=== PATIENT | male | born 1940 | race Caucasian/White ===

== ENCOUNTER → 2017-07-08 10:29 | Outpatient (CLI) | payer OTHER, SELFPAY ==
--- NOTE | 2017-07-08 10:34 | HPBD_ITS ---
STUDY: DUAL ENERGY X-RAY ABSORPTIOMETRY / DXA REASON FOR EXAM: Male, 77 years old. History of prednisone use. Loss of height. TECHNIQUE: Bone Mineral Density (BMD) measurements of lumbar spine and bilateral hips were obtained. COMPARISON: None. FINDINGS: Lumbar Spine (L1-L4): g/cm2 (1.460) / T-score (1.8) / Z-score (2.4) Findings are suggestive of normal bone density with a low fracture risk. Left Femur Total: g/cm2 (0.799) / T-score (-2.1) / Z-score (-1.2) Left Femoral Neck: g/cm2 (0.731) / T-score (-2.6) / Z-score (-1.2) Right Femur Total: g/cm2 (0.892) / T-score (-1.5) / Z-score (-0.6) Right Femoral Neck: g/cm2 (0.744) / T-score (-2.5) / Z-score (-1.1) HPBD/Dexa Bone Density Study (HP) IMPRESSION: The patient is considered osteoporotic as outlined below according to World [place] Organization (WHO) criteria with a high fracture risk. Reference Information: The T-score is the number of standard deviations above or below the standard which is normal for young adults at their peak bone mineral density. The World Health Organization (WHO) interprets the T-scores as follows: Above -1 Normal bone density Between -1 and -2.5 Osteopenia Equal to / or below -2.5 Osteoporosis As a practical clinical guideline, osteopenia may be graded as follows: Mild -1 through -1.5 Moderate -1.6 through -2.0 Severe -2.1 through -2.4 The Z-score is the number of standard deviations above or below age-matched controls. A Z-score of less than -1.5 would be considered abnormal. References: 1. NIH Osteoporosis and Related Bone Diseases http://www.osteo.org 2. International Society for Clinical Densitometry http://www.iscd.org 3. National Osteoporosis Foundation http://www.nof.org Electronically Signed: Demetri Green MD at 11:20 EDT Tel [phone], Service support ,
== END ==
PROVIDERS: Family Provider Internal Medicine; PCP Internal Medicine; Visit Provider Internal Medicine
DX: M81.0 Age-related osteoporosis without current pathological fracture (principal)
CPT/HCPCS: 77080

== ENCOUNTER → 2017-08-05 15:58 | Outpatient (CLI) | payer OTHER, SELFPAY | PROVIDERS: Family Provider Internal Medicine; PCP Internal Medicine; Visit Provider Dermatology | DX: N48.1 Balanitis (principal) | CPT/HCPCS: 87070; 87077; 87186; 87205 ==

== ENCOUNTER → 2018-05-12 12:50 | Outpatient (CLI) | payer OTHER, SELFPAY ==
--- NOTE | 2018-05-12 13:01 | CDU_ITS ---
Reason For Study: carotid stenosis Rt. Velocities/BP Lt. Velocities/BP Prox CCA 82.1/15.8 cm/sec. Prox CCA 95.0/15.8 cm/sec. Mid CCA 85.6/22.3 cm/sec. Mid CCA 81.5/15.8 cm/sec. Dist CCA 87.9/21.1 cm/sec. Dist CCA 62.1/16.4 cm/sec. Prox ICA 52.2/17.0 cm/sec. Prox ICA 56.9/16.4 cm/sec. Mid ICA 85.0/25.8 cm/sec. Mid ICA 55.7/21.7 cm/sec. Dist ICA 84.6/28.5 cm/sec. Dist ICA 81.6/28.7 cm/sec. Rt. ICA/CCA = 1.0. Lt. ICA/CCA = 1.0. Prox ECA 82.7/16.4 cm/sec. Prox ECA 56.9/9.38 cm/sec. Rt. Vert. 38.9/12.2 cm/sec. Lt. Vert. 44.6/14.7 cm/sec. Right Extracranial There is heterogeneous, irregular atherosclerotic plaque noted in the right common carotid artery. There is heterogeneous, irregular atherosclerotic plaque noted in the right internal carotid artery. There is intimal thickening but no significant atherosclerotic plaque noted in the right external carotid artery. Antegrade flow is noted in the right vertebral artery. Left Extracranial There is intimal thickening but no significant atherosclerotic plaque noted in the left common carotid artery. There is intimal thickening but no significant atherosclerotic plaque noted in the left internal carotid artery. There is intimal thickening but no significant atherosclerotic plaque noted in the left external carotid artery. Antegrade flow is noted in the left vertebral artery. Procedure Carotid Duplex [id number]. The exam was diagnostic. Exam performed in department. Interpretation Summary Mild (<50%) stenosis right extracranial internal carotid. No significant atherosclerotic plaque or stenosis noted in the left internal carotid artery. Flow within the vertebral arteries is antegrade bilaterally. Ordering Physician: Daphney Dunn Performed By: Seth Freeman RVT
== END ==
PROVIDERS: Family Provider Internal Medicine; PCP Internal Medicine; Referring Provider Internal Medicine; Visit Provider Internal Medicine
DX: I65.29 Occlusion and stenosis of unspecified carotid artery (principal)
CPT/HCPCS: 93880

== ENCOUNTER → 2018-08-26 | Outpatient (CLI) | payer OTHER, SELFPAY ==
--- NOTE | 2018-08-26 10:28 | STRESSREP_ITS ---
Stress Test Report Date: August 26, 2018 Procedure: Exercise tolerance test/imaging study Indications: Chest pain Consent: Per the patient Procedure: The patient exercised on a Micheal protocol for 4 minutes and 15 seconds achieving a peak heart rate of 144 bpm (100 % predicted maximal heart rate) with a peak blood pressure 200/80 mmHg and a peak MET capacity of 6.1 METs. The baseline ECG demonstrated normal sinus rhythm, frequent PVCs. The peak exercise ECG demonstrated sinus tachycardia, multifocal PACs. EKG during recovery revealed sinus tachycardia, multifocal PACs with return of EKG changes to baseline The functional capacity was considered average for age. There was [no complaint of chest discomfort during exercise or recovery]. The examination was discontinued secondary to dyspnea, leg discomfort. Impression: 1. Technically adequate (percent predicted maximal heart rate greater than 85%) exercise tolerance test 2. Stress test is negative for exercise-induced EKG changes of ischemia 3. The test test negative for exercise-induced chest pain 4. Functional capacity is average for age 5. Nuclear images pending Myocardial perfusion imaging study: Technique: The patient was injected with 14.3 mCi of technetium 99m Cardiolite and subsequently rest SPECT Cardiolite nuclear imaging was obtained in the horizon florencio long, vertical long, and short axis views. The patient exercised on a Micheal protocol for 4 minutes and 15 seconds achieving a peak heart rate of 144 bpm (100 % predicted maximal heart rate) with a peak blood pressure 200/80 mmHg and a peak MET capacity of 6.1 METs. The patient was injected with 43.8 mCi of technetium 99m Cardiolite and subsequently stress SPECT Cardiolite nuclear imaging was obtained in the horizontal long, vertical long, and short axis views. A gated Cardiolite study at peak stress was obtained. Interpretation: Rest and stress SPECT Cardiolite nuclear imaging status post realignment, normalization, and attenuation correction, demonstrates mild decrease in the radioisotope uptake in the apex on both the rest and stress images that persists after attenuation correction. The gated Cardiolite study demonstrates mild apical hypokinesis. These findings could represent prior apical infarction or apical thinning, a normal variant. The reported LVEF is 57 %. Impression: 1. There is no evidence of significant ischemia. 2. The gated Cardiolite study reports an LVEF of 57 %. 3. Mild apical hypokinesis. 4. Possible old apical myocardial infarction. This note was generated with Dragon dictation software. It may contain incorrect words, spelling, and punctuation that were not noted in checking the note before signing.
== END | disposition home or self-care (01) ==
PROVIDERS: Family Provider Internal Medicine; PCP Internal Medicine; Referring Provider Internal Medicine; Visit Provider Internal Medicine
DX: R07.9 Chest pain, unspecified (principal)
CPT/HCPCS: 78452; 93017; A9500; A4216

== ENCOUNTER → 2018-09-07 | Outpatient (CLI) | payer SELFPAY ==
--- NOTE | 2018-09-07 14:31 | CT_ITS ---
STUDY: CARDIAC CALCIUM SCORING - CT CHEST REASON FOR EXAM: Male, 78 years old. Hyperlipidemia RADIATION DOSAGE (If Supplied By Facility): CTDIvol = ( 12.19 ) mGy, DLP = ( 243.79 ) mGycm TECHNIQUE: Axial non-enhanced images were acquired through the heart for the sole purpose of measuring coronary artery calcium. Individualized dose optimization techniques were used for this CT. COMPARISON: None. FINDINGS: Visualized surrounding anatomy: Normal. Left Main Coronary Artery: 0 Left Anterior Descending Artery: 0 Left Circumflex Artery: 104 Right Coronary Artery: 41.3 Incidental findings include small spiculated nodular opacity in left lower lobe measuring approximately 1 cm in size. This may represent scarring although neoplasm is not entirely excluded.. 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 Total Calcium Score: 145 CT/CCTA Calcium Scoring IMPRESSION: A Calcium Score of 145 places the patient in the approximate ,<25 percentile, based on the [place] data calculator. Cannot exclude spiculated nodule versus parenchymal scarring in left lower lobe. Recommend clinical correlation and follow-up study Please go to: [email or web address] , for a description of the calculator. Electronically Signed: Bernabe Guadarrama MD at 16:20 EDT , Service support ,
--- NOTE | 2018-09-07 14:31 | CT_ITS ---
STUDY: CARDIAC CALCIUM SCORING - CT CHEST REASON FOR EXAM: Male, 78 years old. Hyperlipidemia RADIATION DOSAGE (If Supplied By Facility): CTDIvol = ( 12.19 ) mGy, DLP = ( 243.79 ) mGycm TECHNIQUE: Axial non-enhanced images were acquired through the heart for the sole purpose of measuring coronary artery calcium. Individualized dose optimization techniques were used for this CT. COMPARISON: None. FINDINGS: Visualized surrounding anatomy: Normal. Left Main Coronary Artery: 0 Left Anterior Descending Artery: 0 Left Circumflex Artery: 104 Right Coronary Artery: 41.3 Incidental findings include small spiculated nodular opacity in left lower lobe measuring approximately 1 cm in size. This may represent scarring although neoplasm is not entirely excluded.. 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 Total Calcium Score: 145 CT/Limited Chest CT w/CCTA IMPRESSION: A Calcium Score of 145 places the patient in the approximate ,<25 percentile, based on the [place] data calculator. Cannot exclude spiculated nodule versus parenchymal scarring in left lower lobe. Recommend clinical correlation and follow-up study Please go to: [email or web address] , for a description of the calculator. Electronically Signed: Bernabe Guadarrama MD at 16:20 EDT , Service support ,
[2018-09-07 14:46] VITALS: BP 177/75; PULSE 66; RESP 16; O2SAT 95
--- NOTE | 2018-09-07 19:13 | CA.SCORE ---
Calcium Scoring Date of Study:: 09/07/18 Coronary Calcium Scoring: High-resolution Computed Tomographic imaging of the chest was performed on 09-07-18, with particular attention paid to the coronary arteries. Images from the examination were analyzed for the presence and extent of coronary artery calcification , using coronary calcium quantification software. The patient tolerated the procedure well and there were no complications. The results of the coronary calcification analysis are provided below. - Findings Left Main (LM): 0 Left Anterior Descending (LAD): 0 Left Circumflex (LCX): 104 Right Coronary Artery (RCA): 41.3 Total Agatston Score: 145.3 - Conclusion Calcium Scoring Interpretation: Calcium Score Interpretation 0 No identifiable atherosclerotic plaque. Very low cardiovascular disease risk. <5% chance of presence coronary artery disease A Negative Examination 1-10 Minimal Plaque burden. Significant coronary artery disease very unlikely. 11-100 Mild plaque burden. Likely mild or minimal coronary atherosclerosis. 101-400 Moderate plaque burden Moderate non-obstructive coronary artery disease highly likely. Over 400 Extensive plaque burden. High likelihood of at least one significant coronary stenosis (>50% diameter) Calcium Score: 101 - 400 Moderate non-obstructive coronary artery disease highly like - 1. Percentile ranking: Less than 25%: Indicative of less than 25% of the same gender/similar age had the same or lower scores.2. Continue cardiovascular risk factor evaluation and care as deemed appropriate.
== END | disposition home or self-care (01) ==
LOC: CT 14:28
PROVIDERS: Family Provider Internal Medicine; PCP Internal Medicine; Referring Provider Internal Medicine; Visit Provider Internal Medicine
DX: E78.5 Hyperlipidemia, unspecified (principal)
CPT/HCPCS: 75571; 76380

== ENCOUNTER → 2018-12-08 | Outpatient (CLI) | payer OTHER, SELFPAY ==
--- NOTE | 2018-12-08 12:38 | CT_ITS ---
STUDY: CT CHEST WITHOUT CONTRAST REASON FOR EXAM: Male, 78 years old. Lung nodule RADIATION DOSAGE (If Supplied By Facility): DLP = ( 578.18 ) mGycm TECHNIQUE: Transaxial imaging was performed without the administration of intravenous contrast material. Coronal and sagittal reformatted images were created. Individualized dose optimization techniques were used for this CT. COMPARISON: Calcium scoring CT September 07, 2018 FINDINGS: There are no pulmonary infiltrates or pleural effusions. Previously described left lung base nodule measuring 9 mm is unchanged and likely represents scarring. There is a cluster of nodules spanning 2.1 cm in the left lower lobe, new from prior. Mild emphysema is present. There is no pneumothorax. The heart and pericardium are within normal limits. There is no thoracic lymphadenopathy. There is no evidence of thoracic aortic aneurysm. Images through the upper abdomen demonstrate no significant abnormality. There are no destructive osseous lesions. CT/Chest without Contrast IMPRESSION: Stable appearance of previously described left lung base nodule measuring 9 mm, likely representing scarring. 1 year follow-up is suggested. Cluster of nodules spanning 2.1 cm in the left lower lobe, new from prior, likely representing infectious or inflammatory process. Correlate clinically. Mild emphysema. Electronically Signed: Bernabe Fall, at 20:26 EDT Tel , Service support ,
== END | disposition home or self-care (01) ==
LOC: CT 12:37
PROVIDERS: Family Provider Internal Medicine; PCP Internal Medicine; Referring Provider Internal Medicine; Visit Provider Internal Medicine
DX: R91.1 Solitary pulmonary nodule (principal)
CPT/HCPCS: 71250

== ENCOUNTER → 2018-12-22 09:10 | Outpatient (CLI) | payer OTHER, SELFPAY ==
[2018-12-22 10:30] LABS: Protein, Urine (Random) 129.5 mg/dL (<11.9); Protein:Creat Ratio 981 mg/g CRE (0-200)
[2018-12-24 14:16] LABS: Anti-dsDNA Ab 1 IU/mL (0-9)
[2018-12-26 12:08] LABS: Cytoplasmic Ab (C-ANCA) <1:20 titer (Neg:<1:20)
[2019-01-03 11:11] LABS: Complement C3 118 mg/dL (82-167); Perinuclear Ab (P-ANCA) <1:20 titer (Neg:<1:20)
== END ==
PROVIDERS: Family Provider Internal Medicine; PCP Internal Medicine; Referring Provider Internal Medicine Nephrology; Visit Provider Internal Medicine Nephrology
DX: R80.9 Proteinuria, unspecified (principal)
CPT/HCPCS: 36415; 82570; 84156; 86160; 86225; 86256

== ENCOUNTER → 2019-02-09 13:22 | Outpatient (CLI) | payer OTHER, SELFPAY ==
[2019-02-09 14:36] LABS: Erythrocyte Sedimentation Rate 12 mm/hr (0-20)
[2019-02-09 14:55] LABS: CRP 5.28 mg/L (0.0-3.0)
[2019-02-12 03:08] LABS: QNTFERON TB Mitogen Value > 10.00 IU/mL (.); QNTFERON TB Nil Value 0.45 IU/mL (.); QNTFERON TB1+ Ag Value 0.31 IU/mL (.); QNTFERON TB2+ Ag Value 0.35 IU/mL (.)
[2019-02-13 10:37] LABS: QNTIFERON TB Positive Criteria Negative (Negative)
== END ==
PROVIDERS: Family Provider Internal Medicine; PCP Internal Medicine; Referring Provider Internal Medicine Pulmonary Disease; Visit Provider Internal Medicine Pulmonary Disease
DX: R91.8 Other nonspecific abnormal finding of lung field (principal); M25.50 Pain in unspecified joint
CPT/HCPCS: 36415; 85652; 86140; 86480

== ENCOUNTER → 2019-04-20 10:46 | Outpatient (CLI) | payer OTHER, SELFPAY ==
--- NOTE | 2019-04-20 10:49 | RAD_ITS ---
STUDY: X-RAY - UNILATERAL RIBS ( RIGHT ) WITH CHEST REASON FOR EXAM: Male, 78 years old. RIGHT LOWER RIB PAIN AFTER FALL TECHNIQUE - RIBS: 4 view(s) of the ribs. TECHNIQUE - CHEST: Single PA view of the chest. COMPARISON: 06/04/2013. FINDINGS: Mild cardiomegaly. Pulmonary vascularity unremarkable. Aorta slightly ectatic. No focal patchy airspace opacities. Small right pleural effusion. Bibasilar atelectasis/scarring. Upper abdomen unremarkable. Acute mildly displaced right rib fractures involving the eighth and ninth ribs. No pneumothorax. RAD/Ribs Uni Min 3V w/PA Chest IMPRESSION: Acute mildly displaced right rib fractures without pneumothorax Small right pleural effusion No focal patchy airspace opacities Bibasilar atelectasis/scarring Cardiomegaly Electronically Signed: Krish Bryant DO at 11:51 EST Tel , Service support ,
== END ==
PROVIDERS: Family Provider Internal Medicine; PCP Internal Medicine; Referring Provider Internal Medicine; Visit Provider Internal Medicine
DX: R10.9 Unspecified abdominal pain (principal)
CPT/HCPCS: 71101

== ENCOUNTER → 2019-06-15 08:22 | Outpatient (CLI) | payer OTHER, SELFPAY ==
--- NOTE | 2019-06-15 08:29 | CT_ITS ---
STUDY: CT CHEST WITHOUT CONTRAST REASON FOR EXAM: Male, 78 years old. LUNG NODULE, RT RIB FX RADIATION DOSAGE (If Supplied By Facility): CTDIvol = ( 15.70 ) mGy, DLP = ( 616.11 ) mGycm TECHNIQUE: Transaxial imaging was performed without the administration of intravenous contrast material. Individualized dose optimization techniques were used for this CT. COMPARISON: 12/08/2018 FINDINGS: There is no change in a 9 mm noncalcified subpleural nodule in the left lower lobe the lungs on image 99 likely consistent with a scar. Follow-up CT the chest is recommended in 6 months document stability. Other previously described nodules in the subpleural left lower lobe have resolved consistent with resolved subsegmental atelectasis or pneumonitis. No new noncalcified nodule or mass. No change in focal pleural fat surrounding the left lower lobe which may also be related to prior trauma. Normal heart and pericardium. Normal mediastinum. Normal hilar regions. Normal unenhanced pulmonary arteries. Normal aorta arch and descending thoracic aorta. Multiple healed bilateral rib fractures. There is no demonstrated abnormality of the visualized upper abdomen. CT/Chest without Contrast IMPRESSION: 1. No change in 9 mm left lower lobe lung nodule likely consistent with a scar and follow-up CT the chest is recommended in 6 months document stability. 2. Interval resolution of nodules in the medial left lower lobe consistent with resolved subsegmental atelectasis or pneumonitis. Electronically Signed: Bennie Shanks MD at 13:23 EST Tel , Service support ,
== END ==
PROVIDERS: Family Provider Internal Medicine; PCP Internal Medicine; Referring Provider Internal Medicine Pulmonary Disease; Visit Provider Internal Medicine Pulmonary Disease
DX: R91.1 Solitary pulmonary nodule (principal)
CPT/HCPCS: 71250

== ENCOUNTER → 2019-06-30 13:03 | Outpatient (CLI) | payer OTHER, SELFPAY ==
[2019-06-30 14:16] LABS: Anion Gap 7 (5-15); BUN 21 mg/dL (7-18); BUN/Creat Ratio 20.8 RATIO (10-20); Chloride 104 mmol/L (98-107); Creatinine, Serum 1.01 mg/dL (0.70-1.30); EST Glomerular Filtration Rate 76 mL/min (>60); Est Glom Filt Rate - Afr Amer 92 mL/min (>60); Glucose 127 mg/dL (74-106); Magnesium 1.8 mg/dL (1.6-2.6); Potassium 3.6 mmol/L (3.5-5.1); Sodium Level 141 mmol/L (136-145)
[2019-06-30 15:46] LABS: Protein, Urine (Random) 108.9 mg/dL (<11.9); Protein:Creat Ratio 990 mg/g CRE (0-200)
== END ==
PROVIDERS: PCP Internal Medicine; Referring Provider Internal Medicine Nephrology; Visit Provider Internal Medicine Nephrology
DX: E83.42 Hypomagnesemia (principal); R80.9 Proteinuria, unspecified
CPT/HCPCS: 36415; 80048; 82570; 83735; 84156

== ENCOUNTER → 2019-09-25 | Outpatient (CLI) | payer OTHER, SELFPAY ==
[2019-09-25 15:15] LABS: Anion Gap 8 (5-15); BUN 29 mg/dL (7-18); Calcium,Total 9.2 mg/dL (8.5-10.1); Chloride 103 mmol/L (98-107); Creatinine, Serum 1.21 mg/dL (0.70-1.30); EST Glomerular Filtration Rate 62 mL/min (>60); Est Glom Filt Rate - Afr Amer 75 mL/min (>60); Glucose 132 mg/dL (74-106); Magnesium 1.8 mg/dL (1.6-2.6); Protein, Urine (Random) 106.4 mg/dL (<11.9); Protein:Creat Ratio 1440 mg/g CRE (0-200); Sodium Level 140 mmol/L (136-145)
== END | disposition home or self-care (01) ==
LOC: MTLAB 13:04
PROVIDERS: PCP Internal Medicine; Referring Provider Internal Medicine Nephrology; Visit Provider Internal Medicine Nephrology
DX: E83.42 Hypomagnesemia (principal); R80.9 Proteinuria, unspecified
CPT/HCPCS: 36415; 80048; 82570; 83735; 84156

== ENCOUNTER 2019-11-14 08:30 | Outpatient (RCR) | payer OTHER, SELFPAY ==
[2019-11-10 10:46] VITALS: BP 173/75; PULSE 70; RESP 18; TEMP 36.5
--- NOTE | 2019-11-10 14:40 | PCM.WC.HP ---
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 Current Visit: Yes Code(s): L97.812 - Non-pressure chronic ulcer of other part of right lower leg with fat layer exposed (3) Hyperlipidemia Status: Chronic Current Visit: Yes Qualifiers: Hyperlipidemia type: unspecified Qualified Code(s): E78.5 - Hyperlipidemia, unspecified Code(s): E78.5 - Hyperlipidemia, unspecified (4) Hypertension Status: Chronic Current Visit: No Qualifiers: Hypertension type: unspecified Qualified Code(s): I10 - Essential (primary) hypertension Code(s): I10 - Essential (primary) hypertension History of Present Illness Date of Service: 11/10/19 Chief Complaint: nonhealing wound right choudhary s/p traumatic injury History of Wound: Rodo is a 79 yo gentleman who presents to the wound healing center for evaluation and treatment of a nonhealing wound of his right choudhary which occurred approx. 2 months ago when he struck his choudhary against a metal post. The wound was small initially but has gotten larger. He initally was not using any dressings to the wound and was keeping it open to air. He did see his PCP approx. 1 month ago and she debrided the wound and started him on cefdinir for 10 days. He noted minimal improvement. He has been applying antibiotic ointment to the wound and covering it with a band aid. He has not undergone a wound culture that he is aware of at this ppoint. He denies any history of difficult to heal wounds. He denies any problems with edema or circulation. He denies any fever, chills, erythema, nausea, vomiting or other systemic signs of infection. 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) Chronic alcoholism (Chronic) Gastroesophageal reflux disease (Chronic) Hyperlipidemia (Chronic) Hypertension (Chronic) Surgical History: noncontributory Allergies/Adverse Reactions: Allergies azithromycin Allergy (Verified 05/12/13 22:44) Other RINGING EARS shellfish derived Adverse Reaction (Verified 05/12/13 22:44) Unknown CAN'T TOLERATE Home Medications: Ambulatory Orders Medication Instructions Recorded Ibuprofen [Motrin] 200 mg PO Q6 PRN 05/12/13 Omeprazole [Prilosec] 20 mg PO BID 05/13/13 Losartan Potassium [Cozaar] 100 mg PO DAILY #30 tablet 05/30/13 predniSONE tablet 1 mg PO DAILY 06/02/13 Amlodipine [Norvasc] 10 mg PO DAILY 11/10/19 Atorvastatin Calcium [Lipitor] 5 mg PO QHS 11/10/19 Lives: Spouse/ Significant Other Smoking Status: Never smoker Tobacco Use: Non-smoker Alcohol: Occasional Drugs: None Review of Systems Constitutional: Denies: Chills, Fever, Weight Change Eyes: Denies: Pain, Vision Change HEENT: Denies: Difficulty Hearing, Difficulty Swallowing, Sinus Congestion Cardiovascular: Denies: Chest Pain, Palpitations Respiratory: Denies: Cough, Shortness of Breath Gastrointestinal: Denies: Diarrhea, Nausea, Vomiting Genitourinary: Denies: Dysuria, Hematuria Skin: Reports: Wounds Endocrine: Denies: Heat/ Cold Intolerance, Polydipsia, Polyuria Hematologic/ Lymphatic: Denies: Easy Bruising, Easy Bleeding - Physical Exam Vital Signs Temp Pulse Resp BP 97.7 F L 70 18 173/75 H 11/10/19 10:46 11/10/19 10:46 11/10/19 10:46 11/10/19 10:46 General: Alert, Oriented x3, Cooperative, No apparent distress HEENT: Atraumatic, Normocephalic Oral: Moist Mucosa Lungs: Clear to auscultation Cardiovascular: Regular rate, Regular Rhythm Abdomen: Soft, Non Tender, Obese Extremities: No cyanosis, Capillary Refill Less than 3 Seconds, Edema Skin: Ulcer/ Wound Wound Measurements and Assessment WC - Nurse 1 - General Ulcer Measurement Start: 11/10/19 08:45 Freq: Status: Active Protocol: Activity Type Activity Date Activity User E-Sign Co-Sign Detail Recorded Client Recorded Date Recorded By Document 11/10/19 10:46 RB [id number] 11/10/19 10:58 RB 11/10/19 10:46 Wound Center Nurse 1 [Ulcer Assessment] 1. RLE lateral -Combined with other wound No -Current Size (cm) - Length 2.8 -Current Size (cm) - Width 2.8 -Current Size (cm) - Depth 0.2 -Total Square Cm 7.84 -Photo Taken Yes -Tunneling No -Undermining/Tunneling No -Circular Undermining No -Exudate Amt Small -Exudate Type Serosanguineous -Wound Margin Flat & Intact -Granulation Amt Small (1-33%) -Granulation Quality [place] -Slough/Fibrin Yes -Necrosis Amt Large (67-100%) -Necrotic Tissue Type Adherent Slough -Structure Exposed N/A -Texture (Funmi-wound Skin Appearance) Assessed -Moisture (Funmi-wound Skin Appearance Assessed ) -Color (Funmi-wound Skin Appearance) Assessed, Hemosiderin Staining -Temperature (Funmi-wound Skin No Abnormality Appearance) (Pt Warm) -Tenderness on Palpation (Funmi-wound No Skin Appearance) -Ulcer Cleansing Wound Cleanser -Foul Odor after Cleansing No -Anesthetic Used 4% Lidocaine Solution [Edema Assessment] -Lower Limb Edema Present Yes -Right Calf (cm) 35 -Right Ankle (cm) 22.2 -Left Calf (cm) 35 -Left Ankle (cm) 22.5 WC - Nurse 2 - General Ulcer CM Notes Start: 11/10/19 08:45 Freq: Status: Active Protocol: Activity Type Activity Date Activity User E-Sign Co-Sign Detail Recorded Client Recorded Date Recorded By Document 11/10/19 11:38 DV [id number] 11/10/19 11:48 DV 11/10/19 11:38 Wound Center Nurse 2 [Procedure/Treatment] 1. RLE lateral -Time 11:39 -Correct Patient Yes -Correct Side, Site, Position Yes -Correct Procedure Yes -Procedure Performed Yes -Type of Procedure Debridement -Clinical Debridement Subcutaneous -Post Debridement Size (cm) - Length 2.9 -Post Debridement Size (cm) - Width 2.9 -Post Debridement Size (cm) - Depth 0.2 -Total Square (cm) 8.41 -Wound/Ulcer Outcome Not Healed -Ulcer Cleansing Rinsed/ Irrigated with Saline -Foul Odor after Cleansing No -Bioengineered Tissue No -Bleeding Controlled with Pressure -Offloading No -Treatment Response Procedure Tolerated Well [See Physician Procedure note for Specifics] Pain Scale: 0-10 Numeric [Pain] -Is Patient Pain Free? Yes Psych/Mental Status: Normal Affect, Appropriate Debridement Note Post-Debridement Measurements/Treatment WC - Nurse 2 - General Ulcer CM Notes Start: 11/10/19 08:45 Freq: Status: Active Protocol: Activity Type Activity Date Activity User E-Sign Co-Sign Detail Recorded Client Recorded Date Recorded By Document 11/10/19 11:38 DV [id number] 11/10/19 11:48 DV 11/10/19 11:38 Wound Center Nurse 2 1. RLE lateral -Time 11:39 -Correct Patient Yes -Correct Side, Site, Position Yes -Correct Procedure Yes -Procedure Performed Yes -Type of Procedure Debridement -Clinical Debridement Subcutaneous -Post Debridement Size (cm) - Length 2.9 -Post Debridement Size (cm) - Width 2.9 -Post Debridement Size (cm) - Depth 0.2 -Total Square (cm) 8.41 -Wound/Ulcer Outcome Not Healed -Ulcer Cleansing Rinsed/ Irrigated with Saline -Foul Odor after Cleansing No -Bioengineered Tissue No -Bleeding Controlled with Pressure -Offloading No -Treatment Response Procedure Tolerated Well Pain Scale: 0-10 Numeric Is Patient Pain Free? 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 A wound culture was taken to evaluate for infection and he will be treated with antibiotic based on results. He will wash with soap and water and apply job to his wound. He will use hibiclens every other day. He will use compression with tubigrips and elevate his legs when he is seated. He was encouraged to increase his protein intake and take vitamin C supplement to improve wound healing potential. He will call with any increased pain, drainage, erythema or swelling or odor. He will follow up in 1 week.
[2019-11-10 17:48] LABS: M R Staph aureus DNA By PCR Negative (Negative); Probe Check PASS; Specimen Processing Control PASS; Staph aureus DNA By PCR NEGATIVE (Negative)
[2019-11-14 08:24] VITALS: BP 191/99; PULSE 72; RESP 16; TEMP 36.2
--- NOTE | 2019-11-14 09:12 | PCM.WC.HP ---
(1) Wound of lower extremity Status: Chronic Current Visit: Yes Qualifiers: Encounter type: initial encounter Code(s): S81.809A - Unspecified open wound, unspecified lower leg, initial encounter (2) Hyperlipidemia Status: Chronic Current Visit: No Qualifiers: Hyperlipidemia type: unspecified Qualified Code(s): E78.5 - Hyperlipidemia, unspecified Code(s): E78.5 - Hyperlipidemia, unspecified (3) Chronic alcoholism Status: Chronic Current Visit: No Code(s): F10.20 - Alcohol dependence, uncomplicated (4) Gastroesophageal reflux disease Status: Chronic Current Visit: No Code(s): K21.9 - Gastro-esophageal reflux disease without esophagitis (5) Hypertension Status: Chronic Current Visit: No Qualifiers: Hypertension type: unspecified Qualified Code(s): I10 - Essential (primary) hypertension Code(s): I10 - Essential (primary) hypertension History of Present Illness Date of Service: 11/14/19 Chief Complaint: nonhealing wound right choudhary s/p traumatic injury History of Wound: Rodo is a 79 yo gentleman who presents to the wound healing center for evaluation and treatment of a nonhealing wound of his right choudhary which occurred approx. 2 months ago when he struck his choudhary against a metal post. The wound was small initially but has gotten larger. He initally was not using any dressings to the wound and was keeping it open to air. He did see his PCP approx. 1 month ago and she debrided the wound and started him on cefdinir for 10 days. He noted minimal improvement. He has been applying antibiotic ointment to the wound and covering it with a band aid. He has not undergone a wound culture that he is aware of at this ppoint. He denies any history of difficult to heal wounds. He denies any problems with edema or circulation. He denies any fever, chills, erythema, nausea, vomiting or other systemic signs of infection. 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) Wound of lower extremity (Chronic) Chronic alcoholism (Chronic) Gastroesophageal reflux disease (Chronic) Hyperlipidemia (Chronic) Hypertension (Chronic) Surgical History: noncontributory Allergies/Adverse Reactions: Allergies azithromycin Allergy (Verified 05/12/13 22:44) Other RINGING EARS shellfish derived Adverse Reaction (Verified 05/12/13 22:44) Unknown CAN'T TOLERATE Home Medications: Ambulatory Orders Medication Instructions Recorded Ibuprofen [Motrin] 200 mg PO Q6 PRN 05/12/13 Omeprazole [Prilosec] 20 mg PO BID 05/13/13 Losartan Potassium [Cozaar] 100 mg PO DAILY #30 tablet 05/30/13 predniSONE tablet 1 mg PO DAILY 06/02/13 Amlodipine [Norvasc] 10 mg PO DAILY 11/10/19 Atorvastatin Calcium [Lipitor] 5 mg PO QHS 11/10/19 Lives: Spouse/ Significant Other Smoking Status: Never smoker Tobacco Use: Non-smoker Alcohol: Occasional Drugs: None - Physical Exam Vital Signs Temp Pulse Resp BP 97.1 F L 72 16 191/99 H 11/14/19 08:24 11/14/19 08:24 11/14/19 08:24 11/14/19 08:24 General: Alert, Oriented x3, Cooperative, No apparent distress, Well developed, Well nourished, - - The patient is OF normal body habitus HEENT: Atraumatic, PERRLA, EOMI, Normocephalic Oral: Moist Mucosa Neck: No JVD Lungs: Normal air movement Abdomen: Non-Distended Extremities: No clubbing, No cyanosis, No edema, No Calf Tenderness, - - Patient's wound is noted on the right lateral calf. Dimensions are documented elsewhere. The base of the wound demonstrates a large amount of bioburden and nonviable tissue. There is a thin rim of erythema on the skin about the wound. There are no other significant skin changes noted in the lower extremities. There is no significant swelling or edema in the lower extremities. Skin: No rashes Wound Measurements and Assessment WC - Nurse 1 - General Ulcer Measurement Start: 11/10/19 08:45 Freq: Status: Active Protocol: Activity Type Activity Date Activity User E-Sign Co-Sign Detail Recorded Client Recorded Date Recorded By Document 11/14/19 08:24 [facility] [id number] 11/14/19 08:31 [facility] 11/14/19 08:24 Wound Center Nurse 1 [Ulcer Assessment] 1. RLE lateral -Combined with other wound No -Current Size (cm) - Length 3.5 -Current Size (cm) - Width 2.8 -Current Size (cm) - Depth 0.3 -Total Square Cm 9.80 -Photo Taken No -Epithelialization None Present -Tunneling No -Undermining/Tunneling No -Circular Undermining No -Exudate Amt Small -Exudate Type Serosanguineous -Wound Margin Distinct, Outline Attached -Granulation Amt Small (1-33%) -Granulation Quality Red -Slough/Fibrin Yes -Necrosis Amt Large (67-100%) -Necrotic Tissue Type Adherent Slough -Texture (Funmi-wound Skin Appearance) Assessed, Scarring -Moisture (Funmi-wound Skin Appearance Assessed ) -Color (Funmi-wound Skin Appearance) Assessed, Erythema -Temperature (Funmi-wound Skin No Abnormality Appearance) (Pt Warm) -Tenderness on Palpation (Funmi-wound Yes Skin Appearance) -Ulcer Cleansing Rinsed/ Irrigated with Saline -Foul Odor after Cleansing No -Anesthetic Used 4% Lidocaine Solution [Edema Assessment] -Lower Limb Edema Present Yes -Right Calf (cm) 34.6 -Right Ankle (cm) 23.2 WC - Nurse 2 - General Ulcer CM Notes Start: 11/10/19 08:45 Freq: Status: Active Protocol: Activity Type Activity Date Activity User E-Sign Co-Sign Detail Recorded Client Recorded Date Recorded By Document 11/14/19 09:01 DV [id number] 11/14/19 09:04 DV 11/14/19 09:01 Wound Center Nurse 2 [Procedure/Treatment] 1. RLE lateral -Time 09:01 -Correct Patient Yes -Correct Side, Site, Position Yes -Correct Procedure No -Procedure Performed No -Post Debridement Size (cm) - Length 3.1 -Post Debridement Size (cm) - Width 3.0 -Post Debridement Size (cm) - Depth 0.2 -Total Square (cm) 9.30 -Wound/Ulcer Outcome Not Healed -Ulcer Cleansing Rinsed/ Irrigated with Saline -Foul Odor after Cleansing No -Bioengineered Tissue No -Bleeding Controlled with NA -Offloading No [See Physician Procedure note for Specifics] Pain Scale: 0-10 Numeric [Pain] -Is Patient Pain Free? Yes Musculoskeletal: No Muscle Wasting Neurological: Cranial nerves II-XII grossly intact, Neuro grossly intact Psych/Mental Status: Normal Affect, Appropriate, Alert and oriented to time, place, person, mood and affect Debridement Note Post-Debridement Measurements/Treatment WC - Nurse 2 - General Ulcer CM Notes Start: 11/10/19 08:45 Freq: Status: Active Protocol: Activity Type Activity Date Activity User E-Sign Co-Sign Detail Recorded Client Recorded Date Recorded By Document 11/10/19 11:38 DV [id number] 11/10/19 11:48 DV Document 11/14/19 09:01 DV [id number] 11/14/19 09:04 DV 11/10/19 11/14/19 11:38 09:01 Wound Center Nurse 2 1. RLE lateral -Time 11:39 09:01 -Correct Patient Yes Yes -Correct Side, Site, Position Yes Yes -Correct Procedure Yes No -Procedure Performed Yes No -Type of Procedure Debridement -Clinical Debridement Subcutaneous -Post Debridement Size (cm) - Length 2.9 3.1 -Post Debridement Size (cm) - Width 2.9 3.0 -Post Debridement Size (cm) - Depth 0.2 0.2 -Total Square (cm) 8.41 9.30 -Wound/Ulcer Outcome Not Healed Not Healed -Ulcer Cleansing Rinsed/ Rinsed/ Irrigated with Irrigated with Saline Saline -Foul Odor after Cleansing No No -Bioengineered Tissue No No -Bleeding Controlled with Pressure NA -Offloading No No -Treatment Response Procedure Tolerated Well Pain Scale: 0-10 Numeric Is Patient Pain Free? Yes Yes No debridement was completed today - Debridement was performed only 4-5 days previously, and is anticipated to be performed again later this week. 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 A wound culture was taken to evaluate for infection and he will be treated with antibiotic based on results. He will wash with soap and water and apply amy to his wound. He will use hibiclens every other day. He will use compression with tubigrips and elevate his legs when he is seated. He was encouraged to increase his protein intake and take vitamin C supplement to improve wound healing potential. He will call with any increased pain, drainage, erythema or swelling or odor. He will follow up in 1 week. 11/14/2019 - The above documented assessment and plan is as per Dr. Lopez at her last patient visit, only several days ago. It has been ascertained that the patient's recent wound cultures are negative. In discussing matters thoroughly with the patient and his , they indicate that the wound was traumatic in origin. It did not occur spontaneously. Patient has been using Amy topically, as well as an [id number] product, Salonpas with Lidocaine. It is my intention to discuss the patient's management in detail with Dr. Lopez. However, in the short-term, we are to make some adjustments in the patient's management. He has been discouraged from using the topical analgesic. Instead, he has been encouraged to use an iqnl-ekn-esmotrz product such as acetaminophen or ibuprofen, as needed. Given the large amount of nonviable and necrotic tissue on the wound surface, we are to prescribe collagenase Santyl, which will be applied topically on a daily basis. The patient and his are to be instructed in the appropriate means of application. It is noted that the patient does not have recent diagnostic laboratory studies, nor a noninvasive lower extremity arterial study. We are to arrange for the patient to undergo laboratory assessment, which will include a CBC, comprehensive metabolic profile, and serum prealbumin. A noninvasive lower extremity arterial study will be scheduled for the near future as well. These diagnostic studies will allow for assessment of the patient's nutrition, possible anemia, arterial status, and other factors that may affect wound healing potential. The patient is to remain under the care of Dr. Lopez, with anticipation that he will follow-up with her later this week. Serial mechanical debridements, in conjunction with enzymatic debridements, would be expected to read the wound surface of the nonviable and necrotic tissue which is currently present. This will be monitored serially, and adjustments made in the patient's management based upon the patient's ongoing clinical course. The patient had been referred for consideration of biopsy, but the traumatic nature of the patient's wound suggest that tissue biopsy is not, at present, and urgent matter. It may be worthy of consideration at a date in the near future, if current conservative treatment measures fail to result in clinical improvement. As mentioned, the patient will return later this week for reevaluation by Dr. Lopez, with whom he is already established. The patient and his have been thoroughly informed of the current plan of treatment, and appears satisfied with current recommendations.
[2019-11-14 11:25] LABS: Hematocrit 41.1 % (40-54); Hemoglobin 13.4 g/dL (13.0-16.5); Mean Corp Hgb Conc 32.6 g/dL (32-36); Mean Corpuscular Hgb 31.5 pg (27.0-32.0); Mean Corpuscular Volume 96.7 fL (80-94); Mean Platelet Vol. 11.5 fl (6.2-12.0); Platelet Count 191 K/mm3 (150-450); RBC Distribution Width CV 13.6 % (11.6-14.6); RBC Distribution Width SD 48.1 fl (35.1-43.9); Red Blood Count 4.25 M/mm3 (4.6-6.2); White Blood Count 9.4 K/mm3 (4.4-11.0)
[2019-11-14 11:39] LABS: ALB/GLOB Ratio 0.9 RATIO (0.9-2.4); AST(SGOT) 16 U/L (15-37); Alanine Aminotransfer ALT/SGPT 31 U/L (16-61); Albumin, Serum 3.2 g/dL (3.2-5.0); Alkaline Phosphatase 85 U/L (45-117); Anion Gap 3 (5-15); BUN 44 mg/dL (7-18); BUN/Creat Ratio 35.5 RATIO (10-20); Calcium,Total 9.3 mg/dL (8.5-10.1); Chloride 107 mmol/L (98-107); Creatinine, Serum 1.24 mg/dL (0.70-1.30); EST Glomerular Filtration Rate 60 mL/min (>60); Est Glom Filt Rate - Afr Amer 73 mL/min (>60); Estimated Creatinine Clearance 46.64 ml/min; Globulin 3.4 g/dL (2.2-4.2); Glucose 115 mg/dL (74-106); Potassium 3.9 mmol/L (3.5-5.1); Protein, Total 6.6 g/dL (6.4-8.2); Sodium Level 138 mmol/L (136-145)
[2019-11-17 10:01] VITALS: BP 180/89; PULSE 74; RESP 16; TEMP 35.9
--- NOTE | 2019-11-17 15:11 | PCM.WC.PN ---
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 Code(s): T14.8XXA - Other injury of unspecified body region, initial encounter (2) Ulcer of right choudhary with fat layer exposed Status: Chronic Code(s): L97.812 - Non-pressure chronic ulcer of other part of right lower leg with fat layer exposed (3) Hyperlipidemia Status: Chronic Qualifiers: Hyperlipidemia type: unspecified Qualified Code(s): E78.5 - Hyperlipidemia, unspecified Code(s): E78.5 - Hyperlipidemia, unspecified (4) Hypertension Status: Chronic Qualifiers: Hypertension type: unspecified Qualified Code(s): I10 - Essential (primary) hypertension Code(s): I10 - Essential (primary) hypertension Type of Wound Date of Service: 11/17/19 Chief Complaint: nonhealing wound right choudhary s/p traumatic injury History of Wound: Rodo is a 79 yo gentleman who presents to the wound healing center for evaluation and treatment of a nonhealing wound of his right choudhary which occurred approx. 2 months ago when he struck his choudhary against a metal post. The wound was small initially but has gotten larger. He initally was not using any dressings to the wound and was keeping it open to air. He did see his PCP approx. 1 month ago and she debrided the wound and started him on cefdinir for 10 days. He noted minimal improvement. He has been applying antibiotic ointment to the wound and covering it with a band aid. He has not undergone a wound culture that he is aware of at this ppoint. He denies any history of difficult to heal wounds. He denies any problems with edema or circulation. He denies any fever, chills, erythema, nausea, vomiting or other systemic signs of infection. Progress of Wound: Rodo is here for follow up of nonhealing wound to his right choudhary. He saw Dr. Jain on Wednesday due to concerns for need for biopsy of wound. He was changed to Santyl. He has been tolerating Santyl dressings. There has not been increased erythema or drainage. He still has moderate drainage and pain of his ulcer. His wound culture was negative for infection. - Physical Exam Vital Signs Temp Pulse Resp BP 96.7 F L 74 16 180/89 H 11/17/19 10:11/17/19 10:01 11/17/19 10:01 11/17/19 10:01 General: Alert, Oriented x3, Cooperative, No apparent distress HEENT: Atraumatic, Normocephalic Oral: Moist Mucosa Neck: Supple Abdomen: Obese Extremities: Edema Skin: Ulcer/ Wound Wound Measurements and Assessment WC - Nurse 1 - General Ulcer Measurement Start: 11/10/19 08:45 Freq: Status: Active Protocol: Activity Type Activity Date Activity User E-Sign Co-Sign Detail Recorded Client Recorded Date Recorded By Document 11/17/19 10:01 BM [id number] 11/17/19 10:04 BM 11/17/19 10:01 Wound Center Nurse 1 [Ulcer Assessment] 1. RLE lateral -Combined with other wound No -Current Size (cm) - Length 3.9 -Current Size (cm) - Width 2.7 -Current Size (cm) - Depth 0.2 -Total Square Cm 10.53 -Photo Taken No -Epithelialization None Present -Tunneling No -Undermining/Tunneling No -Circular Undermining No -Exudate Amt Small -Exudate Type Serosanguineous -Wound Margin Distinct, Outline Attached -Granulation Amt Small (1-33%) -Granulation Quality Red -Slough/Fibrin Yes -Necrosis Amt Large (67-100%) -Necrotic Tissue Type Adherent Slough -Texture (Funmi-wound Skin Appearance) Assessed -Moisture (Funmi-wound Skin Appearance Assessed ) -Color (Funmi-wound Skin Appearance) Assessed, Erythema -Temperature (Funmi-wound Skin No Abnormality Appearance) (Pt Warm) -Tenderness on Palpation (Funmi-wound Yes Skin Appearance) -Ulcer Cleansing Rinsed/ Irrigated with Saline -Foul Odor after Cleansing No -Anesthetic Used 4% Lidocaine Solution [Edema Assessment] -Lower Limb Edema Present Yes -Right Calf (cm) 34.3 -Right Ankle (cm) 21.2 WC - Nurse 2 - General Ulcer CM Notes Start: 11/10/19 08:45 Freq: Status: Active Protocol: Activity Type Activity Date Activity User E-Sign Co-Sign Detail Recorded Client Recorded Date Recorded By Document 11/17/19 10:09 MW [id number] 11/17/19 10:22 MW 11/17/19 10:09 Wound Center Nurse 2 [Procedure/Treatment] 1. RLE lateral -Time 10:11 -Correct Patient Yes -Correct Side, Site, Position Yes -Correct Procedure Yes -Procedure Performed Yes -Type of Procedure Debridement -Clinical Debridement Subcutaneous -Post Debridement Size (cm) - Length 4.0 -Post Debridement Size (cm) - Width 3.0 -Post Debridement Size (cm) - Depth 0.2 -Total Square (cm) 12.00 -Wound/Ulcer Outcome Not Healed -Ulcer Cleansing Rinsed/ Irrigated with Saline -Foul Odor after Cleansing No -Bioengineered Tissue No -Bleeding Controlled with Pressure -Offloading No -Treatment Response Procedure Tolerated Well [See Physician Procedure note for Specifics] Pain Scale: 0-10 Numeric [Pain] -Is Patient Pain Free? Yes Psych/Mental Status: Normal Affect, Appropriate Debridement Note Post-Debridement Measurements/Treatment WC - Nurse 2 - General Ulcer CM Notes Start: 11/10/19 08:45 Freq: Status: Active Protocol: Activity Type Activity Date Activity User E-Sign Co-Sign Detail Recorded Client Recorded Date Recorded By Document 11/10/19 11:38 DV [id number] 11/10/19 11:48 DV Document 11/14/19 09:01 DV [id number] 11/14/19 09:04 DV Document 11/17/19 10:09 MW [id number] 11/17/19 10:22 MW 11/10/19 11/14/19 11/17/19 11:38 09:01 10:09 Wound Center Nurse 2 1. RLE lateral -Time 11:39 09:01 10:11 -Correct Patient Yes Yes Yes -Correct Side, Site, Position Yes Yes Yes -Correct Procedure Yes No Yes -Procedure Performed Yes No Yes -Type of Procedure Debridement Debridement -Clinical Debridement Subcutaneous Subcutaneous -Post Debridement Size (cm) - Length 2.9 3.1 4.0 -Post Debridement Size (cm) - Width 2.9 3.0 3.0 -Post Debridement Size (cm) - Depth 0.2 0.2 0.2 -Total Square (cm) 8.41 9.30 12.00 -Wound/Ulcer Outcome Not Healed Not Healed Not Healed -Ulcer Cleansing Rinsed/ Rinsed/ Rinsed/ Irrigated with Irrigated with Irrigated with Saline Saline Saline -Foul Odor after Cleansing No No No -Bioengineered Tissue No No No -Bleeding Controlled with Pressure NA Pressure -Offloading No No No -Treatment Response Procedure Procedure Tolerated Well Tolerated Well Pain Scale: 0-10 Numeric Is Patient Pain Free? Yes Yes Yes Wound debrided: right choudhary Laterality: Right Type of Debridement: Excisional debridement Anesthesia Used: 4% Lidocaine Solution Depth: Down to and including healthy tissue, in the subcutaneous layer Percentage of wound debrided: 100 Instrument Used: 5mm curette Tissue Removed: Yellow slough, devitalized tissue Severity: Fat Layer Exposed Amount of bleeding with debridement: Mild Bleeding Controlled with: Compression and gauze Patient tolerated procedure well Assessment/Plan Assessment: nonhealing wound of right choudhary due to trauma complicated by suspected venous stasis Plan: Rodo's wound was evaluated and debrided today as above. He will wash with soap and water and apply Santyl to his wound daily. He will wash with hibiclens every other day. He will use compression with tubigrips and elevate his legs when he is seated. He was encouraged to increase his protein intake and take vitamin C supplement to improve wound healing potential. Will consider biopsy of his wound if there continues to be lack of improvement in the next several weeks. He will call with any increased pain, drainage, erythema or swelling or odor. He will follow up in 1 week.
== END 2019-11-17 23:59 ==
LOC: WC 08:30
PROVIDERS: PCP Internal Medicine; Referring Provider Family Medicine; Visit Provider Family Medicine
DX: L97.812 Non-pressure chronic ulcer of other part of right lower leg with fat layer exposed (principal); E78.5 Hyperlipidemia, unspecified; I10 Essential (primary) hypertension; K21.9 Gastro-esophageal reflux disease without esophagitis; F10.20 Alcohol dependence, uncomplicated; Z79.899 Other long term (current) drug therapy; Z79.52 Long term (current) use of systemic steroids; S80.811S Abrasion, right lower leg, sequela; W22.09XS Striking against other stationary object, sequela
CPT/HCPCS: 11042; 80053; 84134; 85027; 87070; 87075; 87205; 87640; 99213; G0463

== ENCOUNTER → 2019-11-17 10:48 | Outpatient (CLI) | payer OTHER, SELFPAY ==
--- NOTE | 2019-11-17 10:54 | ART_ITS ---
Reason For Study: WOUND Procedure A bilateral lower extremity continuous wave Doppler with analog waveform analysis,segmental pressures,and ankle brachial indexes without exercise. Left Segmental Pressures Left brachial= 142mmHg. Left posterior tibial artery = 179mmHg. Left dorsalis pedis artery = 154mmHg. Left digit = 131 mmHg. The left posterior tibial artery waveforms are triphasic. The left dorsalis pedis waveforms are biphasic. Right Segmental Pressures Right brachial= 143mmHg. Right posterior tibial artery = 177mmHg. Right dorsalis pedis artery = 106mmHg. Right digit = 129 mmHg. The right posterior tibial artery waveforms are triphasic. The right dorsalis pedis waveforms are biphasic. Indices The right ankle brachial index by the dorsalis pedis is .74. The right ankle brachial index by the posterior tibial artery is 1.24. The right digital-brachial index is .9. The left ankle brachial index by the dorsalis pedis is 1.08. The left ankle brachial index by the posterior tibial artery is 1.25. The left digital-brachial index is .92. Interpretation Summary Triphasic and biphasic Doppler waveforms are noted at ankle level bilaterally. Pulse-volume recordings appear satisfactory at all levels bilaterally, including low-thigh, calf, ankle, and digital levels. Resting ankle-brachial indices are normal bilaterally. Digital-brachial indices are normal bilaterally. There is no evidence of significant arterial occlusive disease in the lower extremities bilaterally. Ordering Physician: Daphney Dunn Referring Physician: Daphney Dunn Performed By: HERIBERTO MELENDEZ RDCS
== END ==
PROVIDERS: PCP Internal Medicine; Referring Provider Internal Medicine; Visit Provider Internal Medicine
DX: S81.801A Unspecified open wound, right lower leg, initial encounter (principal)
CPT/HCPCS: 93923

== ENCOUNTER → 2019-12-14 12:40 | Outpatient (CLI) | payer MEDICARE, SELFPAY ==
--- NOTE | 2019-12-14 12:43 | CT_ITS ---
STUDY: CT CHEST WITHOUT CONTRAST REASON FOR EXAM: Male, 79 years old. 1 YEAR F/U TO LUNG NODULE RADIATION DOSAGE (If Supplied By Facility): CTDIvol = ( 14.53 ) mGy, DLP = ( 551.41 ) mGycm TECHNIQUE: Transaxial imaging was performed without the administration of intravenous contrast material. Multiplanar coronal and sagittal images were reformatted. Individualized dose optimization techniques were used for this CT. COMPARISON: Comparison is made with prior study dated 12/08/2018. 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 Hyperinflation. Stable mild scarring in the posterior medial segment of the left lower lobe. Stable focal scarring in the lateral aspect of the left lower lobe as seen on axial image #164. There is no demonstrated pleural abnormality. There are calcifications of the coronary arteries. There are multiple small lymph nodes within the mediastinum, which are normal in size and morphology most compatible with reactive lymph hyperplasia. Normal hilar regions. Normal unenhanced pulmonary arteries. There is atherosclerotic calcification of the aortic arch with tortuosity and elongation of the aortic arch and descending thoracic aorta. There are degenerative changes of the thoracic spine. There is no demonstrated abnormality of the visualized upper abdomen. CT/Chest without Contrast IMPRESSION: Stable examination suggests of scarring in the lower lobe with a focal infiltration of the left hemidiaphragm. Electronically Signed: Demetri Green, at 13:49 EDT , Service support ,
== END ==
PROVIDERS: PCP Internal Medicine; Referring Provider Internal Medicine Pulmonary Disease; Visit Provider Internal Medicine Pulmonary Disease
DX: R91.1 Solitary pulmonary nodule (principal)
CPT/HCPCS: 71250

== ENCOUNTER 2019-12-15 09:30 | Outpatient (RCR) | payer MEDICARE, SELFPAY ==
[2019-11-18 00:42] VITALS: BP 180/89; PULSE 74; RESP 16; TEMP 35.9
[2019-11-24 09:50] VITALS: BP 170/83; PULSE 69; RESP 16; TEMP 36.2
[2019-12-01 09:34] VITALS: BP 166/80; PULSE 68; RESP 18; TEMP 36.1
--- NOTE | 2019-12-01 19:06 | PCM.WC.PN ---
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 2 months ago when he struck his choudhary against a metal post. The wound was small initially but has gotten larger. He initally was not using any dressings to the wound and was keeping it open to air. He did see his PCP approx. 1 month ago and she debrided the wound and started him on cefdinir for 10 days. He noted minimal improvement. He has been applying antibiotic ointment to the wound and covering it with a band aid. He has not undergone a wound culture that he is aware of at this ppoint. He denies any history of difficult to heal wounds. He denies any problems with edema or circulation. He denies any fever, chills, erythema, nausea, vomiting or other systemic signs of infection. Progress of Wound: Rodo is here for follow up of nonhealing wound to his right choudhary. He has been tolerating Santyl dressings. There has not been increased erythema or drainage. He still has moderate drainage and pain of his ulcer. His wound culture on 11/10/2019 was negative for infection. - Physical Exam Vital Signs Temp Pulse Resp BP 97 F L 68 18 166/80 H 12/01/19 09:34 12/01/19 09:34 12/01/19 09:34 12/01/19 09:34 General: Alert, Oriented x3, Cooperative, No apparent distress HEENT: Atraumatic, Normocephalic Extremities: Edema Skin: Ulcer/ Wound Wound Measurements and Assessment WC - Nurse 1 - General Ulcer Measurement Start: 11/24/19 09:50 Freq: Status: Active Protocol: Activity Type Activity Date Activity User E-Sign Co-Sign Detail Recorded Client Recorded Date Recorded By Document 12/01/19 09:34 RB [id number] 12/01/19 09:44 RB 12/01/19 09:34 Wound Center Nurse 1 [Ulcer Assessment] 1. RLE lateral -Combined with other wound No -Current Size (cm) - Length 4.3 -Current Size (cm) - Width 3.2 -Current Size (cm) - Depth 0.2 -Total Square Cm 13.76 -Tunneling No -Undermining/Tunneling No -Circular Undermining No -Exudate Amt Small -Exudate Type Serosanguineous -Wound Margin Flat & Intact -Granulation Amt Medium (34-66%) -Granulation Quality [place],Red -Slough/Fibrin Yes -Necrosis Amt Small (1-33%) -Necrotic Tissue Type Adherent Slough -Structure Exposed N/A -Texture (Funmi-wound Skin Appearance) Assessed -Moisture (Funmi-wound Skin Appearance Assessed ) -Color (Funmi-wound Skin Appearance) Assessed -Temperature (Funmi-wound Skin No Abnormality Appearance) (Pt Warm) -Tenderness on Palpation (Funmi-wound No Skin Appearance) -Ulcer Cleansing Wound Cleanser -Foul Odor after Cleansing No -Anesthetic Used 4% Lidocaine Solution [Edema Assessment] -Lower Limb Edema Present Yes -Right Calf (cm) 36 -Right Ankle (cm) 22 WC - Nurse 2 - General Ulcer CM Notes Start: 11/24/19 09:50 Freq: Status: Active Protocol: Activity Type Activity Date Activity User E-Sign Co-Sign Detail Recorded Client Recorded Date Recorded By Document 12/01/19 09:55 MW [id number] 12/01/19 10:08 MW 12/01/19 09:55 Wound Center Nurse 2 [Procedure/Treatment] 1. RLE lateral -Time 09:55 -Correct Patient Yes -Correct Side, Site, Position Yes -Correct Procedure Yes -Procedure Performed Yes -Type of Procedure Debridement -Clinical Debridement Subcutaneous -Post Debridement Size (cm) - Length 4.5 -Post Debridement Size (cm) - Width 3.0 -Post Debridement Size (cm) - Depth 0.2 -Total Square (cm) 13.50 -Wound/Ulcer Outcome Not Healed -Ulcer Cleansing Rinsed/ Irrigated with Saline -Foul Odor after Cleansing No -Bioengineered Tissue No -Bleeding Controlled with Pressure -Offloading No -Treatment Response Procedure Tolerated Well [See Physician Procedure note for Specifics] Pain Scale: 0-10 Numeric [Pain] -Is Patient Pain Free? Yes Psych/Mental Status: Normal Affect, Appropriate Debridement Note Post-Debridement Measurements/Treatment WC - Nurse 2 - General Ulcer CM Notes Start: 11/24/19 09:50 Freq: Status: Active Protocol: Activity Type Activity Date Activity User E-Sign Co-Sign Detail Recorded Client Recorded Date Recorded By Document 12/01/19 09:55 MW [id number] 12/01/19 10:08 MW 12/01/19 09:55 Wound Center Nurse 2 1. RLE lateral -Time 09:55 -Correct Patient Yes -Correct Side, Site, Position Yes -Correct Procedure Yes -Procedure Performed Yes -Type of Procedure Debridement -Clinical Debridement Subcutaneous -Post Debridement Size (cm) - Length 4.5 -Post Debridement Size (cm) - Width 3.0 -Post Debridement Size (cm) - Depth 0.2 -Total Square (cm) 13.50 -Wound/Ulcer Outcome Not Healed -Ulcer Cleansing Rinsed/ Irrigated with Saline -Foul Odor after Cleansing No -Bioengineered Tissue No -Bleeding Controlled with Pressure -Offloading No -Treatment Response Procedure Tolerated Well Pain Scale: 0-10 Numeric Is Patient Pain Free? Yes Wound debrided: right choudhary Laterality: Right Type of Debridement: Excisional debridement Anesthesia Used: 4% Lidocaine Solution, 5% Lidocaine Gel Depth: Down to and including healthy tissue, in the subcutaneous layer Percentage of wound debrided: 100 Instrument Used: #15 blade, Forceps Tissue Removed: yellow slough, devitalized tissue Severity: Fat Layer Exposed Amount of bleeding with debridement: Mild Bleeding Controlled with: Compression and gauze Patient tolerated procedure well Assessment/Plan Active Problems 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 He will wash with soap and water and apply Santyl to his wound daily and will then apply Hydrofera Blue to help with heavy drainage from his ulcer/wound. He will use compression with tubigrips and elevate his legs when he is seated. He was encouraged to increase his protein intake and take vitamin C supplement to improve wound healing potential. Will consider biopsy of his wound if there continues to be lack of improvement in the next week. He will call with any increased pain, drainage, erythema or swelling or odor. He will follow up in 1 week.
[2019-12-08 10:07] VITALS: BP 158/85; PULSE 78; RESP 18; TEMP 36.2
--- NOTE | 2019-12-08 14:20 | PN.PCM_ITS ---
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 2 months ago when he struck his choudhary against a metal post. The wound was small initially but has gotten larger. He initally was not using any dressings to the wound and was keeping it open to air. He did see his PCP approx. 1 month ago and she debrided the wound and started him on cefdinir for 10 days. He noted minimal improvement. He has been applying antibiotic ointment to the wound and covering it with a band aid. He has not undergone a wound culture that he is aware of at this ppoint. He denies any history of difficult to heal wounds. He denies any problems with edema or circulation. He denies any fever, chills, erythema, nausea, vomiting or other systemic signs of infection. Progress of Wound: Rodo is here for follow up of nonhealing wound to his right choudhary. He has been tolerating Santyl dressings and Hydrofera Blue. There has not been increased erythema or drainage. He still has moderate to heavy drainage and pain of his ulcer. His wound culture on 11/10/2019 was negative for infection. - Physical Exam Vital Signs Temp Pulse Resp BP 97.2 F L 78 18 158/85 H 12/08/19 10:07 12/08/19 10:07 12/08/19 10:07 12/08/19 10:07 General: Alert, Oriented x3, Cooperative, No apparent distress HEENT: Atraumatic, Normocephalic Oral: Moist Mucosa Abdomen: Obese Extremities: Edema Skin: Ulcer/ Wound Wound Measurements and Assessment WC - Nurse 1 - General Ulcer Measurement Start: 11/24/19 09:50 Freq: Status: Active Protocol: Activity Type Activity Date Activity User E-Sign Co-Sign Detail Recorded Client Recorded Date Recorded By Document 12/08/19 10:07 RB [id number] 12/08/19 10:10 RB 12/08/19 10:07 Wound Center Nurse 1 [Ulcer Assessment] 1. RLE lateral -Combined with other wound No -Current Size (cm) - Length 5 -Current Size (cm) - Width 3 -Current Size (cm) - Depth 0.1 -Total Square Cm 15 -Tunneling No -Undermining/Tunneling No -Circular Undermining No -Exudate Amt Small -Exudate Type Serosanguineous -Wound Margin Flat & Intact -Granulation Amt Medium (34-66%) -Granulation Quality [place] -Slough/Fibrin Yes -Necrosis Amt Small (1-33%) -Necrotic Tissue Type Adherent Slough -Structure Exposed N/A -Texture (Funmi-wound Skin Appearance) Assessed, Scarring -Moisture (Funmi-wound Skin Appearance Assessed ) -Color (Funmi-wound Skin Appearance) Not Assessed -Temperature (Funmi-wound Skin No Abnormality Appearance) (Pt Warm) -Tenderness on Palpation (Funmi-wound No Skin Appearance) -Ulcer Cleansing Wound Cleanser -Foul Odor after Cleansing No -Anesthetic Used 4% Lidocaine Solution [Edema Assessment] -Lower Limb Edema Present Yes -Right Calf (cm) 34.2 -Right Ankle (cm) 22 WC - Nurse 2 - General Ulcer CM Notes Start: 12/05/19 20:18 Freq: Status: Active Protocol: Activity Type Activity Date Activity User E-Sign Co-Sign Detail Recorded Client Recorded Date Recorded By Document 12/08/19 10:23 MW [id number] 12/08/19 10:32 MW 12/08/19 10:23 Wound Center Nurse 2 [Procedure/Treatment] 1. RLE lateral -Time 10:23 -Correct Patient Yes -Correct Side, Site, Position Yes -Correct Procedure Yes -Procedure Performed Yes -Type of Procedure Debridement -Clinical Debridement Subcutaneous -Tissue Removed Subcutaneous -Post Debridement (cm) - Length 4.8 -Post Debridement (cm) - Width 3.1 -Post Debridement (cm) - Depth 0.1 -Total Square (Post) (cm) 14.88 -Area of Debridement (cm) - Length 4.8 -Area of Debridement (cm) - Width 3.1 -Total Square (Area) (cm) 14.88 -Tunneling No -Undermining/Tunneling No -Circular Undermining No -Wound/Ulcer Outcome Not Healed -Ulcer Cleansing Rinsed/ Irrigated with Saline -Foul Odor after Cleansing No -Bioengineered Tissue No -Bleeding Controlled with Pressure -Offloading No -Debridement - Subq, 1st 20sq cm Yes [See Physician Procedure note for Specifics] Pain Scale: 0-10 Numeric [Pain] -Is Patient Pain Free? Yes - Nurse 3 - General Ulcer D/C NN Start: 12/05/19 20:18 Freq: Status: Active Protocol: Activity Type Activity Date Activity User E-Sign Co-Sign Detail Recorded Client Recorded Date Recorded By Document 12/08/19 10:39 RB [id number] 12/08/19 10:42 RB 12/08/19 10:39 Wound Care Nurse 3 [Wound Dressing] 1. RLE lateral -Ulcer Cleansing Wound Cleanser -Primary Dressing Applied Hydrofera Blue Foam -Other Dressing hydrogel then hydrofera blue -Primary Dressing Covered/Secured Dry Gauze & with Roll Gauze, Other -Other Covering hydrogel and hydrofera blue -Hydrofera Blue Foam 3 [Compression Applied] Right -Other single tubigrip [Post Procedure Tolerated] -Treatment Response Procedure Tolerated Well Pain Scale: 0-10 Numeric [Pain] -Is Patient Pain Free? Yes - Visit Discharge [Visit Discharge Information] -Discharge Condition Stable -Ambulatory Status Ambulatory -Transportation Private Auto -Medication Reconcilliation completed No & provided to patient/care provider -Clinical Summary of Care Provided Yes Psych/Mental Status: Normal Affect, Appropriate Debridement Note Post-Debridement Measurements/Treatment - Nurse 2 - General Ulcer CM Notes Start: 12/05/19 20:18 Freq: Status: Active Protocol: Activity Type Activity Date Activity User E-Sign Co-Sign Detail Recorded Client Recorded Date Recorded By Document 12/08/19 10:23 MW [id number] 12/08/19 10:32 MW 12/08/19 10:23 Wound Center Nurse 2 1. RLE lateral -Time 10:23 -Correct Patient Yes -Correct Side, Site, Position Yes -Correct Procedure Yes -Procedure Performed Yes -Type of Procedure Debridement -Clinical Debridement Subcutaneous -Tissue Removed Subcutaneous -Post Debridement (cm) - Length 4.8 -Post Debridement (cm) - Width 3.1 -Post Debridement (cm) - Depth 0.1 -Total Square (Post) (cm) 14.88 -Area of Debridement (cm) - Length 4.8 -Area of Debridement (cm) - Width 3.1 -Total Square (Area) (cm) 14.88 -Tunneling No -Undermining/Tunneling No -Circular Undermining No -Wound/Ulcer Outcome Not Healed -Ulcer Cleansing Rinsed/ Irrigated with Saline -Foul Odor after Cleansing No -Bioengineered Tissue No -Bleeding Controlled with Pressure -Offloading No -Debridement - Subq, 1st 20sq cm Yes Pain Scale: 0-10 Numeric Is Patient Pain Free? Yes - Nurse 3 - General Ulcer D/C NN Start: 12/05/19 20:18 Freq: Status: Active Protocol: Activity Type Activity Date Activity User E-Sign Co-Sign Detail Recorded Client Recorded Date Recorded By Document 12/08/19 10:39 CALIN [id number] 12/08/19 10:42 RB 12/08/19 10:39 Wound Care Nurse 3 1. RLE lateral -Ulcer Cleansing Wound Cleanser -Primary Dressing Applied Hydrofera Blue Foam -Other Dressing hydrogel then hydrofera blue -Primary Dressing Covered/Secured with Dry Gauze & Roll Gauze, Other -Other Covering hydrogel and hydrofera blue -Hydrofera Blue Foam 3 Right -Other single tubigrip Treatment Response Procedure Tolerated Well Pain Scale: 0-10 Numeric Is Patient Pain Free? Yes - Visit Discharge Discharge Condition Stable Ambulatory Status Ambulatory Transportation Private Auto Medication Reconcilliation completed & No provided to patient/care provider Clinical Summary of Care Provided Yes Wound debrided: RLE lateral Laterality: Right Type of Debridement: Excisional debridement Anesthesia Used: 4% Lidocaine Solution, 5% Lidocaine Gel Depth: Down to and including healthy tissue, in the subcutaneous layer Percentage of wound debrided: 100 Instrument Used: 5mm curette Tissue Removed: Yellow slough, devitalized tissue Severity: Fat Layer Exposed Amount of bleeding with debridement: Mild Bleeding Controlled with: Compression and gauze Patient tolerated procedure well Assessment/Plan Active Problems 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 He will wash with soap and water and apply Santyl to his wound daily and will then apply Hydrofera Blue to help with heavy drainage from his ulcer/wound. He will use compression with tubigrips and elevate his legs when he is seated. He was encouraged to increase his protein intake and take vitamin C supplement to improve wound healing potential. Will consider biopsy of his wound if there continues to be lack of improvement in the next week. He will call with any increased pain, drainage, erythema or swelling or odor. He will follow up in 1 week.
--- NOTE | 2019-12-15 | LES_PTH ---
PATIENT: ADALBERTO VALADEZ LOC: U#:[id number] AGE/SX: 79/M ROOM: RE12/15/[address]: Dr. Janee Lopez DO : 1940 BED: DIS: 12/18/2019 SPEC #: [id number] RECD: 12/15/19 10:59 STATUS: JONN RENATE #: [id number] JESUS: 12/15/19 00:[address]: Janee Lopez DEPT: SURGICAL PATHOLOGY RECD BY: Mejia Cueto ENTERED: 12/18/19 08:59 SP TYPE: Lesion OTHR DR: Dr. Daphney Dunn MD Tissues: Skin of leg, NOS Procedures: Special Stain Group I Surgery Specimen Level IV AFB Stain (control) GMS Stain (control) HEADER OPERATION: Right lateral LE 1 o'clock punch biopsy PRE-OP DIAGNOSIS: Nonhealing ulcer right choudhary, ? pyoderma gangrenosum TISSUE SUBMITTED: Right lateral LE MICROSCOPIC DIAGNOSIS Right choudhary ulcer, punch biopsy: Fragments of skin with extensive ulceration, associated acute and chronic inflammation, granulation tissue reaction, fibrinopurulent exudation and reactive changes. Negative for carcinoma. Special stains for acid fast bacilli and fungi are negative for organisms; matched controls are appropriate. See comment. HANSA:victor manuel 12/18/19 COMMENT Underlying tissue also shows cartilaginous tissue with reactive changes. Case has been reviewed in consultation with Dr. Day who concurs with the above diagnosis. IDC:AM MICROSCOPIC DESCRIPTION Slides are reviewed. GROSS DESCRIPTION Received in fixative is one container labeled with the patient's name and designated right lateral lower extremity. The specimen consists of multiple irregular fragments of light boo gritty soft tissue that in aggregate measure 0.5 x 0.2 x 0.2 cm. The specimen is totally submitted in one cassette. / AM:victor manuel 12/15/19 TC:2 CPT: 11659, 38168 x2
[2019-12-15 09:24] VITALS: BP 169/83; PULSE 71; RESP 16; TEMP 36.1
--- NOTE | 2019-12-15 16:55 | PCM.WC.PN ---
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 2 months ago when he struck his choudhary against a metal post. The wound was small initially but has gotten larger. He initally was not using any dressings to the wound and was keeping it open to air. He did see his PCP approx. 1 month ago and she debrided the wound and started him on cefdinir for 10 days. He noted minimal improvement. He has been applying antibiotic ointment to the wound and covering it with a band aid. He has not undergone a wound culture that he is aware of at this ppoint. He denies any history of difficult to heal wounds. He denies any problems with edema or circulation. He denies any fever, chills, erythema, nausea, vomiting or other systemic signs of infection. Progress of Wound: Rodo is here for follow up of nonhealing wound to his right choudhary. He has been tolerating Santyl dressings and Hydrofera Blue. There has not been increased erythema or drainage but there has not been improvement in the size of his wound. He still has moderate to heavy drainage and pain of his ulcer. His wound culture on 11/10/2019 was negative for infection. - Physical Exam Vital Signs Temp Pulse Resp BP 96.9 F L 71 16 169/83 H 12/15/19 09:24 12/15/19 09:24 12/15/19 09:24 12/15/19 09:24 General: Alert, Oriented x3, Cooperative, No apparent distress HEENT: Atraumatic, Normocephalic Oral: Moist Mucosa Abdomen: Obese Extremities: Edema Skin: Ulcer/ Wound Wound Measurements and Assessment WC - Nurse 1 - General Ulcer Measurement Start: 11/24/19 09:50 Freq: Status: Active Protocol: Activity Type Activity Date Activity User E-Sign Co-Sign Detail Recorded Client Recorded Date Recorded By Document 12/15/19 09:24 BMF [id number] 12/15/19 09:32 BMF 12/15/19 09:24 Wound Center Nurse 1 [Ulcer Assessment] 1. RLE lateral -Combined with other wound No -Current Size (cm) - Length 5.7 -Current Size (cm) - Width 3.2 -Current Size (cm) - Depth 0.2 -Total Square Cm 18.24 -Photo Taken No -Epithelialization None Present -Tunneling No -Undermining/Tunneling No -Circular Undermining No -Exudate Amt Small -Exudate Type Serosanguineous -Wound Margin Flat & Intact -Granulation Amt Medium (34-66%) -Granulation Quality Red -Slough/Fibrin Yes -Necrosis Amt Medium (34-66%) -Necrotic Tissue Type Adherent Slough -Texture (Funmi-wound Skin Appearance) Assessed, Scarring -Moisture (Funmi-wound Skin Appearance Assessed,Dry/ ) Scaly -Color (Funmi-wound Skin Appearance) Assessed, Erythema -Temperature (Funmi-wound Skin No Abnormality Appearance) (Pt Warm) -Tenderness on Palpation (Funmi-wound No Skin Appearance) -Ulcer Cleansing Rinsed/ Irrigated with Saline -Foul Odor after Cleansing No -Anesthetic Used 4% Lidocaine Solution [Edema Assessment] -Lower Limb Edema Present Yes -Right Calf (cm) 34.1 -Right Ankle (cm) 21.9 WC - Nurse 2 - General Ulcer CM Notes Start: 12/05/19 20:18 Freq: Status: Active Protocol: Activity Type Activity Date Activity User E-Sign Co-Sign Detail Recorded Client Recorded Date Recorded By Document 12/15/19 09:47 MW [id number] 12/15/19 10:06 MW 12/15/19 09:47 Wound Center Nurse 2 [Procedure/Treatment] 1. RLE lateral -Time 09:50 -Correct Patient Yes -Correct Side, Site, Position Yes -Correct Procedure Yes -Procedure Performed No -Tunneling No -Undermining/Tunneling No -Circular Undermining No -Wound/Ulcer Outcome Not Healed -Ulcer Cleansing Rinsed/ Irrigated with Saline -Foul Odor after Cleansing No -Bioengineered Tissue No -Injectable Lidocaine w/ Epi (%) 1 -Injectable Lidocaine w/ Epi (mls) 3 -Bleeding Controlled with Pressure -Offloading No -I&D / Paring / Biopsy Punch bx skin ( includes simple close, if done ), single lesion [See Physician Procedure note for Specifics] Pain Scale: 0-10 Numeric [Pain] -Is Patient Pain Free? Yes - Nurse 3 - General Ulcer D/C NN Start: 12/05/19 20:18 Freq: Status: Active Protocol: Activity Type Activity Date Activity User E-Sign Co-Sign Detail Recorded Client Recorded Date Recorded By Document 12/15/19 10:23 RB [id number] 12/15/19 10:24 RB 12/15/19 10:23 Wound Care Nurse 3 [Wound Dressing] 1. RLE lateral -Ulcer Cleansing Rinsed/ Irrigated with Saline -Primary Dressing Applied Hydrofera Blue Foam -Other Dressing hydrofera blue and hydrogel -Primary Dressing Covered/Secured Dry Gauze,Dry with Gauze & Roll Gauze,Secured with Tape -Hydrofera Blue Foam 2 [Compression Applied] Right -Other single layer [Post Procedure Tolerated] -Treatment Response Procedure Tolerated Well Pain Scale: 0-10 Numeric [Pain] -Is Patient Pain Free? Yes Teaching: Wound Center [Wound Center Education] (Items with an * have Printed Materials Available- Please identify what is given to patient under the Teaching materials given to patient and caregiver Section. Dressing Your Wound -Person Taught Patient,Family -Teaching Method Discussion, Demonstration -Response to teaching Verbalize understanding WC - Visit Discharge [Visit Discharge Information] -Discharge Condition Stable -Ambulatory Status Ambulatory -Transportation Private Auto -Medication Reconcilliation completed No & provided to patient/care provider -Clinical Summary of Care Provided Yes Psych/Mental Status: Normal Affect, Appropriate Debridement Note Post-Debridement Measurements/Treatment - Nurse 2 - General Ulcer CM Notes Start: 12/05/19 20:18 Freq: Status: Active Protocol: Activity Type Activity Date Activity User E-Sign Co-Sign Detail Recorded Client Recorded Date Recorded By Document 12/08/19 10:23 MW [id number] 12/08/19 10:32 MW Document 12/15/19 09:47 MW [id number] 12/15/19 10:06 MW 12/08/19 12/15/19 10:23 09:47 Wound Center Nurse 2 1. RLE lateral -Time 10:23 09:50 -Correct Patient Yes Yes -Correct Side, Site, Position Yes Yes -Correct Procedure Yes Yes -Procedure Performed Yes No -Type of Procedure Debridement -Clinical Debridement Subcutaneous -Tissue Removed Subcutaneous -Post Debridement (cm) - Length 4.8 -Post Debridement (cm) - Width 3.1 -Post Debridement (cm) - Depth 0.1 -Total Square (Post) (cm) 14.88 -Area of Debridement (cm) - Length 4.8 -Area of Debridement (cm) - Width 3.1 -Total Square (Area) (cm) 14.88 -Tunneling No No -Undermining/Tunneling No No -Circular Undermining No No -Wound/Ulcer Outcome Not Healed Not Healed -Ulcer Cleansing Rinsed/ Rinsed/ Irrigated with Irrigated with Saline Saline -Foul Odor after Cleansing No No -Bioengineered Tissue No No -Injectable Lidocaine w/ Epi (%) 1 -Injectable Lidocaine w/ Epi (mls) 3 -Bleeding Controlled with Pressure Pressure -Offloading No No -Debridement - Subq, 1st 20sq cm Yes -I&D / Paring / Biopsy Punch bx skin ( includes simple close, if done ), single lesion Pain Scale: 0-10 Numeric Is Patient Pain Free? Yes Yes WC - Nurse 3 - General Ulcer D/C NN Start: 12/05/19 20:18 Freq: Status: Active Protocol: Activity Type Activity Date Activity User E-Sign Co-Sign Detail Recorded Client Recorded Date Recorded By Document 12/08/19 10:39 RB [id number] 12/08/19 10:42 RB Document 12/15/19 10:23 RB [id number] 12/15/19 10:24 RB 12/08/19 12/15/19 10:39 10:23 Wound Care Nurse 3 1. RLE lateral -Ulcer Cleansing Wound Cleanser Rinsed/ Irrigated with Saline -Primary Dressing Applied Hydrofera Blue Hydrofera Blue Foam Foam -Other Dressing hydrogel then hydrofera blue hydrofera blue and hydrogel -Primary Dressing Covered/Secured with Dry Gauze & Dry Gauze,Dry Roll Gauze, Gauze & Roll Other Gauze,Secured with Tape -Other Covering hydrogel and hydrofera blue -Hydrofera Blue Foam 3 2 Right -Other single tubigrip single layer Treatment Response Procedure Procedure Tolerated Well Tolerated Well Pain Scale: 0-10 Numeric Is Patient Pain Free? Yes Yes Teaching: Wound Center Dressing Your Wound -Person Taught Patient,Family -Teaching Method Discussion, Demonstration -Response to teaching Verbalize understanding WC - Visit Discharge Discharge Condition Stable Stable Ambulatory Status Ambulatory Ambulatory Transportation Private Auto Private Auto Medication Reconcilliation completed & No No provided to patient/care provider Clinical Summary of Care Provided Yes Yes Wound debrided: RLE lateral Laterality: Right Anesthesia Used: 4% Lidocaine Solution, 5% Lidocaine Gel, - - lidocaine 1% w/ epi 3 ml Tissue Removed: none Severity: Fat Layer Exposed Amount of bleeding with debridement: Mild Bleeding Controlled with: Compression and gauze, Silver Nitrate Patient tolerated procedure well No debridement was completed today - A punch biopsy was performed using a 3mm punch at 1 o clock in the wound bed and elevated with forceps and pulled away easily and placed in formalin specimen container. The defect was cauterized with silver nitrate. He tolerated the procedure well. Assessment/Plan Active Problems Nonhealing nonsurgical wound with fat layer exposed (Chronic) struck against metal post Ulcer of right choudhary with fat layer exposed (Chronic) Assessment: nonhealing wound of right choudhary due to trauma complicated by suspected venous stasis Plan: Rodo's wound was evaluated and 3 mm punch biopsy performed today as above. He will continue to wash with soap and water and apply Santyl to his wound daily and will then apply Hydrofera Blue to help with heavy drainage from his ulcer/wound. He will use compression with tubigrips and elevate his legs when he is seated. He was encouraged to increase his protein intake and take vitamin C supplement to improve wound healing potential. Biopsy taken to evaluate for other potential causes of his wound as it has not been healing as expected. Will treat based on result. Question the possibility of pyoderma gangrenosum. He will call with any increased pain, drainage, erythema or swelling or odor. He will follow up in 1 week.
== END 2019-12-18 23:59 ==
LOC: WC 09:30
PROVIDERS: PCP Internal Medicine; Referring Provider Family Medicine; Visit Provider Family Medicine
DX: L97.812 Non-pressure chronic ulcer of other part of right lower leg with fat layer exposed (principal); S81.801S Unspecified open wound, right lower leg, sequela; W22.8XXS Striking against or struck by other objects, sequela; Z79.52 Long term (current) use of systemic steroids; Z79.899 Other long term (current) drug therapy
CPT/HCPCS: 11042; 11104; 88305; 88312; 99212; 99213; G0463

== ENCOUNTER → 2020-01-03 | Outpatient (CLI) | payer MEDICARE, OTHER, SELFPAY | END | disposition home or self-care (01) | LOC: LABSPEC 10:41 | PROVIDERS: PCP Internal Medicine; Referring Provider Dermatology; Visit Provider Dermatology | DX: L30.9 Dermatitis, unspecified (principal); L72.8 Other follicular cysts of the skin and subcutaneous tissue | CPT/HCPCS: 87070; 87205 ==

== ENCOUNTER 2020-01-12 09:30 | Outpatient (RCR) | payer MEDICARE, OTHER, SELFPAY ==
[2019-12-19 00:43] VITALS: BP 169/83; PULSE 71; RESP 16; TEMP 36.1
[2019-12-22 09:41] VITALS: BP 174/87; PULSE 69; RESP 16; TEMP 36.1
--- NOTE | 2019-12-22 11:05 | PN.PCM_ITS ---
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 Current Visit: Yes Code(s): L97.812 - Non-pressure chronic ulcer of other part of right lower leg with fat layer exposed (2) Hypertension Status: Chronic Current Visit: Yes Qualifiers: Hypertension type: essential hypertension Qualified Code(s): I10 - Essential (primary) hypertension Code(s): I10 - Essential (primary) hypertension (3) Pyoderma gangrenosum Status: Chronic Current Visit: Yes Code(s): L88 - Pyoderma gangrenosum Type of Wound Date of Service: 12/22/19 Chief Complaint: nonhealing ulcer right choudhary s/p traumatic injury History of Wound: Rodo is a 79 yo gentleman who presents to the wound healing center for evaluation and treatment of a nonhealing wound of his right choudhary which occurred approx. 2 months ago when he struck his choudhary against a metal post. The wound was small initially but has gotten larger. He initally was not using any dressings to the wound and was keeping it open to air. He did see his PCP approx. 1 month ago and she debrided the wound and started him on cefdinir for 10 days. He noted minimal improvement. He has been applying antibiotic ointment to the wound and covering it with a band aid. He has not undergone a wound culture that he is aware of at this point. He denies any history of difficult to heal wounds. He denies any problems with edema or circulation. He denies any fever, chills, erythema, nausea, vomiting or other systemic signs of infection. Progress of Wound: Rodo is here for follow up of nonhealing ulcer to his right choudhary. He has been tolerating Santyl dressings and Hydrofera Blue. There has not been increased erythema or drainage and there has been mild improvement in the size of his ulcer. He still has moderate to heavy drainage and pain of his ulcer. His wound culture on 11/10/2019 was negative for infection. - Physical Exam Vital Signs Temp Pulse Resp BP 96.9 F L 69 16 174/87 H 12/22/19 09:41 12/22/19 09:41 12/22/19 09:41 12/22/19 09:41 General: Alert, Oriented x3, Cooperative, No apparent distress HEENT: Atraumatic, Normocephalic Oral: Moist Mucosa Neck: Supple Abdomen: Obese Extremities: Edema Skin: Ulcer/ Wound Wound Measurements and Assessment WC - Nurse 1 - General Ulcer Measurement Start: 12/22/19 09:41 Freq: Status: Active Protocol: Activity Type Activity Date Activity User E-Sign Co-Sign Detail Recorded Client Recorded Date Recorded By Document 12/22/19 09:41 [facility] [id number] 12/22/19 09:45 BM 12/22/19 09:41 Wound Center Nurse 1 [Ulcer Assessment] 1. RLE lateral -Combined with other wound No -Current Size (cm) - Length 5.7 -Current Size (cm) - Width 3 -Current Size (cm) - Depth 0.1 -Total Square Cm 17.1 -Photo Taken No -Epithelialization None Present -Tunneling No -Undermining/Tunneling No -Circular Undermining No -Exudate Amt Small -Exudate Type Serosanguineous -Wound Margin Distinct, Outline Attached -Granulation Amt Small (1-33%) -Granulation Quality Red -Slough/Fibrin Yes -Necrosis Amt Large (67-100%) -Necrotic Tissue Type Adherent Slough -Texture (Funmi-wound Skin Appearance) Assessed, Scarring -Moisture (Funmi-wound Skin Appearance Assessed ) -Color (Funmi-wound Skin Appearance) Assessed, Erythema -Temperature (Funmi-wound Skin No Abnormality Appearance) (Pt Warm) -Tenderness on Palpation (Funmi-wound No Skin Appearance) -Ulcer Cleansing Rinsed/ Irrigated with Saline -Foul Odor after Cleansing No -Anesthetic Used 5% Lidocaine Gel [Edema Assessment] -Lower Limb Edema Present Yes -Right Calf (cm) 33 -Right Ankle (cm) 21 WC - Nurse 2 - General Ulcer CM Notes Start: 12/22/19 09:41 Freq: Status: Active Protocol: Activity Type Activity Date Activity User E-Sign Co-Sign Detail Recorded Client Recorded Date Recorded By Document 12/22/19 09:59 MW [id number] 12/22/19 10:08 MW 12/22/19 09:59 Wound Center Nurse 2 [Procedure/Treatment] 1. RLE lateral -Time 09:59 -Correct Patient Yes -Correct Side, Site, Position Yes -Correct Procedure Yes -Procedure Performed Yes -Type of Procedure Debridement -Clinical Debridement Subcutaneous -Tissue Removed Subcutaneous -Post Debridement (cm) - Length 5.5 -Post Debridement (cm) - Width 3.0 -Post Debridement (cm) - Depth 0.1 -Total Square (Post) (cm) 16.50 -Area of Debridement (cm) - Length 5.5 -Area of Debridement (cm) - Width 3.0 -Total Square (Area) (cm) 16.50 -Tunneling No -Undermining/Tunneling No -Circular Undermining No -Wound/Ulcer Outcome Not Healed -Ulcer Cleansing Rinsed/ Irrigated with Saline -Foul Odor after Cleansing No -Bioengineered Tissue No -Bleeding Controlled with Pressure -Offloading No -Treatment Response Procedure Tolerated Well -Debridement - Subq, 1st 20sq cm Yes [See Physician Procedure note for Specifics] Pain Scale: 0-10 Numeric [Pain] -Is Patient Pain Free? Yes - Nurse 3 - General Ulcer D/C NN Start: 12/22/19 09:41 Freq: Status: Active Protocol: Activity Type Activity Date Activity User E-Sign Co-Sign Detail Recorded Client Recorded Date Recorded By Document 12/22/19 10:12 MW [id number] 12/22/19 10:13 MW 12/22/19 10:12 Wound Care Nurse 3 [Wound Dressing] 1. RLE lateral -Ulcer Cleansing Rinsed/ Irrigated with Saline -Foul Odor after Cleansing No -Negative Pressure Wound Therapy N/A -Primary Dressing Applied Hydrofera Blue Foam -Other Dressing c.hydrogel -Primary Dressing Covered/Secured Dry Gauze & with Roll Gauze -Hydrofera Blue Foam 3 [Post Procedure Tolerated] -Treatment Response Procedure Tolerated Well Pain Scale: 0-10 Numeric [Pain] -Is Patient Pain Free? Yes Teaching: Wound Center [Wound Center Education] (Items with an * have Printed Materials Available- Please identify what is given to patient under the Teaching materials given to patient and caregiver Section. Dressing Your Wound -Person Taught Patient -Teaching Method Discussion -Response to teaching Verbalize understanding WC - Visit Discharge [Visit Discharge Information] -Discharge Condition Stable -Ambulatory Status Ambulatory -Transportation Private Auto -Accompanied by -Medication Reconcilliation completed No & provided to patient/care provider -Clinical Summary of Care Provided Yes Psych/Mental Status: Normal Affect, Appropriate Debridement Note Post-Debridement Measurements/Treatment - Nurse 2 - General Ulcer CM Notes Start: 12/22/19 09:41 Freq: Status: Active Protocol: Activity Type Activity Date Activity User E-Sign Co-Sign Detail Recorded Client Recorded Date Recorded By Document 12/22/19 09:59 MW [id number] 12/22/19 10:08 MW 12/22/19 09:59 Wound Center Nurse 2 1. RLE lateral -Time 09:59 -Correct Patient Yes -Correct Side, Site, Position Yes -Correct Procedure Yes -Procedure Performed Yes -Type of Procedure Debridement -Clinical Debridement Subcutaneous -Tissue Removed Subcutaneous -Post Debridement (cm) - Length 5.5 -Post Debridement (cm) - Width 3.0 -Post Debridement (cm) - Depth 0.1 -Total Square (Post) (cm) 16.50 -Area of Debridement (cm) - Length 5.5 -Area of Debridement (cm) - Width 3.0 -Total Square (Area) (cm) 16.50 -Tunneling No -Undermining/Tunneling No -Circular Undermining No -Wound/Ulcer Outcome Not Healed -Ulcer Cleansing Rinsed/ Irrigated with Saline -Foul Odor after Cleansing No -Bioengineered Tissue No -Bleeding Controlled with Pressure -Offloading No -Treatment Response Procedure Tolerated Well -Debridement - Subq, 1st 20sq cm Yes Pain Scale: 0-10 Numeric Is Patient Pain Free? Yes - Nurse 3 - General Ulcer D/C NN Start: 12/22/19 09:41 Freq: Status: Active Protocol: Activity Type Activity Date Activity User E-Sign Co-Sign Detail Recorded Client Recorded Date Recorded By Document 12/22/19 10:12 MW [id number] 12/22/19 10:13 MW 12/22/19 10:12 Wound Care Nurse 3 1. RLE lateral -Ulcer Cleansing Rinsed/ Irrigated with Saline -Foul Odor after Cleansing No -Negative Pressure Wound Therapy N/A -Primary Dressing Applied Hydrofera Blue Foam -Other Dressing c.hydrogel -Primary Dressing Covered/Secured with Dry Gauze & Roll Gauze -Hydrofera Blue Foam 3 Treatment Response Procedure Tolerated Well Pain Scale: 0-10 Numeric Is Patient Pain Free? Yes Teaching: Wound Center Dressing Your Wound -Person Taught Patient -Teaching Method Discussion -Response to teaching Verbalize understanding WC - Visit Discharge Discharge Condition Stable Ambulatory Status Ambulatory Transportation Private Auto Accompanied by Medication Reconcilliation completed & No provided to patient/care provider Clinical Summary of Care Provided Yes Wound debrided: right lower extremity lateral Laterality: Right Anesthesia Used: 4% Lidocaine Solution Depth: Down to and including healthy tissue, in the subcutaneous layer Severity: Fat Layer Exposed Patient tolerated procedure well No debridement was completed today - due to the nature of the ulcer Assessment/Plan Active Problems Ulcer of right choudhary with fat layer exposed (Chronic) Pyoderma gangrenosum (Chronic) Hypertension (Chronic) Assessment: nonhealing ulcer of right choudhary due to trauma complicated by venous stasis and pyoderma gangrenosum Plan: Rodo's ulcer was evaluated and his biopsy results were reviewed with him and his today. There was no evidence of carcinoma and there was chronic inflammation and granulation which lend to the diagnosis of pyoderma gangrenosum as well as the progress of his ulcer. He will continue to wash with soap and water and apply Santyl to his ulcer daily and will then apply Hydrofera Blue to help with heavy drainage from his ulcer. He will use compression with tubigrips and elevate his legs when he is seated. He was encouraged to increase his protein intake and take vitamin C supplement to improve wound healing potential. He will call with any increased pain, drainage, erythema or swelling or odor. He will follow up in 2 weeks.
[2019-12-29 10:13] VITALS: BP 148/82; PULSE 75; RESP 16; TEMP 36.2
--- NOTE | 2019-12-29 12:22 | PN.PCM_ITS ---
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: Chronic Current Visit: Yes Code(s): I83.019 - Varicose veins of right lower extremity with ulcer of unspecified site; L97.919 - Non-pressure chronic ulcer of unspecified part of right lower leg with unspecified severity (5) Venous ulcer with fat layer exposed Status: Chronic Current Visit: Yes Code(s): I83.009 - Varicose veins of unspecified lower extremity with ulcer of unspecified site; L97.902 - Non- pressure chronic ulcer of unspecified part of unspecified lower leg with fat layer exposed Type of Wound Date of Service: 12/29/19 Chief Complaint: nonhealing ulcer right choudhary s/p traumatic injury History of Wound: Rodo is a 79 yo gentleman who presents to the wound healing center for evaluation and treatment of a nonhealing wound of his right choudhary which occurred approx. 2 months ago when he struck his choudhary against a metal post. The wound was small initially but has gotten larger. He initally was not using any dressings to the wound and was keeping it open to air. He did see his PCP approx. 1 month ago and she debrided the wound and started him on cefdinir for 10 days. He noted minimal improvement. He has been applying antibiotic ointment to the wound and covering it with a band aid. He has not undergone a wound culture that he is aware of at this point. He denies any history of difficult to heal wounds. He denies any problems with edema or circulation. He denies any fever, chills, erythema, nausea, vomiting or other systemic signs of infection. Progress of Wound: Rodo is here for follow up of nonhealing ulcer to his right choudhary. He developed 2 new lesions that started off as blisters and opened - one medial to the ulcer and one on his lateral calf. He has been tolerating Santyl dressings and Hydrofera Blue. There has not been increased erythema or drainage but there has been no improvement in the size of his ulcer. He still has moderate to heavy drainage and pain of his ulcer. His wound culture on 11/10/2019 was negative for infection. - Physical Exam Vital Signs Temp Pulse Resp BP 97.2 F L 75 16 148/82 H 12/29/19 10:13 12/29/19 10:13 12/29/19 10:13 12/29/19 10:13 General: Alert, Oriented x3, Cooperative, No apparent distress HEENT: Atraumatic, Normocephalic Oral: Moist Mucosa Neck: Supple Abdomen: Soft, Non Tender Extremities: Edema Skin: Ulcer/ Wound Wound Measurements and Assessment WC - Nurse 1 - General Ulcer Measurement Start: 12/22/19 09:41 Freq: Status: Active Protocol: Activity Type Activity Date Activity User E-Sign Co-Sign Detail Recorded Client Recorded Date Recorded By Document 12/29/19 10:13 [facility] [id number] 12/29/19 10:26 [facility] 12/29/19 10:13 Wound Center Nurse 1 [Ulcer Assessment] #3- R POST LE -Combined with other wound No -Current Size (cm) - Length 0.2 -Current Size (cm) - Width 0.1 -Current Size (cm) - Depth 0.1 -Total Square Cm 0.02 -Date of Last Picture (Recall this 12/29/19 field) -Photo Taken Yes -Epithelialization None Present -Tunneling No -Undermining/Tunneling No -Circular Undermining No -Exudate Amt None Present -Wound Margin Flat & Intact -Granulation Amt Large (67-100%) -Granulation Quality Red -Slough/Fibrin No -Necrosis Amt None Present (0 %) -Texture (Funmi-wound Skin Appearance) Assessed -Moisture (Funmi-wound Skin Appearance Assessed ) -Color (Funmi-wound Skin Appearance) Assessed, Erythema -Temperature (Funmi-wound Skin No Abnormality Appearance) (Pt Warm) -Tenderness on Palpation (Funmi-wound No Skin Appearance) -Ulcer Cleansing Rinsed/ Irrigated with Saline -Foul Odor after Cleansing No -Anesthetic Used 5% Lidocaine Gel #2- R CHOUDHARY -Combined with other wound No -Current Size (cm) - Length 0.4 -Current Size (cm) - Width 0.2 -Current Size (cm) - Depth 0.1 -Total Square Cm 0.08 -Date of Last Picture (Recall this 12/29/19 field) -Photo Taken Yes -Epithelialization None Present -Tunneling No -Undermining/Tunneling No -Circular Undermining No -Exudate Amt None Present -Wound Margin Flat & Intact -Granulation Amt Large (67-100%) -Granulation Quality Red -Slough/Fibrin No -Necrosis Amt None Present (0 %) -Texture (Funmi-wound Skin Appearance) Assessed, Scarring -Moisture (Funmi-wound Skin Appearance Assessed ) -Color (Funmi-wound Skin Appearance) Assessed, Erythema -Temperature (Funmi-wound Skin No Abnormality Appearance) (Pt Warm) -Tenderness on Palpation (Funim-wound No Skin Appearance) -Ulcer Cleansing Rinsed/ Irrigated with Saline -Foul Odor after Cleansing No -Anesthetic Used 5% Lidocaine Gel 1. RLE lateral -Combined with other wound No -Current Size (cm) - Length 5.7 -Current Size (cm) - Width 3 -Current Size (cm) - Depth 0.3 -Total Square Cm 17.1 -Photo Taken No -Epithelialization None Present -Tunneling No -Undermining/Tunneling No -Circular Undermining No -Exudate Amt Small -Exudate Type Serosanguineous -Wound Margin Distinct, Outline Attached -Granulation Amt Large (67-100%) -Granulation Quality Red -Slough/Fibrin Yes -Necrosis Amt Small (1-33%) -Necrotic Tissue Type Adherent Slough -Texture (Funmi-wound Skin Appearance) Assessed, Scarring -Moisture (Funmi-wound Skin Appearance Assessed ) -Color (Funmi-wound Skin Appearance) Assessed, Erythema -Temperature (Funmi-wound Skin No Abnormality Appearance) (Pt Warm) -Tenderness on Palpation (Funmi-wound No Skin Appearance) -Ulcer Cleansing Rinsed/ Irrigated with Saline -Foul Odor after Cleansing No -Anesthetic Used 5% Lidocaine Gel [Edema Assessment] -Lower Limb Edema Present Yes -Right Calf (cm) 33.4 -Right Ankle (cm) 21.7 WC - Nurse 2 - General Ulcer CM Notes Start: 12/22/19 09:41 Freq: Status: Active Protocol: Activity Type Activity Date Activity User E-Sign Co-Sign Detail Recorded Client Recorded Date Recorded By Document 12/29/19 10:59 MW [id number] 12/29/19 11:13 MW 12/29/19 10:59 Wound Center Nurse 2 [Procedure/Treatment] #3- R POST LE -Time 11:02 -Correct Patient Yes -Correct Side, Site, Position Yes -Correct Procedure Yes -Procedure Performed No -Tunneling No -Undermining/Tunneling No -Circular Undermining No -Wound/Ulcer Outcome Not Healed -Ulcer Cleansing Rinsed/ Irrigated with Saline -Foul Odor after Cleansing No -Bioengineered Tissue No -Bleeding Controlled with NA -Offloading No #2- R CHOUDHARY -Time 11:03 -Correct Patient Yes -Correct Side, Site, Position Yes -Correct Procedure Yes -Procedure Performed No -Tunneling No -Undermining/Tunneling No -Circular Undermining No -Wound/Ulcer Outcome Not Healed -Ulcer Cleansing Not Cleansed -Foul Odor after Cleansing No -Bioengineered Tissue No -Bleeding Controlled with NA -Offloading No 1. RLE lateral -Time 11:03 -Correct Patient Yes -Correct Side, Site, Position Yes -Correct Procedure Yes -Procedure Performed Yes -Type of Procedure Debridement -Clinical Debridement Epidermis / Dermis -Tissue Removed Epidermis -Post Debridement (cm) - Length 5.7 -Post Debridement (cm) - Width 2.9 -Post Debridement (cm) - Depth 0.1 -Total Square (Post) (cm) 16.53 -Area of Debridement (cm) - Length 5.7 -Area of Debridement (cm) - Width 2.9 -Total Square (Area) (cm) 16.53 -Tunneling No -Undermining/Tunneling No -Circular Undermining No -Wound/Ulcer Outcome Not Healed -Ulcer Cleansing Rinsed/ Irrigated with Saline -Foul Odor after Cleansing No -Bioengineered Tissue No -Bleeding Controlled with Pressure -Offloading No -Debridement - Open, 1st 20sq cm Yes [See Physician Procedure note for Specifics] Pain Scale: 0-10 Numeric [Pain] -Is Patient Pain Free? Yes WC - Nurse 3 - General Ulcer D/C NN Start: 12/22/19 09:41 Freq: Status: Active Protocol: Activity Type Activity Date Activity User E-Sign Co-Sign Detail Recorded Client Recorded Date Recorded By Document 09/11/20 11:30 RB [id number] 12/29/19 11:32 RB 12/29/19 11:30 Wound Care Nurse 3 [Wound Dressing] #3- R POST LE -Primary Dressing Applied Hydrofera Blue Foam -Other Dressing hydrogel -Primary Dressing Covered/Secured Dry Gauze,Dry with Gauze & Roll Gauze,Secured with Tape -Hydrofera Blue Foam 1 #2- R CHOUDHARY -Ulcer Cleansing Rinsed/ Irrigated with Saline -Other Dressing hydrogel and hydrofera blue -Primary Dressing Covered/Secured Dry Gauze & with Roll Gauze, Secured with Tape 1. RLE lateral -Ulcer Cleansing Rinsed/ Irrigated with Saline -Other Dressing hydrofera blue & hydrgel -Primary Dressing Covered/Secured Dry Gauze & with Roll Gauze, Secured with Tape [Compression Applied] Right -Tubular Bandage Double Layer -Size of Tubigrip Used Size D -Size D ($) 2 [Post Procedure Tolerated] -Treatment Response Procedure Tolerated Well Pain Scale: 0-10 Numeric [Pain] -Is Patient Pain Free? Yes Teaching: Wound Center [Wound Center Education] (Items with an * have Printed Materials Available- Please identify what is given to patient under the Teaching materials given to patient and caregiver Section. Dressing Your Wound -Person Taught Patient -Teaching Method Discussion, Demonstration -Response to teaching Verbalize understanding WC - Visit Discharge [Visit Discharge Information] -Discharge Condition Stable -Ambulatory Status Ambulatory -Transportation Private Auto -Medication Reconcilliation completed No & provided to patient/care provider -Clinical Summary of Care Provided Yes Psych/Mental Status: Normal Affect, Appropriate Debridement Note Post-Debridement Measurements/Treatment WC - Nurse 2 - General Ulcer CM Notes Start: 12/22/19 09:41 Freq: Status: Active Protocol: Activity Type Activity Date Activity User E-Sign Co-Sign Detail Recorded Client Recorded Date Recorded By Document 12/22/19 09:59 MW [id number] 12/22/19 10:08 MW Document 12/29/19 10:59 MW [id number] 12/29/19 11:13 MW 12/22/19 12/29/19 09:59 10:59 Wound Center Nurse 2 #3- R POST LE -Time 11:02 -Correct Patient Yes -Correct Side, Site, Position Yes -Correct Procedure Yes -Procedure Performed No -Tunneling No -Undermining/Tunneling No -Circular Undermining No -Wound/Ulcer Outcome Not Healed -Ulcer Cleansing Rinsed/ Irrigated with Saline -Foul Odor after Cleansing No -Bioengineered Tissue No -Bleeding Controlled with NA -Offloading No #2- R CHOUDHARY -Time 11:03 -Correct Patient Yes -Correct Side, Site, Position Yes -Correct Procedure Yes -Procedure Performed No -Tunneling No -Undermining/Tunneling No -Circular Undermining No -Wound/Ulcer Outcome Not Healed -Ulcer Cleansing Not Cleansed -Foul Odor after Cleansing No -Bioengineered Tissue No -Bleeding Controlled with NA -Offloading No 1. RLE lateral -Time 09:59 11:03 -Correct Patient Yes Yes -Correct Side, Site, Position Yes Yes -Correct Procedure Yes Yes -Procedure Performed Yes Yes -Type of Procedure Debridement Debridement -Clinical Debridement Subcutaneous Epidermis / Dermis -Tissue Removed Subcutaneous Epidermis -Post Debridement (cm) - Length 5.5 5.7 -Post Debridement (cm) - Width 3.0 2.9 -Post Debridement (cm) - Depth 0.1 0.1 -Total Square (Post) (cm) 16.50 16.53 -Area of Debridement (cm) - Length 5.5 5.7 -Area of Debridement (cm) - Width 3.0 2.9 -Total Square (Area) (cm) 16.50 16.53 -Tunneling No No -Undermining/Tunneling No No -Circular Undermining No No -Wound/Ulcer Outcome Not Healed Not Healed -Ulcer Cleansing Rinsed/ Rinsed/ Irrigated with Irrigated with Saline Saline -Foul Odor after Cleansing No No -Bioengineered Tissue No No -Bleeding Controlled with Pressure Pressure -Offloading No No -Treatment Response Procedure Tolerated Well -Debridement - Open, 1st 20sq cm Yes -Debridement - Subq, 1st 20sq cm Yes Pain Scale: 0-10 Numeric Is Patient Pain Free? Yes Yes WC - Nurse 3 - General Ulcer D/C NN Start: 12/22/19 09:41 Freq: Status: Active Protocol: Activity Type Activity Date Activity User E-Sign Co-Sign Detail Recorded Client Recorded Date Recorded By Document 12/22/19 10:12 MW [id number] 12/22/19 10:13 MW Document 12/29/19 11:30 RB [id number] 12/29/19 11:32 RB 12/22/19 12/29/19 10:12 11:30 Wound Care Nurse 3 #3- R POST LE -Primary Dressing Applied Hydrofera Blue Foam -Other Dressing hydrogel -Primary Dressing Covered/Secured with Dry Gauze,Dry Gauze & Roll Gauze,Secured with Tape -Hydrofera Blue Foam 1 #2- R CHOUDHARY -Ulcer Cleansing Rinsed/ Irrigated with Saline -Other Dressing hydrogel and hydrofera blue -Primary Dressing Covered/Secured with Dry Gauze & Roll Gauze, Secured with Tape 1. RLE lateral -Ulcer Cleansing Rinsed/ Rinsed/ Irrigated with Irrigated with Saline Saline -Foul Odor after Cleansing No -Negative Pressure Wound Therapy N/A -Primary Dressing Applied Hydrofera Blue Foam -Other Dressing c.hydrogel hydrofera blue & hydrgel -Primary Dressing Covered/Secured with Dry Gauze & Dry Gauze & Roll Gauze Roll Gauze, Secured with Tape -Hydrofera Blue Foam 3 Right -Tubular Bandage Double Layer -Size of Tubigrip Used Size D -Size D ($) 2 Treatment Response Procedure Procedure Tolerated Well Tolerated Well Pain Scale: 0-10 Numeric Is Patient Pain Free? Yes Yes Teaching: Wound Center Dressing Your Wound -Person Taught Patient Patient -Teaching Method Discussion Discussion, Demonstration -Response to teaching Verbalize Verbalize understanding understanding WC - Visit Discharge Discharge Condition Stable Stable Ambulatory Status Ambulatory Ambulatory Transportation Private Auto Private Auto Accompanied by Medication Reconcilliation completed & No No provided to patient/care provider Clinical Summary of Care Provided Yes Yes Wound debrided: right posterior LE Laterality: Right Anesthesia Used: 4% Lidocaine Solution Tissue Removed: yellow slough, devitalized tissue Severity: Limited To Skin Breakdown Amount of bleeding with debridement: None Patient tolerated procedure well no debridement completed - Additional Wound Wound debrided: right choudhary Laterality: Right Type of Debridement: Selective debridement Anesthesia Used: 4% Lidocaine Solution, 5% Lidocaine Gel Depth: Down to and including healthy tissue, in the subcutaneous layer Percentage of wound debrided: 100 Instrument Used: 5mm curette Tissue Removed: Yellow slough, devitalized tissue Severity: Fat Layer Exposed Amount of bleeding with debridement: Mild Bleeding Controlled with: Pressure, Compression and gauze Patient tolerated procedure: Patient tolerated procedure well - Additional Wound Wound debrided: right lateral LE Laterality: Right Depth: Down to and including healthy tissue, in the subcutaneous layer Severity: Fat Layer Exposed Amount of bleeding with debridement: None Patient tolerated procedure: Patient tolerated procedure well Operative Diagnosis: No debridement completed Assessment/Plan Active Problems Ulcer of right choudhary with fat layer exposed (Chronic) Pyoderma gangrenosum (Chronic) 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 venous ulcer right choudhary Plan: Rodo's ulcer was evaluated and selective debridement completed today. New ulcers were evaluated as well. His ulcer is a venous ulcer complicated by pyoderma gangrenosum and the new ulcers are also venous ulcers. He will continue to wash with soap and water and apply Santyl to his ulcers daily and will then apply Hydrofera Blue to help with heavy drainage from his ulcer. He will use compression with tubigrips but will increase compresion to double layer tubigrips and elevate his legs when he is seated. He was encouraged to increase his protein intake and take vitamin C supplement to improve wound healing potential. I feel that due to lack of improvement in his healing with convention al wound care that he would benefit from advanced wound care treatment with [facility] to heal his ulcer. He will call with any increased pain, drainage, erythema or swelling or odor. He will follow up in 1 week.
[2020-01-05 09:32] VITALS: BP 173/86; PULSE 66; RESP 18; TEMP 36.4
--- NOTE | 2020-01-05 15:37 | PN.PCM_ITS ---
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: Chronic Current Visit: Yes Code(s): I83.019 - Varicose veins of right lower extremity with ulcer of unspecified site; L97.919 - Non-pressure chronic ulcer of unspecified part of right lower leg with unspecified severity (5) Venous ulcer with fat layer exposed Status: Chronic Current Visit: Yes Code(s): I83.009 - Varicose veins of unspecified lower extremity with ulcer of unspecified site; L97.902 - Non- pressure chronic ulcer of unspecified part of unspecified lower leg with fat layer exposed Type of Wound Date of Service: 01/05/20 Chief Complaint: nonhealing ulcer right choudhary s/p traumatic injury History of Wound: Rodo is a 79 yo gentleman who presents to the wound healing center for evaluation and treatment of a nonhealing wound of his right choudhary which occurred approx. 2 months ago when he struck his choudhary against a metal post. The wound was small initially but has gotten larger. He initally was not using any dressings to the wound and was keeping it open to air. He did see his PCP approx. 1 month ago and she debrided the wound and started him on cefdinir for 10 days. He noted minimal improvement. He has been applying antibiotic ointment to the wound and covering it with a band aid. He has not undergone a wound culture that he is aware of at this point. He denies any history of difficult to heal wounds. He denies any problems with edema or circulation. He denies any fever, chills, erythema, nausea, vomiting or other systemic signs of infection. Progress of Wound: Rodo is here for follow up of nonhealing ulcer to his right choudhary. He developed 2 new lesions that started off as blisters and opened - one medial to the ulcer and one on his lateral calf. He has been tolerating Santyl dressings and Hydrofera Blue and has had mild improvement. There has not been increased erythema or drainage. He still has moderate to heavy drainage and pain of his ulcer. His wound culture on 11/10/2019 was negative for infection. He saw Dr. Farr who biopsied the ulcer this week. Results are pending. - Physical Exam Vital Signs Temp Pulse Resp BP 97.5 F L 66 18 173/86 H 01/05/20 09:32 01/05/20 09:32 01/05/20 09:32 01/05/20 09:32 General: Alert, Oriented x3, Cooperative, No apparent distress HEENT: Atraumatic, Normocephalic Oral: Moist Mucosa Abdomen: Soft, Non Tender, Obese Extremities: Edema Skin: Ulcer/ Wound Wound Measurements and Assessment WC - Nurse 1 - General Ulcer Measurement Start: 12/22/19 09:41 Freq: Status: Active Protocol: Activity Type Activity Date Activity User E-Sign Co-Sign Detail Recorded Client Recorded Date Recorded By Document 01/05/20 09:32 DL [id number] 01/05/20 09:44 DL 01/05/20 09:32 Wound Center Nurse 1 [Ulcer Assessment] #3- R POST LE -Current Size (cm) - Length 0.1 -Current Size (cm) - Width 0.1 -Current Size (cm) - Depth 0.1 -Total Square Cm 0.01 -Photo Taken No -Exudate Amt None Present -Granulation Amt Large (67-100%) -Granulation Quality [place] -Necrosis Amt Small (1-33%) -Necrotic Tissue Type Eschar -Structure Exposed N/A -Texture (Funmi-wound Skin Appearance) No Abnormality -Moisture (Funmi-wound Skin Appearance No Abnormality ) -Color (Funmi-wound Skin Appearance) Hemosiderin Staining -Temperature (Funmi-wound Skin No Abnormality Appearance) (Pt Warm) -Tenderness on Palpation (Funmi-wound No Skin Appearance) -Ulcer Cleansing Wound Cleanser -Foul Odor after Cleansing No -Anesthetic Used 4% Lidocaine Solution #2- R CHOUDHARY -Current Size (cm) - Length 1.8 -Current Size (cm) - Width 1.5 -Current Size (cm) - Depth 0.1 -Total Square Cm 2.70 -Photo Taken No -Exudate Amt Small -Exudate Type Serosanguineous -Wound Margin Distinct, Outline Attached -Granulation Amt Large (67-100%) -Granulation Quality [place] -Necrosis Amt Small (1-33%) -Necrotic Tissue Type Adherent Slough -Structure Exposed N/A -Texture (Funmi-wound Skin Appearance) Scarring -Moisture (Funmi-wound Skin Appearance No Abnormality ) -Color (Funmi-wound Skin Appearance) Hemosiderin Staining -Temperature (Funmi-wound Skin No Abnormality Appearance) (Pt Warm) -Tenderness on Palpation (Funmi-wound No Skin Appearance) -Ulcer Cleansing Wound Cleanser -Foul Odor after Cleansing No -Anesthetic Used 4% Lidocaine Solution 1. RLE lateral -Current Size (cm) - Length 5.8 -Current Size (cm) - Width 2.8 -Current Size (cm) - Depth 0.2 -Total Square Cm 16.24 -Photo Taken No -Exudate Amt Small -Exudate Type Serosanguineous -Wound Margin Distinct, Outline Attached -Granulation Amt Medium (34-66%) -Granulation Quality Red -Necrosis Amt Medium (34-66%) -Necrotic Tissue Type Adherent Slough -Structure Exposed N/A -Texture (Funmi-wound Skin Appearance) Scarring -Moisture (Funmi-wound Skin Appearance No Abnormality ) -Color (Funmi-wound Skin Appearance) Hemosiderin Staining,Rubor -Temperature (Fumni-wound Skin No Abnormality Appearance) (Pt Warm) -Tenderness on Palpation (Funmi-wound No Skin Appearance) -Ulcer Cleansing Wound Cleanser -Foul Odor after Cleansing No -Anesthetic Used 4% Lidocaine Solution [Edema Assessment] -Right Calf (cm) 33 -Right Ankle (cm) 20.3 WC - Nurse 2 - General Ulcer CM Notes Start: 12/22/19 09:41 Freq: Status: Active Protocol: Activity Type Activity Date Activity User E-Sign Co-Sign Detail Recorded Client Recorded Date Recorded By Document 01/05/20 09:59 MW [id number] 01/05/20 10:18 MW 01/05/20 09:59 Wound Center Nurse 2 [Procedure/Treatment] #3- R POST LE -Time 10:00 -Correct Patient Yes -Correct Side, Site, Position Yes -Correct Procedure Yes -Procedure Performed Yes -Type of Procedure Debridement -Clinical Debridement Subcutaneous -Tissue Removed Subcutaneous -Post Debridement (cm) - Length 0.1 -Post Debridement (cm) - Width 0.1 -Post Debridement (cm) - Depth 0.1 -Total Square (Post) (cm) 0.01 -Area of Debridement (cm) - Length 0.1 -Area of Debridement (cm) - Width 0.1 -Total Square (Area) (cm) 0.01 -Tunneling No -Undermining/Tunneling No -Circular Undermining No -Wound/Ulcer Outcome Not Healed -Ulcer Cleansing Rinsed/ Irrigated with Saline -Foul Odor after Cleansing No -Bioengineered Tissue No -Bleeding Controlled with Pressure -Offloading No -Treatment Response Procedure Tolerated Well -Debridement - Subq, 1st 20sq cm Yes #2- R CHOUDHARY -Time 10:00 -Correct Patient Yes -Correct Side, Site, Position Yes -Correct Procedure Yes -Procedure Performed Yes -Type of Procedure Debridement -Clinical Debridement Subcutaneous -Tissue Removed Subcutaneous -Post Debridement (cm) - Length 1.7 -Post Debridement (cm) - Width 1.5 -Post Debridement (cm) - Depth 0.1 -Total Square (Post) (cm) 2.55 -Area of Debridement (cm) - Length 1.7 -Area of Debridement (cm) - Width 1.5 -Total Square (Area) (cm) 2.55 -Tunneling No -Undermining/Tunneling No -Circular Undermining No -Wound/Ulcer Outcome Not Healed -Ulcer Cleansing Rinsed/ Irrigated with Saline -Foul Odor after Cleansing No -Bioengineered Tissue No -Bleeding Controlled with Pressure -Offloading No -Treatment Response Procedure Tolerated Well -Debridement - Subq, 1st 20sq cm No 1. RLE lateral -Time 10:00 -Correct Patient Yes -Correct Side, Site, Position Yes -Correct Procedure Yes -Procedure Performed Yes -Type of Procedure Debridement -Clinical Debridement Subcutaneous -Tissue Removed Subcutaneous -Post Debridement (cm) - Length 5.7 -Post Debridement (cm) - Width 2.7 -Post Debridement (cm) - Depth 0.1 -Total Square (Post) (cm) 15.39 -Area of Debridement (cm) - Length 5.7 -Area of Debridement (cm) - Width 2.7 -Total Square (Area) (cm) 15.39 -Tunneling Yes -Undermining/Tunneling No -Circular Undermining No -Wound/Ulcer Outcome Not Healed -Ulcer Cleansing Rinsed/ Irrigated with Saline -Foul Odor after Cleansing No -Bioengineered Tissue Yes -Type of Bioengineered Tissue PuraPly AM -Expiration Date 06/16/21 -Product Lot Number [id number] -Percent Used 100 -Saline Lot Number [id number] -Bleeding Controlled with Pressure -Offloading No -Treatment Response Procedure Tolerated Well -Debridement - Subq, 1st 20sq cm No -Apply Skin Sub - 1st 25 sq cm - Legs 1 -PuraPly AM (per sq cm) 25 [See Physician Procedure note for Specifics] Pain Scale: 0-10 Numeric [Pain] -Is Patient Pain Free? Yes - Nurse 3 - General Ulcer D/C NN Start: 12/22/19 09:41 Freq: Status: Active Protocol: Activity Type Activity Date Activity User E-Sign Co-Sign Detail Recorded Client Recorded Date Recorded By Document 01/05/20 10:34 [id number] 01/05/20 10:35 01/05/20 10:34 Wound Care Nurse 3 [Wound Dressing] #3- R POST LE -Ulcer Cleansing Not Cleansed -Foul Odor after Cleansing No -Negative Pressure Wound Therapy N/A -Primary Dressing Applied Hydrofera Blue Foam -Primary Dressing Covered/Secured Dry Gauze & with Roll Gauze, Secured with Tape -Hydrofera Blue Foam 1 #2- R CHOUDHARY -Ulcer Cleansing Not Cleansed -Foul Odor after Cleansing No -Negative Pressure Wound Therapy N/A -Primary Dressing Applied Hydrofera Blue Foam -Primary Dressing Covered/Secured Dry Gauze & with Roll Gauze, Secured with Tape -Hydrofera Blue Foam 1 1. RLE lateral -Ulcer Cleansing Not Cleansed -Foul Odor after Cleansing No -Negative Pressure Wound Therapy N/A -Primary Dressing Applied Hydrofera Blue Foam -Hydrofera Blue Foam 1 Pain Scale: 0-10 Numeric [Pain] -Is Patient Pain Free? Yes - Visit Discharge [Visit Discharge Information] -Discharge Condition Stable -Ambulatory Status Ambulatory -Transportation Private Auto -Accompanied by -Medication Reconcilliation completed Yes & provided to patient/care provider -Clinical Summary of Care Provided Yes Psych/Mental Status: Normal Affect, Appropriate Debridement Note Post-Debridement Measurements/Treatment - Nurse 2 - General Ulcer CM Notes Start: 12/22/19 09:41 Freq: Status: Active Protocol: Activity Type Activity Date Activity User E-Sign Co-Sign Detail Recorded Client Recorded Date Recorded By Document 12/22/19 09:59 MW [id number] 12/22/19 10:08 MW Document 12/29/19 10:59 MW [id number] 12/29/19 11:13 MW Document 01/05/20 09:59 MW [id number] 01/05/20 10:18 MW 12/22/19 12/29/19 01/05/20 09:59 10:59 09:59 Wound Center Nurse 2 #3- R POST LE -Time 11:02 10:00 -Correct Patient Yes Yes -Correct Side, Site, Position Yes Yes -Correct Procedure Yes Yes -Procedure Performed No Yes -Type of Procedure Debridement -Clinical Debridement Subcutaneous -Tissue Removed Subcutaneous -Post Debridement (cm) - Length 0.1 -Post Debridement (cm) - Width 0.1 -Post Debridement (cm) - Depth 0.1 -Total Square (Post) (cm) 0.01 -Area of Debridement (cm) - Length 0.1 -Area of Debridement (cm) - Width 0.1 -Total Square (Area) (cm) 0.01 -Tunneling No No -Undermining/Tunneling No No -Circular Undermining No No -Wound/Ulcer Outcome Not Healed Not Healed -Ulcer Cleansing Rinsed/ Rinsed/ Irrigated with Irrigated with Saline Saline -Foul Odor after Cleansing No No -Bioengineered Tissue No No -Bleeding Controlled with NA Pressure -Offloading No No -Treatment Response Procedure Tolerated Well -Debridement - Subq, 1st 20sq cm Yes #2- R CHOUDHARY -Time 11:03 10:00 -Correct Patient Yes Yes -Correct Side, Site, Position Yes Yes -Correct Procedure Yes Yes -Procedure Performed No Yes -Type of Procedure Debridement -Clinical Debridement Subcutaneous -Tissue Removed Subcutaneous -Post Debridement (cm) - Length 1.7 -Post Debridement (cm) - Width 1.5 -Post Debridement (cm) - Depth 0.1 -Total Square (Post) (cm) 2.55 -Area of Debridement (cm) - Length 1.7 -Area of Debridement (cm) - Width 1.5 -Total Square (Area) (cm) 2.55 -Tunneling No No -Undermining/Tunneling No No -Circular Undermining No No -Wound/Ulcer Outcome Not Healed Not Healed -Ulcer Cleansing Not Cleansed Rinsed/ Irrigated with Saline -Foul Odor after Cleansing No No -Bioengineered Tissue No No -Bleeding Controlled with NA Pressure -Offloading No No -Treatment Response Procedure Tolerated Well -Debridement - Subq, 1st 20sq cm No 1. RLE lateral -Time 09:59 11:03 10:00 -Correct Patient Yes Yes Yes -Correct Side, Site, Position Yes Yes Yes -Correct Procedure Yes Yes Yes -Procedure Performed Yes Yes Yes -Type of Procedure Debridement Debridement Debridement -Clinical Debridement Subcutaneous Epidermis / Subcutaneous Dermis -Tissue Removed Subcutaneous Epidermis Subcutaneous -Post Debridement (cm) - Length 5.5 5.7 5.7 -Post Debridement (cm) - Width 3.0 2.9 2.7 -Post Debridement (cm) - Depth 0.1 0.1 0.1 -Total Square (Post) (cm) 16.50 16.53 15.39 -Area of Debridement (cm) - Length 5.5 5.7 5.7 -Area of Debridement (cm) - Width 3.0 2.9 2.7 -Total Square (Area) (cm) 16.50 16.53 15.39 -Tunneling No No Yes -Undermining/Tunneling No No No -Circular Undermining No No No -Wound/Ulcer Outcome Not Healed Not Healed Not Healed -Ulcer Cleansing Rinsed/ Rinsed/ Rinsed/ Irrigated with Irrigated with Irrigated with Saline Saline Saline -Foul Odor after Cleansing No No No -Bioengineered Tissue No No Yes -Type of Bioengineered Tissue PuraPly AM -Expiration Date 06/16/21 -Product Lot Number [id number] -Percent Used 100 -Saline Lot Number [id number] -Bleeding Controlled with Pressure Pressure Pressure -Offloading No No No -Treatment Response Procedure Procedure Tolerated Well Tolerated Well -Debridement - Open, 1st 20sq cm Yes -Debridement - Subq, 1st 20sq cm Yes No -Apply Skin Sub - 1st 25 sq cm - Legs 1 -PuraPly AM (per sq cm) 25 Pain Scale: 0-10 Numeric Is Patient Pain Free? Yes Yes Yes WC - Nurse 3 - General Ulcer D/C NN Start: 12/22/19 09:41 Freq: Status: Active Protocol: Activity Type Activity Date Activity User E-Sign Co-Sign Detail Recorded Client Recorded Date Recorded By Document 12/22/19 10:12 MW [id number] 12/22/19 10:13 MW Document 12/29/19 11:30 RB [id number] 12/29/19 11:32 RB Document 01/05/20 10:34 CS [id number] 01/05/20 10:35 CS 12/22/19 12/29/19 01/05/20 10:12 11:30 10:34 Wound Care Nurse 3 #3- R POST LE -Ulcer Cleansing Not Cleansed -Foul Odor after Cleansing No -Negative Pressure Wound Therapy N/A -Primary Dressing Applied Hydrofera Blue Hydrofera Blue Foam Foam -Other Dressing hydrogel -Primary Dressing Covered/Secured with Dry Gauze,Dry Dry Gauze & Gauze & Roll Roll Gauze, Gauze,Secured Secured with with Tape Tape -Hydrofera Blue Foam 1 1 #2- R CHOUDHARY -Ulcer Cleansing Rinsed/ Not Cleansed Irrigated with Saline -Foul Odor after Cleansing No -Negative Pressure Wound Therapy N/A -Primary Dressing Applied Hydrofera Blue Foam -Other Dressing hydrogel and hydrofera blue -Primary Dressing Covered/Secured with Dry Gauze & Dry Gauze & Roll Gauze, Roll Gauze, Secured with Secured with Tape Tape -Hydrofera Blue Foam 1 1. RLE lateral -Ulcer Cleansing Rinsed/ Rinsed/ Not Cleansed Irrigated with Irrigated with Saline Saline -Foul Odor after Cleansing No No -Negative Pressure Wound Therapy N/A N/A -Primary Dressing Applied Hydrofera Blue Hydrofera Blue Foam Foam -Other Dressing c.hydrogel hydrofera blue & hydrgel -Primary Dressing Covered/Secured with Dry Gauze & Dry Gauze & Roll Gauze Roll Gauze, Secured with Tape -Hydrofera Blue Foam 3 1 Right -Tubular Bandage Double Layer -Size of Tubigrip Used Size D -Size D ($) 2 Treatment Response Procedure Procedure Tolerated Well Tolerated Well Pain Scale: 0-10 Numeric Is Patient Pain Free? Yes Yes Yes Teaching: Wound Center Dressing Your Wound -Person Taught Patient Patient -Teaching Method Discussion Discussion, Demonstration -Response to teaching Verbalize Verbalize understanding understanding WC - Visit Discharge Discharge Condition Stable Stable Stable Ambulatory Status Ambulatory Ambulatory Ambulatory Transportation Private Auto Private Auto Private Auto Accompanied by Medication Reconcilliation completed & No No Yes provided to patient/care provider Clinical Summary of Care Provided Yes Yes Yes Wound debrided: right post LE Laterality: Right Type of Debridement: Selective debridement Anesthesia Used: 4% Lidocaine Solution Depth: Down to and including healthy tissue Percentage of wound debrided: 100 Instrument Used: - - gauze Tissue Removed: Yellow slough, devitalized tissue Severity: Fat Layer Exposed Amount of bleeding with debridement: Mild Bleeding Controlled with: Compression and gauze Patient tolerated procedure well - Additional Wound Wound debrided: right choudhary Laterality: Right Type of Debridement: Selective debridement Anesthesia Used: 4% Lidocaine Solution Depth: Down to and including healthy tissue, in the subcutaneous layer Percentage of wound debrided: 100 Instrument Used: - - gauze Tissue Removed: Yellow slough, devitalized tissue Severity: Fat Layer Exposed Amount of bleeding with debridement: Mild Bleeding Controlled with: Compression and gauze Patient tolerated procedure: Patient tolerated procedure well - Additional Wound Wound debrided: right lateral LE Laterality: Right Type of Debridement: Selective debridement Anesthesia Used: 4% Lidocaine Solution Depth: Down to and including healthy tissue, in the subcutaneous layer Percentage of wound debrided: 100 Instrument Used: - - gauze Tissue Removed: Yellow slough, devitalized tissue Severity: Fat Layer Exposed Amount of bleeding with debridement: Mild Bleeding Controlled with: Compression and gauze Patient tolerated procedure: Patient tolerated procedure well Assessment/Plan Active Problems Ulcer of right choudhary with fat layer exposed (Chronic) Pyoderma gangrenosum (Chronic) 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 venous ulcer right choudhary Plan: Rodo's ulcer was evaluated and selective debridement completed today. His ulcer is a venous ulcer complicated by pyoderma granulosum and the new ulcers are also venous ulcers. He was approved for Apligraf application and Puraply application. Puraply application to the ulcer was performed today as per alining inspector guidelines and covered with wound veil and secured with steri- strips then Hydrofera Blue as a secondary dressing to help with heavy drainage from his ulcer. He will change the secondary dressing as needed for soiling. He was advised to keep the dressing in place and avoid getting it wet for the next week. He will use continue to use compression with tubigrips but will increase compresion to double layer tubigrips and elevate his legs when he is seated. He was encouraged to increase his protein intake and take vitamin C supplement to improve wound healing potential. I feel that due to lack of improvement in his healing with conventional wound care that he would benefit from advanced wound care treatment with Apligraf to heal his ulcer. He will call with any increased pain, drainage, erythema or swelling or odor. He will follow up in 1 week.
--- NOTE | 2020-01-12 14:09 | PCM.WC.PN ---
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: Chronic Current Visit: Yes Code(s): I83.019 - Varicose veins of right lower extremity with ulcer of unspecified site; L97.919 - Non-pressure chronic ulcer of unspecified part of right lower leg with unspecified severity (5) Venous ulcer with fat layer exposed Status: Chronic Current Visit: Yes Code(s): I83.009 - Varicose veins of unspecified lower extremity with ulcer of unspecified site; L97.902 - Non-pressure chronic ulcer of unspecified part of unspecified lower leg with fat layer exposed Type of Wound Date of Service: 01/12/20 Chief Complaint: nonhealing ulcer right choudhary s/p traumatic injury History of Wound: Rodo is a 79 yo gentleman who presents to the wound healing center for evaluation and treatment of a nonhealing wound of his right choudhary which occurred approx. 2 months ago when he struck his choudhary against a metal post. The wound was small initially but has gotten larger. He initally was not using any dressings to the wound and was keeping it open to air. He did see his PCP approx. 1 month ago and she debrided the wound and started him on cefdinir for 10 days. He noted minimal improvement. He has been applying antibiotic ointment to the wound and covering it with a band aid. He has not undergone a wound culture that he is aware of at this point. He denies any history of difficult to heal wounds. He denies any problems with edema or circulation. He denies any fever, chills, erythema, nausea, vomiting or other systemic signs of infection. Progress of Wound: Rodo is here for follow up of nonhealing ulcer to his right choudhary. He tolerated Puraply #1 application and has had improvement in his ulcer. The blistered areas that he had have all healed as well. There has not been increased erythema or drainage. He still has moderate to heavy drainage and pain of his ulcer. His wound culture on 11/10/2019 was negative for infection. He saw Dr. Farr who biopsied the ulcer this week. Results are pending. - Physical Exam Vital Signs Temp Pulse Resp BP 97.5 F L 66 18 173/86 H 01/05/20 09:32 01/05/20 09:32 01/05/20 09:32 01/05/20 09:32 General: Alert, Oriented x3, Cooperative, No apparent distress HEENT: Atraumatic, Normocephalic Oral: Moist Mucosa Abdomen: Obese Extremities: Edema Skin: Ulcer/ Wound Wound Measurements and Assessment WC - Nurse 1 - General Ulcer Measurement Start: 12/22/19 09:41 Freq: Status: Active Protocol: Activity Type Activity Date Activity User E-Sign Co-Sign Detail Recorded Client Recorded Date Recorded By Document 01/12/20 09:35 RB [id number] 01/12/20 09:46 RB 01/12/20 09:35 Wound Center Nurse 1 [Ulcer Assessment] #4- R POST LE -Combined with other wound No -Current Size (cm) - Length 0 -Current Size (cm) - Width 0 -Current Size (cm) - Depth 0 -Total Square Cm 0 -Photo Taken Yes -Epithelialization Large 67-100% #3- R CHOUDHARY -Combined with other wound No -Current Size (cm) - Length 0 -Current Size (cm) - Width 0 -Current Size (cm) - Depth 0 -Total Square Cm 0 -Photo Taken Yes -Epithelialization Large 67-100% 1. RLE lateral -Combined with other wound No -Current Size (cm) - Length 4.5 -Current Size (cm) - Width 2.6 -Current Size (cm) - Depth 0.1 -Total Square Cm 11.70 -Tunneling No -Undermining/Tunneling No -Circular Undermining No -Exudate Amt Medium -Exudate Type Serosanguineous -Wound Margin Flat & Intact -Granulation Amt Large (67-100%) -Granulation Quality White Shield,Red -Slough/Fibrin Yes -Necrosis Amt Small (1-33%) -Necrotic Tissue Type Adherent Slough -Structure Exposed N/A -Texture (Funmi-wound Skin Appearance) Assessed, Scarring -Moisture (Funmi-wound Skin Appearance Assessed ) -Color (Funmi-wound Skin Appearance) Assessed -Temperature (Funmi-wound Skin No Abnormality Appearance) (Pt Warm) -Tenderness on Palpation (Funmi-wound No Skin Appearance) -Ulcer Cleansing Wound Cleanser -Foul Odor after Cleansing No -Anesthetic Used 4% Lidocaine Solution [Edema Assessment] -Lower Limb Edema Present Yes -Right Calf (cm) 34.7 -Right Ankle (cm) 21.5 WC - Nurse 2 - General Ulcer CM Notes Start: 12/22/19 09:41 Freq: Status: Active Protocol: Activity Type Activity Date Activity User E-Sign Co-Sign Detail Recorded Client Recorded Date Recorded By Document 01/12/20 10:20 MW [id number] 01/12/20 10:42 MW 01/12/20 10:20 Wound Center Nurse 2 [Procedure/Treatment] #4- R POST LE -Time 10:22 -Correct Patient Yes -Correct Side, Site, Position Yes -Correct Procedure Yes -Procedure Performed No -Tunneling No -Undermining/Tunneling No -Circular Undermining No -Wound/Ulcer Outcome Healed- Epithelialized -Bleeding Controlled with NA #3- R CHOUDHARY -Time 10:23 -Correct Patient Yes -Correct Side, Site, Position Yes -Correct Procedure Yes -Procedure Performed No -Tunneling No -Undermining/Tunneling No -Circular Undermining No -Wound/Ulcer Outcome Healed- Epithelialized -Ulcer Cleansing Not Cleansed -Bleeding Controlled with NA 1. RLE lateral -Time 10:23 -Correct Patient Yes -Correct Side, Site, Position Yes -Correct Procedure Yes -Procedure Performed Yes -Type of Procedure Debridement -Clinical Debridement Subcutaneous -Tissue Removed Subcutaneous -Post Debridement (cm) - Length 4.7 -Post Debridement (cm) - Width 2.8 -Post Debridement (cm) - Depth 0.1 -Total Square (Post) (cm) 13.16 -Area of Debridement (cm) - Length 4.7 -Area of Debridement (cm) - Width 2.8 -Total Square (Area) (cm) 13.16 -Tunneling No -Undermining/Tunneling No -Circular Undermining No -Wound/Ulcer Outcome Not Healed -Ulcer Cleansing Rinsed/ Irrigated with Saline -Foul Odor after Cleansing No -Bioengineered Tissue Yes -Type of Bioengineered Tissue PuraPly AM -Expiration Date 06/16/21 -Product Lot Number [id number] -Percent Used 100 -Saline Lot Number [id number] -Bleeding Controlled with Pressure -Offloading No -Treatment Response Procedure Tolerated Well -Debridement - Subq, 1st 20sq cm Yes -Apply Skin Sub - 1st 25 sq cm - Legs 1 -PuraPly AM (per sq cm) 25 [See Physician Procedure note for Specifics] Pain Scale: 0-10 Numeric [Pain] -Is Patient Pain Free? Yes - Nurse 3 - General Ulcer D/C NN Start: 12/22/19 09:41 Freq: Status: Active Protocol: Activity Type Activity Date Activity User E-Sign Co-Sign Detail Recorded Client Recorded Date Recorded By Document 01/12/20 10:42 MW [id number] 01/12/20 10:44 MW 01/12/20 10:42 Wound Care Nurse 3 [Wound Dressing] 1. RLE lateral -Ulcer Cleansing Not Cleansed -Foul Odor after Cleansing No -Negative Pressure Wound Therapy N/A -Primary Dressing Applied Aquacel Extra -Primary Dressing Covered/Secured Dry Gauze & with Roll Gauze, Secured with Tape -Aquacel Extra 1 [Compression Applied] Right -Lotion applied to leg before No compression wrap -Other TUBIGRIP [Post Procedure Tolerated] -Treatment Response Procedure Tolerated Well Pain Scale: 0-10 Numeric [Pain] -Is Patient Pain Free? Yes Teaching: Wound Center [Wound Center Education] (Items with an * have Printed Materials Available- Please identify what is given to patient under the Teaching materials given to patient and caregiver Section. Dressing Your Wound -Person Taught Patient,Family -Teaching Method Discussion, Demonstration -Response to teaching Return demonstration - Visit Discharge [Visit Discharge Information] -Discharge Condition Stable -Ambulatory Status Ambulatory -Transportation Private Auto -Accompanied by -Medication Reconcilliation completed No & provided to patient/care provider -Clinical Summary of Care Provided Yes Psych/Mental Status: Normal Affect, Appropriate Debridement Note Post-Debridement Measurements/Treatment - Nurse 2 - General Ulcer CM Notes Start: 12/22/19 09:41 Freq: Status: Active Protocol: Activity Type Activity Date Activity User E-Sign Co-Sign Detail Recorded Client Recorded Date Recorded By Document 12/22/19 09:59 MW [id number] 12/22/19 10:08 MW Document 12/29/19 10:59 MW [id number] 12/29/19 11:13 MW Document 01/05/20 09:59 MW [id number] 01/05/20 10:18 MW Document 01/12/20 10:20 MW [id number] 01/12/20 10:42 MW 12/22/19 12/29/19 01/05/20 09:59 10:59 09:59 Wound Center Nurse 2 #4- R POST LE -Time 11:02 10:00 -Correct Patient Yes Yes -Correct Side, Site, Position Yes Yes -Correct Procedure Yes Yes -Procedure Performed No Yes -Type of Procedure Debridement -Clinical Debridement Subcutaneous -Tissue Removed Subcutaneous -Post Debridement (cm) - Length 0.1 -Post Debridement (cm) - Width 0.1 -Post Debridement (cm) - Depth 0.1 -Total Square (Post) (cm) 0.01 -Area of Debridement (cm) - Length 0.1 -Area of Debridement (cm) - Width 0.1 -Total Square (Area) (cm) 0.01 -Tunneling No No -Undermining/Tunneling No No -Circular Undermining No No -Wound/Ulcer Outcome Not Healed Not Healed -Ulcer Cleansing Rinsed/ Rinsed/ Irrigated with Irrigated with Saline Saline -Foul Odor after Cleansing No No -Bioengineered Tissue No No -Bleeding Controlled with NA Pressure -Offloading No No -Treatment Response Procedure Tolerated Well -Debridement - Subq, 1st 20sq cm Yes #3- R CHOUDHARY -Time 11:03 10:00 -Correct Patient Yes Yes -Correct Side, Site, Position Yes Yes -Correct Procedure Yes Yes -Procedure Performed No Yes -Type of Procedure Debridement -Clinical Debridement Subcutaneous -Tissue Removed Subcutaneous -Post Debridement (cm) - Length 1.7 -Post Debridement (cm) - Width 1.5 -Post Debridement (cm) - Depth 0.1 -Total Square (Post) (cm) 2.55 -Area of Debridement (cm) - Length 1.7 -Area of Debridement (cm) - Width 1.5 -Total Square (Area) (cm) 2.55 -Tunneling No No -Undermining/Tunneling No No -Circular Undermining No No -Wound/Ulcer Outcome Not Healed Not Healed -Ulcer Cleansing Not Cleansed Rinsed/ Irrigated with Saline -Foul Odor after Cleansing No No -Bioengineered Tissue No No -Bleeding Controlled with NA Pressure -Offloading No No -Treatment Response Procedure Tolerated Well -Debridement - Subq, 1st 20sq cm No 1. RLE lateral -Time 09:59 11:03 10:00 -Correct Patient Yes Yes Yes -Correct Side, Site, Position Yes Yes Yes -Correct Procedure Yes Yes Yes -Procedure Performed Yes Yes Yes -Type of Procedure Debridement Debridement Debridement -Clinical Debridement Subcutaneous Epidermis / Subcutaneous Dermis -Tissue Removed Subcutaneous Epidermis Subcutaneous -Post Debridement (cm) - Length 5.5 5.7 5.7 -Post Debridement (cm) - Width 3.0 2.9 2.7 -Post Debridement (cm) - Depth 0.1 0.1 0.1 -Total Square (Post) (cm) 16.50 16.53 15.39 -Area of Debridement (cm) - Length 5.5 5.7 5.7 -Area of Debridement (cm) - Width 3.0 2.9 2.7 -Total Square (Area) (cm) 16.50 16.53 15.39 -Tunneling No No Yes -Undermining/Tunneling No No No -Circular Undermining No No No -Wound/Ulcer Outcome Not Healed Not Healed Not Healed -Ulcer Cleansing Rinsed/ Rinsed/ Rinsed/ Irrigated with Irrigated with Irrigated with Saline Saline Saline -Foul Odor after Cleansing No No No -Bioengineered Tissue No No Yes -Type of Bioengineered Tissue PuraPly AM -Expiration Date 06/16/21 -Product Lot Number [id number] -Percent Used 100 -Saline Lot Number [id number] -Bleeding Controlled with Pressure Pressure Pressure -Offloading No No No -Treatment Response Procedure Procedure Tolerated Well Tolerated Well -Debridement - Open, 1st 20sq cm Yes -Debridement - Subq, 1st 20sq cm Yes No -Apply Skin Sub - 1st 25 sq cm - Legs 1 -PuraPly AM (per sq cm) 25 Pain Scale: 0-10 Numeric Is Patient Pain Free? Yes Yes Yes 01/12/20 10:20 Wound Center Nurse 2 #4- R POST LE -Time 10:22 -Correct Patient Yes -Correct Side, Site, Position Yes -Correct Procedure Yes -Procedure Performed No -Type of Procedure -Clinical Debridement -Tissue Removed -Post Debridement (cm) - Length -Post Debridement (cm) - Width -Post Debridement (cm) - Depth -Total Square (Post) (cm) -Area of Debridement (cm) - Length -Area of Debridement (cm) - Width -Total Square (Area) (cm) -Tunneling No -Undermining/Tunneling No -Circular Undermining No -Wound/Ulcer Outcome Healed- Epithelialized -Ulcer Cleansing -Foul Odor after Cleansing -Bioengineered Tissue -Bleeding Controlled with NA -Offloading -Treatment Response -Debridement - Subq, 1st 20sq cm #3- R CHOUDHARY -Time 10:23 -Correct Patient Yes -Correct Side, Site, Position Yes -Correct Procedure Yes -Procedure Performed No -Type of Procedure -Clinical Debridement -Tissue Removed -Post Debridement (cm) - Length -Post Debridement (cm) - Width -Post Debridement (cm) - Depth -Total Square (Post) (cm) -Area of Debridement (cm) - Length -Area of Debridement (cm) - Width -Total Square (Area) (cm) -Tunneling No -Undermining/Tunneling No -Circular Undermining No -Wound/Ulcer Outcome Healed- Epithelialized -Ulcer Cleansing Not Cleansed -Foul Odor after Cleansing -Bioengineered Tissue -Bleeding Controlled with NA -Offloading -Treatment Response -Debridement - Subq, 1st 20sq cm 1. RLE lateral -Time 10:23 -Correct Patient Yes -Correct Side, Site, Position Yes -Correct Procedure Yes -Procedure Performed Yes -Type of Procedure Debridement -Clinical Debridement Subcutaneous -Tissue Removed Subcutaneous -Post Debridement (cm) - Length 4.7 -Post Debridement (cm) - Width 2.8 -Post Debridement (cm) - Depth 0.1 -Total Square (Post) (cm) 13.16 -Area of Debridement (cm) - Length 4.7 -Area of Debridement (cm) - Width 2.8 -Total Square (Area) (cm) 13.16 -Tunneling No -Undermining/Tunneling No -Circular Undermining No -Wound/Ulcer Outcome Not Healed -Ulcer Cleansing Rinsed/ Irrigated with Saline -Foul Odor after Cleansing No -Bioengineered Tissue Yes -Type of Bioengineered Tissue PuraPly AM -Expiration Date 06/16/21 -Product Lot Number [id number] -Percent Used 100 -Saline Lot Number [id number] -Bleeding Controlled with Pressure -Offloading No -Treatment Response Procedure Tolerated Well -Debridement - Open, 1st 20sq cm -Debridement - Subq, 1st 20sq cm Yes -Apply Skin Sub - 1st 25 sq cm - Legs 1 -PuraPly AM (per sq cm) 25 Pain Scale: 0-10 Numeric Is Patient Pain Free? Yes WC - Nurse 3 - General Ulcer D/C NN Start: 12/22/19 09:41 Freq: Status: Active Protocol: Activity Type Activity Date Activity User E-Sign Co-Sign Detail Recorded Client Recorded Date Recorded By Document 12/22/19 10:12 MW [id number] 12/22/19 10:13 MW Document 12/29/19 11:30 RB [id number] 12/29/19 11:32 RB Document 01/05/20 10:34 CS [id number] 01/05/20 10:35 CS Document 01/12/20 10:42 MW [id number] 01/12/20 10:44 MW 12/22/19 12/29/19 01/05/20 10:12 11:30 10:34 Wound Care Nurse 3 #4- R POST LE -Ulcer Cleansing Not Cleansed -Foul Odor after Cleansing No -Negative Pressure Wound Therapy N/A -Primary Dressing Applied Hydrofera Blue Hydrofera Blue Foam Foam -Other Dressing hydrogel -Primary Dressing Covered/Secured with Dry Gauze,Dry Dry Gauze & Gauze & Roll Roll Gauze, Gauze,Secured Secured with with Tape Tape -Hydrofera Blue Foam 1 1 #3- R CHOUDHARY -Ulcer Cleansing Rinsed/ Not Cleansed Irrigated with Saline -Foul Odor after Cleansing No -Negative Pressure Wound Therapy N/A -Primary Dressing Applied Hydrofera Blue Foam -Other Dressing hydrogel and hydrofera blue -Primary Dressing Covered/Secured with Dry Gauze & Dry Gauze & Roll Gauze, Roll Gauze, Secured with Secured with Tape Tape -Hydrofera Blue Foam 1 1. RLE lateral -Ulcer Cleansing Rinsed/ Rinsed/ Not Cleansed Irrigated with Irrigated with Saline Saline -Foul Odor after Cleansing No No -Negative Pressure Wound Therapy N/A N/A -Primary Dressing Applied Hydrofera Blue Hydrofera Blue Foam Foam -Other Dressing c.hydrogel hydrofera blue & hydrgel -Primary Dressing Covered/Secured with Dry Gauze & Dry Gauze & Roll Gauze Roll Gauze, Secured with Tape -Aquacel Extra -Hydrofera Blue Foam 3 1 Right -Lotion applied to leg before compression wrap -Tubular Bandage Double Layer -Size of Tubigrip Used Size D -Size D ($) 2 -Other Treatment Response Procedure Procedure Tolerated Well Tolerated Well Pain Scale: 0-10 Numeric Is Patient Pain Free? Yes Yes Yes Teaching: Wound Center Dressing Your Wound -Person Taught Patient Patient -Teaching Method Discussion Discussion, Demonstration -Response to teaching Verbalize Verbalize understanding understanding WC - Visit Discharge Discharge Condition Stable Stable Stable Ambulatory Status Ambulatory Ambulatory Ambulatory Transportation Private Auto Private Auto Private Auto Accompanied by Medication Reconcilliation completed & No No Yes provided to patient/care provider Clinical Summary of Care Provided Yes Yes Yes 01/12/20 10:42 Wound Care Nurse 3 #4- R POST LE -Ulcer Cleansing -Foul Odor after Cleansing -Negative Pressure Wound Therapy -Primary Dressing Applied -Other Dressing -Primary Dressing Covered/Secured with -Hydrofera Blue Foam #3- R CHOUDHARY -Ulcer Cleansing -Foul Odor after Cleansing -Negative Pressure Wound Therapy -Primary Dressing Applied -Other Dressing -Primary Dressing Covered/Secured with -Hydrofera Blue Foam 1. RLE lateral -Ulcer Cleansing Not Cleansed -Foul Odor after Cleansing No -Negative Pressure Wound Therapy N/A -Primary Dressing Applied Aquacel Extra -Other Dressing -Primary Dressing Covered/Secured with Dry Gauze & Roll Gauze, Secured with Tape -Aquacel Extra 1 -Hydrofera Blue Foam Right -Lotion applied to leg before No compression wrap -Tubular Bandage -Size of Tubigrip Used -Size D ($) -Other TUBIGRIP Treatment Response Procedure Tolerated Well Pain Scale: 0-10 Numeric Is Patient Pain Free? Yes Teaching: Wound Center Dressing Your Wound -Person Taught Patient,Family -Teaching Method Discussion, Demonstration -Response to teaching Return demonstration WC - Visit Discharge Discharge Condition Stable Ambulatory Status Ambulatory Transportation Private Auto Accompanied by Medication Reconcilliation completed & No provided to patient/care provider Clinical Summary of Care Provided Yes Wound debrided: right posterior LE Laterality: Right No debridement was completed today - healed - Additional Wound Wound debrided: right choudhary Laterality: Right Patient tolerated procedure: Patient tolerated procedure well - no debridement due to healed - Additional Wound Wound debrided: right lateral LE Laterality: Right Type of Debridement: Selective debridement Anesthesia Used: 4% Lidocaine Solution Depth: Down to and including healthy tissue Percentage of wound debrided: 100 Instrument Used: - - gauze Tissue Removed: Yellow slough, devitalized tissue Severity: Fat Layer Exposed Amount of bleeding with debridement: None Bleeding Controlled with: Compression and gauze Patient tolerated procedure: Patient tolerated procedure well Assessment/Plan Active Problems Ulcer of right choudhary with fat layer exposed (Chronic) Pyoderma gangrenosum (Chronic) 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 venous ulcer right choudhary Plan: Rodo's ulcer was evaluated and selective debridement completed today. 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 His new ulcers are healed and there has been mild improvement in his lateral LE ulcer. He was approved for Apligraf application and Puraply application. Puraply #2 application to the ulcer was performed today as per tank pumper guidelines and covered with wound veil and secured with steri-strips then Aquacel extra as a secondary dressing to help with heavy drainage from his ulcer. He will change the secondary dressing as needed for soiling. He was advised to keep the dressing in place and avoid getting it wet for the next week. He will use continue to use compression with tubigrips but will increase compresion to double layer tubigrips and elevate his legs when he is seated. He was encouraged to increase his protein intake and take vitamin C supplement to improve wound healing potential. I feel that due to lack of improvement in his healing with conventional wound care that he would benefit from advanced wound care treatment with Apligraf to heal his ulcer , which we will plan to apply at his next visit. He will call with any increased pain, drainage, erythema or swelling or odor. He will follow up in 1 week.
== END 2020-01-17 23:59 ==
LOC: WC 09:30
PROVIDERS: PCP Internal Medicine; Referring Provider Family Medicine; Visit Provider Family Medicine
CPT/HCPCS: 11042; 15271; 97597; Q4196

== ENCOUNTER 2020-02-16 09:30 | Outpatient (RCR) | payer MEDICARE, OTHER, SELFPAY ==
[2020-01-18 00:35] VITALS: BP 173/86; PULSE 66; RESP 18; TEMP 36.4
[2020-01-19 09:38] VITALS: BP 136/65; PULSE 61; RESP 18; TEMP 36.1
[2020-01-19 10:40] VITALS: BP 123/67; PULSE 55; RESP 18
--- NOTE | 2020-01-19 14:52 | PCM.WC.PN ---
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 Status: Chronic Current Visit: Yes Code(s): I83.019 - Varicose veins of right lower extremity with ulcer of unspecified site; L97.919 - Non-pressure chronic ulcer of unspecified part of right lower leg with unspecified severity (5) Venous ulcer with fat layer exposed Status: Chronic Current Visit: Yes Code(s): I83.009 - Varicose veins of unspecified lower extremity with ulcer of unspecified site; L97.902 - Non-pressure chronic ulcer of unspecified part of unspecified lower leg with fat layer exposed Type of Wound Date of Service: 01/19/20 Chief Complaint: nonhealing ulcer right choudhary s/p traumatic injury History of Wound: Rodo is a 79 yo gentleman who presents to the wound healing center for evaluation and treatment of a nonhealing wound of his right choudhary which occurred approx. 2 months ago when he struck his choudhary against a metal post. The wound was small initially but has gotten larger. He initally was not using any dressings to the wound and was keeping it open to air. He did see his PCP approx. 1 month ago and she debrided the wound and started him on cefdinir for 10 days. He noted minimal improvement. He has been applying antibiotic ointment to the wound and covering it with a band aid. He has not undergone a wound culture that he is aware of at this point. He denies any history of difficult to heal wounds. He denies any problems with edema or circulation. He denies any fever, chills, erythema, nausea, vomiting or other systemic signs of infection. Progress of Wound: Rodo is here for follow up of nonhealing ulcer to his right choudhary. He tolerated Puraply #2 application and has had improvement in his ulcer. The blistered areas have remained healed as well. There has not been increased erythema or drainage. He still has moderate to heavy drainage and pain of his ulcer. His wound culture on 11/10/2019 was negative for infection. He saw Dr. Farr who biopsied the ulcer this week. Results are pending. - Physical Exam Vital Signs Temp Pulse Resp BP 97 F L 55 L 18 123/67 H 01/19/20 09:38 01/19/20 10:40 01/19/20 10:40 01/19/20 10:40 General: Alert, Oriented x3, Cooperative, No apparent distress HEENT: Atraumatic, Normocephalic Oral: Moist Mucosa Neck: Supple Extremities: Edema Skin: Ulcer/ Wound Wound Measurements and Assessment WC - Nurse 1 - General Ulcer Measurement Start: 01/19/20 09:37 Freq: Status: Active Protocol: Activity Type Activity Date Activity User E-Sign Co-Sign Detail Recorded Client Recorded Date Recorded By Document 01/19/20 09:38 RB [id number] 01/19/20 09:40 RB 01/19/20 09:38 Wound Center Nurse 1 [Ulcer Assessment] 1. RLE lateral -Combined with other wound No -Current Size (cm) - Length 4.2 -Current Size (cm) - Width 2.6 -Current Size (cm) - Depth 0.1 -Total Square Cm 10.92 -Tunneling No -Undermining/Tunneling No -Circular Undermining No -Exudate Amt Medium -Exudate Type Serosanguineous -Wound Margin Flat & Intact -Granulation Amt Large (67-100%) -Granulation Quality Hannah -Slough/Fibrin Yes -Necrosis Amt Small (1-33%) -Necrotic Tissue Type Adherent Slough -Structure Exposed N/A -Texture (Funmi-wound Skin Appearance) Assessed -Moisture (Funmi-wound Skin Appearance Assessed ) -Color (Funmi-wound Skin Appearance) Assessed -Temperature (Funmi-wound Skin No Abnormality Appearance) (Pt Warm) -Tenderness on Palpation (Funmi-wound No Skin Appearance) -Ulcer Cleansing Wound Cleanser -Foul Odor after Cleansing No -Anesthetic Used 4% Lidocaine Solution [Edema Assessment] -Lower Limb Edema Present Yes -Right Calf (cm) 35.2 -Right Ankle (cm) 21.5 WC - Nurse 2 - General Ulcer CM Notes Start: 01/19/20 09:37 Freq: Status: Active Protocol: Activity Type Activity Date Activity User E-Sign Co-Sign Detail Recorded Client Recorded Date Recorded By Document 01/19/20 10:14 MW [id number] 01/19/20 10:30 MW 01/19/20 10:14 Wound Center Nurse 2 [Procedure/Treatment] 1. RLE lateral -Time 10:17 -Correct Patient Yes -Correct Side, Site, Position Yes -Correct Procedure Yes -Procedure Performed Yes -Type of Procedure Debridement -Clinical Debridement Subcutaneous -Tissue Removed Subcutaneous -Post Debridement (cm) - Length 4.4 -Post Debridement (cm) - Width 2.6 -Post Debridement (cm) - Depth 0.1 -Total Square (Post) (cm) 11.44 -Area of Debridement (cm) - Length 4.4 -Area of Debridement (cm) - Width 2.6 -Total Square (Area) (cm) 11.44 -Tunneling No -Undermining/Tunneling No -Circular Undermining No -Wound/Ulcer Outcome Not Healed -Ulcer Cleansing Rinsed/ Irrigated with Saline -Foul Odor after Cleansing No -Bioengineered Tissue Yes -Type of Bioengineered Tissue Apligraf -Expiration Date 01/27/20 -Product Lot Number [id number] -Percent Used 100 -Saline Lot Number [id number] -Bleeding Controlled with Pressure -Offloading No -Treatment Response Procedure Tolerated Well -Debridement - Subq, 1st 20sq cm No -Apply Skin Sub - 1st 25 sq cm - Legs 1 -Apligraf (per sq cm) 44 Query Text:1 sheet = 44 sq cm [See Physician Procedure note for Specifics] Pain Scale: 0-10 Numeric [Pain] -Is Patient Pain Free? Yes WC - Nurse 3 - General Ulcer D/C NN Start: 01/19/20 09:37 Freq: Status: Active Protocol: Activity Type Activity Date Activity User E-Sign Co-Sign Detail Recorded Client Recorded Date Recorded By Document 01/19/20 10:40 BMF [id number] 01/19/20 10:41 BMF 01/19/20 10:40 Wound Care Nurse 3 [Wound Dressing] 1. RLE lateral -Primary Dressing Covered/Secured Dry Gauze,Dry with Gauze & Roll Gauze,Secured with Tape [Compression Applied] Right -Other DOUBLE LAYER PT OWN [Post Procedure Tolerated] -Treatment Response Procedure Tolerated Well Vital Signs [Pulse] -Pulse Rate (60-100) 55 L -Pulse Location Monitor [Respirations] -Respiratory Rate (12-18) 18 -Respiratory rate source Observation [Blood Pressure] -Blood Pressure (90/60-120/80) 123/67 H -Blood Pressure Mean (mm Hg) 85 -Source Monitor -Position Semi-Fowlers -Blood Pressure Location Left Arm Pain Scale: 0-10 Numeric [Pain] -Is Patient Pain Free? Yes WC - Visit Discharge [Visit Discharge Information] -Discharge Condition Stable -Ambulatory Status Ambulatory -Transportation Private Auto -Medication Reconcilliation completed No & provided to patient/care provider -Clinical Summary of Care Provided Yes Psych/Mental Status: Normal Affect, Appropriate Debridement Note Post-Debridement Measurements/Treatment WC - Nurse 2 - General Ulcer CM Notes Start: 01/19/20 09:37 Freq: Status: Active Protocol: Activity Type Activity Date Activity User E-Sign Co-Sign Detail Recorded Client Recorded Date Recorded By Document 01/19/20 10:14 MW [id number] 01/19/20 10:30 MW 01/19/20 10:14 Wound Center Nurse 2 1. RLE lateral -Time 10:17 -Correct Patient Yes -Correct Side, Site, Position Yes -Correct Procedure Yes -Procedure Performed Yes -Type of Procedure Debridement -Clinical Debridement Subcutaneous -Tissue Removed Subcutaneous -Post Debridement (cm) - Length 4.4 -Post Debridement (cm) - Width 2.6 -Post Debridement (cm) - Depth 0.1 -Total Square (Post) (cm) 11.44 -Area of Debridement (cm) - Length 4.4 -Area of Debridement (cm) - Width 2.6 -Total Square (Area) (cm) 11.44 -Tunneling No -Undermining/Tunneling No -Circular Undermining No -Wound/Ulcer Outcome Not Healed -Ulcer Cleansing Rinsed/ Irrigated with Saline -Foul Odor after Cleansing No -Bioengineered Tissue Yes -Type of Bioengineered Tissue Apligraf -Expiration Date 01/27/20 -Product Lot Number [id number] -Percent Used 100 -Saline Lot Number [id number] -Bleeding Controlled with Pressure -Offloading No -Treatment Response Procedure Tolerated Well -Debridement - Subq, 1st 20sq cm No -Apply Skin Sub - 1st 25 sq cm - Legs 1 -Apligraf (per sq cm) 44 Query Text:1 sheet = 44 sq cm Pain Scale: 0-10 Numeric Is Patient Pain Free? Yes WC - Nurse 3 - General Ulcer D/C NN Start: 01/19/20 09:37 Freq: Status: Active Protocol: Activity Type Activity Date Activity User E-Sign Co-Sign Detail Recorded Client Recorded Date Recorded By Document 01/19/20 10:40 [facility] [id number] 01/19/20 10:41 [facility] 01/19/20 10:40 Wound Care Nurse 3 1. RLE lateral -Primary Dressing Covered/Secured with Dry Gauze,Dry Gauze & Roll Gauze,Secured with Tape Right -Other DOUBLE LAYER PT OWN Treatment Response Procedure Tolerated Well Vital Signs Pulse Rate (60-100) 55 L Pulse Location Monitor Respiratory Rate (12-18) 18 Respiratory rate source Observation Blood Pressure (90/60-120/80) 123/67 H Blood Pressure Mean (mm Hg) 85 Source Monitor Position Semi-Fowlers Blood Pressure Location Left Arm Pain Scale: 0-10 Numeric Is Patient Pain Free? Yes WC - Visit Discharge Discharge Condition Stable Ambulatory Status Ambulatory Transportation Private Auto Medication Reconcilliation completed & No provided to patient/care provider Clinical Summary of Care Provided Yes low Wound debrided: right lower extremity lateral Laterality: Right Type of Debridement: Selective debridement Anesthesia Used: 4% Lidocaine Solution Depth: Down to and including healthy tissue, in the subcutaneous layer Percentage of wound debrided: 100 Instrument Used: 3mm curette Tissue Removed: Yellow slough, devitalized tissue Severity: Fat Layer Exposed Amount of bleeding with debridement: Mild Bleeding Controlled with: Compression and gauze Patient tolerated procedure well Assessment/Plan Active Problems Nonhealing nonsurgical wound with fat layer exposed (Chronic) struck against metal post Ulcer of right choudhary with fat layer exposed (Chronic) Pyoderma gangrenosum (Chronic) 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 venous ulcer right choudhary Plan: Rodo's ulcer was evaluated and selective debridement completed today. 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 Apligraf #1 application to the ulcer was performed today as per pss delivery professional guidelines and covered with wound veil and secured with steri-strips then gauze as a secondary dressing to help with heavy drainage from his ulcer. He will change the secondary dressing as needed for soiling. He was advised to keep the dressing in place and avoid getting it wet for the next week. He will use continue to use compression with tubigrips but will increase compresion to double layer tubigrips and elevate his legs when he is seated. He was encouraged to increase his protein intake and take vitamin C supplement to improve wound healing potential. I feel that due to lack of improvement in his healing with conventional wound care that he would benefit from advanced wound care treatment with Apligraf to heal his ulcerwhich was applied today. He will call with any increased pain, drainage, erythema or swelling or odor. He will follow up in 1 week.
[2020-01-26 09:43] VITALS: BP 144/62; PULSE 58; RESP 18; TEMP 36.6
--- NOTE | 2020-01-26 09:44 | WC ---
apligraf secured with steristrips left in place outer gauze changed only .
[2020-02-02 09:34] VITALS: BP 153/75; PULSE 63; RESP 18; TEMP 36.1
--- NOTE | 2020-02-02 14:45 | PCM.WC.PN ---
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 Status: Chronic Code(s): I83.019 - Varicose veins of right lower extremity with ulcer of unspecified site; L97.919 - Non-pressure chronic ulcer of unspecified part of right lower leg with unspecified severity (5) Venous ulcer with fat layer exposed Status: Chronic Code(s): I83.009 - Varicose veins of unspecified lower extremity with ulcer of unspecified site; L97.902 - Non-pressure chronic ulcer of unspecified part of unspecified lower leg with fat layer exposed Type of Wound Date of Service: 02/02/20 Chief Complaint: nonhealing ulcer right choudhary s/p traumatic injury History of Wound: Rodo is a 79 yo gentleman who presents to the wound healing center for evaluation and treatment of a nonhealing wound of his right choudhary which occurred approx. 2 months ago when he struck his choudhary against a metal post. The wound was small initially but has gotten larger. He initally was not using any dressings to the wound and was keeping it open to air. He did see his PCP approx. 1 month ago and she debrided the wound and started him on cefdinir for 10 days. He noted minimal improvement. He has been applying antibiotic ointment to the wound and covering it with a band aid. He has not undergone a wound culture that he is aware of at this point. He denies any history of difficult to heal wounds. He denies any problems with edema or circulation. He denies any fever, chills, erythema, nausea, vomiting or other systemic signs of infection. Progress of Wound: Rodo is here for follow up of nonhealing ulcer to his right choudhary. He tolerated Apligraf #1 application and has had improvement in his ulcer. The blistered areas have remained healed as well. There has not been increased erythema or drainage. He has less drainage and pain of his ulcer. His wound culture on 11/10/2019 was negative for infection. He saw Dr. Farr who biopsied the ulcer. Results are pending. - Physical Exam Vital Signs Temp Pulse Resp BP 97 F L 63 18 153/75 H 02/02/20 09:34 02/02/20 09:34 02/02/20 09:34 02/02/20 09:34 General: Alert, Oriented x3, Cooperative, No apparent distress HEENT: Atraumatic, Normocephalic Oral: Moist Mucosa Neck: Supple Abdomen: Obese Extremities: Edema Skin: Ulcer/ Wound Wound Measurements and Assessment WC - Nurse 1 - General Ulcer Measurement Start: 01/19/20 09:37 Freq: Status: Active Protocol: Activity Type Activity Date Activity User E-Sign Co-Sign Detail Recorded Client Recorded Date Recorded By Document 02/02/20 09:34 RB [id number] 02/02/20 09:36 RB 02/02/20 09:34 Wound Center Nurse 1 [Ulcer Assessment] 1. RLE lateral -Combined with other wound No -Current Size (cm) - Length 4.2 -Current Size (cm) - Width 2.5 -Current Size (cm) - Depth 0.1 -Total Square Cm 10.50 -Tunneling No -Undermining/Tunneling No -Circular Undermining No -Exudate Amt Small -Exudate Type Serosanguineous -Wound Margin Flat & Intact -Granulation Amt Medium (34-66%) -Granulation Quality Foyil -Slough/Fibrin Yes -Necrosis Amt Small (1-33%) -Necrotic Tissue Type Adherent Slough -Structure Exposed N/A -Texture (Funmi-wound Skin Appearance) Assessed, Scarring -Moisture (Funmi-wound Skin Appearance Assessed ) -Color (Funmi-wound Skin Appearance) Assessed -Temperature (Funmi-wound Skin No Abnormality Appearance) (Pt Warm) -Tenderness on Palpation (Funmi-wound No Skin Appearance) -Ulcer Cleansing Wound Cleanser -Foul Odor after Cleansing No -Anesthetic Used 4% Lidocaine Solution [Edema Assessment] -Lower Limb Edema Present Yes -Right Calf (cm) 33.5 -Right Ankle (cm) 22 WC - Nurse 2 - General Ulcer CM Notes Start: 01/19/20 09:37 Freq: Status: Active Protocol: Activity Type Activity Date Activity User E-Sign Co-Sign Detail Recorded Client Recorded Date Recorded By Document 02/02/20 10:14 MW [id number] 02/02/20 10:27 MW 02/02/20 10:14 Wound Center Nurse 2 [Procedure/Treatment] 1. RLE lateral -Time 10:15 -Correct Patient Yes -Correct Side, Site, Position Yes -Correct Procedure Yes -Procedure Performed Yes -Type of Procedure Debridement -Clinical Debridement Epidermis / Dermis -Tissue Removed Epidermis, Subcutaneous -Post Debridement (cm) - Length 4.1 -Post Debridement (cm) - Width 2.5 -Post Debridement (cm) - Depth 0.1 -Total Square (Post) (cm) 10.25 -Area of Debridement (cm) - Length 4.1 -Area of Debridement (cm) - Width 2.5 -Total Square (Area) (cm) 10.25 -Tunneling No -Undermining/Tunneling No -Circular Undermining No -Wound/Ulcer Outcome Not Healed -Ulcer Cleansing Rinsed/ Irrigated with Saline -Foul Odor after Cleansing No -Bioengineered Tissue Yes -Type of Bioengineered Tissue Apligraf -Expiration Date 02/09/20 -Product Lot Number [id number] -Percent Used 100 -Saline Lot Number [id number] -Bleeding Controlled with Pressure -Offloading No -Treatment Response Procedure Tolerated Well -Debridement - Open, 1st 20sq cm No -Apply Skin Sub - 1st 25 sq cm - Legs 1 -Apligraf (per sq cm) 44 Query Text:1 sheet = 44 sq cm [See Physician Procedure note for Specifics] Pain Scale: 0-10 Numeric [Pain] -Is Patient Pain Free? Yes - Nurse 3 - General Ulcer D/C NN Start: 01/19/20 09:37 Freq: Status: Active Protocol: Activity Type Activity Date Activity User E-Sign Co-Sign Detail Recorded Client Recorded Date Recorded By Document 02/02/20 10:40 DL [id number] 02/02/20 10:41 DL 02/02/20 10:40 Wound Care Nurse 3 [Wound Dressing] 1. RLE lateral -Foul Odor after Cleansing No -Other Dressing Puraply/veil/ steri strips -Primary Dressing Covered/Secured Dry Gauze & with Roll Gauze, Secured with Tape [Compression Applied] Right -Other tubigrips WC - Visit Discharge [Visit Discharge Information] -Discharge Condition Stable -Ambulatory Status Ambulatory -Transportation Private Auto Psych/Mental Status: Normal Affect, Appropriate Debridement Note Post-Debridement Measurements/Treatment - Nurse 2 - General Ulcer CM Notes Start: 01/19/20 09:37 Freq: Status: Active Protocol: Activity Type Activity Date Activity User E-Sign Co-Sign Detail Recorded Client Recorded Date Recorded By Document 01/19/20 10:14 MW [id number] 01/19/20 10:30 MW Document 02/02/20 10:14 MW [id number] 02/02/20 10:27 MW 01/19/20 02/02/20 10:14 10:14 Wound Center Nurse 2 1. RLE lateral -Time 10:17 10:15 -Correct Patient Yes Yes -Correct Side, Site, Position Yes Yes -Correct Procedure Yes Yes -Procedure Performed Yes Yes -Type of Procedure Debridement Debridement -Clinical Debridement Subcutaneous Epidermis / Dermis -Tissue Removed Subcutaneous Epidermis, Subcutaneous -Post Debridement (cm) - Length 4.4 4.1 -Post Debridement (cm) - Width 2.6 2.5 -Post Debridement (cm) - Depth 0.1 0.1 -Total Square (Post) (cm) 11.44 10.25 -Area of Debridement (cm) - Length 4.4 4.1 -Area of Debridement (cm) - Width 2.6 2.5 -Total Square (Area) (cm) 11.44 10.25 -Tunneling No No -Undermining/Tunneling No No -Circular Undermining No No -Wound/Ulcer Outcome Not Healed Not Healed -Ulcer Cleansing Rinsed/ Rinsed/ Irrigated with Irrigated with Saline Saline -Foul Odor after Cleansing No No -Bioengineered Tissue Yes Yes -Type of Bioengineered Tissue Apligraf Apligraf -Expiration Date 01/27/20 02/09/20 -Product Lot Number [id number] -Percent Used 100 100 -Saline Lot Number [id number] -Bleeding Controlled with Pressure Pressure -Offloading No No -Treatment Response Procedure Procedure Tolerated Well Tolerated Well -Debridement - Open, 1st 20sq cm No -Debridement - Subq, 1st 20sq cm No -Apply Skin Sub - 1st 25 sq cm - Legs 1 1 -Apligraf (per sq cm) 44 44 Query Text:1 sheet = 44 sq cm Pain Scale: 0-10 Numeric Is Patient Pain Free? Yes Yes WC - Nurse 3 - General Ulcer D/C NN Start: 01/19/20 09:37 Freq: Status: Active Protocol: Activity Type Activity Date Activity User E-Sign Co-Sign Detail Recorded Client Recorded Date Recorded By Document 01/19/20 10:40 BMF [id number] 01/19/20 10:41 BMF Document 01/26/20 09:43 RB [id number] 01/26/20 09:46 RB Document 02/02/20 10:40 DL [id number] 02/02/20 10:41 DL 01/19/20 01/26/20 02/02/20 10:40 09:43 10:40 Wound Care Nurse 3 1. RLE lateral -Foul Odor after Cleansing No -Other Dressing Puraply/veil/ steri strips -Primary Dressing Covered/Secured with Dry Gauze,Dry Dry Gauze,Dry Dry Gauze & Gauze & Roll Gauze & Roll Roll Gauze, Gauze,Secured Gauze,Secured Secured with with Tape with Tape Tape Right -Other DOUBLE LAYER PT pt own double tubigrips OWN tubigrip appled Treatment Response Procedure Procedure Tolerated Well Tolerated Well Temperature (97.8 F-99.1 F) 98 F Temperature Source Temporal Vital Signs Pulse Rate (60-100) 55 L 58 L Pulse Location Monitor Monitor Respiratory Rate (12-18) 18 18 Respiratory rate source Observation Observation Blood Pressure (90/60-120/80) 123/67 H 144/62 H Blood Pressure Mean (mm Hg) 85 89 Source Monitor Monitor Position Semi-Fowlers Semi-Fowlers Blood Pressure Location Left Arm Left Arm Pain Scale: 0-10 Numeric Is Patient Pain Free? Yes Yes WC - Visit Discharge Discharge Condition Stable Stable Stable Ambulatory Status Ambulatory Ambulatory Ambulatory Transportation Private Auto Private Auto Private Auto Medication Reconcilliation completed & No No provided to patient/care provider Clinical Summary of Care Provided Yes Yes 01/26/20 09:44 Wound Center by Callie Abdi aplnusrat secured with steristrips left in place outer gauze changed only . Initialized on 01/26/20 09:44 - END OF NOTE Wound debrided: right lower extremity lateral Laterality: Right Type of Debridement: Selective debridement Anesthesia Used: 4% Lidocaine Solution Depth: Down to and including healthy tissue, in the subcutaneous layer Percentage of wound debrided: 100 Instrument Used: - - gauze Tissue Removed: Yellow slough, devitalized tissue Severity: Fat Layer Exposed Amount of bleeding with debridement: Mild Bleeding Controlled with: Compression and gauze Patient tolerated procedure well Assessment/Plan Assessment: 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 venous ulcer right choudhary Plan: Rodo's ulcer was evaluated and selective debridement completed today. After initial application of Apligraf there has been improvement in his ulcer. 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 Apligraf #2 application to the ulcer was performed today as per manager enterprise guidelines and covered with wound veil and secured with steri-strips then gauze as a secondary dressing to help with drainage from his ulcer. He will change the secondary dressing as needed for soiling. He was advised to keep the dressing in place and avoid getting it wet for the next week. He will use continue to use compression with tubigrips but will increase compresion to double layer tubigrips and elevate his legs when he is seated. He was encouraged to increase his protein intake and take vitamin C supplement to improve wound healing potential. I feel that due to lack of improvement in his healing with conventional wound care that he would benefit from advanced wound care treatment with Apligraf to heal his ulcer which was applied today. He will call with any increased pain, drainage, erythema or swelling or odor. He will follow up in 1 week.
[2020-02-16 09:26] VITALS: BP 144/59; PULSE 66; RESP 20; TEMP 36.1
[2020-02-16 10:14] VITALS: BP 149/78; PULSE 82; RESP 16
--- NOTE | 2020-02-16 14:12 | PN.PCM_ITS ---
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 Status: Chronic Code(s): I83.019 - Varicose veins of right lower extremity with ulcer of unspecified site; L97.919 - Non-pressure chronic ulcer of unspecified part of right lower leg with unspecified severity (5) Venous ulcer with fat layer exposed Status: Chronic Code(s): I83.009 - Varicose veins of unspecified lower extremity with ulcer of unspecified site; L97.902 - Non-pressure chronic ulcer of unspecified part of unspecified lower leg with fat layer exposed Type of Wound Date of Service: 02/16/20 Chief Complaint: nonhealing ulcer right choudhary s/p traumatic injury History of Wound: Rodo is a 79 yo gentleman who presents to the wound healing center for evaluation and treatment of a nonhealing wound of his right choudhary which occurred approx. 2 months ago when he struck his choudhary against a metal post. The wound was small initially but has gotten larger. He initally was not using any dressings to the wound and was keeping it open to air. He did see his PCP approx. 1 month ago and she debrided the wound and started him on cefdinir for 10 days. He noted minimal improvement. He has been applying antibiotic ointment to the wound and covering it with a band aid. He has not undergone a wound culture that he is aware of at this point. He denies any history of difficult to heal wounds. He denies any problems with edema or circulation. He denies any fever, chills, erythema, nausea, vomiting or other systemic signs of infection. Progress of Wound: Rodo is here for follow up of nonhealing ulcer to his right choudhary. He tolerated Apligraf #2 application and has had improvement in his ulcer. The blistered areas have remained healed as well. There has not been increased erythema or drainage. He has less drainage and pain of his ulcer. His wound culture on 11/10/2019 was negative for infection. He saw Dr. Farr who biopsied the ulcer. Results are still pending. - Physical Exam Vital Signs Temp Pulse Resp BP 97 F L 82 16 149/78 H 02/16/20 09:26 02/16/20 10:14 02/16/20 10:14 02/16/20 10:14 General: Alert, Oriented x3, Cooperative, No apparent distress HEENT: Atraumatic, Normocephalic Oral: Moist Mucosa Neck: Supple Abdomen: Obese Extremities: Edema Skin: Ulcer/ Wound Wound Measurements and Assessment WC - Nurse 1 - General Ulcer Measurement Start: 01/19/20 09:37 Freq: Status: Active Protocol: Activity Type Activity Date Activity User E-Sign Co-Sign Detail Recorded Client Recorded Date Recorded By Document 02/16/20 09:26 DL [id number] 02/16/20 09:32 DL 02/16/20 09:26 Wound Center Nurse 1 [Ulcer Assessment] 1. RLE lateral -Current Size (cm) - Length 4.3 -Current Size (cm) - Width 2.5 -Current Size (cm) - Depth 0.1 -Total Square Cm 10.75 -Photo Taken No -Exudate Amt Small -Exudate Type Serosanguineous -Wound Margin Distinct, Outline Attached -Granulation Amt Large (67-100%) -Granulation Quality Hyper- granulation,Red -Necrosis Amt Small (1-33%) -Necrotic Tissue Type Adherent Slough -Structure Exposed N/A -Texture (Funmi-wound Skin Appearance) Scarring -Moisture (Funmi-wound Skin Appearance No Abnormality ) -Color (Funmi-wound Skin Appearance) No Abnormality -Temperature (Funmi-wound Skin No Abnormality Appearance) (Pt Warm) -Tenderness on Palpation (Funmi-wound No Skin Appearance) -Ulcer Cleansing Wound Cleanser -Foul Odor after Cleansing No -Anesthetic Used 4% Lidocaine Solution [Edema Assessment] -Right Calf (cm) 35 -Right Ankle (cm) 22.2 WC - Nurse 2 - General Ulcer CM Notes Start: 01/19/20 09:37 Freq: Status: Active Protocol: Activity Type Activity Date Activity User E-Sign Co-Sign Detail Recorded Client Recorded Date Recorded By Document 02/16/20 09:51 MW [id number] 02/16/20 10:07 MW 02/16/20 09:51 Wound Center Nurse 2 [Procedure/Treatment] 1. RLE lateral -Time 09:52 -Correct Patient Yes -Correct Side, Site, Position Yes -Correct Procedure Yes -Procedure Performed Yes -Type of Procedure Debridement -Clinical Debridement Subcutaneous -Tissue Removed Subcutaneous -Post Debridement (cm) - Length 3.6 -Post Debridement (cm) - Width 2.3 -Post Debridement (cm) - Depth 0.1 -Total Square (Post) (cm) 8.28 -Area of Debridement (cm) - Length 3.6 -Area of Debridement (cm) - Width 2.3 -Total Square (Area) (cm) 8.28 -Tunneling No -Undermining/Tunneling No -Circular Undermining No -Wound/Ulcer Outcome Not Healed -Ulcer Cleansing Rinsed/ Irrigated with Saline -Foul Odor after Cleansing No -Bioengineered Tissue Yes -Type of Bioengineered Tissue Apligraf -Expiration Date 02/24/20 -Product Lot Number [id number] -Percent Used 50 -Saline Lot Number [id number] -Bleeding Controlled with Pressure -Offloading No -Treatment Response Procedure Tolerated Well -Debridement - Subq, 1st 20sq cm No -Apply Skin Sub - 1st 25 sq cm - Legs 1 -Apligraf (per sq cm) 44 Query Text:1 sheet = 44 sq cm [See Physician Procedure note for Specifics] Pain Scale: 0-10 Numeric [Pain] -Is Patient Pain Free? Yes WC - Nurse 3 - General Ulcer D/C NN Start: 01/19/20 09:37 Freq: Status: Active Protocol: Activity Type Activity Date Activity User E-Sign Co-Sign Detail Recorded Client Recorded Date Recorded By Document 02/16/20 10:14 [facility] [id number] 02/16/20 10:15 BMF 02/16/20 10:14 Wound Care Nurse 3 [Wound Dressing] 1. RLE lateral -Primary Dressing Applied Other -Other Dressing APLIGRAPH PER DR POLO -Primary Dressing Covered/Secured Dry Gauze & with Roll Gauze, Secured with Tape [Compression Applied] Right -Other PT WILL WASH TUBI @ HOME, THEN REAPPLY Vital Signs [Pulse] -Pulse Rate (60-100) 82 -Pulse Location Monitor [Respirations] -Respiratory Rate (12-18) 16 -Respiratory rate source Observation -Oxygen Delivery Method Room Air [Blood Pressure] -Blood Pressure (90/60-120/80) 149/78 H -Blood Pressure Mean (mm Hg) 101 -Source Monitor -Position Supine -Blood Pressure Location Right Arm Pain Scale: 0-10 Numeric [Pain] -Is Patient Pain Free? Yes WC - Visit Discharge [Visit Discharge Information] -Discharge Condition Stable -Ambulatory Status Ambulatory -Transportation Private Auto -Accompanied by Psych/Mental Status: Normal Affect, Appropriate Debridement Note Post-Debridement Measurements/Treatment WC - Nurse 2 - General Ulcer CM Notes Start: 01/19/20 09:37 Freq: Status: Active Protocol: Activity Type Activity Date Activity User E-Sign Co-Sign Detail Recorded Client Recorded Date Recorded By Document 01/19/20 10:14 MW [id number] 01/19/20 10:30 MW Document 02/02/20 10:14 MW [id number] 02/02/20 10:27 MW Document 02/16/20 09:51 MW [id number] 02/16/20 10:07 MW 01/19/20 02/02/20 02/16/20 10:14 10:14 09:51 Wound Center Nurse 2 1. RLE lateral -Time 10:17 10:15 09:52 -Correct Patient Yes Yes Yes -Correct Side, Site, Position Yes Yes Yes -Correct Procedure Yes Yes Yes -Procedure Performed Yes Yes Yes -Type of Procedure Debridement Debridement Debridement -Clinical Debridement Subcutaneous Epidermis / Subcutaneous Dermis -Tissue Removed Subcutaneous Epidermis, Subcutaneous Subcutaneous -Post Debridement (cm) - Length 4.4 4.1 3.6 -Post Debridement (cm) - Width 2.6 2.5 2.3 -Post Debridement (cm) - Depth 0.1 0.1 0.1 -Total Square (Post) (cm) 11.44 10.25 8.28 -Area of Debridement (cm) - Length 4.4 4.1 3.6 -Area of Debridement (cm) - Width 2.6 2.5 2.3 -Total Square (Area) (cm) 11.44 10.25 8.28 -Tunneling No No No -Undermining/Tunneling No No No -Circular Undermining No No No -Wound/Ulcer Outcome Not Healed Not Healed Not Healed -Ulcer Cleansing Rinsed/ Rinsed/ Rinsed/ Irrigated with Irrigated with Irrigated with Saline Saline Saline -Foul Odor after Cleansing No No No -Bioengineered Tissue Yes Yes Yes -Type of Bioengineered Tissue Apligraf Apligraf Apligraf -Expiration Date 01/27/20 02/09/20 02/24/20 -Product Lot Number [id number] -Percent Used 100 100 50 -Saline Lot Number [id number] -Bleeding Controlled with Pressure Pressure Pressure -Offloading No No No -Treatment Response Procedure Procedure Procedure Tolerated Well Tolerated Well Tolerated Well -Debridement - Open, 1st 20sq cm No -Debridement - Subq, 1st 20sq cm No No -Apply Skin Sub - 1st 25 sq cm - Legs 1 1 1 -Apligraf (per sq cm) 44 44 44 Query Text:1 sheet = 44 sq cm Pain Scale: 0-10 Numeric Is Patient Pain Free? Yes Yes Yes WC - Nurse 3 - General Ulcer D/C NN Start: 01/19/20 09:37 Freq: Status: Active Protocol: Activity Type Activity Date Activity User E-Sign Co-Sign Detail Recorded Client Recorded Date Recorded By Document 01/19/20 10:40 [facility] [id number] 01/19/20 10:41 BMF Document 01/26/20 09:43 RB [id number] 01/26/20 09:46 RB Document 02/02/20 10:40 DL [id number] 02/02/20 10:41 DL Document 02/16/20 10:14 BMF [id number] 02/16/20 10:15 BMF 01/19/20 01/26/20 02/02/20 10:40 09:43 10:40 Wound Care Nurse 3 1. RLE lateral -Foul Odor after Cleansing No -Primary Dressing Applied -Other Dressing Puraply/veil/ steri strips -Primary Dressing Covered/Secured with Dry Gauze,Dry Dry Gauze,Dry Dry Gauze & Gauze & Roll Gauze & Roll Roll Gauze, Gauze,Secured Gauze,Secured Secured with with Tape with Tape Tape Right -Other DOUBLE LAYER PT pt own double tubigrips OWN tubigrip appled Treatment Response Procedure Procedure Tolerated Well Tolerated Well Temperature (97.8 F-99.1 F) 98 F Temperature Source Temporal Vital Signs Pulse Rate (60-100) 55 L 58 L Pulse Location Monitor Monitor Respiratory Rate (12-18) 18 18 Respiratory rate source Observation Observation Oxygen Delivery Method Blood Pressure (90/60-120/80) 123/67 H 144/62 H Blood Pressure Mean (mm Hg) 85 89 Source Monitor Monitor Position Semi-Fowlers Semi-Fowlers Blood Pressure Location Left Arm Left Arm Pain Scale: 0-10 Numeric Is Patient Pain Free? Yes Yes WC - Visit Discharge Discharge Condition Stable Stable Stable Ambulatory Status Ambulatory Ambulatory Ambulatory Transportation Private Auto Private Auto Private Auto Accompanied by Medication Reconcilliation completed & No No provided to patient/care provider Clinical Summary of Care Provided Yes Yes 02/16/20 10:14 Wound Care Nurse 3 1. RLE lateral -Foul Odor after Cleansing -Primary Dressing Applied Other -Other Dressing APLIGRAPH PER DR POLO -Primary Dressing Covered/Secured with Dry Gauze & Roll Gauze, Secured with Tape Right -Other PT WILL WASH TUBI @ HOME, THEN REAPPLY Treatment Response Temperature (97.8 F-99.1 F) Temperature Source Vital Signs Pulse Rate (60-100) 82 Pulse Location Monitor Respiratory Rate (12-18) 16 Respiratory rate source Observation Oxygen Delivery Method Room Air Blood Pressure (90/60-120/80) 149/78 H Blood Pressure Mean (mm Hg) 101 Source Monitor Position Supine Blood Pressure Location Right Arm Pain Scale: 0-10 Numeric Is Patient Pain Free? Yes WC - Visit Discharge Discharge Condition Stable Ambulatory Status Ambulatory Transportation Private Auto Accompanied by Medication Reconcilliation completed & provided to patient/care provider Clinical Summary of Care Provided 01/26/20 09:44 Wound Center by Callie Abdi secured with steristrips left in place outer gauze changed only . Initialized on 01/26/20 09:44 - END OF NOTE Wound debrided: right lower extremity lateral Laterality: Right Type of Debridement: Selective debridement Anesthesia Used: 4% Lidocaine Solution Depth: Down to and including healthy tissue, in the subcutaneous layer Percentage of wound debrided: 100 Instrument Used: 3mm curette Tissue Removed: Yellow slough, devitalized tissue Severity: Fat Layer Exposed Amount of bleeding with debridement: Mild Bleeding Controlled with: Compression and gauze Patient tolerated procedure well Assessment/Plan Active Problems Nonhealing nonsurgical wound with fat layer exposed (Chronic) struck against metal post Ulcer of right choudhary with fat layer exposed (Chronic) Pyoderma gangrenosum (Chronic) 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 venous ulcer right choudhary Plan: Rodo's ulcer was evaluated and selective debridement completed today. After initial application of Apligraf there has been improvement in his ulcer. 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 Apligraf #3 application to the ulcer was performed today as per pretzel packer guidelines and covered with Adaptic Touch and secured with steri-strips then gauze as a secondary dressing to help with drainage from his ulcer. He will change the secondary dressing as needed for soiling. He was advised to keep the dressing in place and avoid getting it wet for the next week. He will use continue to use compression with tubigrips but will increase compresion to double layer tubigrips and elevate his legs when he is seated. He was encouraged to increase his protein intake and take vitamin C supplement to improve wound healing potential. I feel that due to lack of improvement in his healing with conventional wound care that he would benefit from advanced wound care treatment with Apligraf to heal his ulcer which was applied today. He will call with any increased pain, drainage, erythema or swelling or odor. He will follow up in 2 weeks.
== END 2020-02-17 23:59 ==
LOC: WC 09:30
PROVIDERS: PCP Internal Medicine; Referring Provider Family Medicine; Visit Provider Family Medicine
DX: I83.018 Varicose veins of right lower extremity with ulcer other part of lower leg (principal); L97.812 Non-pressure chronic ulcer of other part of right lower leg with fat layer exposed; L88 Pyoderma gangrenosum
CPT/HCPCS: 15271; 99213; Q4101; G0463

== ENCOUNTER 2020-03-15 10:00 | Outpatient (RCR) | payer MEDICARE, OTHER, SELFPAY ==
[2020-02-18 00:22] VITALS: BP 149/78; PULSE 82; RESP 16; TEMP 36.1
[2020-03-01 10:05] VITALS: BP 144/70; PULSE 60; RESP 18; TEMP 36.3
--- NOTE | 2020-03-01 13:54 | PN.PCM_ITS ---
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 Code(s): I83.019 - Varicose veins of right lower extremity with ulcer of unspecified site; L97.919 - Non-pressure chronic ulcer of unspecified part of right lower leg with unspecified severity (3) Venous ulcer with fat layer exposed Status: Chronic Code(s): I83.009 - Varicose veins of unspecified lower extremity with ulcer of unspecified site; L97.902 - Non-pressure chronic ulcer of unspecified part of unspecified lower leg with fat layer exposed (4) Ulcer of right choudhary with fat layer exposed Status: Chronic Code(s): L97.812 - Non-pressure chronic ulcer of other part of right lower leg with fat layer exposed (5) Pyoderma gangrenosum Status: Chronic Code(s): L88 - Pyoderma gangrenosum Type of Wound Date of Service: 03/01/20 Chief Complaint: nonhealing ulcer right choudhary s/p traumatic injury History of Wound: Rodo is a 79 yo gentleman who presents to the wound healing center for evaluation and treatment of a nonhealing wound of his right choudhary which occurred approx. 2 months ago when he struck his choudhary against a metal post. The wound was small initially but has gotten larger. He initally was not using any dressings to the wound and was keeping it open to air. He did see his PCP approx. 1 month ago and she debrided the wound and started him on cefdinir for 10 days. He noted minimal improvement. He has been applying antibiotic ointment to the wound and covering it with a band aid. He has not undergone a wound culture that he is aware of at this point. He denies any history of difficult to heal wounds. He denies any problems with edema or circulation. He denies any fever, chills, erythema, nausea, vomiting or other systemic signs of infection. Progress of Wound: Rodo is here for follow up of nonhealing ulcer to his right choudhary. He tolerated Apligraf #3 application and has had improvement in his ulcer. The blistered areas have remained healed as well. There has not been increased erythema or drainage. He has less drainage and pain of his ulcer. His wound culture on 11/10/2019 was negative for infection. A punch biopsy from 12/15/19 showed fragments of skin with extensive ulceration, associated acute and chronic inflammation, granulation tissue reaction, fibrinopurulent exudation and reactive changes; negative for carcinoma; special stains for acid fast bacilli and fungi are negative for organisms; matched controls are appropriate; underlying tissue also shows cartilaginous tissue with reactive changes. The patient denies any fever, chills, nausea, vomiting, or diarrhea. Denies any increasing pain, redness, swelling, or purulent/malodorous drainage from affected area. - Physical Exam Vital Signs Temp Pulse Resp BP 97.3 F L 60 18 144/70 H 03/01/20 10:05 03/01/20 10:05 03/01/20 10:05 03/01/20 10:05 General: Alert, Cooperative, No apparent distress HEENT: Atraumatic, Normocephalic Oral: Moist Mucosa Neck: Supple, Trachea Midline Lungs: Normal air movement Abdomen: Obese Extremities: No clubbing, No cyanosis, No edema, Capillary Refill Less than 3 Seconds, Peripheral Pulses Normal Skin: Ulcer/ Wound - Ulcer of right lower extremity with subcutaneous layer exposed. Mild amount of slough and devitalized tissue present. Good granula tion tissue present. No periulcer erythema, warmth, or tenderness. No purulent/malodorous drainage Wound Measurements and Assessment WC - Nurse 1 - General Ulcer Measurement Start: 03/01/20 10:05 Freq: Status: Active Protocol: Activity Type Activity Date Activity User E-Sign Co-Sign Detail Recorded Client Recorded Date Recorded By Document 03/01/20 10:05 [id number] 03/01/20 10:08 CALIN 03/01/20 10:05 Wound Center Nurse 1 [Ulcer Assessment] 1. RLE lateral -Combined with other wound No -Current Size (cm) - Length 2 -Current Size (cm) - Width 1 -Current Size (cm) - Depth 0.1 -Total Square Cm 2 -Tunneling No -Undermining/Tunneling No -Circular Undermining No -Exudate Amt Small -Exudate Type Serosanguineous -Wound Margin Flat & Intact -Granulation Amt Large (67-100%) -Granulation Quality Red -Slough/Fibrin Yes -Necrosis Amt Small (1-33%) -Necrotic Tissue Type Adherent Slough -Structure Exposed N/A -Texture (Funmi-wound Skin Appearance) Assessed -Moisture (Funmi-wound Skin Appearance Assessed,Dry/ ) Scaly -Color (Funmi-wound Skin Appearance) Assessed -Temperature (Funmi-wound Skin No Abnormality Appearance) (Pt Warm) -Tenderness on Palpation (Funmi-wound No Skin Appearance) -Ulcer Cleansing Wound Cleanser -Foul Odor after Cleansing No -Anesthetic Used 4% Lidocaine Solution [Edema Assessment] -Lower Limb Edema Present Yes -Left Calf (cm) 34 -Left Ankle (cm) 21.5 - Nurse 3 - General Ulcer D/C NN Start: 03/01/20 10:05 Freq: Status: Active Protocol: Activity Type Activity Date Activity User E-Sign Co-Sign Detail Recorded Client Recorded Date Recorded By Document 03/01/20 10:49 [facility] [id number] 03/01/20 10:50 [facility] 03/01/20 10:49 Wound Care Nurse 3 [Wound Dressing] 1. RLE lateral -Primary Dressing Applied Other -Other Dressing apligraph per stephanie licensed mental health professional -Primary Dressing Covered/Secured Dry Gauze & with Roll Gauze, Secured with Tape [Compression Applied] Right -Other applied pts own tubi Pain Scale: 0-10 Numeric [Pain] -Is Patient Pain Free? Yes - Visit Discharge [Visit Discharge Information] -Discharge Condition Stable -Ambulatory Status Ambulatory -Transportation Private Auto -Accompanied by Psych/Mental Status: Normal Affect, Appropriate Debridement Note Post-Debridement Measurements/Treatment WC - Nurse 3 - General Ulcer D/C NN Start: 03/01/20 10:05 Freq: Status: Active Protocol: Activity Type Activity Date Activity User E-Sign Co-Sign Detail Recorded Client Recorded Date Recorded By Document 03/01/20 10:49 [facility] [id number] 03/01/20 10:50 [facility] 03/01/20 10:49 Wound Care Nurse 3 1. RLE lateral -Primary Dressing Applied Other -Other Dressing apligraph per stephanie licensed mental health professional -Primary Dressing Covered/Secured with Dry Gauze & Roll Gauze, Secured with Tape Right -Other applied pts own tubi Pain Scale: 0-10 Numeric Is Patient Pain Free? Yes - Visit Discharge Discharge Condition Stable Ambulatory Status Ambulatory Transportation Private Auto Accompanied by Wound debrided: Right lower extremity lateral Laterality: Right Type of Debridement: Excisional debridement Anesthesia Used: 4% Lidocaine Solution Depth: in the subcutaneous layer Percentage of wound debrided: 100 Instrument Used: 5mm curette Tissue Removed: Slough and devitalized tissue Severity: Fat Layer Exposed Amount of bleeding with debridement: Mild Bleeding Controlled with: Pressure Patient tolerated procedure well Assessment/Plan Active Problems Nonhealing nonsurgical wound with fat layer exposed (Chronic) struck against metal post Ulcer of right choudhary with fat layer exposed (Chronic) Pyoderma gangrenosum (Chronic) 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 venous ulcer right choudhary Plan: Anabels ulcer was evaluated and debridement was completed today. After initial application of Apligraf there has been improvement in his ulcer. 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 Apligraf #4 application to the ulcer was performed today as per projector operator guidelines and covered with Adaptic Touch and secured with steri-strips then gauze as a secondary dressing to help with drainage from his ulcer. He will change the secondary dressing as needed for soiling. He was advised to keep the dressing in place and avoid getting it wet for the next week. He will use continue to use compression with double layer tubigrips and elevate his legs when he is seated. He was encouraged to increase his protein intake and take vitamin C supplement to improve wound healing potential. I feel that due to lack of improvement in his healing with conventional wound care that he would benefit from advanced wound care treatment with Apligraf to heal his ulcer which was applied today. He will call with any increased pain, drainage, erythema or swelling or odor. He will follow up in 2 weeks. Note: [employer] speech recognition table maker software was used to create portions of this document. Sound-alike and misspelled words, as well as other table maker errors may be contained in the documentation. [id number]: [id number] Skin sub graft trnk/arm/leg
[2020-03-15 10:00] VITALS: BP 137/70; PULSE 67; RESP 18; TEMP 36
[2020-03-15 10:32] VITALS: BP 138/72
--- NOTE | 2020-03-15 12:42 | PCM.WC.PN ---
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 Code(s): I83.019 - Varicose veins of right lower extremity with ulcer of unspecified site; L97.919 - Non-pressure chronic ulcer of unspecified part of right lower leg with unspecified severity (4) Venous ulcer with fat layer exposed Status: Chronic Code(s): I83.009 - Varicose veins of unspecified lower extremity with ulcer of unspecified site; L97.902 - Non-pressure chronic ulcer of unspecified part of unspecified lower leg with fat layer exposed Type of Wound Date of Service: 03/15/20 Chief Complaint: nonhealing ulcer right choudhary s/p traumatic injury History of Wound: Rodo is a 79 yo gentleman who presents to the wound healing center for evaluation and treatment of a nonhealing wound of his right choudhary which occurred approx. 2 months ago when he struck his choudhary against a metal post. The wound was small initially but has gotten larger. He initally was not using any dressings to the wound and was keeping it open to air. He did see his PCP approx. 1 month ago and she debrided the wound and started him on cefdinir for 10 days. He noted minimal improvement. He has been applying antibiotic ointment to the wound and covering it with a band aid. He has not undergone a wound culture that he is aware of at this point. He denies any history of difficult to heal wounds. He denies any problems with edema or circulation. He denies any fever, chills, erythema, nausea, vomiting or other systemic signs of infection. Progress of Wound: Rodo is here for follow up of nonhealing ulcer to his right choudhary. He tolerated Apligraf #4 application and has had significant improvement in his ulcer. There has not been increased erythema or drainage. He has less drainage and pain of his ulcer. His wound culture on 11/10/2019 was negative for infection. A punch biopsy from 12/15/19 showed fragments of skin with extensive ulceration, associated acute and chronic inflammation, granulation tissue reaction, fibrinopurulent exudation and reactive changes; negative for carcinoma; special stains for acid fast bacilli and fungi are negative for organisms; matched controls are appropriate; underlying tissue also shows cartilaginous tissue with reactive changes. The patient denies any fever, chills, nausea, vomiting, or diarrhea. Denies any increasing pain, redness, swelling, or purulent/malodorous drainage from affected area. - Physical Exam Vital Signs Temp Pulse Resp BP 96.8 F L 67 18 138/72 H 03/15/20 10:00 03/15/20 10:00 03/15/20 10:00 03/15/20 10:32 General: Alert, Oriented x3, Cooperative, No apparent distress HEENT: Atraumatic, Normocephalic Oral: Moist Mucosa Abdomen: Obese Extremities: Edema Skin: Ulcer/ Wound Wound Measurements and Assessment WC - Nurse 1 - General Ulcer Measurement Start: 03/01/20 10:05 Freq: Status: Active Protocol: Activity Type Activity Date Activity User E-Sign Co-Sign Detail Recorded Client Recorded Date Recorded By Document 03/15/20 10:00 [id number] 03/15/20 10:05 DL 03/15/20 10:00 Wound Center Nurse 1 [Ulcer Assessment] 1. RLE lateral -Current Size (cm) - Length 3.3 -Current Size (cm) - Width 1.3 -Current Size (cm) - Depth 0.1 -Total Square Cm 4.29 -Photo Taken No -Exudate Amt None Present -Wound Margin Flat & Intact -Granulation Amt Large (67-100%) -Granulation Quality Literberry -Necrosis Amt Small (1-33%) -Necrotic Tissue Type Adherent Slough -Structure Exposed N/A -Texture (Funmi-wound Skin Appearance) Scarring -Moisture (Funmi-wound Skin Appearance No Abnormality ) -Color (Funmi-wound Skin Appearance) No Abnormality -Temperature (Funmi-wound Skin No Abnormality Appearance) (Pt Warm) -Tenderness on Palpation (Fnumi-wound No Skin Appearance) -Ulcer Cleansing Wound Cleanser -Foul Odor after Cleansing No -Anesthetic Used 4% Lidocaine Solution [Edema Assessment] -Right Calf (cm) 33.6 -Right Ankle (cm) 22 WC - Nurse 2 - General Ulcer CM Notes Start: 03/01/20 10:05 Freq: Status: Active Protocol: Activity Type Activity Date Activity User E-Sign Co-Sign Detail Recorded Client Recorded Date Recorded By Document 03/15/20 10:32 PL [id number] 03/15/20 10:33 PL 03/15/20 10:32 Wound Center Nurse 2 [Procedure/Treatment] 1. RLE lateral -Time 10:15 -Correct Patient Yes -Correct Side, Site, Position Yes -Correct Procedure Yes -Procedure Performed No -Post Debridement (cm) - Length 3.3 -Post Debridement (cm) - Width 1.3 -Post Debridement (cm) - Depth 0.1 -Total Square (Post) (cm) 4.29 [See Physician Procedure note for Specifics] Pain Scale: 0-10 Numeric [Pain] -Is Patient Pain Free? Yes WC - Nurse 3 - General Ulcer D/C NN Start: 03/01/20 10:05 Freq: Status: Active Protocol: Activity Type Activity Date Activity User E-Sign Co-Sign Detail Recorded Client Recorded Date Recorded By Document 03/15/20 10:32 RB [id number] 03/15/20 10:33 RB 03/15/20 10:32 Wound Care Nurse 3 [Wound Dressing] 1. RLE lateral -Primary Dressing Covered/Secured Dry Gauze,Dry with Gauze & Roll Gauze,Secured with Tape [Compression Applied] Right -Other pt own double tubigrip [Post Procedure Tolerated] -Treatment Response Procedure Tolerated Well Vital Signs [Blood Pressure] -Blood Pressure (90/60-120/80) 138/72 H -Blood Pressure Mean (mm Hg) 94 -Source Monitor -Position Semi-Fowlers -Blood Pressure Location Left Arm Pain Scale: 0-10 Numeric [Pain] -Is Patient Pain Free? Yes Teaching: Wound Center [Wound Center Education] (Items with an * have Printed Materials Available- Please identify what is given to patient under the Teaching materials given to patient and caregiver Section. Dressing Your Wound -Person Taught Patient -Teaching Method Discussion, Demonstration -Response to teaching Verbalize understanding WC - Visit Discharge [Visit Discharge Information] -Discharge Condition Stable -Ambulatory Status Ambulatory -Transportation Private Auto -Medication Reconcilliation completed No & provided to patient/care provider -Clinical Summary of Care Provided Yes Psych/Mental Status: Normal Affect, Appropriate Debridement Note Post-Debridement Measurements/Treatment WC - Nurse 2 - General Ulcer CM Notes Start: 03/01/20 10:05 Freq: Status: Active Protocol: Activity Type Activity Date Activity User E-Sign Co-Sign Detail Recorded Client Recorded Date Recorded By Document 03/01/20 13:59 PL [id number] 03/01/20 14:01 PL Document 03/15/20 10:32 PL [id number] 03/15/20 10:33 PL 03/01/20 03/15/20 13:59 10:32 Wound Center Nurse 2 1. RLE lateral -Time 10:30 10:15 -Correct Patient Yes Yes -Correct Side, Site, Position Yes Yes -Correct Procedure Yes Yes -Procedure Performed Yes No -Type of Procedure Debridement -Clinical Debridement Subcutaneous -Tissue Removed Subcutaneous -Post Debridement (cm) - Length 2.5 3.3 -Post Debridement (cm) - Width 0.9 1.3 -Post Debridement (cm) - Depth 0.1 0.1 -Total Square (Post) (cm) 2.25 4.29 -Area of Debridement (cm) - Length 2.5 -Area of Debridement (cm) - Width 0.9 -Total Square (Area) (cm) 2.25 -Tunneling No -Undermining/Tunneling No -Circular Undermining No -Wound/Ulcer Outcome Not Healed -Ulcer Cleansing Rinsed/ Irrigated with Saline -Foul Odor after Cleansing No -Bioengineered Tissue Yes -Type of Bioengineered Tissue Apligraf -Expiration Date 03/08/20 -Product Lot Number [id number] -Percent Used 100 -Saline Lot Number [id number] -Bleeding Controlled with Pressure -Treatment Response Procedure Tolerated Well -Debridement - Subq, 1st 20sq cm No -Apply Skin Sub - 1st 25 sq cm - Legs 1 -Apligraf (per sq cm) 44 Pain Scale: 0-10 Numeric Is Patient Pain Free? Yes Yes WC - Nurse 3 - General Ulcer D/C NN Start: 03/01/20 10:05 Freq: Status: Active Protocol: Activity Type Activity Date Activity User E-Sign Co-Sign Detail Recorded Client Recorded Date Recorded By Document 03/01/20 10:49 BMF [id number] 03/01/20 10:50 BMF Document 03/15/20 10:32 RB [id number] 03/15/20 10:33 RB 03/01/20 03/15/20 10:49 10:32 Wound Care Nurse 3 1. RLE lateral -Primary Dressing Applied Other -Other Dressing apligraph per stephanie pipe wrapping machine operator -Primary Dressing Covered/Secured with Dry Gauze & Dry Gauze,Dry Roll Gauze, Gauze & Roll Secured with Gauze,Secured Tape with Tape Right -Other applied pts own pt own double tubi tubigrip Treatment Response Procedure Tolerated Well Vital Signs Blood Pressure (90/60-120/80) 138/72 H Blood Pressure Mean (mm Hg) 94 Source Monitor Position Semi-Fowlers Blood Pressure Location Left Arm Pain Scale: 0-10 Numeric Is Patient Pain Free? Yes Yes Teaching: Wound Center Dressing Your Wound -Person Taught Patient -Teaching Method Discussion, Demonstration -Response to teaching Verbalize understanding WC - Visit Discharge Discharge Condition Stable Stable Ambulatory Status Ambulatory Ambulatory Transportation Private Auto Private Auto Accompanied by Medication Reconcilliation completed & No provided to patient/care provider Clinical Summary of Care Provided Yes Wound debrided: right LE lateral Laterality: Right Type of Debridement: - - no debrident completed Anesthesia Used: 4% Lidocaine Solution Depth: Down to and including healthy tissue Percentage of wound debrided: 100 Instrument Used: - - gauze Tissue Removed: yellow slough Severity: Fat Layer Exposed Amount of bleeding with debridement: Mild Bleeding Controlled with: Compression and gauze Patient tolerated procedure well Assessment/Plan Active Problems Nonhealing nonsurgical wound with fat layer exposed (Chronic) struck against metal post Ulcer of right choudhary with fat layer exposed (Chronic) Pyoderma gangrenosum (Chronic) 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 venous ulcer right choudhary Plan: Rodo's ulcer was evaluated and debridement was completed today. After 4 applications of Apligraf there has been improvement in his ulcer. 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 His ulcer is very small at this time. He was approved for Nu-shield previously, due to the small size a Nu-shield was applied to complete healing. Nushield was applied per mannequin coloring artist guidelines using 100% of product to the ulcer, covered with a wound veil and secured with steri-strips. Gauze as a secondary dressing to help with drainage from his ulcer. He will change the secondary dressing as needed for soiling. He was advised to keep the dressing in place and avoid getting it wet for the next week. He will continue to use compression with double layer tubigrips and elevate his legs when he is seated. He was encouraged to increase his protein intake and take vitamin C supplement to improve wound healing potential. I feel that due to lack of improvement in his healing with conventional wound care that he would benefit from advanced wound care treatment with Nushield to heal his ulcer, which was applied today. He will call with any increased pain, drainage, erythema or swelling or odor. He will follow up in 1 weeks. Note: [employer] speech recognition conditioning yard supervisor software was used to create portions of this document. Sound-alike and misspelled words, as well as other conditioning yard supervisor errors may be contained in the documentation.
== END 2020-03-18 23:59 ==
LOC: WC 10:00
PROVIDERS: PCP Internal Medicine; Referring Provider Family Medicine; Visit Provider Family Medicine
DX: I83.018 Varicose veins of right lower extremity with ulcer other part of lower leg (principal); L97.812 Non-pressure chronic ulcer of other part of right lower leg with fat layer exposed; L88 Pyoderma gangrenosum
CPT/HCPCS: 15271; Q4101; Q4160

== ENCOUNTER → 2020-03-21 14:45 | Outpatient (CLI) | payer MEDICARE, OTHER, SELFPAY ==
[2020-03-21 15:53] LABS: Protein:Creat Ratio 2126 mg/g CRE (0-200)
[2020-03-21 16:10] LABS: Anion Gap 8 (5-15); BUN 27 mg/dL (7-18); BUN/Creat Ratio 26.5 RATIO (10-20); Calcium,Total 8.8 mg/dL (8.5-10.1); Chloride 109 mmol/L (98-107); Creatinine, Serum 1.02 mg/dL (0.70-1.30); EST Glomerular Filtration Rate 75 mL/min (>60); Est Glom Filt Rate - Afr Amer 91 mL/min (>60); Glucose 120 mg/dL (74-106); Magnesium 1.9 mg/dL (1.6-2.6); Potassium 3.5 mmol/L (3.5-5.1); Sodium Level 144 mmol/L (136-145)
== END ==
PROVIDERS: PCP Internal Medicine; Referring Provider Internal Medicine Nephrology; Visit Provider Internal Medicine Nephrology
DX: R80.9 Proteinuria, unspecified (principal); E83.42 Hypomagnesemia
CPT/HCPCS: 36415; 80048; 82570; 83735; 84156

== ENCOUNTER 2020-04-16 13:15 | Outpatient (RCR) | payer MEDICARE, OTHER, SELFPAY ==
[2020-03-19 00:22] VITALS: BP 138/72; PULSE 67; RESP 18; TEMP 36
[2020-03-22 10:05] VITALS: BP 155/68; PULSE 69; RESP 16; TEMP 36.3
--- NOTE | 2020-03-22 13:28 | PN.PCM_ITS ---
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 Code(s): L97.812 - Non-pressure chronic ulcer of other part of right lower leg with fat layer exposed (3) Wound of lower extremity Status: Chronic Qualifiers: Encounter type: subsequent encounter Laterality: right Qualified Code(s): S81.801D - Unspecified open wound, right lower leg, subsequent encounter Code(s): S81.809A - Unspecified open wound, unspecified lower leg, initial encounter (4) Pyoderma gangrenosum Status: Chronic Code(s): L88 - Pyoderma gangrenosum (5) 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 2 months ago when he struck his choudhary against a metal post. The wound was small initially but has gotten larger. He initally was not using any dressings to the wound and was keeping it open to air. He did see his PCP approx. 1 month ago and she debrided the wound and started him on cefdinir for 10 days. He noted minimal improvement. He has been applying antibiotic ointment to the wound and covering it with a band aid. He has not undergone a wound culture that he is aware of at this point. He denies any history of difficult to heal wounds. He denies any problems with edema or circulation. He denies any fever, chills, erythema, nausea, vomiting or other systemic signs of infection. Progress of Wound: Rodo is here for follow up of nonhealing ulcer to his right choudhary. He tolerated Nushield application last week and has had significant improvement in his ulcer. There has not been increased erythema or drainage. He has less drainage and pain of his ulcer. His wound culture on 11/10/2019 was negative for infection. A punch biopsy from 12/15/19 showed fragments of skin with extensive ulceration, associated acute and chronic inflammation, granulation tissue reaction, fibrinopurulent exudation and reactive changes; negative for carcinoma; special stains for acid fast bacilli and fungi are negative for organisms; matched controls are appropriate; underlying tissue also shows cartilaginous tissue with reactive changes. The patient denies any fever, chills, nausea, vomiting, or diarrhea. Denies any increasing pain, redness, swel ling, or purulent/malodorous drainage from affected area. - Physical Exam Vital Signs Temp Pulse Resp BP 97.3 F L 69 16 155/68 H 03/22/20 10:05 03/22/20 10:05 03/22/20 10:05 03/22/20 10:05 General: Alert, Oriented x3, Cooperative, No apparent distress HEENT: Atraumatic, Normocephalic Oral: Moist Mucosa Neck: Supple Lungs: Clear to auscultation Cardiovascular: Regular rate, Regular Rhythm Abdomen: Soft, Non Tender, Obese Extremities: Edema Skin: Ulcer/ Wound Wound Measurements and Assessment WC - Nurse 1 - General Ulcer Measurement Start: 03/22/20 10:05 Freq: Status: Active Protocol: Activity Type Activity Date Activity User E-Sign Co-Sign Detail Recorded Client Recorded Date Recorded By Document 03/22/20 10:05 [facility] [id number] 03/22/20 10:14 [facility] 03/22/20 10:05 Wound Center Nurse 1 [Ulcer Assessment] 1. RLE lateral -Combined with other wound No -Current Size (cm) - Length 0.1 -Current Size (cm) - Width 0.1 -Current Size (cm) - Depth 0.1 -Total Square Cm 0.01 -Photo Taken No -Epithelialization None Present -Tunneling No -Undermining/Tunneling No -Circular Undermining No -Exudate Amt None Present -Wound Margin Distinct, Outline Attached -Granulation Amt None Present (0 %) -Slough/Fibrin Yes -Necrosis Amt Small (1-33%) -Necrotic Tissue Type Adherent Slough -Texture (Funmi-wound Skin Appearance) Assessed, Scarring -Moisture (Funmi-wound Skin Appearance Assessed ) -Color (Funmi-wound Skin Appearance) Assessed -Temperature (Funmi-wound Skin No Abnormality Appearance) (Pt Warm) -Tenderness on Palpation (Funmi-wound No Skin Appearance) -Ulcer Cleansing soapy water -Foul Odor after Cleansing No -Anesthetic Used 4% Lidocaine Solution [Edema Assessment] -Lower Limb Edema Present Yes -Right Calf (cm) 33.2 -Right Ankle (cm) 20.8 WC - Nurse 2 - General Ulcer CM Notes Start: 03/22/20 10:05 Freq: Status: Active Protocol: Activity Type Activity Date Activity User E-Sign Co-Sign Detail Recorded Client Recorded Date Recorded By Document 03/22/20 10:31 MW [id number] 03/22/20 10:41 MW 03/22/20 10:31 Wound Center Nurse 2 [Procedure/Treatment] 1. RLE lateral -Time 10:32 -Correct Patient Yes -Correct Side, Site, Position Yes -Correct Procedure Yes -Procedure Performed Yes -Type of Procedure Debridement -Clinical Debridement Epidermis / Dermis -Tissue Removed Epidermis -Post Debridement (cm) - Length 0.3 -Post Debridement (cm) - Width 0.1 -Post Debridement (cm) - Depth 0.1 -Total Square (Post) (cm) 0.03 -Area of Debridement (cm) - Length 0.3 -Area of Debridement (cm) - Width 0.1 -Total Square (Area) (cm) 0.03 -Tunneling No -Undermining/Tunneling No -Circular Undermining No -Wound/Ulcer Outcome Not Healed -Ulcer Cleansing Rinsed/ Irrigated with Saline -Foul Odor after Cleansing No -Bioengineered Tissue Yes -Type of Bioengineered Tissue NuShield Disc -Expiration Date 07/01/24 -Product Lot Number [id number] -Percent Used 100 -Saline Lot Number [id number] -Bleeding Controlled with Pressure -Other DONOR# [id number] -Offloading No -Treatment Response Procedure Tolerated Well -Debridement - Open, 1st 20sq cm No -Apply Skin Sub - 1st 25 sq cm - Legs 1 -NuShield 16mm Disc 2 Query Text:16mm = 2 [See Physician Procedure note for Specifics] Pain Scale: 0-10 Numeric [Pain] -Is Patient Pain Free? Yes WC - Nurse 3 - General Ulcer D/C NN Start: 03/22/20 10:05 Freq: Status: Active Protocol: Activity Type Activity Date Activity User E-Sign Co-Sign Detail Recorded Client Recorded Date Recorded By Document 03/22/20 10:51 MW [id number] 03/22/20 10:52 MW 03/22/20 10:51 Wound Care Nurse 3 [Wound Dressing] 1. RLE lateral -Ulcer Cleansing Rinsed/ Irrigated with Saline -Foul Odor after Cleansing No -Negative Pressure Wound Therapy N/A -Primary Dressing Covered/Secured Dry Gauze & with Roll Gauze, Secured with Tape [Compression Applied] Right -Lotion applied to leg before No compression wrap -Tubular Bandage Double Layer -Size of Tubigrip Used Size D -Size D ($) 1 [Post Procedure Tolerated] -Treatment Response Procedure Tolerated Well Teaching: Wound Center [Wound Center Education] (Items with an * have Printed Materials Available- Please identify what is given to patient under the Teaching materials given to patient and caregiver Section. Dressing Your Wound -Person Taught Patient -Teaching Method Discussion -Response to teaching Verbalize understanding WC - Visit Discharge [Visit Discharge Information] -Discharge Condition Stable -Ambulatory Status Ambulatory -Transportation Private Auto -Accompanied by SELF -Medication Reconcilliation completed No & provided to patient/care provider -Clinical Summary of Care Provided Yes Psych/Mental Status: Normal Affect, Appropriate Debridement Note Post-Debridement Measurements/Treatment WC - Nurse 2 - General Ulcer CM Notes Start: 03/22/20 10:05 Freq: Status: Active Protocol: Activity Type Activity Date Activity User E-Sign Co-Sign Detail Recorded Client Recorded Date Recorded By Document 03/22/20 10:31 MW [id number] 03/22/20 10:41 MW 03/22/20 10:31 Wound Center Nurse 2 1. RLE lateral -Time 10:32 -Correct Patient Yes -Correct Side, Site, Position Yes -Correct Procedure Yes -Procedure Performed Yes -Type of Procedure Debridement -Clinical Debridement Epidermis / Dermis -Tissue Removed Epidermis -Post Debridement (cm) - Length 0.3 -Post Debridement (cm) - Width 0.1 -Post Debridement (cm) - Depth 0.1 -Total Square (Post) (cm) 0.03 -Area of Debridement (cm) - Length 0.3 -Area of Debridement (cm) - Width 0.1 -Total Square (Area) (cm) 0.03 -Tunneling No -Undermining/Tunneling No -Circular Undermining No -Wound/Ulcer Outcome Not Healed -Ulcer Cleansing Rinsed/ Irrigated with Saline -Foul Odor after Cleansing No -Bioengineered Tissue Yes -Type of Bioengineered Tissue NuShield Disc -Expiration Date 07/01/24 -Product Lot Number [id number] -Percent Used 100 -Saline Lot Number [id number] -Bleeding Controlled with Pressure -Other DONOR# [id number] -Offloading No -Treatment Response Procedure Tolerated Well -Debridement - Open, 1st 20sq cm No -Apply Skin Sub - 1st 25 sq cm - Legs 1 -NuShield 16mm Disc 2 Query Text:16mm = 2 Pain Scale: 0-10 Numeric Is Patient Pain Free? Yes - Nurse 3 - General Ulcer D/C NN Start: 03/22/20 10:05 Freq: Status: Active Protocol: Activity Type Activity Date Activity User E-Sign Co-Sign Detail Recorded Client Recorded Date Recorded By Document 03/22/20 10:51 MW [id number] 03/22/20 10:52 MW 03/22/20 10:51 Wound Care Nurse 3 1. RLE lateral -Ulcer Cleansing Rinsed/ Irrigated with Saline -Foul Odor after Cleansing No -Negative Pressure Wound Therapy N/A -Primary Dressing Covered/Secured with Dry Gauze & Roll Gauze, Secured with Tape Right -Lotion applied to leg before No compression wrap -Tubular Bandage Double Layer -Size of Tubigrip Used Size D -Size D ($) 1 Treatment Response Procedure Tolerated Well Teaching: Wound Center Dressing Your Wound -Person Taught Patient -Teaching Method Discussion -Response to teaching Verbalize understanding WC - Visit Discharge Discharge Condition Stable Ambulatory Status Ambulatory Transportation Private Auto Accompanied by SELF Medication Reconcilliation completed & No provided to patient/care provider Clinical Summary of Care Provided Yes Wound debrided: Right lateral LE ulcer Laterality: Right Type of Debridement: Selective debridement Anesthesia Used: 4% Lidocaine Solution Depth: Down to and including healthy tissue Percentage of wound debrided: 100 Instrument Used: - - gauze Tissue Removed: Yellow slough, devitalized tissue Severity: Fat Layer Exposed Amount of bleeding with debridement: Mild Patient tolerated procedure well Assessment/Plan Assessment: 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 venous ulcer right choudhary Plan: Rodo's ulcer was evaluated and debridement was completed today. After 4 applications of Apligraf, 2 applications of Purapply and 1 application of Nushield there has been improvement in his ulcer. 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 His ulcer is very small at this time. Nushield#2 was applied per accounts payable associate guidelines using 100% of product to the ulcer, covered with a wound veil and secured with steri-strips. Gauze as a secondary dressing to help with drainage from his ulcer. He will change the secondary dressing as needed for soiling. He was advised to keep the dressing in place and avoid getting it wet for the next week. He will continue to use compression with double layer tubigrips and elevate his legs when he is seated. He was encouraged to increase his protein intake and take vitamin C supplement to improve wound healing potential. I feel that due to lack of improvement in his healing with conventional wound care that he would benefit from advanced wound care treatment with Nushield to heal his ulcer, which was applied today. He will call with any increased pain, drainage, erythema or swelling or odor. He will follow up in 1 weeks. Note: [employer] speech recognition social media director software was used to create portions of this document. Sound-alike and misspelled words, as well as other social media director errors may be contained in the documentation.
[2020-03-29 10:17] VITALS: BP 137/68; PULSE 61; RESP 18; TEMP 35.9
[2020-03-29 10:37] VITALS: BP 134/68
--- NOTE | 2020-03-29 14:01 | PN.PCM_ITS ---
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 Code(s): L97.812 - Non-pressure chronic ulcer of other part of right lower leg with fat layer exposed (3) Wound of lower extremity Status: Chronic Qualifiers: Encounter type: subsequent encounter Laterality: right Qualified Code(s): S81.801D - Unspecified open wound, right lower leg, subsequent encounter Code(s): S81.809A - Unspecified open wound, unspecified lower leg, initial encounter (4) Pyoderma gangrenosum Status: Chronic Code(s): L88 - Pyoderma gangrenosum (5) 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 2 months ago when he struck his choudhary against a metal post. The wound was small initially but has gotten larger. He initally was not using any dressings to the wound and was keeping it open to air. He did see his PCP approx. 1 month ago and she debrided the wound and started him on cefdinir for 10 days. He noted minimal improvement. He has been applying antibiotic ointment to the wound and covering it with a band aid. He has not undergone a wound culture that he is aware of at this point. He denies any history of difficult to heal wounds. He denies any problems with edema or circulation. He denies any fever, chills, erythema, nausea, vomiting or other systemic signs of infection. Progress of Wound: Rodo is here for follow up of nonhealing ulcer to his right choudhary. He tolerated Nushield application last week and is healed but unfortunately he has a skin tear adjacent to his original ulcer. His wound culture on 11/10/2019 was negative for infection. A punch biopsy from 12/15/19 showed fragments of skin with extensive ulceration, associated acute and chronic inflammation, granulation tissue reaction, fibrinopurulent exudation and reactive changes; negative for carcinoma; special stains for acid fast bacilli and fungi are negative for organisms; matched controls are appropriate; underlying tissue also shows cartilaginous tissue with reactive changes. The patient denies any fever, chills, nausea, vomiting, or diarrhea. Denies any increasing pain, redness, swelling, or purulent/malodorous drainage from affected area. - Physical Exam Vital Signs Temp Pulse Resp BP 96.7 F L 61 18 134/68 H 03/29/20 10:17 03/29/20 10:17 03/29/20 10:17 03/29/20 10:37 General: Alert, Oriented x3, Cooperative, No apparent distress HEENT: Atraumatic, Normocephalic Oral: Moist Mucosa Cardiovascular: Regular rate, Regular Rhythm Abdomen: Soft, Non Tender, Obese Extremities: Edema Skin: Ulcer/ Wound Wound Measurements and Assessment WC - Nurse 1 - General Ulcer Measurement Start: 03/22/20 10:05 Freq: Status: Active Protocol: Activity Type Activity Date Activity User E-Sign Co-Sign Detail Recorded Client Recorded Date Recorded By Document 03/29/20 10:17 [id number] 03/29/20 10:18 RB 03/29/20 10:17 Wound Center Nurse 1 [Ulcer Assessment] 1. RLE lateral -Combined with other wound No -Current Size (cm) - Length 0.1 -Current Size (cm) - Width 0.1 -Current Size (cm) - Depth 0.1 -Total Square Cm 0.01 -Tunneling No -Undermining/Tunneling No -Circular Undermining No -Exudate Amt None Present -Wound Margin Flat & Intact -Granulation Amt Large (67-100%) -Granulation Quality [place] -Slough/Fibrin Yes -Necrosis Amt Small (1-33%) -Necrotic Tissue Type Adherent Slough -Structure Exposed N/A -Texture (Funmi-wound Skin Appearance) Assessed, Scarring -Moisture (Funmi-wound Skin Appearance Assessed ) -Color (Funmi-wound Skin Appearance) Hemosiderin Staining -Temperature (Funmi-wound Skin No Abnormality Appearance) (Pt Warm) -Tenderness on Palpation (Funmi-wound No Skin Appearance) -Ulcer Cleansing Wound Cleanser -Foul Odor after Cleansing No -Anesthetic Used 4% Lidocaine Solution [Edema Assessment] -Lower Limb Edema Present Yes -Right Calf (cm) 32 -Right Ankle (cm) 20.2 WC - Nurse 2 - General Ulcer CM Notes Start: 03/22/20 10:05 Freq: Status: Active Protocol: Activity Type Activity Date Activity User E-Sign Co-Sign Detail Recorded Client Recorded Date Recorded By Document 03/29/20 10:21 MW [id number] 03/29/20 10:30 MW 03/29/20 10:21 Wound Center Nurse 2 [Procedure/Treatment] #5 right choudhary skin tear -Time 10:26 -Correct Patient Yes -Correct Side, Site, Position Yes -Correct Procedure Yes -Procedure Performed No -Post Debridement (cm) - Length 3.3 -Post Debridement (cm) - Width 1.7 -Post Debridement (cm) - Depth 0.1 -Total Square (Post) (cm) 5.61 -Area of Debridement (cm) - Length 3.3 -Area of Debridement (cm) - Width 1.7 -Total Square (Area) (cm) 5.61 -Tunneling No -Undermining/Tunneling No -Circular Undermining No -Wound/Ulcer Outcome Not Healed -Ulcer Cleansing Rinsed/ Irrigated with Saline -Foul Odor after Cleansing No -Bioengineered Tissue No -Bleeding Controlled with NA -Offloading No 1. RLE lateral -Time 10:24 -Correct Patient Yes -Correct Side, Site, Position Yes -Correct Procedure Yes -Procedure Performed No -Post Debridement (cm) - Length 0 -Post Debridement (cm) - Width 0 -Post Debridement (cm) - Depth 0 -Total Square (Post) (cm) 0 -Wound/Ulcer Outcome Healed- Epithelialized [See Physician Procedure note for Specifics] Pain Scale: 0-10 Numeric [Pain] -Is Patient Pain Free? Yes KEATNO - Nurse 3 - General Ulcer D/C NN Start: 03/22/20 10:05 Freq: Status: Active Protocol: Activity Type Activity Date Activity User E-Sign Co-Sign Detail Recorded Client Recorded Date Recorded By Document 03/29/20 10:37 RB [id number] 03/29/20 10:43 RB 03/29/20 10:37 Wound Care Nurse 3 [Wound Dressing] #5 right choudhary skin tear -Ulcer Cleansing Rinsed/ Irrigated with Saline -Primary Dressing Applied NonAdherent Contact Layer -Primary Dressing Covered/Secured Dry Gauze,Dry with Gauze & Roll Gauze,Secured with Tape [Compression Applied] Right -Other DOUBLE LAYER TUBIGRIP [Post Procedure Tolerated] -Treatment Response Procedure Tolerated Well Vital Signs [Blood Pressure] -Blood Pressure (90/60-120/80) 134/68 H -Blood Pressure Mean (mm Hg) 90 -Source Monitor -Position Semi-Fowlers -Blood Pressure Location Left Arm Pain Scale: 0-10 Numeric [Pain] -Is Patient Pain Free? Yes WC - Visit Discharge [Visit Discharge Information] -Discharge Condition Stable -Ambulatory Status Ambulatory -Transportation Private Auto -Medication Reconcilliation completed No & provided to patient/care provider -Clinical Summary of Care Provided Yes Psych/Mental Status: Normal Affect, Appropriate Debridement Note Post-Debridement Measurements/Treatment WC - Nurse 2 - General Ulcer CM Notes Start: 03/22/20 10:05 Freq: Status: Active Protocol: Activity Type Activity Date Activity User E-Sign Co-Sign Detail Recorded Client Recorded Date Recorded By Document 03/22/20 10:31 MW [id number] 03/22/20 10:41 MW Document 03/29/20 10:21 MW [id number] 03/29/20 10:30 MW 03/22/20 03/29/20 10:31 10:21 Wound Center Nurse 2 #5 right choudhary skin tear -Time 10:26 -Correct Patient Yes -Correct Side, Site, Position Yes -Correct Procedure Yes -Procedure Performed No -Post Debridement (cm) - Length 3.3 -Post Debridement (cm) - Width 1.7 -Post Debridement (cm) - Depth 0.1 -Total Square (Post) (cm) 5.61 -Area of Debridement (cm) - Length 3.3 -Area of Debridement (cm) - Width 1.7 -Total Square (Area) (cm) 5.61 -Tunneling No -Undermining/Tunneling No -Circular Undermining No -Wound/Ulcer Outcome Not Healed -Ulcer Cleansing Rinsed/ Irrigated with Saline -Foul Odor after Cleansing No -Bioengineered Tissue No -Bleeding Controlled with NA -Offloading No 1. RLE lateral -Time 10:32 10:24 -Correct Patient Yes Yes -Correct Side, Site, Position Yes Yes -Correct Procedure Yes Yes -Procedure Performed Yes No -Type of Procedure Debridement -Clinical Debridement Epidermis / Dermis -Tissue Removed Epidermis -Post Debridement (cm) - Length 0.3 0 -Post Debridement (cm) - Width 0.1 0 -Post Debridement (cm) - Depth 0.1 0 -Total Square (Post) (cm) 0.03 0 -Area of Debridement (cm) - Length 0.3 -Area of Debridement (cm) - Width 0.1 -Total Square (Area) (cm) 0.03 -Tunneling No -Undermining/Tunneling No -Circular Undermining No -Wound/Ulcer Outcome Not Healed Healed- Epithelialized -Ulcer Cleansing Rinsed/ Irrigated with Saline -Foul Odor after Cleansing No -Bioengineered Tissue Yes -Type of Bioengineered Tissue NuShield Disc -Expiration Date 07/01/24 -Product Lot Number [id number] -Percent Used 100 -Saline Lot Number [id number] -Bleeding Controlled with Pressure -Other DONOR# [id number] -Offloading No -Treatment Response Procedure Tolerated Well -Debridement - Open, 1st 20sq cm No -Apply Skin Sub - 1st 25 sq cm - Legs 1 -NuShield 16mm Disc 2 Pain Scale: 0-10 Numeric Is Patient Pain Free? Yes Yes WC - Nurse 3 - General Ulcer D/C NN Start: 03/22/20 10:05 Freq: Status: Active Protocol: Activity Type Activity Date Activity User E-Sign Co-Sign Detail Recorded Client Recorded Date Recorded By Document 03/22/20 10:51 MW [id number] 03/22/20 10:52 MW Document 03/29/20 10:37 RB [id number] 03/29/20 10:43 RB 03/22/20 03/29/20 10:51 10:37 Wound Care Nurse 3 #5 right choudhary skin tear -Ulcer Cleansing Rinsed/ Irrigated with Saline -Primary Dressing Applied NonAdherent Contact Layer -Primary Dressing Covered/Secured with Dry Gauze,Dry Gauze & Roll Gauze,Secured with Tape 1. RLE lateral -Ulcer Cleansing Rinsed/ Irrigated with Saline -Foul Odor after Cleansing No -Negative Pressure Wound Therapy N/A -Primary Dressing Covered/Secured with Dry Gauze & Roll Gauze, Secured with Tape Right -Lotion applied to leg before No compression wrap -Tubular Bandage Double Layer -Size of Tubigrip Used Size D -Size D ($) 1 -Other DOUBLE LAYER TUBIGRIP Treatment Response Procedure Procedure Tolerated Well Tolerated Well Vital Signs Blood Pressure (90/60-120/80) 134/68 H Blood Pressure Mean (mm Hg) 90 Source Monitor Position Semi-Fowlers Blood Pressure Location Left Arm Pain Scale: 0-10 Numeric Is Patient Pain Free? Yes Teaching: Wound Center Dressing Your Wound -Person Taught Patient -Teaching Method Discussion -Response to teaching Verbalize understanding WC - Visit Discharge Discharge Condition Stable Stable Ambulatory Status Ambulatory Ambulatory Transportation Private Auto Private Auto Accompanied by SELF Medication Reconcilliation completed & No No provided to patient/care provider Clinical Summary of Care Provided Yes Yes Wound debrided: right LE lateral Laterality: Right No debridement was completed today - healed - Additional Wound Wound debrided: right choudhary skin tear Laterality: Right Operative Diagnosis: no debridement skin tear Assessment/Plan Active Problems Nonhealing nonsurgical wound with fat layer exposed (Chronic) struck against metal post Ulcer of right choudhary with fat layer exposed (Chronic) Wound of lower extremity (Chronic) Pyoderma gangrenosum (Chronic) 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 venous ulcer right choudhary Plan: Rodo's ulcer was evaluated and debridement was completed today. After 4 applications of Apligraf, 2 applications of Purapply and 2 applications of Nushield his ulcer is healed. Skin tear will be treated with adaptic and covered with gauze with changes daily. 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 He will continue to use compression with double layer tubigrips and elevate his legs when he is seated. He was encouraged to increase his protein intake and take vitamin C supplement to improve wound healing potential. He will call with any increased pain, drainage, erythema or swelling or odor. He will follow up in 1 week. Note: [employer] speech recognition highway safety engineer software was used to create portions of this document. Sound-alike and misspelled words, as well as other highway safety engineer errors may be contained in the documentation.
[2020-04-05 09:54] VITALS: BP 152/83; PULSE 63; RESP 18; TEMP 36.6
--- NOTE | 2020-04-05 10:25 | PCM.WC.PN ---
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 Code(s): L97.812 - Non-pressure chronic ulcer of other part of right lower leg with fat layer exposed (3) Wound of lower extremity Status: Chronic Qualifiers: Encounter type: subsequent encounter Laterality: right Qualified Code(s): S81.801D - Unspecified open wound, right lower leg, subsequent encounter Code(s): S81.809A - Unspecified open wound, unspecified lower leg, initial encounter (4) Pyoderma gangrenosum Status: Chronic Code(s): L88 - Pyoderma gangrenosum (5) 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 2 months ago when he struck his choudhary against a metal post. The wound was small initially but has gotten larger. He initally was not using any dressings to the wound and was keeping it open to air. He did see his PCP approx. 1 month ago and she debrided the wound and started him on cefdinir for 10 days. He noted minimal improvement. He has been applying antibiotic ointment to the wound and covering it with a band aid. He has not undergone a wound culture that he is aware of at this point. He denies any history of difficult to heal wounds. He denies any problems with edema or circulation. He denies any fever, chills, erythema, nausea, vomiting or other systemic signs of infection. Progress of Wound: Rodo is here for follow up of nonhealing ulcer to his right choudhary. His original ulcer remains healed but the skin tear adjacent to his wound has not improved since his last visit. He had a possible reaction to the Adaptic. No odor or erythema suggestive of infection. His wound culture on 11/10/2019 was negative for infection. A punch biopsy from 12/15/19 showed fragments of skin with extensive ulceration, associated acute and chronic inflammation, granulation tissue reaction, fibrinopurulent exudation and reactive changes; negative for carcinoma; special stains for acid fast bacilli and fungi are negative for organisms; matched controls are appropriate; underlying tissue also shows cartilaginous tissue with reactive changes. The patient denies any fever, chills, nausea, vomiting, or diarrhea. Denies any increasing pain, redness, swelling, or purulent/malodorous drainage from affected area. - Physical Exam Vital Signs Temp Pulse Resp BP 97.8 F 63 18 152/83 H 04/05/20 09:54 04/05/20 09:54 04/05/20 09:54 04/05/20 09:54 General: Alert, Oriented x3, Cooperative, No apparent distress HEENT: Atraumatic, Normocephalic Oral: Moist Mucosa Abdomen: Obese Extremities: Edema Skin: Ulcer/ Wound Wound Measurements and Assessment WC - Nurse 1 - General Ulcer Measurement Start: 03/22/20 10:05 Freq: Status: Active Protocol: Activity Type Activity Date Activity User E-Sign Co-Sign Detail Recorded Client Recorded Date Recorded By Document 04/05/20 09:54 [id number] 04/05/20 09:56 RB 04/05/20 09:54 Wound Center Nurse 1 [Ulcer Assessment] #5 right choudhary skin tear -Combined with other wound No -Current Size (cm) - Length 3.2 -Current Size (cm) - Width 1 -Current Size (cm) - Depth 0.1 -Total Square Cm 3.2 -Tunneling No -Undermining/Tunneling No -Circular Undermining No -Exudate Amt Small -Exudate Type Serosanguineous -Wound Margin Flat & Intact -Granulation Amt Small (1-33%) -Granulation Quality [place] -Slough/Fibrin Yes -Necrosis Amt Large (67-100%) -Necrotic Tissue Type Adherent Slough -Structure Exposed N/A -Texture (Funmi-wound Skin Appearance) Excoriation -Moisture (Funmi-wound Skin Appearance Assessed ) -Color (Funmi-wound Skin Appearance) Assessed -Temperature (Funmi-wound Skin No Abnormality Appearance) (Pt Warm) -Tenderness on Palpation (Funmi-wound No Skin Appearance) -Ulcer Cleansing Wound Cleanser -Foul Odor after Cleansing No -Anesthetic Used 4% Lidocaine Solution [Edema Assessment] -Lower Limb Edema Present Yes -Right Calf (cm) 34 -Right Ankle (cm) 21 - Nurse 2 - General Ulcer CM Notes Start: 03/22/20 10:05 Freq: Status: Active Protocol: Activity Type Activity Date Activity User E-Sign Co-Sign Detail Recorded Client Recorded Date Recorded By Document 04/05/20 10:00 MW [id number] 04/05/20 10:05 MW 04/05/20 10:00 Wound Center Nurse 2 [Procedure/Treatment] #5 right choudhary skin tear -Time 10:00 -Correct Patient Yes -Correct Side, Site, Position Yes -Correct Procedure Yes -Procedure Performed Yes -Type of Procedure Debridement -Clinical Debridement Epidermis / Dermis -Tissue Removed Epidermis -Post Debridement (cm) - Length 3.3 -Post Debridement (cm) - Width 0.9 -Post Debridement (cm) - Depth 0.1 -Total Square (Post) (cm) 2.97 -Area of Debridement (cm) - Length 3.3 -Area of Debridement (cm) - Width 0.9 -Total Square (Area) (cm) 2.97 -Tunneling No -Undermining/Tunneling No -Circular Undermining No -Wound/Ulcer Outcome Not Healed -Ulcer Cleansing Rinsed/ Irrigated with Saline -Foul Odor after Cleansing No -Bioengineered Tissue No -Bleeding Controlled with Pressure -Offloading No -Treatment Response Procedure Tolerated Well -Debridement - Open, 1st 20sq cm Yes [See Physician Procedure note for Specifics] Pain Scale: 0-10 Numeric [Pain] -Is Patient Pain Free? Yes - Nurse 3 - General Ulcer D/C NN Start: 03/22/20 10:05 Freq: Status: Active Protocol: Activity Type Activity Date Activity User E-Sign Co-Sign Detail Recorded Client Recorded Date Recorded By Document 04/05/20 10:05 MW [id number] 04/05/20 10:06 MW 04/05/20 10:05 Wound Care Nurse 3 [Wound Dressing] #5 right choudhary skin tear -Ulcer Cleansing Rinsed/ Irrigated with Saline -Foul Odor after Cleansing No -Negative Pressure Wound Therapy N/A -Primary Dressing Applied C Hydrogel ($) -Primary Dressing Covered/Secured Dry Gauze & with Roll Gauze, Secured with Tape [Compression Applied] Right -Lotion applied to leg before No compression wrap -Tubular Bandage Double Layer -Size of Tubigrip Used Size D -Size D ($) 1 [Post Procedure Tolerated] -Treatment Response Procedure Tolerated Well Teaching: Wound Center [Wound Center Education] (Items with an * have Printed Materials Available- Please identify what is given to patient under the Teaching materials given to patient and caregiver Section. Dressing Your Wound -Person Taught Patient -Teaching Method Discussion, Demonstration -Response to teaching Verbalize understanding WC - Visit Discharge [Visit Discharge Information] -Discharge Condition Stable -Ambulatory Status Ambulatory -Transportation Private Auto -Accompanied by self -Medication Reconcilliation completed No & provided to patient/care provider -Clinical Summary of Care Provided Yes Psych/Mental Status: Normal Affect, Appropriate Debridement Note Post-Debridement Measurements/Treatment WC - Nurse 2 - General Ulcer CM Notes Start: 03/22/20 10:05 Freq: Status: Active Protocol: Activity Type Activity Date Activity User E-Sign Co-Sign Detail Recorded Client Recorded Date Recorded By Document 03/22/20 10:31 MW [id number] 03/22/20 10:41 MW Document 03/29/20 10:21 MW [id number] 03/29/20 10:30 MW Document 04/05/20 10:00 MW [id number] 04/05/20 10:05 MW 03/22/20 03/29/20 04/05/20 10:31 10:21 10:00 Wound Center Nurse 2 #5 right choudhary skin tear -Time 10:26 10:00 -Correct Patient Yes Yes -Correct Side, Site, Position Yes Yes -Correct Procedure Yes Yes -Procedure Performed No Yes -Type of Procedure Debridement -Clinical Debridement Epidermis / Dermis -Tissue Removed Epidermis -Post Debridement (cm) - Length 3.3 3.3 -Post Debridement (cm) - Width 1.7 0.9 -Post Debridement (cm) - Depth 0.1 0.1 -Total Square (Post) (cm) 5.61 2.97 -Area of Debridement (cm) - Length 3.3 3.3 -Area of Debridement (cm) - Width 1.7 0.9 -Total Square (Area) (cm) 5.61 2.97 -Tunneling No No -Undermining/Tunneling No No -Circular Undermining No No -Wound/Ulcer Outcome Not Healed Not Healed -Ulcer Cleansing Rinsed/ Rinsed/ Irrigated with Irrigated with Saline Saline -Foul Odor after Cleansing No No -Bioengineered Tissue No No -Bleeding Controlled with NA Pressure -Offloading No No -Treatment Response Procedure Tolerated Well -Debridement - Open, 1st 20sq cm Yes 1. RLE lateral -Time 10:32 10:24 -Correct Patient Yes Yes -Correct Side, Site, Position Yes Yes -Correct Procedure Yes Yes -Procedure Performed Yes No -Type of Procedure Debridement -Clinical Debridement Epidermis / Dermis -Tissue Removed Epidermis -Post Debridement (cm) - Length 0.3 0 -Post Debridement (cm) - Width 0.1 0 -Post Debridement (cm) - Depth 0.1 0 -Total Square (Post) (cm) 0.03 0 -Area of Debridement (cm) - Length 0.3 -Area of Debridement (cm) - Width 0.1 -Total Square (Area) (cm) 0.03 -Tunneling No -Undermining/Tunneling No -Circular Undermining No -Wound/Ulcer Outcome Not Healed Healed- Epithelialized -Ulcer Cleansing Rinsed/ Irrigated with Saline -Foul Odor after Cleansing No -Bioengineered Tissue Yes -Type of Bioengineered Tissue NuShield Disc -Expiration Date 07/01/24 -Product Lot Number [id number] -Percent Used 100 -Saline Lot Number [id number] -Bleeding Controlled with Pressure -Other DONOR# [id number] -Offloading No -Treatment Response Procedure Tolerated Well -Debridement - Open, 1st 20sq cm No -Apply Skin Sub - 1st 25 sq cm - Legs 1 -NuShield 16mm Disc 2 Pain Scale: 0-10 Numeric Is Patient Pain Free? Yes Yes Yes WC - Nurse 3 - General Ulcer D/C NN Start: 03/22/20 10:05 Freq: Status: Active Protocol: Activity Type Activity Date Activity User E-Sign Co-Sign Detail Recorded Client Recorded Date Recorded By Document 03/22/20 10:51 MW [id number] 03/22/20 10:52 MW Document 03/29/20 10:37 RB [id number] 03/29/20 10:43 RB Document 04/05/20 10:05 MW [id number] 04/05/20 10:06 MW 03/22/20 03/29/20 04/05/20 10:51 10:37 10:05 Wound Care Nurse 3 #5 right choudhary skin tear -Ulcer Cleansing Rinsed/ Rinsed/ Irrigated with Irrigated with Saline Saline -Foul Odor after Cleansing No -Negative Pressure Wound Therapy N/A -Primary Dressing Applied NonAdherent C Hydrogel ($) Contact Layer -Primary Dressing Covered/Secured with Dry Gauze,Dry Dry Gauze & Gauze & Roll Roll Gauze, Gauze,Secured Secured with with Tape Tape 1. RLE lateral -Ulcer Cleansing Rinsed/ Irrigated with Saline -Foul Odor after Cleansing No -Negative Pressure Wound Therapy N/A -Primary Dressing Covered/Secured with Dry Gauze & Roll Gauze, Secured with Tape Right -Lotion applied to leg before No No compression wrap -Tubular Bandage Double Layer Double Layer -Size of Tubigrip Used Size D Size D -Size D ($) 1 1 -Other DOUBLE LAYER TUBIGRIP Treatment Response Procedure Procedure Procedure Tolerated Well Tolerated Well Tolerated Well Vital Signs Blood Pressure (90/60-120/80) 134/68 H Blood Pressure Mean (mm Hg) 90 Source Monitor Position Semi-Fowlers Blood Pressure Location Left Arm Pain Scale: 0-10 Numeric Is Patient Pain Free? Yes Teaching: Wound Center Dressing Your Wound -Person Taught Patient Patient -Teaching Method Discussion Discussion, Demonstration -Response to teaching Verbalize Verbalize understanding understanding WC - Visit Discharge Discharge Condition Stable Stable Stable Ambulatory Status Ambulatory Ambulatory Ambulatory Transportation Private Auto Private Auto Private Auto Accompanied by SELF self Medication Reconcilliation completed & No No No provided to patient/care provider Clinical Summary of Care Provided Yes Yes Yes Wound debrided: right choudhary skin tear Type of Debridement: Selective debridement Anesthesia Used: 4% Lidocaine Solution Depth: Down to and including healthy tissue, in the subcutaneous layer Percentage of wound debrided: 100 Instrument Used: - - Gauze Tissue Removed: Yellow slough, devitalized tissue Severity: Fat Layer Exposed Amount of bleeding with debridement: Mild Bleeding Controlled with: Compression and gauze Patient tolerated procedure well Assessment/Plan Active Problems Nonhealing nonsurgical wound with fat layer exposed (Chronic) struck against metal post Ulcer of right choudhary with fat layer exposed (Chronic) Wound of lower extremity (Chronic) Pyoderma gangrenosum (Chronic) 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 venous ulcer right choudhary Plan: Rodo's ulcer was evaluated and debridement was completed today. After 4 applications of Apligraf, 2 applications of Purapply and 2 applications of Nushield his ulcer is healed. Skin tear will be treated with hydrogel and covered with gauze with changes daily. Given his difficulty with healing wounds, will apply for Puraply to help heal this new skin tear complicated by venous insufficiency. 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 He will continue to use compression with double layer tubigrips and elevate his legs when he is seated. He was encouraged to increase his protein intake and take vitamin C supplement to improve wound healing potential. He will call with any increased pain, drainage, erythema or swelling or odor. He will follow up in 1 week. Note: [employer] speech recognition computer application developer software was used to create portions of this document. Sound-alike and misspelled words, as well as other computer application developer errors may be contained in the documentation.
[2020-04-16 13:24] VITALS: BP 150/108; PULSE 82; RESP 18; TEMP 35.7
--- NOTE | 2020-04-16 15:52 | PN.PCM_ITS ---
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 Code(s): L97.812 - Non-pressure chronic ulcer of other part of right lower leg with fat layer exposed (3) Wound of lower extremity Status: Chronic Qualifiers: Encounter type: subsequent encounter Laterality: right Qualified Code(s): S81.801D - Unspecified open wound, right lower leg, subsequent encounter Code(s): S81.809A - Unspecified open wound, unspecified lower leg, initial encounter (4) Pyoderma gangrenosum Status: Chronic Code(s): L88 - Pyoderma gangrenosum (5) 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 2 months ago when he struck his choudhary against a metal post. The wound was small initially but has gotten larger. He initally was not using any dressings to the wound and was keeping it open to air. He did see his PCP approx. 1 month ago and she debrided the wound and started him on cefdinir for 10 days. He noted minimal improvement. He has been applying antibiotic ointment to the wound and covering it with a band aid. He has not undergone a wound culture that he is aware of at this point. He denies any history of difficult to heal wounds. He denies any problems with edema or circulation. He denies any fever, chills, erythema, nausea, vomiting or other systemic signs of infection. Progress of Wound: Rodo is here for follow up of nonhealing ulcer to his right choudhary. His original ulcer remains healed but the skin tear adjacent to his wound has minimally improved since his last visit. No odor or erythema suggestive of infection. He was approved for purapply application to this new area. His wound culture on 11/10/2019 was negative for infection. A punch biopsy from 12/15/19 showed fragments of skin with extensive ulceration, associated acute and chronic inflammation, granulation tissue reaction, fibrinopurulent exudation and reactive changes; negative for carcinoma; special stains for acid fast bacilli and fungi are negative for organisms; matched controls are appropriate; underlying tissue also shows cartilaginous tissue with reactive changes. The patient denies any fever, chills, nausea, vomiting, or diarrhea. Denies any increasing pain, redness, swelling, or purulent/malodorous drainage from affected area. - Physical Exam Vital Signs Temp Pulse Resp BP 96.3 F L 82 18 150/108 H 04/16/20 13:24 04/16/20 13:24 04/16/20 13:24 04/16/20 13:24 General: Alert, Oriented x3, Cooperative, No apparent distress HEENT: Atraumatic, Normocephalic Oral: Moist Mucosa Abdomen: Obese Extremities: Edema Skin: Ulcer/ Wound Wound Measurements and Assessment WC - Nurse 1 - General Ulcer Measurement Start: 03/22/20 10:05 Freq: Status: Active Protocol: Activity Type Activity Date Activity User E-Sign Co-Sign Detail Recorded Client Recorded Date Recorded By Document 04/16/20 13:24 [id number] 04/16/20 13:26 DL 04/16/20 13:24 Wound Center Nurse 1 [Ulcer Assessment] #5 right choudhary skin tear -Current Size (cm) - Length 2.8 -Current Size (cm) - Width 0.8 -Current Size (cm) - Depth 0.1 -Total Square Cm 2.24 -Photo Taken No -Exudate Amt Small -Exudate Type Serosanguineous -Wound Margin Distinct, Outline Attached -Granulation Amt Medium (34-66%) -Granulation Quality Red -Necrosis Amt Medium (34-66%) -Necrotic Tissue Type Adherent Slough -Structure Exposed N/A -Texture (Funmi-wound Skin Appearance) Scarring -Moisture (Funmi-wound Skin Appearance Dry/Scaly ) -Color (Funmi-wound Skin Appearance) Ecchymosis -Temperature (Funmi-wound Skin No Abnormality Appearance) (Pt Warm) -Tenderness on Palpation (Funmi-wound No Skin Appearance) -Ulcer Cleansing Rinsed/ Irrigated with Saline -Foul Odor after Cleansing No -Anesthetic Used 5% Lidocaine Gel [Edema Assessment] -Right Calf (cm) 32.1 -Right Ankle (cm) 20.8 WC - Nurse 2 - General Ulcer CM Notes Start: 03/22/20 10:05 Freq: Status: Active Protocol: Activity Type Activity Date Activity User E-Sign Co-Sign Detail Recorded Client Recorded Date Recorded By Document 04/16/20 13:38 MW [id number] 04/16/20 13:51 MW 04/16/20 13:38 Wound Center Nurse 2 [Procedure/Treatment] #5 right choudhary skin tear -Time 13:39 -Correct Patient Yes -Correct Side, Site, Position Yes -Correct Procedure Yes -Procedure Performed Yes -Type of Procedure Debridement -Clinical Debridement Subcutaneous -Tissue Removed Subcutaneous -Post Debridement (cm) - Length 2.2 -Post Debridement (cm) - Width 0.5 -Post Debridement (cm) - Depth 0.1 -Total Square (Post) (cm) 1.10 -Area of Debridement (cm) - Length 2.2 -Area of Debridement (cm) - Width 0.5 -Total Square (Area) (cm) 1.10 -Tunneling No -Undermining/Tunneling No -Circular Undermining No -Wound/Ulcer Outcome Not Healed -Ulcer Cleansing Rinsed/ Irrigated with Saline -Foul Odor after Cleansing No -Bioengineered Tissue Yes -Type of Bioengineered Tissue PuraPly AM -Expiration Date 01/27/22 -Product Lot Number [id number] -Percent Used 100 -Lot number of Saline Used [id number] -Bleeding Controlled with Pressure -Offloading No -Treatment Response Procedure Tolerated Well -Debridement - Subq, 1st 20sq cm No -Apply Skin Sub - 1st 25 sq cm - Legs 1 -PuraPly AM (per sq cm) 4 [See Physician Procedure note for Specifics] Pain Scale: 0-10 Numeric [Pain] -Is Patient Pain Free? Yes KEATON - Nurse 3 - General Ulcer D/C NN Start: 03/22/20 10:05 Freq: Status: Active Protocol: Activity Type Activity Date Activity User E-Sign Co-Sign Detail Recorded Client Recorded Date Recorded By Document 04/16/20 13:58 BMF [id number] 04/16/20 13:59 BMF 04/16/20 13:58 Wound Care Nurse 3 [Wound Dressing] #5 right choudhary skin tear -Primary Dressing Applied Aquacel Extra, Other -Other Dressing puraply -Primary Dressing Covered/Secured Dry Gauze & with Roll Gauze, Secured with Tape -Aquacel Extra 1 [Post Procedure Tolerated] -Treatment Response Procedure Tolerated Well Pain Scale: 0-10 Numeric [Pain] -Is Patient Pain Free? Yes WC - Visit Discharge [Visit Discharge Information] -Discharge Condition Stable -Ambulatory Status Ambulatory -Transportation Private Auto Psych/Mental Status: Normal Affect, Appropriate Debridement Note Post-Debridement Measurements/Treatment - Nurse 2 - General Ulcer CM Notes Start: 03/22/20 10:05 Freq: Status: Active Protocol: Activity Type Activity Date Activity User E-Sign Co-Sign Detail Recorded Client Recorded Date Recorded By Document 03/22/20 10:31 MW [id number] 03/22/20 10:41 MW Document 03/29/20 10:21 MW [id number] 03/29/20 10:30 MW Document 04/05/20 10:00 MW [id number] 04/05/20 10:05 MW Document 04/16/20 13:38 MW [id number] 04/16/20 13:51 MW 03/22/20 03/29/20 04/05/20 10:31 10:21 10:00 Wound Center Nurse 2 #5 right choudhary skin tear -Time 10:26 10:00 -Correct Patient Yes Yes -Correct Side, Site, Position Yes Yes -Correct Procedure Yes Yes -Procedure Performed No Yes -Type of Procedure Debridement -Clinical Debridement Epidermis / Dermis -Tissue Removed Epidermis -Post Debridement (cm) - Length 3.3 3.3 -Post Debridement (cm) - Width 1.7 0.9 -Post Debridement (cm) - Depth 0.1 0.1 -Total Square (Post) (cm) 5.61 2.97 -Area of Debridement (cm) - Length 3.3 3.3 -Area of Debridement (cm) - Width 1.7 0.9 -Total Square (Area) (cm) 5.61 2.97 -Tunneling No No -Undermining/Tunneling No No -Circular Undermining No No -Wound/Ulcer Outcome Not Healed Not Healed -Ulcer Cleansing Rinsed/ Rinsed/ Irrigated with Irrigated with Saline Saline -Foul Odor after Cleansing No No -Bioengineered Tissue No No -Type of Bioengineered Tissue -Expiration Date -Product Lot Number -Percent Used -Lot number of Saline Used -Bleeding Controlled with NA Pressure -Offloading No No -Treatment Response Procedure Tolerated Well -Debridement - Open, 1st 20sq cm Yes -Debridement - Subq, 1st 20sq cm -Apply Skin Sub - 1st 25 sq cm - Legs -PuraPly AM (per sq cm) 1. RLE lateral -Time 10:32 10:24 -Correct Patient Yes Yes -Correct Side, Site, Position Yes Yes -Correct Procedure Yes Yes -Procedure Performed Yes No -Type of Procedure Debridement -Clinical Debridement Epidermis / Dermis -Tissue Removed Epidermis -Post Debridement (cm) - Length 0.3 0 -Post Debridement (cm) - Width 0.1 0 -Post Debridement (cm) - Depth 0.1 0 -Total Square (Post) (cm) 0.03 0 -Area of Debridement (cm) - Length 0.3 -Area of Debridement (cm) - Width 0.1 -Total Square (Area) (cm) 0.03 -Tunneling No -Undermining/Tunneling No -Circular Undermining No -Wound/Ulcer Outcome Not Healed Healed- Epithelialized -Ulcer Cleansing Rinsed/ Irrigated with Saline -Foul Odor after Cleansing No -Bioengineered Tissue Yes -Type of Bioengineered Tissue NuShield Disc -Expiration Date 07/01/24 -Product Lot Number [id number] -Percent Used 100 -Saline Lot Number [id number] -Bleeding Controlled with Pressure -Other DONOR# [id number] -Offloading No -Treatment Response Procedure Tolerated Well -Debridement - Open, 1st 20sq cm No -Apply Skin Sub - 1st 25 sq cm - Legs 1 -NuShield 16mm Disc 2 Pain Scale: 0-10 Numeric Is Patient Pain Free? Yes Yes Yes 04/16/20 13:38 Wound Center Nurse 2 #5 right choudhary skin tear -Time 13:39 -Correct Patient Yes -Correct Side, Site, Position Yes -Correct Procedure Yes -Procedure Performed Yes -Type of Procedure Debridement -Clinical Debridement Subcutaneous -Tissue Removed Subcutaneous -Post Debridement (cm) - Length 2.2 -Post Debridement (cm) - Width 0.5 -Post Debridement (cm) - Depth 0.1 -Total Square (Post) (cm) 1.10 -Area of Debridement (cm) - Length 2.2 -Area of Debridement (cm) - Width 0.5 -Total Square (Area) (cm) 1.10 -Tunneling No -Undermining/Tunneling No -Circular Undermining No -Wound/Ulcer Outcome Not Healed -Ulcer Cleansing Rinsed/ Irrigated with Saline -Foul Odor after Cleansing No -Bioengineered Tissue Yes -Type of Bioengineered Tissue PuraPly AM -Expiration Date 01/27/22 -Product Lot Number [id number] -Percent Used 100 -Lot number of Saline Used [id number] -Bleeding Controlled with Pressure -Offloading No -Treatment Response Procedure Tolerated Well -Debridement - Open, 1st 20sq cm -Debridement - Subq, 1st 20sq cm No -Apply Skin Sub - 1st 25 sq cm - Legs 1 -PuraPly AM (per sq cm) 4 1. RLE lateral -Time -Correct Patient -Correct Side, Site, Position -Correct Procedure -Procedure Performed -Type of Procedure -Clinical Debridement -Tissue Removed -Post Debridement (cm) - Length -Post Debridement (cm) - Width -Post Debridement (cm) - Depth -Total Square (Post) (cm) -Area of Debridement (cm) - Length -Area of Debridement (cm) - Width -Total Square (Area) (cm) -Tunneling -Undermining/Tunneling -Circular Undermining -Wound/Ulcer Outcome -Ulcer Cleansing -Foul Odor after Cleansing -Bioengineered Tissue -Type of Bioengineered Tissue -Expiration Date -Product Lot Number -Percent Used -Saline Lot Number -Bleeding Controlled with -Other -Offloading -Treatment Response -Debridement - Open, 1st 20sq cm -Apply Skin Sub - 1st 25 sq cm - Legs -NuShield 16mm Disc Pain Scale: 0-10 Numeric Is Patient Pain Free? Yes WC - Nurse 3 - General Ulcer D/C NN Start: 03/22/20 10:05 Freq: Status: Active Protocol: Activity Type Activity Date Activity User E-Sign Co-Sign Detail Recorded Client Recorded Date Recorded By Document 03/22/20 10:51 MW [id number] 03/22/20 10:52 MW Document 03/29/20 10:37 RB [id number] 03/29/20 10:43 RB Document 04/05/20 10:05 MW [id number] 04/05/20 10:06 MW Document 04/16/20 13:58 BMF [id number] 04/16/20 13:59 [facility] 03/22/20 03/29/20 04/05/20 10:51 10:37 10:05 Wound Care Nurse 3 #5 right choudhary skin tear -Ulcer Cleansing Rinsed/ Rinsed/ Irrigated with Irrigated with Saline Saline -Foul Odor after Cleansing No -Negative Pressure Wound Therapy N/A -Primary Dressing Applied NonAdherent C Hydrogel ($) Contact Layer -Other Dressing -Primary Dressing Covered/Secured with Dry Gauze,Dry Dry Gauze & Gauze & Roll Roll Gauze, Gauze,Secured Secured with with Tape Tape -Aquacel Extra 1. RLE lateral -Ulcer Cleansing Rinsed/ Irrigated with Saline -Foul Odor after Cleansing No -Negative Pressure Wound Therapy N/A -Primary Dressing Covered/Secured with Dry Gauze & Roll Gauze, Secured with Tape Right -Lotion applied to leg before No No compression wrap -Tubular Bandage Double Layer Double Layer -Size of Tubigrip Used Size D Size D -Size D ($) 1 1 -Other DOUBLE LAYER TUBIGRIP Treatment Response Procedure Procedure Procedure Tolerated Well Tolerated Well Tolerated Well Vital Signs Blood Pressure (90/60-120/80) 134/68 H Blood Pressure Mean (mm Hg) 90 Source Monitor Position Semi-Fowlers Blood Pressure Location Left Arm Pain Scale: 0-10 Numeric Is Patient Pain Free? Yes Teaching: Wound Center Dressing Your Wound -Person Taught Patient Patient -Teaching Method Discussion Discussion, Demonstration -Response to teaching Verbalize Verbalize understanding understanding WC - Visit Discharge Discharge Condition Stable Stable Stable Ambulatory Status Ambulatory Ambulatory Ambulatory Transportation Private Auto Private Auto Private Auto Accompanied by SELF self Medication Reconcilliation completed & No No No provided to patient/care provider Clinical Summary of Care Provided Yes Yes Yes 04/16/20 13:58 Wound Care Nurse 3 #5 right choudhary skin tear -Ulcer Cleansing -Foul Odor after Cleansing -Negative Pressure Wound Therapy -Primary Dressing Applied Aquacel Extra, Other -Other Dressing puraply -Primary Dressing Covered/Secured with Dry Gauze & Roll Gauze, Secured with Tape -Aquacel Extra 1 1. RLE lateral -Ulcer Cleansing -Foul Odor after Cleansing -Negative Pressure Wound Therapy -Primary Dressing Covered/Secured with Right -Lotion applied to leg before compression wrap -Tubular Bandage -Size of Tubigrip Used -Size D ($) -Other Treatment Response Procedure Tolerated Well Vital Signs Blood Pressure (90/60-120/80) Blood Pressure Mean (mm Hg) Source Position Blood Pressure Location Pain Scale: 0-10 Numeric Is Patient Pain Free? Yes Teaching: Wound Center Dressing Your Wound -Person Taught -Teaching Method -Response to teaching WC - Visit Discharge Discharge Condition Stable Ambulatory Status Ambulatory Transportation Private Auto Accompanied by Medication Reconcilliation completed & provided to patient/care provider Clinical Summary of Care Provided Wound debrided: right choudhary skin tear Laterality: Right Type of Debridement: Excisional debridement Anesthesia Used: 4% Lidocaine Solution Depth: Down to and including healthy tissue, in the subcutaneous layer Percentage of wound debrided: 100 Instrument Used: 3mm curette Tissue Removed: Yellow slough, devitalized tissue Severity: Fat Layer Exposed Amount of bleeding with debridement: Mild Bleeding Controlled with: Compression and gauze Patient tolerated procedure well Assessment/Plan Active Problems Nonhealing nonsurgical wound with fat layer exposed (Chronic) struck against metal post Ulcer of right choudhary with fat layer exposed (Chronic) Wound of lower extremity (Chronic) Pyoderma gangrenosum (Chronic) 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 venous ulcer right choudhary Plan: Rodo's ulcer was evaluated and debridement was completed today. After 4 applications of Apligraf, 2 applications of Purapply and 2 applications of Nushield his ulcer is healed. Skin tear was approved for purapply application and this was applied today per [employer] physical scientist guidelines using 100% of 2x 2 purapply and covered with wound veil and secured with steri-strips. Aquacel extra and gauze used as secondary dressings and he will change if needed. Given his difficulty with healing wounds, will apply for Puraply to help heal this new skin tear complicated by venous insufficiency. 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 He will continue to use compression with double layer tubigrips and elevate his legs when he is seated. He was encouraged to increase his protein intake and take vitamin C supplement to improve wound healing potential. He will call with any increased pain, drainage, erythema or swelling or odor. He will follow up in 1 week. Note: [employer] speech recognition embroidery operator software was used to create portions of this document. Sound-alike and misspelled words, as well as other embroidery operator errors may be contained in the documentation.
== END 2020-04-18 23:59 ==
LOC: WC 13:15
PROVIDERS: PCP Internal Medicine; Referring Provider Family Medicine; Visit Provider Family Medicine
DX: I83.018 Varicose veins of right lower extremity with ulcer other part of lower leg (principal); L97.812 Non-pressure chronic ulcer of other part of right lower leg with fat layer exposed; L88 Pyoderma gangrenosum; I87.8 Other specified disorders of veins
CPT/HCPCS: 15271; 97597; 99213; Q4160; Q4196; G0463

== ENCOUNTER 2020-05-17 09:00 | Outpatient (RCR) | payer MEDICARE, OTHER, SELFPAY ==
[2020-04-19 00:20] VITALS: BP 150/108; PULSE 82; RESP 18; TEMP 35.7
[2020-04-26 11:57] VITALS: BP 147/64; PULSE 75; RESP 18; TEMP 35.9
--- NOTE | 2020-04-26 13:26 | PN.PCM_ITS ---
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 Code(s): L97.812 - Non-pressure chronic ulcer of other part of right lower leg with fat layer exposed (2) Venous ulcer with fat layer exposed Status: Chronic Code(s): I83.009 - Varicose veins of unspecified lower extremity with ulcer of unspecified site; L97.902 - Non-pressure chronic ulcer of unspecified part of unspecified lower leg with fat layer exposed Type of Wound Date of Service: 04/26/20 Chief Complaint: nonhealing ulcer right choudhary s/p traumatic injury History of Wound: Rodo is a 79 yo gentleman who presents to the wound healing center for evaluation and treatment of a nonhealing wound of his right choudhary which occurred approx. 2 months ago when he struck his choudhary against a metal post. The wound was small initially but has gotten larger. He initally was not using any dressings to the wound and was keeping it open to air. He did see his PCP approx. 1 month ago and she debrided the wound and started him on cefdinir for 10 days. He noted minimal improvement. He has been applying antibiotic ointment to the wound and covering it with a band aid. He has not undergone a wound culture that he is aware of at this point. He denies any history of difficult to heal wounds. He denies any problems with edema or circulation. He denies any fever, chills, erythema, nausea, vomiting or other systemic signs of infection. Progress of Wound: Rodo is here for follow up of nonhealing ulcer to his right choudhary. His original ulcer remains healed. The skin tear adjacent to his wound has significantly improved since his last visit. He tolerated application of Puraply to his ulcer. No odor or erythema suggestive of infection. His wound culture on 11/10/2019 was negative for infection. A punch biopsy from 12/15/19 showed fragments of skin with extensive ulceration, associated acute and chronic inflammation, granulation tissue reaction, fibrinopurulent exudation and reactive changes; negative for carcinoma; special stains for acid fast bacilli and fungi are negative for organisms; matched controls are appropriate; underlying tissue also shows cartilaginous tissue with reactive changes. The patient denies any fever, chills, nausea, vomiting, or diarrhea. Denies any increasing pain, redness, swelling, or purulent/malodorous drainage from affected area. - Physical Exam Vital Signs Temp Pulse Resp BP 96.7 F L 75 18 147/64 H 04/26/20 11:57 04/26/20 11:57 04/26/20 11:57 04/26/20 11:57 General: Alert, Oriented x3, Cooperative, No apparent distress HEENT: Atraumatic, Normocephalic Oral: Moist Mucosa Abdomen: Obese Extremities: Edema Skin: Ulcer/ Wound Wound Measurements and Assessment - Nurse 1 - General Ulcer Measurement Start: 04/26/20 11:57 Freq: Status: Active Protocol: Activity Type Activity Date Activity User E-Sign Co-Sign Detail Recorded Client Recorded Date Recorded By Document 04/26/20 11:57 DL [id number] 04/26/20 12:04 DL 04/26/20 11:57 Wound Center Nurse 1 [Ulcer Assessment] #5 right choudhary skin tear -Current Size (cm) - Length 2 -Current Size (cm) - Width 0.5 -Current Size (cm) - Depth 0.1 -Total Square Cm 1.0 -Photo Taken No -Exudate Amt None Present -Wound Margin Thickened -Granulation Amt None Present (0 %) -Necrosis Amt Small (1-33%) -Necrotic Tissue Type Eschar -Structure Exposed N/A -Texture (Funmi-wound Skin Appearance) Scarring -Moisture (Funmi-wound Skin Appearance No Abnormality ) -Color (Funmi-wound Skin Appearance) No Abnormality -Temperature (Funmi-wound Skin No Abnormality Appearance) (Pt Warm) -Tenderness on Palpation (Funmi-wound No Skin Appearance) -Ulcer Cleansing Wound Cleanser -Foul Odor after Cleansing No -Anesthetic Used 4% Lidocaine Solution - Nurse 2 - General Ulcer CM Notes Start: 04/26/20 11:57 Freq: Status: Active Protocol: Activity Type Activity Date Activity User E-Sign Co-Sign Detail Recorded Client Recorded Date Recorded By Document 04/26/20 12:24 MW [id number] 04/26/20 12:27 MW 04/26/20 12:24 Wound Center Nurse 2 [Procedure/Treatment] -Time 12:24 -Correct Patient Yes -Correct Side, Site, Position Yes -Correct Procedure Yes -Procedure Performed Yes -Type of Procedure Debridement -Clinical Debridement Subcutaneous -Tissue Removed Subcutaneous -Post Debridement (cm) - Length 0.9 -Post Debridement (cm) - Width 0.2 -Post Debridement (cm) - Depth 0.1 -Total Square (Post) (cm) 0.18 -Area of Debridement (cm) - Length 0.9 -Area of Debridement (cm) - Width 0.2 -Total Square (Area) (cm) 0.18 -Tunneling No -Undermining/Tunneling No -Circular Undermining No -Wound/Ulcer Outcome Not Healed -Ulcer Cleansing Rinsed/ Irrigated with Saline -Foul Odor after Cleansing No -Bioengineered Tissue No -Bleeding Controlled with Pressure -Offloading No -Treatment Response Procedure Tolerated Well -Debridement - Subq, 1st 20sq cm Yes [See Physician Procedure note for Specifics] Pain Scale: 0-10 Numeric [Pain] -Is Patient Pain Free? Yes WC - Nurse 3 - General Ulcer D/C NN Start: 04/26/20 11:57 Freq: Status: Active Protocol: Activity Type Activity Date Activity User E-Sign Co-Sign Detail Recorded Client Recorded Date Recorded By Document 04/26/20 12:27 MW [id number] 04/26/20 12:28 MW 04/26/20 12:27 Wound Care Nurse 3 [Wound Dressing] #5 right choudhary skin tear -Ulcer Cleansing Rinsed/ Irrigated with Saline -Foul Odor after Cleansing No -Negative Pressure Wound Therapy N/A -Other Dressing c.hydrogel -Primary Dressing Covered/Secured Dry Gauze & with Roll Gauze, Secured with Tape [Post Procedure Tolerated] -Treatment Response Procedure Tolerated Well Teaching: Wound Center [Wound Center Education] (Items with an * have Printed Materials Available- Please identify what is given to patient under the Teaching materials given to patient and caregiver Section. Dressing Your Wound -Person Taught Patient -Teaching Method Discussion, Demonstration -Response to teaching Verbalize understanding WC - Visit Discharge [Visit Discharge Information] -Discharge Condition Stable -Ambulatory Status Ambulatory -Transportation Private Auto -Accompanied by self -Medication Reconcilliation completed No & provided to patient/care provider -Clinical Summary of Care Provided Yes Psych/Mental Status: Normal Affect, Appropriate Debridement Note Post-Debridement Measurements/Treatment - Nurse 2 - General Ulcer CM Notes Start: 04/26/20 11:57 Freq: Status: Active Protocol: Activity Type Activity Date Activity User E-Sign Co-Sign Detail Recorded Client Recorded Date Recorded By Document 04/26/20 12:24 MW [id number] 04/26/20 12:27 MW 04/26/20 12:24 Wound Center Nurse 2 #5 right choudhary skin tear -Time 12:24 -Correct Patient Yes -Correct Side, Site, Position Yes -Correct Procedure Yes -Procedure Performed Yes -Type of Procedure Debridement -Clinical Debridement Subcutaneous -Tissue Removed Subcutaneous -Post Debridement (cm) - Length 0.9 -Post Debridement (cm) - Width 0.2 -Post Debridement (cm) - Depth 0.1 -Total Square (Post) (cm) 0.18 -Area of Debridement (cm) - Length 0.9 -Area of Debridement (cm) - Width 0.2 -Total Square (Area) (cm) 0.18 -Tunneling No -Undermining/Tunneling No -Circular Undermining No -Wound/Ulcer Outcome Not Healed -Ulcer Cleansing Rinsed/ Irrigated with Saline -Foul Odor after Cleansing No -Bioengineered Tissue No -Bleeding Controlled with Pressure -Offloading No -Treatment Response Procedure Tolerated Well -Debridement - Subq, 1st 20sq cm Yes Pain Scale: 0-10 Numeric Is Patient Pain Free? Yes - Nurse 3 - General Ulcer D/C NN Start: 04/26/20 11:57 Freq: Status: Active Protocol: Activity Type Activity Date Activity User E-Sign Co-Sign Detail Recorded Client Recorded Date Recorded By Document 04/26/20 12:27 [id number] 04/26/20 12:28 MW 04/26/20 12:27 Wound Care Nurse 3 #5 right choudhary skin tear -Ulcer Cleansing Rinsed/ Irrigated with Saline -Foul Odor after Cleansing No -Negative Pressure Wound Therapy N/A -Other Dressing c.hydrogel -Primary Dressing Covered/Secured with Dry Gauze & Roll Gauze, Secured with Tape Treatment Response Procedure Tolerated Well Teaching: Wound Center Dressing Your Wound -Person Taught Patient -Teaching Method Discussion, Demonstration -Response to teaching Verbalize understanding WC - Visit Discharge Discharge Condition Stable Ambulatory Status Ambulatory Transportation Private Auto Accompanied by self Medication Reconcilliation completed & No provided to patient/care provider Clinical Summary of Care Provided Yes Wound debrided: right choudhary skin tear Laterality: Right Type of Debridement: Excisional debridement Anesthesia Used: 4% Lidocaine Solution Depth: Down to and including healthy tissue, in the subcutaneous layer Percentage of wound debrided: 100 Instrument Used: 3mm curette Tissue Removed: Yellow slough, devitalized tissue Severity: Fat Layer Exposed Amount of bleeding with debridement: Mild Bleeding Controlled with: Compression and gauze Patient tolerated procedure well Assessment/Plan Assessment: 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 venous ulcer right choudhary Plan: Rodo's ulcer was evaluated and debridement was completed today. After 4 applications of Apligraf, 2 applications of Purapply and 2 applications of Nushield his ulcer is healed. He did have significant improvement of his ulcer and I am going to have him use collagen hydrogel daily to his choudhary and hopefully he will be healed by next week. 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 He will continue to use compression with double layer tubigrips and elevate his legs when he is seated. He was encouraged to increase his protein intake and take vitamin C supplement to improve wound healing potential. He will call with any increased pain, drainage, erythema or swelling or odor. He will follow up in 1 week. Note: [employer] speech recognition behavioral scientist software was used to create portions of this document. Sound-alike and misspelled words, as well as other behavioral scientist errors may be contained in the documentation.
[2020-05-03 09:14] VITALS: BP 138/73; PULSE 82; RESP 18; TEMP 36.5
--- NOTE | 2020-05-03 11:05 | PCM.WC.PN ---
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 2 months ago when he struck his choudhary against a metal post. The wound was small initially but has gotten larger. He initally was not using any dressings to the wound and was keeping it open to air. He did see his PCP approx. 1 month ago and she debrided the wound and started him on cefdinir for 10 days. He noted minimal improvement. He has been applying antibiotic ointment to the wound and covering it with a band aid. He has not undergone a wound culture that he is aware of at this point. He denies any history of difficult to heal wounds. He denies any problems with edema or circulation. He denies any fever, chills, erythema, nausea, vomiting or other systemic signs of infection. Progress of Wound: Rodo is here for follow up of nonhealing ulcer to his right choudhary. His original ulcer remains healed. The skin tear adjacent to his wound has not improved since his last visit. He tolerated treatment with collagel hydrogel daily but has minimally improved. He was started on gabapentin for sciatica and has had increased edema in his legs b/l. No odor or erythema suggestive of infection. His wound culture on 11/10/2019 was negative for infection. A punch biopsy from 12/15/19 showed fragments of skin with extensive ulceration, associated acute and chronic inflammation, granulation tissue reaction, fibrinopurulent exudation and reactive changes; negative for carcinoma; special stains for acid fast bacilli and fungi are negative for organisms; matched controls are appropriate; underlying tissue also shows cartilaginous tissue with reactive changes. The patient denies any fever, chills, nausea, vomiting, or diarrhea. Denies any increasing pain, redness, swelling, or purulent/malodorous drainage from affected area. - Physical Exam Vital Signs Temp Pulse Resp BP 97.7 F L 82 18 138/73 H 05/03/20 09:14 05/03/20 09:14 05/03/20 09:14 05/03/20 09:14 General: Alert, Oriented x3, Cooperative, No apparent distress HEENT: Atraumatic, Normocephalic Oral: Moist Mucosa Neck: Supple Abdomen: Soft, Non Tender, Obese Extremities: Edema Skin: Ulcer/ Wound Wound Measurements and Assessment WC - Nurse 1 - General Ulcer Measurement Start: 04/26/20 11:57 Freq: Status: Active Protocol: Activity Type Activity Date Activity User E-Sign Co-Sign Detail Recorded Client Recorded Date Recorded By Document 05/03/20 09:14 RB [id number] 05/03/20 09:16 RB 05/03/20 09:14 Wound Center Nurse 1 [Ulcer Assessment] #5 right choudhary skin tear -Combined with other wound No -Current Size (cm) - Length 1.5 -Current Size (cm) - Width 0.6 -Current Size (cm) - Depth 0.1 -Total Square Cm 0.90 -Tunneling No -Undermining/Tunneling No -Circular Undermining No -Exudate Amt Small -Exudate Type Serosanguineous -Wound Margin Flat & Intact -Granulation Amt Medium (34-66%) -Granulation Quality [place] -Slough/Fibrin Yes -Necrosis Amt Small (1-33%) -Necrotic Tissue Type Adherent Slough -Structure Exposed N/A -Texture (Funmi-wound Skin Appearance) Assessed, Friable, Scarring -Moisture (Funmi-wound Skin Appearance Assessed ) -Color (Funmi-wound Skin Appearance) Assessed -Temperature (Funmi-wound Skin No Abnormality Appearance) (Pt Warm) -Tenderness on Palpation (Funmi-wound No Skin Appearance) -Ulcer Cleansing Wound Cleanser -Foul Odor after Cleansing No -Anesthetic Used 5% Lidocaine Gel [Edema Assessment] -Lower Limb Edema Present Yes -Right Calf (cm) 37 -Right Ankle (cm) 23.5 WC - Nurse 2 - General Ulcer CM Notes Start: 04/26/20 11:57 Freq: Status: Active Protocol: Activity Type Activity Date Activity User E-Sign Co-Sign Detail Recorded Client Recorded Date Recorded By Document 05/03/20 09:24 MW [id number] 05/03/20 09:36 MW 05/03/20 09:24 Wound Center Nurse 2 [Procedure/Treatment] #5 right choudhary skin tear -Time 09:24 -Correct Patient Yes -Correct Side, Site, Position Yes -Correct Procedure Yes -Procedure Performed Yes -Type of Procedure Debridement -Clinical Debridement Subcutaneous -Tissue Removed Subcutaneous -Post Debridement (cm) - Length 1.0 -Post Debridement (cm) - Width 0.6 -Post Debridement (cm) - Depth 0.1 -Total Square (Post) (cm) 0.60 -Area of Debridement (cm) - Length 1.0 -Area of Debridement (cm) - Width 0.6 -Total Square (Area) (cm) 0.60 -Tunneling No -Undermining/Tunneling No -Circular Undermining No -Wound/Ulcer Outcome Not Healed -Ulcer Cleansing Rinsed/ Irrigated with Saline -Foul Odor after Cleansing No -Bioengineered Tissue Yes -Type of Bioengineered Tissue PuraPly AM Disc -Expiration Date 07/11/22 -Product Lot Number [id number] -Percent Used 100 -Lot number of Saline Used [id number] -Bleeding Controlled with Pressure -Offloading No -Treatment Response Procedure Tolerated Well -Debridement - Subq, 1st 20sq cm No -Apply Skin Sub - 1st 25 sq cm - Legs 1 -PuraPly AM 16mm Disc (per sq cm) 2 Query Text:16mm = 2 [See Physician Procedure note for Specifics] Pain Scale: 0-10 Numeric [Pain] -Is Patient Pain Free? Yes WC - Nurse 3 - General Ulcer D/C NN Start: 04/26/20 11:57 Freq: Status: Active Protocol: Activity Type Activity Date Activity User E-Sign Co-Sign Detail Recorded Client Recorded Date Recorded By Document 05/03/20 09:36 MW [id number] 05/03/20 09:36 MW 05/03/20 09:36 Wound Care Nurse 3 [Wound Dressing] #5 right choudhary skin tear -Ulcer Cleansing Not Cleansed -Foul Odor after Cleansing No -Negative Pressure Wound Therapy N/A -Primary Dressing Covered/Secured Dry Gauze & with Roll Gauze, Secured with Tape [Post Procedure Tolerated] -Treatment Response Procedure Tolerated Well Teaching: Wound Center [Wound Center Education] (Items with an * have Printed Materials Available- Please identify what is given to patient under the Teaching materials given to patient and caregiver Section. Dressing Your Wound -Person Taught Patient -Teaching Method Discussion -Response to teaching Verbalize understanding WC - Visit Discharge [Visit Discharge Information] -Discharge Condition Stable -Ambulatory Status Ambulatory -Transportation Private Auto -Accompanied by SELF -Medication Reconcilliation completed No & provided to patient/care provider -Clinical Summary of Care Provided Yes Psych/Mental Status: Normal Affect, Appropriate Debridement Note Post-Debridement Measurements/Treatment - Nurse 2 - General Ulcer CM Notes Start: 04/26/20 11:57 Freq: Status: Active Protocol: Activity Type Activity Date Activity User E-Sign Co-Sign Detail Recorded Client Recorded Date Recorded By Document 04/26/20 12:24 MW [id number] 04/26/20 12:27 MW Document 05/03/20 09:24 MW [id number] 05/03/20 09:36 MW 04/26/20 05/03/20 12:24 09:24 Wound Center Nurse 2 #5 right choudhary skin tear -Time 12:24 09:24 -Correct Patient Yes Yes -Correct Side, Site, Position Yes Yes -Correct Procedure Yes Yes -Procedure Performed Yes Yes -Type of Procedure Debridement Debridement -Clinical Debridement Subcutaneous Subcutaneous -Tissue Removed Subcutaneous Subcutaneous -Post Debridement (cm) - Length 0.9 1.0 -Post Debridement (cm) - Width 0.2 0.6 -Post Debridement (cm) - Depth 0.1 0.1 -Total Square (Post) (cm) 0.18 0.60 -Area of Debridement (cm) - Length 0.9 1.0 -Area of Debridement (cm) - Width 0.2 0.6 -Total Square (Area) (cm) 0.18 0.60 -Tunneling No No -Undermining/Tunneling No No -Circular Undermining No No -Wound/Ulcer Outcome Not Healed Not Healed -Ulcer Cleansing Rinsed/ Rinsed/ Irrigated with Irrigated with Saline Saline -Foul Odor after Cleansing No No -Bioengineered Tissue No Yes -Type of Bioengineered Tissue PuraPly AM Disc -Expiration Date 07/11/22 -Product Lot Number [id number] -Percent Used 100 -Lot number of Saline Used [id number] -Bleeding Controlled with Pressure Pressure -Offloading No No -Treatment Response Procedure Procedure Tolerated Well Tolerated Well -Debridement - Subq, 1st 20sq cm Yes No -Apply Skin Sub - 1st 25 sq cm - Legs 1 -PuraPly AM 16mm Disc (per sq cm) 2 Query Text:16mm = 2 Pain Scale: 0-10 Numeric Is Patient Pain Free? Yes Yes - Nurse 3 - General Ulcer D/C NN Start: 04/26/20 11:57 Freq: Status: Active Protocol: Activity Type Activity Date Activity User E-Sign Co-Sign Detail Recorded Client Recorded Date Recorded By Document 04/26/20 12:27 MW [id number] 04/26/20 12:28 MW Document 05/03/20 09:36 MW [id number] 05/03/20 09:36 MW 04/26/20 05/03/20 12:27 09:36 Wound Care Nurse 3 #5 right choudhary skin tear -Ulcer Cleansing Rinsed/ Not Cleansed Irrigated with Saline -Foul Odor after Cleansing No No -Negative Pressure Wound Therapy N/A N/A -Other Dressing c.hydrogel -Primary Dressing Covered/Secured with Dry Gauze & Dry Gauze & Roll Gauze, Roll Gauze, Secured with Secured with Tape Tape Treatment Response Procedure Procedure Tolerated Well Tolerated Well Teaching: Wound Center Dressing Your Wound -Person Taught Patient Patient -Teaching Method Discussion, Discussion Demonstration -Response to teaching Verbalize Verbalize understanding understanding WC - Visit Discharge Discharge Condition Stable Stable Ambulatory Status Ambulatory Ambulatory Transportation Private Auto Private Auto Accompanied by self SELF Medication Reconcilliation completed & No No provided to patient/care provider Clinical Summary of Care Provided Yes Yes Wound debrided: right choudhary skin tear Laterality: Right Type of Debridement: Excisional debridement Anesthesia Used: 4% Lidocaine Solution, 5% Lidocaine Gel Depth: Down to and including healthy tissue, in the subcutaneous layer Percentage of wound debrided: 100 Instrument Used: 3mm curette Tissue Removed: Yellow slough, devitalized tissue Severity: Fat Layer Exposed Amount of bleeding with debridement: Mild Bleeding Controlled with: Compression and gauze Patient tolerated procedure well Assessment/Plan Active Problems Ulcer of right choudhary with fat layer exposed (Chronic) Venous ulcer with fat layer exposed (Chronic) Assessment: 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 venous ulcer right choudhary Plan: Rodo's ulcer was evaluated and debridement was completed today. After 4 applications of Apligraf, 2 applications of Purapply and 2 applications of Nushield his ulcer is healed. He did not have significant improvement of his ulcer using collagen hydrogel daily to his choudhary. We had smaller Purapply discs available today and this was applied per project management manager guidelines to his ulcer, covered with wound veil and secured with steristrips. He tolerated this well. 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 He will continue to use compression with double layer tubigrips and elevate his legs when he is seated. He was encouraged to increase his protein intake and take vitamin C supplement to improve wound healing potential. He will call with any increased pain, drainage, erythema or swelling or odor. He will follow up in 1 week. Note: [employer] speech recognition healthcare network pricing consultant software was used to create portions of this document. Sound-alike and misspelled words, as well as other healthcare network pricing consultant errors may be contained in the documentation.
[2020-05-10 09:14] VITALS: BP 141/86; PULSE 73; RESP 18; TEMP 36.6
[2020-05-10 09:39] VITALS: BP 140/86
--- NOTE | 2020-05-10 10:53 | PCM.WC.PN ---
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 Code(s): L97.812 - Non-pressure chronic ulcer of other part of right lower leg with fat layer exposed (2) Venous ulcer with fat layer exposed Status: Chronic Code(s): I83.009 - Varicose veins of unspecified lower extremity with ulcer of unspecified site; L97.902 - Non-pressure chronic ulcer of unspecified part of unspecified lower leg with fat layer exposed Type of Wound Date of Service: 05/10/20 Chief Complaint: nonhealing ulcer right choudhary s/p traumatic injury History of Wound: Rodo is a 79 yo gentleman who presents to the wound healing center for evaluation and treatment of a nonhealing wound of his right choudhary which occurred approx. 2 months ago when he struck his choudhary against a metal post. The wound was small initially but has gotten larger. He initally was not using any dressings to the wound and was keeping it open to air. He did see his PCP approx. 1 month ago and she debrided the wound and started him on cefdinir for 10 days. He noted minimal improvement. He has been applying antibiotic ointment to the wound and covering it with a band aid. He has not undergone a wound culture that he is aware of at this point. He denies any history of difficult to heal wounds. He denies any problems with edema or circulation. He denies any fever, chills, erythema, nausea, vomiting or other systemic signs of infection. Progress of Wound: Rodo is here for follow up of nonhealing ulcer to his right choudhary. His original ulcer remains healed. The skin tear adjacent to his wound has improved since his last visit. He tolerated application of puraply with improvement in his wound. It is nearly healed. He was started on Lyrica for sciatica and has had increased edema in his legs b/l. No odor or erythema suggestive of infection. His wound culture on 11/10/2019 was negative for infection. A punch biopsy from 12/15/19 showed fragments of skin with extensive ulceration, associated acute and chronic inflammation, granulation tissue reaction, fibrinopurulent exudation and reactive changes; negative for carcinoma; special stains for acid fast bacilli and fungi are negative for organisms; matched controls are appropriate; underlying tissue also shows cartilaginous tissue with reactive changes. The patient denies any fever, chills, nausea, vomiting, or diarrhea. Denies any increasing pain, redness, swelling, or purulent/malodorous drainage from affected area. - Physical Exam Vital Signs Temp Pulse Resp BP 98 F 73 18 140/86 H 05/10/20 09:14 05/10/20 09:14 05/10/20 09:14 05/10/20 09:39 General: Alert, Oriented x3, Cooperative, No apparent distress HEENT: Atraumatic, Normocephalic Oral: Moist Mucosa Neck: Supple Abdomen: Obese Extremities: Edema Skin: Ulcer/ Wound Wound Measurements and Assessment WC - Nurse 1 - General Ulcer Measurement Start: 04/26/20 11:57 Freq: Status: Active Protocol: Activity Type Activity Date Activity User E-Sign Co-Sign Detail Recorded Client Recorded Date Recorded By Document 05/10/20 09:14 RB [id number] 05/10/20 09:17 RB 05/10/20 09:14 Wound Center Nurse 1 [Ulcer Assessment] #5 right choudhary skin tear -Combined with other wound No -Current Size (cm) - Length 0.1 -Current Size (cm) - Width 0.1 -Current Size (cm) - Depth 0.1 -Total Square Cm 0.01 -Photo Taken No -Tunneling No -Undermining/Tunneling No -Circular Undermining No -Exudate Amt Small -Exudate Type Serosanguineous -Wound Margin Flat & Intact -Granulation Amt Medium (34-66%) -Granulation Quality [place] -Slough/Fibrin Yes -Necrosis Amt Small (1-33%) -Necrotic Tissue Type Adherent Slough -Structure Exposed N/A -Texture (Funmi-wound Skin Appearance) Assessed, Scarring -Moisture (Funmi-wound Skin Appearance Assessed ) -Color (Funmi-wound Skin Appearance) Assessed -Temperature (Funmi-wound Skin No Abnormality Appearance) (Pt Warm) -Tenderness on Palpation (Funmi-wound No Skin Appearance) -Ulcer Cleansing Wound Cleanser -Foul Odor after Cleansing No -Anesthetic Used 5% Lidocaine Gel [Edema Assessment] -Lower Limb Edema Present Yes -Right Calf (cm) 36 -Right Ankle (cm) 23.5 WC - Nurse 2 - General Ulcer CM Notes Start: 04/26/20 11:57 Freq: Status: Active Protocol: Activity Type Activity Date Activity User E-Sign Co-Sign Detail Recorded Client Recorded Date Recorded By Document 05/10/20 09:23 MW [id number] 05/10/20 09:36 MW 05/10/20 09:23 Wound Center Nurse 2 [Procedure/Treatment] #5 right choudhary skin tear -Time 09:23 -Correct Patient Yes -Correct Side, Site, Position Yes -Correct Procedure Yes -Procedure Performed Yes -Type of Procedure Debridement -Clinical Debridement Subcutaneous -Tissue Removed Subcutaneous -Post Debridement (cm) - Length 0.5 -Post Debridement (cm) - Width 1.6 -Post Debridement (cm) - Depth 0.1 -Total Square (Post) (cm) 0.80 -Area of Debridement (cm) - Length 0.5 -Area of Debridement (cm) - Width 1.6 -Total Square (Area) (cm) 0.80 -Tunneling No -Undermining/Tunneling No -Circular Undermining No -Wound/Ulcer Outcome Not Healed -Ulcer Cleansing Rinsed/ Irrigated with Saline -Foul Odor after Cleansing No -Bioengineered Tissue Yes -Type of Bioengineered Tissue PuraPly AM Disc -Expiration Date 07/11/22 -Product Lot Number [id number] -Percent Used 100 -Lot number of Saline Used [id number] -Bleeding Controlled with Pressure -Offloading No -Treatment Response Procedure Tolerated Well -Debridement - Subq, 1st 20sq cm No -Apply Skin Sub - 1st 25 sq cm - Legs 1 -PuraPly AM 16mm Disc (per sq cm) 2 Query Text:16mm = 2 [See Physician Procedure note for Specifics] Pain Scale: 0-10 Numeric [Pain] -Is Patient Pain Free? Yes - Nurse 3 - General Ulcer D/C NN Start: 04/26/20 11:57 Freq: Status: Active Protocol: Activity Type Activity Date Activity User E-Sign Co-Sign Detail Recorded Client Recorded Date Recorded By Document 05/10/20 09:39 RB [id number] 05/10/20 09:40 RB 05/10/20 09:39 Wound Care Nurse 3 [Wound Dressing] #5 right choudhary skin tear -Primary Dressing Covered/Secured Dry Gauze,Dry with Gauze & Roll Gauze,Secured with Tape [Compression Applied] Right -Tubular Bandage Single Layer -Size of Tubigrip Used Size D -Size D ($) 1 Vital Signs [Blood Pressure] -Blood Pressure (90/60-120/80) 140/86 H -Blood Pressure Mean (mm Hg) 104 -Source Monitor -Position Semi-Fowlers -Blood Pressure Location Left Arm Pain Scale: 0-10 Numeric [Pain] -Is Patient Pain Free? Yes WC - Visit Discharge [Visit Discharge Information] -Discharge Condition Stable -Ambulatory Status Ambulatory -Transportation Private Auto -Medication Reconcilliation completed No & provided to patient/care provider -Clinical Summary of Care Provided Yes Psych/Mental Status: Normal Affect, Appropriate Debridement Note Post-Debridement Measurements/Treatment - Nurse 2 - General Ulcer CM Notes Start: 04/26/20 11:57 Freq: Status: Active Protocol: Activity Type Activity Date Activity User E-Sign Co-Sign Detail Recorded Client Recorded Date Recorded By Document 04/26/20 12:24 MW [id number] 04/26/20 12:27 MW Document 05/03/20 09:24 MW [id number] 05/03/20 09:36 MW Document 05/10/20 09:23 MW [id number] 05/10/20 09:36 MW 04/26/20 05/03/20 05/10/20 12:24 09:24 09:23 Wound Center Nurse 2 #5 right choudhary skin tear -Time 12:24 09:24 09:23 -Correct Patient Yes Yes Yes -Correct Side, Site, Position Yes Yes Yes -Correct Procedure Yes Yes Yes -Procedure Performed Yes Yes Yes -Type of Procedure Debridement Debridement Debridement -Clinical Debridement Subcutaneous Subcutaneous Subcutaneous -Tissue Removed Subcutaneous Subcutaneous Subcutaneous -Post Debridement (cm) - Length 0.9 1.0 0.5 -Post Debridement (cm) - Width 0.2 0.6 1.6 -Post Debridement (cm) - Depth 0.1 0.1 0.1 -Total Square (Post) (cm) 0.18 0.60 0.80 -Area of Debridement (cm) - Length 0.9 1.0 0.5 -Area of Debridement (cm) - Width 0.2 0.6 1.6 -Total Square (Area) (cm) 0.18 0.60 0.80 -Tunneling No No No -Undermining/Tunneling No No No -Circular Undermining No No No -Wound/Ulcer Outcome Not Healed Not Healed Not Healed -Ulcer Cleansing Rinsed/ Rinsed/ Rinsed/ Irrigated with Irrigated with Irrigated with Saline Saline Saline -Foul Odor after Cleansing No No No -Bioengineered Tissue No Yes Yes -Type of Bioengineered Tissue PuraPly AM Disc PuraPly AM Disc -Expiration Date 07/11/22 07/11/22 -Product Lot Number [id number] -Percent Used 100 100 -Lot number of Saline Used [id number] -Bleeding Controlled with Pressure Pressure Pressure -Offloading No No No -Treatment Response Procedure Procedure Procedure Tolerated Well Tolerated Well Tolerated Well -Debridement - Subq, 1st 20sq cm Yes No No -Apply Skin Sub - 1st 25 sq cm - Legs 1 1 -PuraPly AM 16mm Disc (per sq cm) 2 2 Query Text:16mm = 2 Pain Scale: 0-10 Numeric Is Patient Pain Free? Yes Yes Yes WC - Nurse 3 - General Ulcer D/C NN Start: 04/26/20 11:57 Freq: Status: Active Protocol: Activity Type Activity Date Activity User E-Sign Co-Sign Detail Recorded Client Recorded Date Recorded By Document 04/26/20 12:27 MW [id number] 04/26/20 12:28 MW Document 05/03/20 09:36 MW [id number] 05/03/20 09:36 MW Document 05/10/20 09:39 RB [id number] 05/10/20 09:40 RB 04/26/20 05/03/20 05/10/20 12:27 09:36 09:39 Wound Care Nurse 3 #5 right choudhary skin tear -Ulcer Cleansing Rinsed/ Not Cleansed Irrigated with Saline -Foul Odor after Cleansing No No -Negative Pressure Wound Therapy N/A N/A -Other Dressing c.hydrogel -Primary Dressing Covered/Secured with Dry Gauze & Dry Gauze & Dry Gauze,Dry Roll Gauze, Roll Gauze, Gauze & Roll Secured with Secured with Gauze,Secured Tape Tape with Tape Right -Tubular Bandage Single Layer -Size of Tubigrip Used Size D -Size D ($) 1 Treatment Response Procedure Procedure Tolerated Well Tolerated Well Vital Signs Blood Pressure (90/60-120/80) 140/86 H Blood Pressure Mean (mm Hg) 104 Source Monitor Position Semi-Fowlers Blood Pressure Location Left Arm Pain Scale: 0-10 Numeric Is Patient Pain Free? Yes Teaching: Wound Center Dressing Your Wound -Person Taught Patient Patient -Teaching Method Discussion, Discussion Demonstration -Response to teaching Verbalize Verbalize understanding understanding WC - Visit Discharge Discharge Condition Stable Stable Stable Ambulatory Status Ambulatory Ambulatory Ambulatory Transportation Private Auto Private Auto Private Auto Accompanied by self SELF Medication Reconcilliation completed & No No No provided to patient/care provider Clinical Summary of Care Provided Yes Yes Yes Wound debrided: right choudhary skin tear Laterality: Right Type of Debridement: Selective debridement Anesthesia Used: 4% Lidocaine Solution Depth: Down to and including healthy tissue, in the subcutaneous layer Percentage of wound debrided: 100 Instrument Used: 3mm curette Tissue Removed: Yellow slough, devitalized tissue Severity: Fat Layer Exposed Amount of bleeding with debridement: Mild Bleeding Controlled with: Compression and gauze Patient tolerated procedure well Assessment/Plan Active Problems Ulcer of right choudhary with fat layer exposed (Chronic) Venous ulcer with fat layer exposed (Chronic) Assessment: 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 venous ulcer right choudhary Plan: Rodo's ulcer was evaluated and debridement was completed today. We had smaller Purapply disc and this was applied per pharmacist apprentice guidelines to his ulcer, covered with adaptic touch and secured with steristrips. He tolerated this well. 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 He will continue to use compression with double layer tubigrips and elevate his legs when he is seated. He was encouraged to increase his protein intake and take vitamin C supplement to improve wound healing potential. He will call with any increased pain, drainage, erythema or swelling or odor. He will follow up in 1 week. Note: [employer] speech recognition heater room helper software was used to create portions of this document. Sound-alike and misspelled words, as well as other heater room helper errors may be contained in the documentation.
[2020-05-17 09:19] VITALS: BP 114/65; PULSE 76; RESP 16; TEMP 36.1
--- NOTE | 2020-05-17 11:58 | PCM.WC.PN ---
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 Code(s): L97.812 - Non-pressure chronic ulcer of other part of right lower leg with fat layer exposed (2) Venous ulcer with fat layer exposed Status: Chronic Code(s): I83.009 - Varicose veins of unspecified lower extremity with ulcer of unspecified site; L97.902 - Non-pressure chronic ulcer of unspecified part of unspecified lower leg with fat layer exposed Type of Wound Date of Service: 05/17/20 Chief Complaint: nonhealing ulcer right choudhary s/p traumatic injury History of Wound: Rodo is a 79 yo gentleman who presents to the wound healing center for evaluation and treatment of a nonhealing wound of his right choudhary which occurred approx. 2 months ago when he struck his choudhary against a metal post. The wound was small initially but has gotten larger. He initally was not using any dressings to the wound and was keeping it open to air. He did see his PCP approx. 1 month ago and she debrided the wound and started him on cefdinir for 10 days. He noted minimal improvement. He has been applying antibiotic ointment to the wound and covering it with a band aid. He has not undergone a wound culture that he is aware of at this point. He denies any history of difficult to heal wounds. He denies any problems with edema or circulation. He denies any fever, chills, erythema, nausea, vomiting or other systemic signs of infection. Progress of Wound: Rodo is here for follow up of nonhealing ulcer to his right choudhary. He tolerated puraply application and is healed. He was started on Lyrica for sciatica and has had increased edema in his legs b/l. No odor or erythema suggestive of infection. His wound culture on 11/10/2019 was negative for infection. A punch biopsy from 12/15/19 showed fragments of skin with extensive ulceration, associated acute and chronic inflammation, granulation tissue reaction, fibrinopurulent exudation and reactive changes; negative for carcinoma; special stains for acid fast bacilli and fungi are negative for organisms; matched controls are appropriate; underlying tissue also shows cartilaginous tissue with reactive changes. The patient denies any fever, chills, nausea, vomiting, or diarrhea. Denies any increasing pain, redness, swelling, or purulent/malodorous drainage from affected area. - Physical Exam Vital Signs Temp Pulse Resp BP 96.9 F L 76 16 114/65 05/17/20 09:19 05/17/20 09:19 05/17/20 09:19 05/17/20 09:19 General: Alert, Oriented x3, Cooperative, No apparent distress HEENT: Atraumatic, Normocephalic Oral: Moist Mucosa Abdomen: Obese Extremities: Edema Skin: Ulcer/ Wound Wound Measurements and Assessment WC - Nurse 1 - General Ulcer Measurement Start: 04/26/20 11:57 Freq: Status: Discharge Protocol: Activity Type Activity Date Activity User E-Sign Co-Sign Detail Recorded Client Recorded Date Recorded By Document 05/17/20 09:19 MW [id number] 05/17/20 09:27 MW Edit Status 05/17/20 10:33 BKG DAEMON Active=>Discharge [id number] 05/17/20 10:33 BKG DAEMON 05/17/20 09:19 Wound Center Nurse 1 [Ulcer Assessment] #5 right choudhary skin tear -Combined with other wound No -Current Size (cm) - Length 0.2 -Current Size (cm) - Width 0.8 -Current Size (cm) - Depth 0.1 -Total Square Cm 0.16 -Photo Taken No -Epithelialization None Present -Tunneling No -Undermining/Tunneling No -Circular Undermining No -Exudate Amt None Present -Wound Margin Flat & Intact -Granulation Amt None Present (0 %) -Granulation Quality N/A -Slough/Fibrin Yes -Necrosis Amt Small (1-33%) -Necrotic Tissue Type Adherent Slough -Structure Exposed N/A -Texture (Funmi-wound Skin Appearance) Assessed, Localized Edema ,Scarring -Moisture (Funmi-wound Skin Appearance No Abnormality, ) Assessed -Color (Funmi-wound Skin Appearance) No Abnormality, Assessed -Temperature (Funmi-wound Skin No Abnormality Appearance) (Pt Warm) -Tenderness on Palpation (Funmi-wound Yes Skin Appearance) -Ulcer Cleansing SOAP AND WATER -Foul Odor after Cleansing No -Anesthetic Used 4% Lidocaine Solution [Edema Assessment] -Lower Limb Edema Present Yes -Right Calf (cm) 36.0 -Right Ankle (cm) 23.5 WC - Nurse 2 - General Ulcer CM Notes Start: 04/26/20 11:57 Freq: Status: Discharge Protocol: Activity Type Activity Date Activity User E-Sign Co-Sign Detail Recorded Client Recorded Date Recorded By Document 05/17/20 09:30 MW [id number] 05/17/20 09:38 MW Edit Status 05/17/20 10:33 BKG DAEMON Active=>Discharge [id number] 05/17/20 10:33 BKG DAEMON 05/17/20 09:30 Wound Center Nurse 2 [Procedure/Treatment] #5 right choudhary skin tear -Time 09:31 -Correct Patient Yes -Correct Side, Site, Position Yes -Correct Procedure Yes -Procedure Performed No -Post Debridement (cm) - Length 0 -Post Debridement (cm) - Width 0 -Post Debridement (cm) - Depth 0 -Total Square (Post) (cm) 0 -Wound/Ulcer Outcome Healed- Epithelialized -Ulcer Cleansing Not Cleansed -Foul Odor after Cleansing No -Bioengineered Tissue No -Bleeding Controlled with NA -Offloading No -Treatment Response Procedure Tolerated Well [See Physician Procedure note for Specifics] Pain Scale: 0-10 Numeric [Pain] -Is Patient Pain Free? Yes - Nurse 3 - General Ulcer D/C NN Start: 04/26/20 11:57 Freq: Status: Discharge Protocol: Activity Type Activity Date Activity User E-Sign Co-Sign Detail Recorded Client Recorded Date Recorded By Document 05/17/20 09:40 MW [id number] 05/17/20 09:40 MW Edit Status 05/17/20 10:33 BKG DAGILLON Active=>Discharge [id number] 05/17/20 10:33 BKG DAEMON 05/17/20 09:40 Wound Care Nurse 3 [Post Procedure Tolerated] -Treatment Response Procedure Tolerated Well Teaching: Wound Center [Wound Center Education] (Items with an * have Printed Materials Available- Please identify what is given to patient under the Teaching materials given to patient and caregiver Section. Discharge Instructions -Person Taught Patient -Teaching Method Discussion, Demonstration -Response to teaching Verbalize understanding WC - Visit Discharge [Visit Discharge Information] -Discharge Condition Stable -Ambulatory Status Ambulatory -Transportation Private Auto -Accompanied by SELF -Medication Reconcilliation completed No & provided to patient/care provider -Clinical Summary of Care Provided Yes -Notes: HEALED, DISCHARGED FROM CLINIC Neurological: Cranial nerves II-XII grossly intact Debridement Note Post-Debridement Measurements/Treatment - Nurse 2 - General Ulcer CM Notes Start: 04/26/20 11:57 Freq: Status: Discharge Protocol: Activity Type Activity Date Activity User E-Sign Co-Sign Detail Recorded Client Recorded Date Recorded By Document 04/26/20 12:24 MW [id number] 04/26/20 12:27 MW Document 05/03/20 09:24 MW [id number] 05/03/20 09:36 MW Document 05/10/20 09:23 MW [id number] 05/10/20 09:36 MW Document 05/17/20 09:30 MW [id number] 05/17/20 09:38 MW 04/26/20 05/03/20 05/10/20 12:24 09:24 09:23 Wound Center Nurse 2 #5 right choudhary skin tear -Time 12:24 09:24 09:23 -Correct Patient Yes Yes Yes -Correct Side, Site, Position Yes Yes Yes -Correct Procedure Yes Yes Yes -Procedure Performed Yes Yes Yes -Type of Procedure Debridement Debridement Debridement -Clinical Debridement Subcutaneous Subcutaneous Subcutaneous -Tissue Removed Subcutaneous Subcutaneous Subcutaneous -Post Debridement (cm) - Length 0.9 1.0 0.5 -Post Debridement (cm) - Width 0.2 0.6 1.6 -Post Debridement (cm) - Depth 0.1 0.1 0.1 -Total Square (Post) (cm) 0.18 0.60 0.80 -Area of Debridement (cm) - Length 0.9 1.0 0.5 -Area of Debridement (cm) - Width 0.2 0.6 1.6 -Total Square (Area) (cm) 0.18 0.60 0.80 -Tunneling No No No -Undermining/Tunneling No No No -Circular Undermining No No No -Wound/Ulcer Outcome Not Healed Not Healed Not Healed -Ulcer Cleansing Rinsed/ Rinsed/ Rinsed/ Irrigated with Irrigated with Irrigated with Saline Saline Saline -Foul Odor after Cleansing No No No -Bioengineered Tissue No Yes Yes -Type of Bioengineered Tissue PuraPly AM Disc PuraPly AM Disc -Expiration Date 07/11/22 07/11/22 -Product Lot Number [id number] -Percent Used 100 100 -Lot number of Saline Used [id number] -Bleeding Controlled with Pressure Pressure Pressure -Offloading No No No -Treatment Response Procedure Procedure Procedure Tolerated Well Tolerated Well Tolerated Well -Debridement - Subq, 1st 20sq cm Yes No No -Apply Skin Sub - 1st 25 sq cm - Legs 1 1 -PuraPly AM 16mm Disc (per sq cm) 2 2 Pain Scale: 0-10 Numeric Is Patient Pain Free? Yes Yes Yes 05/17/20 09:30 Wound Center Nurse 2 #5 right choudhary skin tear -Time 09:31 -Correct Patient Yes -Correct Side, Site, Position Yes -Correct Procedure Yes -Procedure Performed No -Type of Procedure -Clinical Debridement -Tissue Removed -Post Debridement (cm) - Length 0 -Post Debridement (cm) - Width 0 -Post Debridement (cm) - Depth 0 -Total Square (Post) (cm) 0 -Area of Debridement (cm) - Length -Area of Debridement (cm) - Width -Total Square (Area) (cm) -Tunneling -Undermining/Tunneling -Circular Undermining -Wound/Ulcer Outcome Healed- Epithelialized -Ulcer Cleansing Not Cleansed -Foul Odor after Cleansing No -Bioengineered Tissue No -Type of Bioengineered Tissue -Expiration Date -Product Lot Number -Percent Used -Lot number of Saline Used -Bleeding Controlled with NA -Offloading No -Treatment Response Procedure Tolerated Well -Debridement - Subq, 1st 20sq cm -Apply Skin Sub - 1st 25 sq cm - Legs -PuraPly AM 16mm Disc (per sq cm) Pain Scale: 0-10 Numeric Is Patient Pain Free? Yes WC - Nurse 3 - General Ulcer D/C NN Start: 04/26/20 11:57 Freq: Status: Discharge Protocol: Activity Type Activity Date Activity User E-Sign Co-Sign Detail Recorded Client Recorded Date Recorded By Document 04/26/20 12:27 MW [id number] 04/26/20 12:28 MW Document 05/03/20 09:36 MW [id number] 05/03/20 09:36 MW Document 05/10/20 09:39 RB [id number] 05/10/20 09:40 RB Document 05/17/20 09:40 MW [id number] 05/17/20 09:40 MW 04/26/20 05/03/20 05/10/20 12:27 09:36 09:39 Wound Care Nurse 3 #5 right choudhary skin tear -Ulcer Cleansing Rinsed/ Not Cleansed Irrigated with Saline -Foul Odor after Cleansing No No -Negative Pressure Wound Therapy N/A N/A -Other Dressing c.hydrogel -Primary Dressing Covered/Secured with Dry Gauze & Dry Gauze & Dry Gauze,Dry Roll Gauze, Roll Gauze, Gauze & Roll Secured with Secured with Gauze,Secured Tape Tape with Tape Right -Tubular Bandage Single Layer -Size of Tubigrip Used Size D -Size D ($) 1 Treatment Response Procedure Procedure Tolerated Well Tolerated Well Vital Signs Blood Pressure (90/60-120/80) 140/86 H Blood Pressure Mean (mm Hg) 104 Source Monitor Position Semi-Fowlers Blood Pressure Location Left Arm Pain Scale: 0-10 Numeric Is Patient Pain Free? Yes Teaching: Wound Center Discharge Instructions -Person Taught -Teaching Method -Response to teaching Dressing Your Wound -Person Taught Patient Patient -Teaching Method Discussion, Discussion Demonstration -Response to teaching Verbalize Verbalize understanding understanding WC - Visit Discharge Discharge Condition Stable Stable Stable Ambulatory Status Ambulatory Ambulatory Ambulatory Transportation Private Auto Private Auto Private Auto Accompanied by self SELF Medication Reconcilliation completed & No No No provided to patient/care provider Clinical Summary of Care Provided Yes Yes Yes Notes: 05/17/20 09:40 Wound Care Nurse 3 #5 right choudhary skin tear -Ulcer Cleansing -Foul Odor after Cleansing -Negative Pressure Wound Therapy -Other Dressing -Primary Dressing Covered/Secured with Right -Tubular Bandage -Size of Tubigrip Used -Size D ($) Treatment Response Procedure Tolerated Well Vital Signs Blood Pressure (90/60-120/80) Blood Pressure Mean (mm Hg) Source Position Blood Pressure Location Pain Scale: 0-10 Numeric Is Patient Pain Free? Teaching: Wound Center Discharge Instructions -Person Taught Patient -Teaching Method Discussion, Demonstration -Response to teaching Verbalize understanding Dressing Your Wound -Person Taught -Teaching Method -Response to teaching WC - Visit Discharge Discharge Condition Stable Ambulatory Status Ambulatory Transportation Private Auto Accompanied by SELF Medication Reconcilliation completed & No provided to patient/care provider Clinical Summary of Care Provided Yes Notes: HEALED, DISCHARGED FROM CLINIC Wound debrided: right choudhary skin tear Laterality: Right Anesthesia Used: 4% Lidocaine Solution Depth: Down to and including healthy tissue Amount of bleeding with debridement: None Patient tolerated procedure well healed and epithelial tissue intact Assessment/Plan Active Problems Ulcer of right choudhary with fat layer exposed (Chronic) Venous ulcer with fat layer exposed (Chronic) Assessment: 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 venous ulcer right choudhary Plan: Rodo's ulcer was evaluated and is healed today.
== END 2020-05-17 10:32 | disposition home or self-care (01) ==
LOC: WC 09:00
PROVIDERS: PCP Internal Medicine; Referring Provider Family Medicine; Visit Provider Family Medicine
DX: I83.018 Varicose veins of right lower extremity with ulcer other part of lower leg (principal); L97.812 Non-pressure chronic ulcer of other part of right lower leg with fat layer exposed; S81.801S Unspecified open wound, right lower leg, sequela; W22.09XS Striking against other stationary object, sequela; L88 Pyoderma gangrenosum; M54.30 Sciatica, unspecified side; Z79.899 Other long term (current) drug therapy
CPT/HCPCS: 11042; 15271; Q4196

== ENCOUNTER 2020-06-25 12:00 | Outpatient (RCR) | payer MEDICARE, OTHER, SELFPAY ==
--- NOTE | 2020-04-08 16:59 | HP.PTEVAL_ITS ---
Patient's Visit Information ADALBERTO VALADEZ is a 79 year old M referred to Physical Therapy by Dr. Daphney Dunn MD with a diagnosis of SCAITICA. Date of Evaluation: 04/08/20 Physical Therapist: Reymundo Acosta PT, Cert MDT, OCS - Visit Plan Frequency: 2x /Week Duration: 4 Weeks Plan: LATEX ALLERGY. PT INTERETION LUMBAR FLEXION,DLS ABD/BACK ,POSTURAL EX'S MODALITES - Subjective This 79 y/o male presents to physical therapy with sciatica pain.Patient has left side L-S and lateral leg . Patient had incidous onset probably racking leaves. Seen DR RAMIREZ x-rays had. x-rays from [facility]. Patient provide predisone pack Aggraveting factors standing and walking and standing. Alleviating rest and sitting. Denies parathesia/tingling. Bowel/bladder - .Coughing/sneezing -. Pateint can affects sleeping.Patient pain affects ablity to peform hiusework tasks and ADLS'. Patient symptoms affects QOL.Left leg is shorter. SOCIAL: . VOCATION: retired - Objective POSTURE: mild foward posture,left leg shorter 3/4 length. GAIT: reciprocal pattern anatlgic gait left side mild foward posture. PALATION: tender LS left. NEURO :denies parathesia/tingling,reflexes L3-4,L4-5,L5-S1. MMT: quads/hams 4/5,hip flexion 4-/5,ankle 4/5. LUMBAR ROM: flexion min loss,extension mod loss pain left side ,side glides min loss. FLEXABLITY: hams mod tight - Special Tests L/S Slump test left side: Negative L/S Slump test right side: Negative L/S Left Straight Leg Raise: Negative L/S Right Straight Leg Raise: Negative Lumbar Standing: Flexion - Mechanical Response: No effect Lumbar Standing: Flexion - Symptoms During Testing: Decreases Lumbar Standing: Flexion - Symptoms After Testing: No better Lumbar Standing: Extension - Mechanical Response: No effect Lumbar Standing: Extension - Symptoms During Testing: Increases Lumbar Standing: Extension - Symptoms After Testing: No worse Lumbar Standing: Right Side Glides - Mechanical Response: No effect Lumbar Standing: Right Side [place] - Symptoms During Testing: No effect Lumbar Standing: Right Side [place] - Symptoms After Testing: No effect Lumbar Standing: Left Side [place] - Mechanical Response: No effect Lumbar Standing: Left Side [place] - Symptoms During Testing: No effect Lumbar Standing: Left Side [place] - Symptoms After Testing: No effect Lumbar Lying: Flexion - Mechanical Response: No effect Lumbar Lying: Flexion - Symptoms During Testing: Decreases Lumbar Lying: Flexion - Symptoms After Testing: Better - Goals Goal 1:: Pateint to be I with HEP Goal Time Frame: 4-6 Weeks Goal 2:: Patient to improve posture/boday mechanics Goal Time Frame: 4-6 Weeks Goal 3:: Pateint to decrease left radicular symptoms by 50 % with standing/walking to improve [place] Goal Time Frame: 4-6 Weeks Goal 4:: Patient improve lumbar ROM for function of recovery Goal Time Frame: 4-6 Weeks Goal 5:: Patient to improve back owestry score by 5 points or > to improve function. 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 wose with standing and walking better with sitting thus responded with flexion typoe ex's thus will benifit from skilled PT Rehabilitation Potential: Good - Anticipated Interventions Patient/Client Instruction: Educate patient on: Condition, Plan of Care For the Purpose of:: To decrease pain, To increase ROM, To improve muscle performance and motor function, To increase tolerance to activity/condition/position, To improve performance and independence with ADL's, To improve ability of physical actions for home/community/work/leisure, To improve health of tissue, To decrease soft tissue restriction, To increase flexibility/ROM, To reduce risk of recurrence, To improve ability to perform t asks related to life management Therapeutic Exercise to Include: Strength training, Body mechanics, Postural training, Flexibilty training, Dynamic Lumbar Stabilization For the Purpose of:: To decrease pain, To increase ROM, To improve muscle performance and motor function, To improve ability to perform ADL's, To increase tolerance to activity/condition/position, To improve ability of physical actions for home/community/work/leisure, To improve health of tissue, To decrease soft tissue restriction, To increase flexibility/ROM, To reduce risk of recurrence, To improve ability to perform tasks related to life management TENS: Yes IF ES: Yes Thermo therapy (hot pack): Yes Ultrasound (thermal/non thermal): Yes For the Purpose of:: To decrease pain, To decrease swelling/inflammation, To increase ROM, To improve nutrient delivery to tissue, To increase oxygenation perfusion, To improve health of tissue, To decrease soft tissue restriction Thank you for the opportunity to evaluate your patient. For Medicare and Medicare HMO plans, please review the plan of care and approve it. It will need to be FAXED BACK to us at [phone] for Medicare purposes. For Medicare only, by signing this I certify the plan of care. Please let me know if there are questions or concerns regarding this plan of care. Physician Signature: Date:
--- NOTE | 2020-05-09 09:54 | HP.PTREVAL ---
Dr. Daphney Dunn MD, It has been my pleasure to treat ADALBERTO VALADEZ over the last 9 visits for SCAITICA. Please see the progress note below for an update on the physical therapy plan of care! Subjective: PATIENT STATES HE IS STILL HAVING LOW BACK PAIN. REPORTS HIS HIP PAIN IS STILL THERE. STATES HE WANTS TO CONTINUE WITH THERAPY. Objective/Function: LE MMT: R hip flexor 5/5, knee flexion 5/5, knee ext 5/5. L hip flexion /5, knee flexion 5/5, knee ext 5/5. Lumbar ROM: flexion 50% - limited by tight hamstrings. extension 75%- caused some L hip pain. Gait: ambulating with increased marie, forward flexed posture, decreased step length. Patient's gait continues to improve with each session demonstrating decreased L limp. Patient expresses good results from use of traction. Plan Plan: LATEX ALLERGY; ELEVATED BED DUE TO ACID REFLUX. Continue POC for an additional 4 weeks; 2xs/week. PT INTERETION LUMBAR FLEXION,DLS ABD/BACK ,POSTURAL EX'S MODALITES Goals Goal 1:: Pateint to be I with HEP Goal Time Frame: 4-6 Weeks Goal Progress: Goal Met Goal 2:: Patient to improve posture/boday mechanics Goal Time Frame: 4-6 Weeks Goal Progress: Progressing Goal 3:: Pateint to decrease left radicular symptoms by 75% with standing/walking to improve [place]. (update goal) Goal Time Frame: 4-6 Weeks Goal Progress: Progressing Goal 4:: Patient improve lumbar ROM for function of recovery Goal Time Frame: 4-6 Weeks Goal Progress: Progressing Goal 5:: Patient to improve back owestry score by 5 points or > to improve function. Goal Time Frame: 4-6 Weeks Goal Progress: Progressing Anticipated Interventions Patient/Client Instruction: Educate patient on: Condition, Plan of Care For the Purpose of:: To decrease pain, To increase ROM, To improve muscle performance and motor function, To increase tolerance to activity/condition/position, To improve performance and independence with ADL's, To improve ability of physical actions for home/community/work/leisure, To improve health of tissue, To decrease soft tissue restriction, To increase flexibility/ROM, To reduce risk of recurrence, To improve ability to perform tasks related to life management Therapeutic Exercise to Include: Strength training, Body mechanics, Postural training, Flexibilty training, Dynamic Lumbar Stabilization For the Purpose of:: To decrease pain, To increase ROM, To improve muscle performance and motor function, To improve ability to perform ADL's, To increase tolerance to activity/condition/position, To improve ability of physical actions for home/community/work/leisure, To improve health of tissue, To decrease soft tissue restriction, To increase flexibility/ROM, To reduce risk of recurrence, To improve ability to perform tasks related to life management TENS: Yes IF ES: Yes Thermo therapy (hot pack): Yes Ultrasound (thermal/non thermal): Yes For the Purpose of:: To decrease pain, To decrease swelling/inflammation, To increase ROM, To improve nutrient delivery to tissue, To increase oxygenation perfusion, To improve health of tissue, To decrease soft tissue restriction Please do not hesitate to contact me at [phone] by phone or if you have questions or concerns regarding this new plan of care! Sincerely, Reymundo Acosta, PT, Cert MDT, OCS
--- NOTE | 2020-06-25 12:47 | HP.PTDCSUM ---
It has been my pleasure to treat ADALBERTO VALADEZ referred by Dr. Daphney Dunn MD, with the diagnosis of SCAITICA for a total of 20 visit(s). Discharge Date: 06/25/20 Please see the following information for a summary of their discharge status. Subjective: Pain in back better today but hip is worse. Plan to do ex's on own . Patient is getting stem cell in knee Left Back Pain Intensity (Out of 10): 4 % Improvement: 90 Objective/Function: POSTURE: mild foward posture. GAIT : reciprocal pattern mild decrease stance time left side. NEURO: intact. MMT: quads/hams 4/5,hip flexion 4-/5,ankle 4/5. LUMBAR ROM: flexion WFL ,extension mod/severe ,side glides mod loss Goal 1:: Pateint to be I with HEP Goal Progress: Goal Met Goal 2:: Patient to improve posture/body mechanics Goal Progress: Goal Met Goal 3:: Pateint to decrease left radicular symptoms by 75% with standing/walking to improve functon. (update goal) Goal Progress: Goal Met Goal 4:: Patient improve lumbar ROM for function of recovery Goal Progress: Goal Met Goal 5:: Patient to improve back owestry score by 5 points or > to improve function. Goal Progress: Goal Met Goal Progress: Goal Met Plan: d/c to HEP and gym Discharge Comments: HEP AND GYM If there are questions or concerns regarding this patient's physical therapy, please feel free to call me at [phone]. Thank you for the referral of this patient. Sincerely, Reymundo Acosta, PT, Cert MDT, OCS
== END 2020-06-25 19:00 | disposition home or self-care (01) ==
LOC: PT 12:00
PROVIDERS: PCP Internal Medicine; Referring Provider Internal Medicine; Visit Provider Internal Medicine
DX: M54.32 Sciatica, left side (principal)
CPT/HCPCS: 97012; 97035; 97110; 97162; 97530

== ENCOUNTER → 2020-07-31 15:31 | Outpatient (CLI) | payer MEDICARE, OTHER, SELFPAY ==
--- NOTE | 2020-07-31 15:38 | MRI_ITS ---
STUDY: MRI LUMBAR SPINE WITHOUT CONTRAST REASON FOR EXAM: Male, 80 years old. LEFT SCIATICA TECHNIQUE: Standardized fat and water weighted pulse sequences were obtained in the sagittal and axial planes. COMPARISON: None FINDINGS: T12-L1: Normal endplates. Normal disc height, hydration and morphology. Normal bilateral facet joints. Normal central canal and bilateral lateral recesses. Normal bilateral intervertebral neural foramina. Normal lumbar lordosis. There is no substantial scoliosis. Normal conus medullaris that terminates at the L1. Mild loss of height of the L1 vertebral body without marrow edema consistent with a chronic mild compression fracture. No retropulsion into the spinal canal. L1-2: Mild bilateral facet hypertrophy with fluid in the facet joints consistent with instability and moderate ligament flavum hypertrophy. 2 mm retrolisthesis of L1 on L2 with a mild bilobed disc protrusion produces moderate spinal stenosis with moderate bilateral lateral recess stenosis with abutment of the L II nerve roots bilaterally and moderate bilateral neural foraminal stenosis. L2-3: Mild bilateral facet hypertrophy and moderate ligament flavum hypertrophy. 2 mm retrolisthesis of L2 on L3 with a moderate bilobed disc protrusion produces moderate spinal stenosis with moderate bilateral lateral recess stenosis with abutment of the L3 nerve roots bilaterally and moderate lateral neural foraminal stenosis. L3-4: Mild bilateral facet hypertrophy and moderate ligament flavum hypertrophy. 2 mm retrolisthesis of L3 on L4 with a moderate broad disc protrusion produces moderate spinal stenosis with moderate bilateral lateral recess stenosis with abutment of the L4 nerve roots bilaterally and moderate bilateral neural foraminal stenosis. L4-5: Mild bilateral facet hypertrophy and moderate ligament flavum hypertrophy. 2 mm retrolisthesis of L4 and L5 with a mild broad disc protrusion produces moderate spinal stenosis with moderate bilateral lateral recess stenosis with abutment of the L5 nerve roots bilaterally and moderate bilateral neural foraminal stenosis. L5-S1: Bilateral pars defects of the L5 vertebra consistent with L5 spondylolysis. 5 mm of anterolisthesis of L5 on S1 consistent with grade 1 spondylolisthesis. Moderate broad disc protrusion produces moderate spinal stenosis and severe bilateral neural foraminal stenosis with effacement of the L5 nerve roots bilaterally. Normal visualized sacral ala. Normal visualized paraspinous soft tissue structures. MRI/Spine Lumbar (Routine) IMPRESSION: 1. 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 2. Moderate diffuse degenerative disc disease throughout the lumbar spine as described above. 3. Chronic mild compression fracture of L1 without retropulsion into the spinal canal Electronically Signed: Bennie Shanks MD at 17:02 EDT Tel , Service support ,
== END ==
PROVIDERS: PCP Internal Medicine; Referring Provider Internal Medicine; Visit Provider Internal Medicine
DX: M54.32 Sciatica, left side (principal)
CPT/HCPCS: 72148

== ENCOUNTER → 2020-08-08 10:24 | Outpatient (CLI) | payer MEDICARE, OTHER, SELFPAY ==
--- NOTE | 2020-08-08 10:29 | BD_ITS ---
STUDY: DUAL ENERGY X-RAY ABSORPTIOMETRY / DXA REASON FOR EXAM: Male, 80 years old. M810 TECHNIQUE: Bone Mineral Density (BMD) measurements of lumbar spine and bilateral hips were obtained. COMPARISON: Comparison is made with prior study dated 07/08/2017. FINDINGS: Lumbar Spine (L1-L4): g/cm2 (1.362) / T-score (1.0) / Z-score (1.7) Findings are suggestive of normal bone density with a low fracture risk. Left Femur Total: g/cm2 (0.784) / T-score (-2.2) / Z-score (-1.2) Left Femoral Neck: g/cm2 (0.796) / T-score (-2.1) / Z-score (-0.6) Right Femur Total: g/cm2 (0.877) / T-score (-1.6) / Z-score (-0.5) Right Femoral Neck: g/cm2 (0.777) / T-score (-2.3) / Z-score (-0.8) The T-Scores on the most recent prior examination were: Lumbar Spine (L1-L4): There has been worsening of bone density since the previous examination. Left Femur Total: which represents a worsening of 1.9%. Right Femur Total: which represents a worsening of 1.7%. BD/Dexa Bone Density Study IMPRESSION: The patient is considered osteopenic as outlined below according to World Moise Organization (WHO) criteria with a high fracture risk. There has been worsening of bone density since the previous examination. Reference Information: The T-score is the number of standard deviations above or below the standard which is normal for young adults at their peak bone mineral density. The World Health Organization (WHO) interprets the T-scores as follows: Above -1 Normal bone density Between -1 and -2.5 Osteopenia Equal to / or below -2.5 Osteoporosis As a practical clinical guideline, osteopenia may be graded as follows: Mild -1 through -1.5 Moderate -1.6 through -2.0 Severe -2.1 through -2.4 The Z-score is the number of standard deviations above or below age-matched controls. A Z-score of less than -1.5 would be considered abnormal. References: 1. NIH Osteoporosis and Related Bone Diseases www osteo.org 2. International Society for Clinical Densitometry www iscd.org 3. National Osteoporosis Foundation www nof.org Electronically Signed: Demetri Green MD at 15:35 EDT , Service support ,
== END ==
PROVIDERS: PCP Internal Medicine; Referring Provider Internal Medicine; Visit Provider Internal Medicine
DX: M48.56XA Collapsed vertebra, not elsewhere classified, lumbar region, initial encounter for fracture (principal)
CPT/HCPCS: 77080

== ENCOUNTER → 2020-09-09 15:28 | Outpatient (CLI) | payer MEDICARE, OTHER, SELFPAY ==
--- NOTE | 2020-09-09 15:30 | VDLE_ITS ---
Reason For Study: LLE swelling RIGHT LEFT CFV is compressible, spontaneous, phasic, GSV is normal. competent and demonstrates normal CFV is compressible, spontaneous, phasic, augmentation. competent, and demonstrates normal Procedure augmentation. This is a venous duplex using B-mode, color FV is compressible, spontaneous, phasic, flow and spectral Doppler. competent and demonstrates normal Exam performed in department. augmentation. The exam was diagnostic. POP V is compressible, spontaneous, phasic, A preliminary report was called and/or faxed competent and demonstrates normal to Dr. Dunn @ 4:00 pm @ [phone]. augmentation. T/P Trunk is compressible. PTV is compressible. LT PerV is compressible. VL/Venous Duplex US, Unilateral Interpretation Summary Deep veins of the left lower extremity are patent and compressible segmentally. There is no evidence of left lower extremity deep vein thrombosis. Valvular competence appears intac t within the proximal deep venous system on the left . The left great saphenous vein appears patent a nd compressible segmentally. Ordering Physician: Daphney Dunn Referring Physician: Jose Trinidad M.D. Performed By: Amanda Rob RDCS, RVT
== END ==
PROVIDERS: PCP Internal Medicine; Referring Provider Internal Medicine; Visit Provider Internal Medicine
DX: M79.89 Other specified soft tissue disorders (principal)
CPT/HCPCS: 93971

== ENCOUNTER → 2020-09-20 15:42 | Outpatient (CLI) | payer MEDICARE, OTHER, SELFPAY ==
[2020-09-20 17:45] LABS: Anion Gap 6 (5-15); BUN 22 mg/dL (7-18); BUN/Creat Ratio 19.1 RATIO (10-20); Calcium,Total 9.6 mg/dL (8.5-10.1); Chloride 111 mmol/L (98-107); Creatinine, Serum 1.15 mg/dL (0.70-1.30); EST Glomerular Filtration Rate 65 mL/min (>60); Est Glom Filt Rate - Afr Amer 79 mL/min (>60); Glucose 91 mg/dL (74-106); Magnesium 1.8 mg/dL (1.6-2.6); Potassium 3.5 mmol/L (3.5-5.1); Sodium Level 147 mmol/L (136-145)
[2020-09-20 17:48] LABS: Protein, Urine (Random) 186.2 mg/dL (<11.9); Protein:Creat Ratio 2076 mg/g CRE (0-200)
== END ==
PROVIDERS: PCP Internal Medicine; Visit Provider Internal Medicine Nephrology
DX: E83.42 Hypomagnesemia (principal); R80.9 Proteinuria, unspecified
CPT/HCPCS: 36415; 80048; 82570; 83735; 84156

== ENCOUNTER → 2020-09-26 11:12 | Outpatient (CLI) | payer MEDICARE, OTHER, SELFPAY ==
[2020-09-26 11:33] LABS: Hematocrit 37.2 % (40-54); Hemoglobin 12.5 g/dL (13.0-16.5); Mean Corp Hgb Conc 33.6 g/dL (32-36); Mean Corpuscular Hgb 29.8 pg (27.0-32.0); Mean Corpuscular Volume 88.8 fL (80-94); Mean Platelet Vol. 10.9 fl (6.2-12.0); Platelet Count 197 K/mm3 (150-450); RBC Distribution Width CV 14.6 % (11.6-14.6); Red Blood Count 4.19 M/mm3 (4.6-6.2); White Blood Count 9.7 K/mm3 (4.4-11.0)
[2020-09-26 11:55] LABS: International Normalized Ratio 1.1; Partial Thromboplast Time 27.1 Seconds (24.1-36.2); Prothrombin Time (Protime)PT. 13.7 SECONDS (11.7-14.9)
== END ==
PROVIDERS: PCP Internal Medicine; Referring Provider Internal Medicine Nephrology; Visit Provider Internal Medicine Nephrology
DX: R80.9 Proteinuria, unspecified (principal)
CPT/HCPCS: 36415; 85027; 85610; 85730

== ENCOUNTER → 2020-10-07 11:00 | Outpatient (CLI) | payer MEDICARE, OTHER, SELFPAY ==
[2020-10-07 12:18] LABS: Creatinine, Urine (random) < 13.00 mg/dL (NO RANGE EST.); Protein, Urine (Random) 71.6 mg/dL (<11.9)
[2020-10-07 12:44] LABS: Anion Gap 6 (5-15); BUN 23 mg/dL (7-18); BUN/Creat Ratio 23.4 RATIO (10-20); Calcium,Total 9.3 mg/dL (8.5-10.1); Chloride 107 mmol/L (98-107); Creatinine, Serum 0.98 mg/dL (0.70-1.30); EST Glomerular Filtration Rate 78 mL/min (>60); Est Glom Filt Rate - Afr Amer 95 mL/min (>60); Glucose 91 mg/dL (74-106); Potassium 3.6 mmol/L (3.5-5.1); Sodium Level 142 mmol/L (136-145)
== END ==
PROVIDERS: PCP Internal Medicine; Referring Provider Internal Medicine Nephrology; Visit Provider Internal Medicine Nephrology
DX: R80.9 Proteinuria, unspecified (principal); I10 Essential (primary) hypertension
CPT/HCPCS: 36415; 80048; 82570; 84156

== ENCOUNTER → 2020-10-15 08:54 | Outpatient (CLI) | payer MEDICARE, OTHER, SELFPAY ==
[2020-10-15] VITALS (10 sets, daily range): BP systolic 122–163; BP diastolic 64–88; PULSE 45–51; RESP 11–18; O2SAT 95–100; BMI 31.2
--- NOTE | 2020-10-15 08:56 | CT_ITS ---
PROCEDURE: CT GUIDED PERCUTANEOUS KIDNEY BIOPSY. DATE: 10/15/2020. INDICATION: Male, 80 years old. Proteinuria. PHYSICIAN: Demetri Green M.D. MEDICATIONS: 2 mg of VERSED intravenously. Conscious sedation was started at 10:08 AM and terminated at 10:21 AM. The patient was independently monitored by the department nurse. ACCESS SITE: Lower pole of the right kidney. NEEDLE: 18-gauge core biopsy needle SPECIMEN: 4 18-gauge cores EBL: None. COMPLICATIONS: None immediate. RADIATION DOSAGE (If Supplied By Facility): CTDIvol = ( 15 ) mGy, DLP = ( 477.84 ) mGycm. Individualized dose optimization techniques were utilized. The risks, benefits, and alternatives to the procedure and sedation were explained to the patient. The specific risk of hemorrhage requiring further treatment or intervention was detailed and accepted. Written informed consent was obtained. The patient was placed on the CT table in the prone position. Multiple axial images were obtained from the lung base through the caudal extent of the kidneys. An appropriate entry site was identified and a maximiliano made on the skin. The skin overlying the [ right] posterior flank was prepped and draped in sterile fashion. 1% lidocaine was administered subcutaneously for local anesthesia. Initially, a 22 gauge needle was advanced and CT images confirmed good needle position. The 22 gauge needle was then exchanged for an 17 gauge introducer needle which was advanced. Repeat CT images confirmed good needle trajectory and tip position. The introducer needle was then advanced into the periphery of the inferior renal pole, and CT images were again obtained to confirm exact tip location. The inner stylet of the introducer needle was then removed and an 18 gauge coaxial needle was advanced thru the introducer needle and biopsy performed. A total of [4 ] passes were performed and the specimen collected was sent to Pathology for further evaluation. The needle was withdrawn. Hemostasis was achieved with manual compression and a sterile dressing was applied. Repeat CT images of the biopsy area was performed which demonstrated no gross bleeding or hematoma. The patient tolerated the procedure well without immediate complications. The patient was transported to the [floor/recovery area] in stable condition. CT/Biopsy/Inj or Needle Placement IMPRESSION: Successful CT guided percutaneous kidney biopsy. Electronically Signed: Demetri Green MD at 10:52 EDT , Service support ,
[2020-10-15] MEDS: Midazolam 2 MG/2 ML Syringe IV (10:08)
--- NOTE | 2020-10-15 10:25 | KID_PTH ---
PATIENT: ADALBERTO VALADEZ LOC: CT U#:[id number] AGE/SX: 84/M ROOM: RE10/15/[address]: Dr. Katey Robles MD : 1940 BED: DIS: SPEC #: [id number] RECD: 10/15/20 10:39 STATUS: JONN REKay #: [id number] JESUS: 10/15/20 10:[address]: Katey Robles DEPT: SURGICAL PATHOLOGY RECD BY: Kadie Shepard ENTERED: 10/15/20 12:57 SP TYPE: KIDNEY OTHR DR: Dr. 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 COMMENT The pattern best fits with hypertensive vascular disease (large-vessel) as well as hypertensive glomerulosclerosis including arteriolar hyalinosis, vascular pole (ischemic-type) collapse of some glomeruli, and global glomerulosclerosis and moderate numbers of glomeruli (8 of 39 total glomeruli examined). Of note, focal glomerulomegaly is noted which could fit with compensatory hyperfiltration in the presence of glomerulosclerosis in the background of moderately advanced large vessel hypertensive changes/disease as well as arteriolar hyalinosis and hypertensive glomerulosclerosis, moderately advanced. No electron-dense/immune deposits are identified. No active glomerulosclerosis is seen. No vasculitis is seen. No abnormalities of tubulo-interstitium are noted. Pattern best fits with moderately advanced large vessel, small vessel (arteriolar/afferent arteriolar), and glomerular hypertensive disease in this case/patient. Moderately advanced hypertensive disease may give rise to moderate levels of proteinuria in patients with glomerulosclerosis and with glomerulomegalic changes/hyperfiltration. Clinical correlation is essential. MICROSCOPIC DESCRIPTION LIGHT MICROSCOPY: Good biopsy specimen consisting of portions of renal cortex and medulla and up to 24 glomeruli or portions of glomeruli for histologic evaluation. Six glomeruli demonstrate global sclerosis and overall shrunken nature in diameter while remaining glomeruli demonstrate normal mesangial matrix and cellularity. Two glomeruli demonstrate vascular pole collapse (partial). No epithelial crescents are seen. No nodular increase in mesangial matrix is noted. Arterial vasculature demonstrates mural thickening including intimal fibrosis, moderate to marked. Moderate arteriolar hyalinosis is also identified. Rare glomerulomegaly is also noted. Tubulo-interstitium is otherwise unremarkable except for scattered (mild/focal) lymphocytic infiltrate. Two glomeruli demonstrate well-visualized afferent arteriolar hyalinosis without changes in efferent arteriole(s). PAS stain highlights arteriolar hyalinosis and arterial sclerosis and intimal fibrosis and mural thickening as well as sclerotic glomeruli and rare ischemic (vascular pole) collapse of glomerulus. Normal mesangial matrix is identified. Mild to moderate resorption droplets are identified within tubular epithelial cell cytoplasm. Mehta (silver) stain demonstrates normal glomerular basement membrane thickness without ?splits?, ?breaks? or irregular luminal outlines. No increase in mesangial matrix is seen. No epithelial crescents are identified. Trichrome stain is negative for fuchsinophilic deposits within open glomeruli (mesangium or capillary loops) and demonstrates positive staining in sclerotic glomeruli as well as intimal fibrosis of arterial branches and demonstrates cortical/interstitial fibrosis of 10-15%. Congo red stain is negative for congophilia and is negative for birefringence and dichromatism by polarization microscopy. IMMUNOFLUORESCENCE: Tissue submitted for immunofluorescence microscopy demonstrates renal cortex and medulla and up to 11 glomeruli or portions of glomeruli for histologic evaluation. One glomerulus demonstrates global sclerosis and overall shrunken nature/diameter while the remainder of glomeruli demonstrate open capillary loops with normal mesangial matrix and cellularity. IgG, IgA, C1q, kappa light chain, lambda light chain, fibrin and albumin are negative in glomeruli, tubules and vascular structures. IgM demonstrates 1+ positivity within arteriolar hyalinosis, but is negative in tubules and tubulo-interstitium and glomeruli. C3 demonstrates 1+ positivity within arteriolar (hyalinotic arteriolar) dixon, but is negative in glomeruli tubules/tubulo-interstitium. ELECTRON MICROSCOPY: Toluidine blue-stained sections (thick/?line construction engineer? sections) reveal two glomeruli or portions of glomeruli for histologic evaluation. One glomerulus demonstrates global sclerosis and overall shrunken nature while the other glomerulus demonstrates normal mesangial matrix and cellularity with arteriolar hyalinosis and with focal ischemic-type vascular collapse. Normal thickness basement membranes are identified. Ultrastructure examination demonstrates mild edema of interstitium with normal tubular epithelium and with glomeruli with normal mesangial matrix and cellularity. No electron-dense deposits are identified. No inflammatory cells are seen. No epithelial crescents are identified. Normal thickness basement membranes are seen covered, in part, by intact podocytes/foot processes. Moderate, multifocal foot process effacement is also identified, however. GROSS DESCRIPTION The specimen is sent entirely to [facility] for diagnosis. Received in transport media labeled with the patient?s name and ?right kidney,? the specimen consists of four core biopsies of boo to boo-yellow parenchyma that are 0.8 to 1 cm in maximum length by 0.1 x 0.05 cm. Window Display Designer piece is submitted for immunofluorescent microscopy. Window Display Designer piece is submitted for electron microscopy. The remainder of the specimen is entirely submitted as A1.
[2020-10-15] MEDS: Lidocaine 2% (20 ml mdv) 20 ML Vial INFILT (15:49)
== END | disposition home or self-care (01) ==
PROVIDERS: PCP Internal Medicine; Referring Provider Internal Medicine Nephrology; Visit Provider Internal Medicine Nephrology
DX: I12.9 Hypertensive chronic kidney disease with stage 1 through stage 4 chronic kidney disease, or unspecified chronic kidney disease (principal); N18.9 Chronic kidney disease, unspecified; M81.0 Age-related osteoporosis without current pathological fracture; M10.9 Gout, unspecified; L71.9 Rosacea, unspecified; K58.9 Irritable bowel syndrome, unspecified; I65.23 Occlusion and stenosis of bilateral carotid arteries; I25.10 Atherosclerotic heart disease of native coronary artery without angina pectoris; E78.5 Hyperlipidemia, unspecified; Z79.899 Other long term (current) drug therapy
CPT/HCPCS: 50200; 77012; 88305; 88313; 88346; 88348; 88350; J7040; J2310

== ENCOUNTER → 2020-10-24 09:33 | Outpatient (CLI) | payer MEDICARE, OTHER, SELFPAY ==
[2020-10-15 09:31] VITALS: BMI 31.2
[2020-10-24 11:55] LABS: Protein, Urine (Random) 77.1 mg/dL (<11.9); Protein:Creat Ratio 1238 mg/g CRE (0-200)
[2020-10-24 12:16] LABS: Anion Gap 9 (5-15); BUN 30 mg/dL (7-18); BUN/Creat Ratio 23.6 RATIO (10-20); Calcium,Total 10.8 mg/dL (8.5-10.1); Chloride 104 mmol/L (98-107); Creatinine, Serum 1.27 mg/dL (0.70-1.30); EST Glomerular Filtration Rate 58 mL/min (>60); Est Glom Filt Rate - Afr Amer 71 mL/min (>60); Glucose 95 mg/dL (74-106); Potassium 3.6 mmol/L (3.5-5.1); Sodium Level 141 mmol/L (136-145)
== END ==
PROVIDERS: PCP Internal Medicine; Referring Provider Internal Medicine Nephrology; Visit Provider Internal Medicine Nephrology
DX: R80.9 Proteinuria, unspecified (principal); I10 Essential (primary) hypertension
CPT/HCPCS: 36415; 80048; 82570; 84156

== ENCOUNTER → 2020-12-11 13:13 | Outpatient (CLI) | payer MEDICARE, OTHER, SELFPAY ==
--- NOTE | 2020-12-11 13:18 | CT_ITS ---
STUDY: CT CHEST WITHOUT CONTRAST REASON FOR EXAM: Male, 80 years old. Follow-up for lung nodule. RADIATION DOSAGE (If Supplied By Facility): CTDIvol = ( 11.84 ) mGy, DLP = ( 411.22 ) mGycm TECHNIQUE: Transaxial imaging was performed without the administration of intravenous contrast material. Multiplanar coronal and sagittal images were reformatted. Individualized dose optimization techniques were used for this CT. COMPARISON: Comparison is made with prior examination dated 12/14/2019. FINDINGS: Hyperinflation. Once again, there is evidence of emphysematous changes in both lungs. Stable mild scarring in the posterior segment of the left lower lobe. Stable focal scarring in the lateral aspect of the left lower lobe as well. There is no demonstrated pleural abnormality. There are calcifications of the coronary arteries. There are multiple small lymph nodes within the mediastinum, which are normal in size and morphology most compatible with reactive lymph hyperplasia. Normal hilar regions. Normal unenhanced pulmonary arteries. There is atherosclerotic calcification of the aortic arch with tortuosity and elongation of the aortic arch and descending thoracic aorta. There are multi-level degenerative changes of the thoracic spine. There is no demonstrated abnormality of the visualized upper abdomen. CT/Chest without Contrast IMPRESSION: Stable examination. Electronically Signed: Demetri Green MD at 15:27 EDT , Service support ,
== END ==
PROVIDERS: PCP Internal Medicine; Referring Provider Internal Medicine Pulmonary Disease; Visit Provider Internal Medicine Pulmonary Disease
DX: R91.1 Solitary pulmonary nodule (principal)
CPT/HCPCS: 71250

== ENCOUNTER → 2021-01-13 15:21 | Outpatient (CLI) | payer MEDICARE, OTHER, SELFPAY ==
[2021-01-13 16:34] LABS: Protein, Urine (Random) 105.4 mg/dL (<11.9); Protein:Creat Ratio 753 mg/g CRE (0-200)
[2021-01-13 16:58] LABS: Anion Gap 10 (5-15); BUN 30 mg/dL (7-18); BUN/Creat Ratio 22.7 RATIO (10-20); Calcium,Total 9.6 mg/dL (8.5-10.1); Chloride 108 mmol/L (98-107); Creatinine, Serum 1.32 mg/dL (0.70-1.30); EST Glomerular Filtration Rate 56 mL/min (>60); Est Glom Filt Rate - Afr Amer 67 mL/min (>60); Glucose 116 mg/dL (74-106); Potassium 3.6 mmol/L (3.5-5.1); Sodium Level 142 mmol/L (136-145)
== END ==
PROVIDERS: PCP Internal Medicine; Visit Provider Internal Medicine Nephrology
DX: R80.9 Proteinuria, unspecified (principal)
CPT/HCPCS: 36415; 80048; 82570; 84156

== ENCOUNTER → 2021-03-24 08:58 | Outpatient (CLI) | payer MEDICARE, OTHER, SELFPAY ==
[2021-03-24 09:51] LABS: Anion Gap 7 (5-15); BUN 31 mg/dL (7-18); BUN/Creat Ratio 21.8 RATIO (10-20); Calcium,Total 9.6 mg/dL (8.5-10.1); Chloride 104 mmol/L (98-107); Creatinine, Serum 1.42 mg/dL (0.70-1.30); EST Glomerular Filtration Rate 51 mL/min (>60); Est Glom Filt Rate - Afr Amer 62 mL/min (>60); Glucose 143 mg/dL (74-106); Potassium 3.6 mmol/L (3.5-5.1); Sodium Level 140 mmol/L (136-145)
[2021-03-24 11:06] LABS: Protein, Urine (Random) 36.9 mg/dL (<11.9); Protein:Creat Ratio 482 mg/g CRE (0-200)
== END ==
PROVIDERS: PCP Internal Medicine; Referring Provider Internal Medicine Nephrology; Visit Provider Internal Medicine Nephrology
DX: I10 Essential (primary) hypertension (principal); R80.9 Proteinuria, unspecified
CPT/HCPCS: 36415; 80048; 82570; 84156

== ENCOUNTER → 2021-08-29 | Outpatient (CLI) | payer MEDICARE, OTHER, SELFPAY ==
--- NOTE | 2021-08-29 07:53 | US_ITS ---
STUDY: RENAL ULTRASOUND - COMPLETE REASON FOR EXAM: Male, 81 years old. KIDNEY FAILURE TECHNIQUE: Ultrasound evaluation of the kidneys was performed with real-time and static israel-scale imaging. COMPARISON: None. FINDINGS: RIGHT KIDNEY: Normal location of the right kidney, which is normal in size. The right kidney measures 10.5 cm x 5.8 cm x 5.5 cm. There is a normal cortex of the right kidney. The renal cortex measures 1.2 cm. There is no right renal mass or cyst. There are no right renal calculi. There is no right hydronephrosis. DISTAL RIGHT URETER: There is non-visualization of the distal right ureter. There is no demonstrated right ureterovesical junction calculus. There is a visualized right ureteral jet. LEFT KIDNEY: Normal location of the left kidney, which is normal in size. The left kidney measures 10.2 cm x 4.6 x 4.8 cm. There is a normal cortex of the left kidney. The renal cortex measures 1.3 cm. There is a 1.1 cm x 1.17 x 1.2 cm cyst. There are no left renal calculi. There is no left hydronephrosis. DISTAL LEFT URETER: There is non-visualization of the distal left ureter. There is no demonstrated left ureterovesical junction calculus. There is a visualized left ureteral jet. BLADDER: Bladder wall thickening more prominent at the bases. Heterogeneous enlargement of the prostate. US/Kidney and Bladder IMPRESSION: Heterogeneous enlargement of the prostate with indentation of the bladder base. Bladder wall thickening more prominent at the base of the bladder. Electronically Signed: Demetri Green MD at 13:13 EDT ,
--- NOTE | 2021-08-29 08:12 | RDU_ITS ---
Reason For Study: acute on chronic kidney failure Right Renal Artery Left Renal Artery Right renal artery ostium Left renal artery ostium 136.5/26.8 123.4/22.4 RSV/EDV. PSV/EDV. Right renal artery proximal Left renal artery proximal PSV/EDV 123.4/26.8 PSV/EDV. 116.8/18.0 . Right renal artery mid 145.3/31.2 Left renal artery mid 134.3/24.6 PSV/EDV. PSV/EDV . Right renal artery distal 83.8/20.2 Left renal artery distal 94.2/28.3 PSV/EDV. PSV/EDV. Right Renal Parenchyma Left Renal Parenchyma Upper Pole Medula 41.9/11.2 Left upper pole medulla 26.5/8.7 PSV/EDV. PSV/EDV . Right upper pole medulla EDR .27 . Left upper pole medulla EDR .33 . Right upper pole medulla R.I. .73 . Left upper pole medulla R.I. .67 . Upper Jf Cortx 21.2/6.8 PSV/EDV. UP Cortex 26.5/6.3 PSV/EDV. Right upper pole cortex EDR .32 . Left upper pole cortex EDR .24 . Right upper pole cortex R.I. .68 . Left upper pole cortex R.I. .76 . Right lower Pole medulla 28.7/9.0 Left lower Pole medulla 32.7/8.7 PSV/EDV . PSV/EDV . Right lower pole medulla EDR .31 . Left lower pole medulla EDR .27 . Right lower pole medulla R.I. .69 . Left lower pole medulla R.I. .73 . Lower Pole Cortex 27.6/6.8 PSV/EDV. Lower Pole Cortx 20.4/5.0 PSV/EDV. Right lower pole cortex EDR .25 . Left lower pole cortex EDR .25 . Right lower pole cortex R.I. .75 . Left lower pole cortex R.I. .75 . Right Renal Hilar Left Renal Hilar Right Hilar avg 49.6/12.3 PSV/EDV. LT Hilar avg 43.5/11.0 PSV/EDV . Right hilar acceleration time 60 Left hilar acceleration time 40 m/sec. m/sec. Right Renal Dimensions Left Renal Dimensions Right kidney size 10.64 cm . Left kidney size 10.8 cm . Right cortical dimension 1.71 cm . Left cortical dimension 1.64 cm . Aorta Proximal abdominal aorta 1.91 x 1.84 cm . Proximal abdominal aorta peak systolic velocity is 114.6 cm/sec . Distal abdominal aorta 1.7 x 1.92 cm . Distal abdominal aorta peak systolic velocity is 116.8 cm/sec . Normal renal veins bilat. VL/Renal Artery Duplex Ultrasound Interpretation Summary Dimensions of the intra-abdominal aorta appear normal, without evidence of aneu rysmal dilatation. Renal artery velocities are bilaterally normal. Acceleration times are normal b ilaterally. There is no evidence of hemodynamically significant renal artery stenosis on either side . The right cortical dimension is increased. The left cortical dimension is increased. Kidneys appea r normal in size bilaterally. Ordering Physician: Daphney Dunn Performed By: Seth Freeman, RVT
== END | disposition home or self-care (01) ==
LOC: US 07:48
PROVIDERS: PCP Internal Medicine; Referring Provider Internal Medicine; Visit Provider Internal Medicine
DX: N17.9 Acute kidney failure, unspecified (principal)
CPT/HCPCS: 76770; 93975

== ENCOUNTER → 2021-09-18 | Outpatient (CLI) | payer MEDICARE, OTHER, SELFPAY ==
[2021-09-18 17:21] LABS: Hematocrit 34.2 % (40-54); Hemoglobin 11.3 g/dL (13.0-16.5); Mean Corpuscular Hgb 31.4 pg (27.0-32.0); Platelet Count 149 K/mm3 (150-450); RBC Distribution Width CV 12.1 % (11.6-14.6); RBC Distribution Width SD 42.2 fl (35.1-43.9); White Blood Count 3.8 K/mm3 (4.4-11.0)
[2021-09-18 17:22] LABS: Protein, Urine (Random) 239.8 mg/dL (<11.9); Protein:Creat Ratio 1776 mg/g CRE (0-200)
[2021-09-18 18:04] LABS: Albumin, Serum 2.9 g/dL (3.2-5.0); BUN 27 mg/dL (7-18); BUN/Creat Ratio 18.4 RATIO (10-20); Calcium,Total 9.2 mg/dL (8.5-10.1); Chloride 111 mmol/L (98-107); Creatinine, Serum 1.47 mg/dL (0.70-1.30); EST Glomerular Filtration Rate 49 mL/min (>60); Est Glom Filt Rate - Afr Amer 59 mL/min (>60); Glucose 103 mg/dL (74-106); Potassium 3.4 mmol/L (3.5-5.1); Sodium Level 142 mmol/L (136-145)
[2021-09-18 18:07] LABS: Vitamin D,25 Hydroxy 64.3 ng/mL
[2021-09-19 09:20] LABS: PTHIN 21.5 pg/mL (18.4-80.1)
== END | disposition home or self-care (01) ==
LOC: LAB 16:47
PROVIDERS: PCP Internal Medicine; Visit Provider Internal Medicine Nephrology
DX: N18.31 Chronic kidney disease, stage 3a (principal); E55.9 Vitamin D deficiency, unspecified
CPT/HCPCS: 36415; 80069; 82306; 82570; 83970; 84156; 85027

== ENCOUNTER → 2021-10-15 | Outpatient (CLI) | payer MEDICARE, OTHER, SELFPAY ==
[2021-10-15 18:41] LABS: CRP 3.12 mg/L (0.0-3.0); T4 Total, Thyroxin 7.6 ug/dL (4.5-12.1); Thyroid Stim Hormone (TSH) 1.51 uIU/mL (0.358-3.74)
[2021-10-17 18:07] LABS: Endomysial Antibody IgA Negative (Negative)
[2021-10-17 20:16] LABS: Immunoglobulin A 176 mg/dL (61-437); t-Transglutaminase IgA <2 U/mL (0-3)
== END | disposition home or self-care (01) ==
PROVIDERS: PCP Internal Medicine; Referring Provider Internal Medicine Gastroenterology; Visit Provider Internal Medicine Gastroenterology
DX: R19.7 Diarrhea, unspecified (principal)
CPT/HCPCS: 36415; 82784; 83516; 84436; 84443; 86140; 86255

== ENCOUNTER 2021-11-17 10:58 | Day surgery (SDC) | payer MEDICARE, OTHER, SELFPAY ==
[2021-11-17] VITALS (7 sets, daily range): BP systolic 139–168; BP diastolic 67–89; PULSE 53–62; RESP 16–18; TEMP 36.2–36.8; O2SAT 95–100; BMI 29.5
[2021-11-17] MEDS: Lactated Ringers 1,000 ML 15 ML IV (11:15)
[2021-11-17] MEDS: Cefazolin 2 GM in 0.9% Normal Saline 100 ML IV (12:40)
--- NOTE | 2021-11-17 12:45 | RAD_ITS ---
INDICATION: SPINAL CORD STIMULATOR INSERTION EXAMINATION/TECHNIQUE: X-RAY - IR Unlisted Procedure, Spine COMPARISON: None. FLUOROSCOPY TIME: 6:22 minutes/seconds. FINDINGS: 12 spot fluoroscopic images were obtained intraoperatively. Images demonstrate the spinal cord stimulator superimposed over the mid thoracic spine.. No radiologist was present for the procedure, please refer to operative report for details. RAD/Lumbar Spine 2 or 3 Views IMPRESSION: Please refer to operative report for details. Electronically Signed: Vincent Najera MD at 15:38 EDT ,
[2021-11-17] MEDS: Bupivacaine 0.25% 30 ML Vial (13:37)
[2021-11-17] MEDS: Lidocaine 2% (20 ml mdv) 20 ML Vial (13:38)
[2021-11-17] MEDS: Bacitracin 500 UNITS/GM PACKET (13:40)
--- NOTE | 2021-11-17 15:23 | PCM.OPRPT ---
Report of Operation Date of Procedure: 11/17/21 Description of Surgical Findings:: Pre-Operative Diagnosis: Lumbosacral radiculopathy, lumbosacral degenerative disc disease, lumbosacral spinal stenosis. Post-Operative Diagnosis: Lumbosacral radiculopathy, lumbosacral degenerative disc disease, lumbosacral spinal stenosis. Surgery/Procedure Performed:: 1.? Spinal cord stimulator thoracolumbar leads placement x1 #2 spinal cord stimulator Medtronic intellus generator placement #3 spinal cord stimulator generator pocket creation at the right gluteal region #4 spinal cord stimulator programming, 5-intraoperative fluoroscopic interpretation ANESTHESIA: MAC COMPLICATIONS: None BLOOD LOSS: Minimal Implanted device: Spinal cord stimulator lead [id number] lot number [id number], Medtronic spinal cord stimulator generator intellus serial number [id number] PROCEDURE IN DETAIL: History and physical today was reviewed. Risks and benefits of procedure explained. The patient understood, agreed to procedure, informed consent was obtained. IV inserted per routine protocol. The patient was taken to the operating room, placed in the prone position with a pillow positioned underneath the abdomen. A 2 g of Ancef IV piggyback was infused per anesthesia. The lower back and right gluteal area was prepped and draped in a sterile fashion using iodine x3 Ioban was placed.? The C-arm was brought in position for AP view at the L1-2vertebral bodies under direct visualization fluoroscopy on a true AP view the L1-2 interlaminar space was identified skin and subcutaneous tissue and size approximately 10 cc of a mix of 2% lidocaine and 0.25% Marcaine using a 25-gauge regular needle followed by a 25-gauge 3-1/2 inch spinal needle towards the interlaminar space at L1-2, the skin and subcutaneous tissue were then anesthetized and using an 11-gauge blade was then taken down to the skin and subcutaneous tissue using a 14-gauge 3-1/2 inch Touhy needle provided by the [employer] kit the needle was passed through the skin towards the interlaminar space at L1-2 and a left paramedian approach the needle was then advanced under direct visualization fluoroscopy towards the interlaminar space at L1-2 [id number] technique was then carried to air towards the interlaminar space at L1-2 once the tip of the needle was in the epidural space and loss of resistance was encountered to air and after confirmation of AP-- as well as oblique view of the spinal cord stimulator lead was then advanced under direct visualization fluoroscopy to be at the tip of the lead at T8 and the bottom of the lead around mid T10 after confirmation of AP as well as well as lateral view to confirm correct placement of the lead in the posterior compartment of the epidural space, the lead was then connected to the external neurostimulator and patient was then awakened to confirm satisfactory coverage of the painful area once satisfactory coverage was then achieved the stylette of each needle was then removed and the skin and subcutaneous tissue on to the left of the paramedian needles was then taken anesthetized with a total of 10 cc of the previous mixture of 0.25% Marcaine and 2% lidocaine using a 25-gauge regular needle the incision was then taken down through the skin and subcutaneous tissue towards the fascia making sure hemostasis was then maintained via cautery, the spinal cord stimulator leads were then passed through the above incision and secured using the anhor and sutured down with a 2-0 silk to the fascia at that level the spinal cord stimulator leads were then tunneled via a tunneler provided by the [employer] kit towards the previously incised spinal cord stimulator battery at the right gluteal region skin and subcutaneous tissue were anesthetized with approximately 10 cc of a mix of 2% lidocaine and 0.25% Marcaine using a 25 gauge regular needle, skin and subcutaneous tissue was then taken down with the 11-gauge blade hemostasis was maintained with Bovie and direct pressure the incision was then taken down to the fascia and the battery was then secured with the 2-0 silk sutures that were the spinal cord stimulator leads the upper lead was then marked the new until spinal cord stimulator battery was then provided Via 91 Golf kit the battery was then reattached of the spinal cord stimulator make ensure that the top lead is attached to the top position from 0-7 electrodes once impedance was then checked to be in the proper average number the intellus battery was then inserted into tyrx antimicrobial pouch and inserted into the pocket and impedance with when checked again the pocket was then inspected to confirm hemostasis in place, the intellus battery was then secured to the fascia using a 2-0 silk to the upper eyes of the battery confirming an upward writing of the intellus facing posterior,? once complete confirmation the battery was then placed in the position and the the mid paramedian and the gluteal incisions were then closed primarily through a 3-0 Vicryl in a running fashion followed by a 4-0 Vicryl to the skin, hemostasis was then maintained during the procedure the skin was then covered with a Steri-Strips and bacitracin patient was then returned into the supine position in a stable condition and returned to recovery in a stable condition patient experienced no signs or symptoms of intrathecal or intravascular injection patient experienced no paresthesia the procedure was completed without any apparent difficulty any complication the patient appeared to tolerate well, motor as well as sensory function was unchanged from prior to the procedure. ESTIMATED BLOOD LOSS: Minimal less than 25 mL ASSESSMENT AND PLAN: This is a 81-year-old male with lumbosacral radiculopathy lumbosacral degenerative disc disease lumbosacral spinal stenosis status post 1.? Spinal cord stimulator thoracolumbar leads placement x1 #2 spinal cord stimulator Medtronic intellus generator placement #3 spinal cord stimulator generator pocket creation at the right gluteal region #4 spinal cord stimulator programming, 5-intraoperative fluoroscopic interpretation patient will continue his current medications a prescription was provided to the patient? Keflex 500 mg 1 p.o. every 8 hours for 7 days postop instruction were given in writing to the patient and his as well as verbally and in writing, patient will follow approximately 1 week for reevaluation.
== END 2021-11-17 16:15 | disposition home or self-care (01) ==
LOC: SDC 11:01 → AC 11:03
PROVIDERS: PCP Internal Medicine; Referring Provider Anesthesiology Pain Medicine; Visit Provider Anesthesiology Pain Medicine
PROC: (CPT 63685; principal; 2021-11-17 12:35)
DX: M51.17 Intervertebral disc disorders with radiculopathy, lumbosacral region (principal); J44.9 Chronic obstructive pulmonary disease, unspecified; M48.07 Spinal stenosis, lumbosacral region; I10 Essential (primary) hypertension; F41.9 Anxiety disorder, unspecified; F32.A Depression, unspecified; K21.9 Gastro-esophageal reflux disease without esophagitis; E78.00 Pure hypercholesterolemia, unspecified; Z87.19 Personal history of other diseases of the digestive system; Z79.899 Other long term (current) drug therapy; G25.81 Restless legs syndrome
CPT/HCPCS: 63685; 63650; 72100; 76000; C1778; C1820; J7120; J2405

== ENCOUNTER 2021-12-09 12:00 | Outpatient (RCR) | payer MEDICARE, OTHER, SELFPAY ==
--- NOTE | 2021-12-08 14:16 | HP.PTEVAL ---
Patient's Visit Information ADALBERTO VALADEZ is a 81 year old M referred to Physical Therapy by Dr. Daphney Dunn MD with a diagnosis of DDD , SIGNIFANT KNEE OA. Date of Evaluation: 12/08/21 Physical Therapist: Reymundo Acosta PT, Cert MDT, OCS - Visit Plan Frequency: 2x /Week Duration: 4 Weeks Plan: PRECAUTION: LATEX ALERGY. PT INTERVENTIONS AGUTAIC PHYSICAL THERAPY FOR LUMBAR ROM ,DLS ,POSTURAL EX'S ,LE ROM/FLEXABLILITY AND STRENGTRHENING QUADS/HAMS - Subjective This 81 y/o male presents to physical therapy DDD and significant knee OA. This patient seen who recommended PT for back and right knee. Patient had recently implant pain stimulator placed ~ 2weeks ago . Patient has had lumbar pain symmetrical LBP described as ache with symptoms worse with walking/standing affects ADL's and housework tasks. Patient alleviating factors rest/sitting. Denies paresthesia/tingling. Bowel/bladder -. Coughing/sneezing-. Pain bilateral knee pain global described as ache. Patient aggravating factors unable to squatting/kneel and symptoms worse extended walking and standing impairs going to grocery store and ADL's. Patient sleeping okay. Patient pain MEDS tramdol. Patient has had injections in knee in past. Patient has had PT in past. Patient pain affects QOL and ADLS. Patient has pain implant stimulator. PRECAUTION: LATEX ALERGY. SOCAIL: . VOCATION: retired - Pain Bilateral Back Pain Intensity (Out of 10): 6 Pain Intensity Range: 10 Bilateral Knee Pain Intensity (Out of 10): 4 Pain Intensity Range: 10 - Objective POSTURE: mild forward posture ,hip knees flexed Varus deformity. GAIT: reciprocal pattern Varus deformity with decrease stance antalgic lateral sway. FLEXABILITY: hamstrings mod limited. AROM: right 10-110 supine knee flexion , left 15-105 supine knee flexion. MMT: quads 4/5, hamstrings 4/5 ,hip flexion 4-/5 ,hip abduction 4-/5 ,ankle 4/5. STAIRS: ascend/descend one step at time with rail - Special Tests L/S Slump test left side: Negative L/S Slump test right side: Negative L/S Left Straight Leg Raise: Negative L/S Right Straight Leg Raise: Negative Lumbar Standing: Flexion - Mechanical Response: No effect Lumbar Standing: Flexion - Symptoms During Testing: Increases Lumbar Standing: Flexion - Symptoms After Testing: No worse Lumbar Standing: Extension - Mechanical Response: No effect Lumbar Standing: Extension - Symptoms During Testing: Increases Lumbar Standing: Extension - Symptoms After Testing: No worse Lumbar Standing: Right Side Glides - Mechanical Response: No effect Lumbar Standing: Right Side [place] - Symptoms During Testing: No effect Lumbar Standing: Right Side [place] - Symptoms After Testing: No effect Lumbar Standing: Left Side [place] - Mechanical Response: No effect Lumbar Standing: Left Side [place] - Symptoms During Testing: No effect Lumbar Standing: Left Side [place] - Symptoms After Testing: No effect - Balance/Special Test Scores Lower Extremity Functional Score: 29 - Goals Goal 1:: Patient to be I with Aquatic therapy to program on own. Goal Time Frame: 4-6 Weeks Goal 2:: Patient to demonstrate 40% improvement with decrease pain and improved function Goal Time Frame: 4-6 Weeks Goal 3:: Patient to improve lumbar ROM for function of recovery to put on shoes. Goal Time Frame: 4-6 Weeks Goal 4:: Patient to improve AROM bilateral knee by 5 degrees to improve stairs Goal Time Frame: 4-6 Weeks Goal 5:: Patient to improve LFES score by 5 points or > to improve QOL and function Goal Time Frame: 4-6 Weeks - Rehabilitation Potential Physical Therapy Diagnosis: This patient has bilateral knee pain ,DDD lumbar pain with decrease ROM ,strength and function with gait and ADLS thus benefit from skilled PT Rehabilitation Potential: Good - Anticipated Interventions Patient/Client Instruction: Educate patient on: Condition, Plan of Care For the Purpose of:: To decrease pain, To increase ROM, To improve muscle performance and motor function, To improve ability to perform ADL's, To increase tolerance to activity/condition/position, To improve ability of physical actions for home/community/work/leisure, To improve health of tissue, To decrease soft tissue restriction, To increase flexibility/ROM, To reduce risk of recurrence, To prevent re-injury Therapeutic Exercise to Include: Strength training, Balance training, Body mechanics, Postural training, Flexibilty training, In an aquatic setting, Active ROM, Dynamic Lumbar Stabilization For the Purpose of:: To decrease pain, To increase ROM, To improve muscle performance and motor function, To improve ability to perform ADL's, To improve performance and independence with ADL's, To improve ability of physical actions for home/community/work/leisure, To decrease soft tissue restriction, To increase flexibility/ROM, To improve endurance, To improve balance, To prevent re-injury, To improve tolerance to ADL's Thank you for the opportunity to evaluate your patient. For Medicare and Medicare HMO plans, please review the plan of care and approve it. It will need to be FAXED BACK to us at [phone] for Medicare purposes. For Medicare only, by signing this I certify the plan of care. Please let me know if there are questions or concerns regarding this plan of care. Physician Signature: Date:
--- NOTE | 2022-04-10 11:15 | HP.PT.NRP ---
ADALBERTO VALADEZ was seen in my office for initial evaluation on 12/08/21. The following Plan of Care was established for this patient: Initial Frequency: 2x /Week Initial Duration: 4 Weeks Patient/Client Instruction: Educate patient on: Condition, Plan of Care For the Purpose of:: To decrease pain, To increase ROM, To improve muscle performance and motor function, To improve ability to perform ADL's, To increase tolerance to activity/condition/position, To improve ability of physical actions for home/community/work/leisure, To improve health of tissue, To decrease soft tissue restriction, To increase flexibility/ROM, To reduce risk of recurrence, To prevent re-injury Therapeutic Exercise to Include: Strength training, Balance training, Body mechanics, Postural training, Flexibilty training, In an aquatic setting, Active ROM, Dynamic Lumbar Stabilization For the Purpose of:: To decrease pain, To increase ROM, To improve muscle performance and motor function, To improve ability to perform ADL's, To improve performance and independence with ADL's, To improve ability of physical actions for home/community/work/leisure, To decrease soft tissue restriction, To increase flexibility/ROM, To improve endurance, To improve balance, To prevent re-injury, To improve tolerance to ADL's This patient was last seen in our office . Pertinent comments regarding their Physical therapy will appear below: Patient was seen for PT for Aquatic therapy but unable due to wound open At this point I will be discontinuing this patient from physical therapy. I would be happy to see this patient again in the future if found appropriate by the physician. Thank you! Reymundo Acosta, PT, Cert MDT, OCS Balance/Gait/Functional tests - Balance/Special Test Scores Lower Extremity Functional Score: 29
== END 2021-12-09 19:00 | disposition home or self-care (01) ==
LOC: PT 12:00
PROVIDERS: PCP Internal Medicine; Referring Provider Internal Medicine; Visit Provider Internal Medicine
DX: M17.0 Bilateral primary osteoarthritis of knee (principal); M51.36 Other intervertebral disc degeneration, lumbar region
CPT/HCPCS: 97113; 97162

== ENCOUNTER 2022-01-15 11:30 | Outpatient (RCR) | payer MEDICARE, OTHER, SELFPAY ==
[2022-01-08 08:35] VITALS: BP 121/63; PULSE 75; RESP 18; TEMP 36.3; BMI 28.8
--- NOTE | 2022-01-08 17:24 | PCM.WC.HP ---
History of Present Illness Date of Service: 01/08/22 Chief Complaint: nonhealing ulcer right maldonado s/p traumatic injury History of Wound: Mr. Steward is a 81 year old who was referred to the wound center by his PCP due to a nonhealing right lower extremity ulcer. Initial concern it also however has healed at this time but there is a new area of ulceration which has been present for about a week. Denies any known precipitating factor. History of bilateral lower extremity edema however left more significant than right. He has been applying different things at home including bacitracin without any significant improvement.. Denies significant drainage. No chills, fever or otherwise feeling of unwell. No documented history of diabetes mellitus. As above, he has significant left lower extremity edema, has been present for over a year. He has been utilizing compression without any significant improvement. Does not believe that he has had pelvic imaging done. [facility] Medical History (Updated 01/08/22 @ 17:[address] Niurka Mckee MD) Alcohol use Anemia Anxiety Arthritis Back pain Bilateral lower extremity edema Bladder disease Colitis Depression Gastric reflux Heartburn High cholesterol History of edema History of pain when walking History of renal disease History of steroid therapy History of stress test History of trigger finger Hx of pleural effusion Hypertension Injury of head and neck Migraine headache Non-smoker Pain Rash Restless legs Swelling of left lower extremity Syncope Ulcer of right lower extremity with fat layer exposed Wears contact lenses Wears hearing aid Home Medications atorvastatin 10 mg tablet 20 mg PO QHS 11/10/19 [History Last Taken Unknown] tramadol 100 mg tablet 50 mg PO PRN PRN Pain 10/15/20 [History Last Taken Unknown] acetaminophen 325 mg tablet (Tylenol) 650 mg PO Q6H PRN Pain 11/10/21 [History Last Taken Unknown] budesonide 3 mg capsule,delayed,extended release 9 mg PO DAILY 11/10/21 [History Last Taken 11/17/21] cholecalciferol (vitamin D3) 25 mcg (1,000 unit) tablet (Vitamin D3) 25 mcg PO DAILY 11/10/21 [History Last Taken Unknown] clonidine HCl 0.2 mg tablet 0.2 mg PO PRN PRN Blood Pressure 11/10/21 [History Last Taken Unknown] coenzyme Q10 100 mg capsule (CoQ-10) 100 mg PO DAILY 11/10/21 [History Last Taken Unknown] famotidine 20 mg tablet (Pepcid) 20 mg PO PRN PRN GERD 11/10/21 [History Last Taken 11/17/21] fluticasone propionate 50 mcg/actuation nasal spray,suspension (Flonase Allergy Relief) 1 spray intranasal DAILY 11/10/21 [History Last Taken Unknown] hydrochlorothiazide 25 mg tablet 25 mg PO DAILY 11/10/21 [History Last Taken Unknown] labetalol 200 mg tablet 200 mg PO TID 11/10/21 [History Last Taken 11/17/21] lactobacillus combination no.4 3 billion cell capsule (Probiotic) 3,000 mmu cells PO DAILY 11/10/21 [History Last Taken Unknown] losartan 100 mg tablet 100 mg PO QHS 11/10/21 [History Last Taken Unknown] omega-3 fatty acids 1,000 mg PO DAILY 11/10/21 [History Last Taken Unknown] prednisone 5 mg tablet 5 mg PO PRN PRN Pain 11/10/21 [History Last Taken Unknown] ropinirole 0.25 mg tablet 0.25 mg PO QHS 11/10/21 [History Last Taken Unknown] saw palmetto 160 mg capsule 320 mg PO DAILY 11/10/21 [History Last Taken Unknown] tamsulosin 0.4 mg capsule 0.4 mg PO QHS 11/10/21 [History Last Taken Unknown] vitamin B complex 1 cap PO DAILY 11/10/21 [History Last Taken Unknown] zinc 50 mg capsule 50 mg PO DAILY 11/10/21 [History Last Taken Unknown] Allergy/AdvReac Type Severity Reaction Status Date / Time azithromycin Allergy Other Verified 01/08/22 08:59 Latex, Natural Rubber Allergy Itching Verified 01/08/22 08:59 shellfish derived AdvReac Unknown Verified 01/08/22 08:59 MYCINS AdvReac AFFECTS Uncoded 11/17/21 11:21 HEARING Surgical History (Updated 11/10/21 @ 09:43 by Maxine Teixeira) History of release of tendon Hx of colonoscopy with polypectomy Hx of left knee surgery Social History Smoking Status: Never smoker ROS Constitutional Constitutional: Denies fatigue, fever(s), headache(s), lethargy, malaise, night sweats or poor appetite Eyes Eyes: Denies double vision, exophthalmos, eye pain, floaters, foreign body, halo effect, irritation or itchy eyes ENT HEENT: Denies dysphagia, ear discharge, ear pain, foreign body in nose, halitosis, headache(s), hoarseness or lip swelling Cardiovascular Cardiovascular: Denies bluish discoloration of hand/feet, chest pain, cold extremities, cyanosis, diaphoresis or dizziness Respiratory/Chest Respiratory/Chest: Denies hoarseness, inability to speak, mouth breathing, nail bed cyanosis, pain with cough, funmi-oral cyanosis or portable oxygen @ home Gastrointestinal Gastrointestinal: Denies chewing difficulty, coffee ground emesis, constipation, cramping, diarrhea, dry heaves, dyspepsia or dysphagia Genitourinary Genitourinary: Denies flank pain, genital lesions, scrotal pain, scrotal swelling, testicular mass or testicular swelling Musculoskeletal Musculoskeletal: Denies loss of height, muscle cramps, muscle spasms, muscle weakness, neck pain or numbness Integumentary Integumentary: Reports skin ulcer; Denies erythema, hirsutism, jaundice, nail changes, new lesions, photosensitivity or skin pain Neurologic Neurologic: Denies disequilibrium, dizziness, focal weakness, frequent falls, headache(s), lack of coordination, loss of vision or memory loss Psychiatric Psychiatric: Denies behavioral changes, cognitive impairment, confusion, depression, difficulty concentrating, hallucinations or homicidal ideation Endocrine Endocrinology: Denies deepening of the voice, excessive sweating, fatigue, flushing, heat intolerance, increase in ring/shoe/hat size or polydipsia Allergic/Immunologic Allergic/Immunologic: Denies itchy eyes, lip swelling, tongue swelling, hives, urticaria, eczemia, wheezing or asthma Vital Signs Vital Signs Vital Signs: 01/08/22 08:35 Temperature 97.3 F L Temperature Source Temporal Pulse Rate 75 Respiratory Rate 18 Blood Pressure 121/63 H Blood Pressure Mean 82 Blood Pressure Source Monitor Weight Weight: 173 lb 6.395 oz Body Mass Index (BMI) 28.8 Physical Exam Const alert, oriented x3 and no apparent distress General Appearance: cooperative, comfortable and well kempt HEENT normocephalic and head/scalp atraumatic Eyes EOMs intact bilaterally Neck full ROM General: normal visual inspection Resp normal respiratory effort and normal air movement Effort and Inspection: able to speak in complete sentences Cardio regular rate, regular rhythm, S1 normal heart sound and S2 normal heart sound GI soft to palpation and non-tender Testes: Negative for testicular swelling or testicular mass Extremity General Extremity: edema Neuro oriented x3, CN's II-XII intact bilaterally, moves all extremities and no focal motor deficits Psych mental status grossly normal, thought process normal, cooperative, affect normal and speech normal Debridement Note Debridement Note Wound debrided: Right Lower Extremity Type of Debridement: Selective debridement Anesthesia Used: 4% Lidocaine Solution Depth: Down to and including healthy tissue and in the subcutaneous layer Percentage of wound debrided: 100 Tissue Removed: Slough and devitalized tissue Severity: Fat Layer Exposed Amount of bleeding with debridement: Mild Bleeding Controlled with: Pressure Patient tolerated procedure: Patient tolerated procedure well Post-Debridement Measurements and Additional Note: Post-Debridement Measurements/Treatment - Nurse 1 - General Ulcer Assessment Start: 01/08/22 08:35 Freq: Status: Active Protocol: FRANCISCO Activity Type Activity Date Activity User E-sign Co-sign Detail Recorded Client Recorded Date Recorded By Document 01/08/22 08:35 DL [id number] 01/08/22 08:55 DL 01/08/22 08:35 - Today's Visit Information Type of service Initial Visit Arrival Mode Ambulatory Transfer Assistance None Patient Identification Verified (Name & Yes ) Safety Precautions NA Height and Weight Height 5 ft 5 in Weight 173 lb 6.395 oz Weight in Pounds 173.4 lbs Body Mass Index (BMI) 28.8 BMI Classification Overweight BSA - Jose 1.86 Vital Signs Temperature (97.8 F-99.1 F) 97.3 F L Temperature Source Temporal Pulse Rate (60-100) 75 Pulse Location Monitor Respiratory Rate (12-18) 18 Respiratory rate source Observation Blood Pressure (90/60-120/80) 121/63 H Blood Pressure Mean 82 Source Monitor Pain Scale: 0-10 Numeric Is Patient Pain Free? Yes Lower Extremity Assessment/ Foot Assessment/ Toe Nail Assessment Left -Posterior Tibial Palpable No -Dorsalis Pedis Palpable Yes -Extremity Color Normal -Hair Growth on Legs No -Hair Growth on Toes No -Temperature of Extremity Warm -Capillary Refill Greater than 3 Seconds -Dependent Rubor No -Blanched when Elevated No -Lipodermatosclerosis No -Other Deformity No -Prior Foot Ulcer No -Charcot Joint No -Prior Amputation No -Thick Yes -Discolored Yes -Deformed Yes -Improper Length & Hygeine Yes Right -Posterior Tibial Palpable No -Dorsalis Pedis Palpable Yes -Extremity Color Normal -Hair Growth on Legs No -Hair Growth on Toes No -Temperature of Extremity Warm -Capillary Refill Greater than 3 Seconds -Dependent Rubor No -Blanched when Elevated No -Lipodermatosclerosis No -Other Deformity Yes -Prior Foot Ulcer No -Charcot Joint No -Prior Amputation No -Thick Yes -Discolored Yes -Deformed Yes -Improper Length & Hygeine Yes Neuropathy Assessment Feet - Top Side and Bottom <Entered> (a) Communication Assessment Preferred language Kiswahili Able to Read Yes Able to Write Yes Right Hearing Abillity Use of Hearing Aid Left Hearing Abillity Use of Hearing Aid Visual Assistive Devices Contacts Teaching Assessment Preferences Verbal,Written, Demonstration Barriers to Learning None Readiness To Learn Good Willingness to Engage in Self Management Med Activies Readiness to Engage in Self Management Med Activities Anxiety Level Calm Cooperation Cooperative Perception Coherent Interest in Health Problem Asks Questions Education Importance Acknowledges Need Does Patient Smoke tobacco or other No substances Smoking Status Never smoker Is Patient Diabetic No Functional Assessment Recent Decline in Ability to Perform Denies Any Declines Teaching: Wound Center Discharge Instructions -Person Taught Patient Diagnostic Tests Ordered -Person Taught Patient Control Swelling with Leg Elevation -Person Taught Patient Dressing Your Wound -Person Taught Patient Skin Substitute -Person Taught Patient (a) 1 - + WC - Nurse 1 - General Ulcer Measurement Start: 01/08/22 08:35 Freq: Status: Active Protocol: Activity Type Activity Date Activity User E-sign Co-sign Detail Recorded Client Recorded Date Recorded By Document 01/08/22 08:35 DL [id number] 01/08/22 08:55 DL 01/08/22 08:35 Wound Center Nurse 1 #6 R lat superior Maldonado -Current Size (cm) - Length 1.5 -Current Size (cm) - Width 2.2 -Current Size (cm) - Depth 0.1 -Total Square Cm 3.30 -Photo Taken Yes -Classification - Thickness Full Thickness without Exposed Support Structure -Exudate Amt Small -Exudate Type Serosanguineous -Wound Margin Distinct, Outline Attached -Granulation Amt Medium (34-66%) -Granulation Quality [place] -Necrosis Amt Medium (34-66%) -Necrotic Tissue Type Adherent Slough -Structure Exposed N/A -Texture (Funmi-wound Skin Appearance) Scarring,Rash -Moisture (Funmi-wound Skin Appearance) No Abnormality -Color (Funmi-wound Skin Appearance) No Abnormality -Temperature (Funmi-wound Skin No Abnormality Appearance) (Pt Warm) -Ulcer Cleansing Soap and Water -Foul Odor after Cleansing No -Anesthetic Used 5% Lidocaine Gel Right Calf (cm) 35.3 Right Ankle (cm) 22 Left Calf (cm) 36.6 Left Ankle (cm) 28 WC - Nurse 2 - General Ulcer CM Notes Start: 01/08/22 08:35 Freq: Status: Active Protocol: Activity Type Activity Date Activity User E-sign Co-sign Detail Recorded Client Recorded Date Recorded By Document 01/08/22 09:18 MW [id number] 01/08/22 09:25 MW 01/08/22 09:18 Wound Center Nurse 2 #7 right lateral inferior LE -Time 09:24 -Correct Patient Yes -Correct Side, Site, Position Yes -Correct Procedure Yes -Procedure Performed Yes -Type of Procedure Debridement -Clinical Debridement Subcutaneous -Tissue Removed Subcutaneous -Post Debridement (cm) - Length 0.7 -Post Debridement (cm) - Width 0.3 -Post Debridement (cm) - Depth 0.1 -Total Square (Post) (cm) 0.21 -Area of Debridement (cm) - Length 0.7 -Area of Debridement (cm) - Width 0.3 -Total Square (Area) (cm) 0.21 -Undermining/Tunneling No -Circular Undermining No -Wound/Ulcer Outcome Not Healed -Ulcer Cleansing Rinsed/ Irrigated with Saline -Foul Odor after Cleansing No -Bioengineered Tissue No -Bleeding Controlled with Pressure -Treatment Response Procedure Tolerated Well -Offloading No -Debridement - Subq, 1st 20sq cm No #6 R lat superior Maldonado -Time 09:18 -Correct Patient Yes -Correct Side, Site, Position Yes -Correct Procedure Yes -Procedure Performed Yes -Type of Procedure Debridement -Clinical Debridement Subcutaneous -Tissue Removed Subcutaneous -Post Debridement (cm) - Length 1.6 -Post Debridement (cm) - Width 2.2 -Post Debridement (cm) - Depth 0.1 -Total Square (Post) (cm) 3.52 -Area of Debridement (cm) - Length 1.6 -Area of Debridement (cm) - Width 2.2 -Total Square (Area) (cm) 3.52 -Tunneling No -Undermining/Tunneling No -Ulcer Cleansing Rinsed/ Irrigated with Saline -Foul Odor after Cleansing No -Bioengineered Tissue No -Bleeding Controlled with Pressure -Treatment Response Procedure Tolerated Well -Offloading No -Debridement - Subq, 1st 20sq cm No Pain Scale: 0-10 Numeric Is Patient Pain Free? Yes - Nurse 3 - General Ulcer D/C NN Start: 01/08/22 08:35 Freq: Status: Active Protocol: Activity Type Activity Date Activity User E-sign Co-sign Detail Recorded Client Recorded Date Recorded By Document 01/08/22 09:48 DL [id number] 01/08/22 09:50 DL 01/08/22 09:48 Wound Care Nurse 3 #7 right lateral inferior LE -Ulcer Cleansing Rinsed/ Irrigated with Saline -Foul Odor after Cleansing No -Primary Dressing Applied NonAdherent Contact Layer, Promogran -Primary Dressing Covered/Secured with Dry Gauze & Roll Gauze, Secured with Tape -Other Covering Stocking -Promogran 1 #6 R lat superior Maldonado -Ulcer Cleansing Rinsed/ Irrigated with Saline -Foul Odor after Cleansing No -Primary Dressing Applied NonAdherent Contact Layer -Other Dressing promogran -Primary Dressing Covered/Secured with Dry Gauze & Roll Gauze, Secured with Tape Left -Multi-Layered Wrap Application Multi-Layer Comp - Left ($) Treatment Response Procedure Tolerated Well Pain Scale: 0-10 Numeric Is Patient Pain Free? Yes - Visit Discharge Discharge Condition Stable Ambulatory Status Ambulatory Transportation Private Auto Charges/Coding Visit Charges Office Visits / Consults: [id number] OV L4 New Procedures Integumentary [id number]: [id number] Margarita subq tissue 20 sq cm/< (superficial/selective debridement done, please refer to clinical note. ) Assessment/Plan Assessment/Plan (1) Ulcer of right lower extremity with fat layer exposed: CODE(S): L97.912 - Non-pressure chronic ulcer of unspecified part of right lower leg with fat layer exposed (2) Swelling of left lower extremity: CODE(S): M79.89 - Other specified soft tissue disorders (3) Bilateral lower extremity edema: CODE(S): R60.0 - Localized edema PLAN: Plan Acute ulceration of right lower extremity. Initial ulceration which he was referred for is healed. Denies any known precipitating factor. Conservative measures at home have not been helpful. Selective debridement done as documented above, procedure was well-tolerated. Questionable history of pyoderma gangrenosum. Promogran daily, Adaptic over top. Triamcinolone prescribed for surrounding dermatitis. I am concerned about significant left lower extremity edema. He states that he has not had any abdominopelvic imaging since significant left lower extremity edema. Due to his kidney function, CT abdomen pelvis without contrast ordered, will review. 3M wrap to left lower extremity. Continue compression to right lower extremity. Follow-up on Wednesday for nurse visit and on with me. His questions were answered and he was advised to call with any further questions or concerns. He voiced understanding. This note was generated with [employer] dictation software. It may contain incorrect words, spelling, and punctuation that were not noted in checking the note before signing.
[2022-01-13 14:01] VITALS: BP 178/87; RESP 16; TEMP 36.2; BMI 28.8
[2022-01-15 11:22] VITALS: BP 159/54; PULSE 73; RESP 16; TEMP 36.1; BMI 28.8
--- NOTE | 2022-01-15 12:45 | PCM.WC.PN ---
History of Present Illness Date of Service: 01/15/22 Chief Complaint: nonhealing ulcer right choudhary s/p traumatic injury History of Wound: Mr. Steward is a 81 year old who was referred to the wound center by his PCP due to a nonhealing right lower extremity ulcer. Initial concern it also however has healed at this time but there is a new area of ulceration which has been present for about a week. Denies any known precipitating factor. History of bilateral lower extremity edema however left more significant than right. He has been applying different things at home including bacitracin without any significant improvement.. Denies significant drainage. No chills, fever or otherwise feeling of unwell. No documented history of diabetes mellitus. As above, he has significant left lower extremity edema, has been present for over a year. He has been utilizing compression without any significant improvement. Does not believe that he has had pelvic imaging done. Progress of Wound: Right Lower extremity ulceration with significant improvement. Left Lower extremity swelling also improved with the 3M wraps. Subjective Subjective No acute concerns at this time. Objective Data Objective Data Vital Signs: Vital Signs Temp Pulse Resp BP O2 Del Method 96.9 F L 73 16 159/54 H Room Air 01/15/22 11:22 01/15/22 11:22 01/15/22 11:22 01/15/22 11:22 01/15/22 11:22 Oxygen Delivery Method Room Air Weight: 173 lb 6.395 oz Body Mass Index (BMI) 28.8 Charges/Coding Procedures Integumentary 111xxx-113xx: [id number] Margarita subq tissue 20 sq cm/< Physical Exam Const alert, oriented x3 and no apparent distress General Appearance: cooperative, comfortable and well kempt HEENT normocephalic and head/scalp atraumatic Eyes EOMs intact bilaterally Neck full ROM General: normal visual inspection Resp normal respiratory effort Effort and Inspection: able to speak in complete sentences GI soft to palpation and non-tender Extremity General Extremity: edema Neuro oriented x3, CN's II-XII intact bilaterally, moves all extremities and no focal motor deficits Psych mental status grossly normal, thought process normal, cooperative, affect normal and speech normal Debridement Note Debridement Note Wound debrided: Right Lower Extremity Type of Debridement: Excisional debridement Anesthesia Used: 4% Lidocaine Solution Depth: Down to and including healthy tissue and in the subcutaneous layer Percentage of wound debrided: 100 Instrument Used: 3mm curette Tissue Removed: Slough and devitalized tissue Severity: Fat Layer Exposed Amount of bleeding with debridement: Mild Bleeding Controlled with: Pressure Patient tolerated procedure: Patient tolerated procedure well Post-Debridement Measurements and Additional Note: Post-Debridement Measurements/Treatment WC - Nurse 1 - General Ulcer Assessment Start: 01/08/22 08:35 Freq: Status: Active Protocol: WC.LOWEXT Activity Type Activity Date Activity User E-sign Co-sign Detail Recorded Client Recorded Date Recorded By Document 01/08/22 08:35 DL [id number] 01/08/22 08:55 DL Document 01/13/22 14:01 [facility] [id number] 01/13/22 14:02 BMF Document 01/15/22 11:22 [facility] [id number] 01/15/22 11:37 BM 01/08/22 01/13/22 01/15/22 08:35 14:01 11:22 WC - Today's Visit Information Type of service Initial Visit Nurse-only Follow-up Visit Visit (Physician/LOSS PREVENTION REPRESENTATIVE ) Arrival Mode Ambulatory Ambulatory Ambulatory Transfer Assistance None None None Accompanied by Patient Identification Verified (Name & Yes Yes Yes ) Patient Requires Transmission-Based No No Precautions Safety Precautions NA Height and Weight Height 5 ft 5 in Weight 173 lb 6.395 oz Weight in Pounds 173.4 lbs Body Mass Index (BMI) 28.8 28.8 28.8 BMI Classification Overweight Overweight Overweight BSA - Jose 1.86 Vital Signs Temperature (97.8 F-99.1 F) 97.3 F L 97.2 F L 96.9 F L Temperature Source Temporal Temporal Temporal Pulse Rate (60-100) 75 73 Pulse Location Monitor Monitor Respiratory Rate (12-18) 18 16 16 Respiratory rate source Observation Observation Observation Oxygen Delivery Method Room Air Room Air Blood Pressure (90/60-120/80) 121/63 H 178/87 H 159/54 H Blood Pressure Mean (mm Hg) 82 117 89 Source Monitor Monitor Monitor Position Sitting Sitting Blood Pressure Location Left Arm History Since Last Visit- (Skip if this is Patient's initial visit) Have you changed medications since your No No last visit? Any new allergies or adverse reactions No No Had a fall/change in ADL's that may No No increase risk of falls Signs or symptoms of abuse and/or No No neglect since last visit Have you been in the hospital since your No No last visit? Has dressing in place as prescribed Yes Has compression in place as prescribed Yes Yes Has offloadiing in place as prescribed N/A N/A Experienced any changes in pain level or No No management Left Footwear Regular Shoe Regular Shoe Right Footwear Regular Shoe Regular Shoe Pain Scale: 0-10 Numeric Is Patient Pain Free? Yes Yes Yes Lower Extremity Assessment/ Foot Assessment/ Toe Nail Assessment Left -Posterior Tibial Palpable No -Dorsalis Pedis Palpable Yes -Extremity Color Normal -Hair Growth on Legs No -Hair Growth on Toes No -Temperature of Extremity Warm -Capillary Refill Greater than 3 Seconds -Dependent Rubor No -Blanched when Elevated No -Lipodermatosclerosis No -Other Deformity No -Prior Foot Ulcer No -Charcot Joint No -Prior Amputation No -Thick Yes -Discolored Yes -Deformed Yes -Improper Length & Hygeine Yes Right -Posterior Tibial Palpable No -Dorsalis Pedis Palpable Yes -Extremity Color Normal -Hair Growth on Legs No -Hair Growth on Toes No -Temperature of Extremity Warm -Capillary Refill Greater than 3 Seconds -Dependent Rubor No -Blanched when Elevated No -Lipodermatosclerosis No -Other Deformity Yes -Prior Foot Ulcer No -Charcot Joint No -Prior Amputation No -Thick Yes -Discolored Yes -Deformed Yes -Improper Length & Hygeine Yes Neuropathy Assessment Feet - Top Side and Bottom <Entered> (a) Communication Assessment Preferred language English Able to Read Yes Able to Write Yes Right Hearing Abillity Use of Hearing Aid Left Hearing Abillity Use of Hearing Aid Visual Assistive Devices Contacts Teaching Assessment Preferences Verbal,Written, Demonstration Barriers to Learning None Readiness To Learn Good Willingness to Engage in Self Management Med Activies Readiness to Engage in Self Management Med Activities Anxiety Level Calm Cooperation Cooperative Perception Coherent Interest in Health Problem Asks Questions Education Importance Acknowledges Need Does Patient Smoke tobacco or other No substances Smoking Status Never smoker Is Patient Diabetic No Functional Assessment Recent Decline in Ability to Perform Denies Any Declines Teaching: Wound Center Discharge Instructions -Person Taught Patient Diagnostic Tests Ordered -Person Taught Patient Control Swelling with Leg Elevation -Person Taught Patient Dressing Your Wound -Person Taught Patient Skin Substitute -Person Taught Patient (a) 1 - + WC - Nurse 1 - General Ulcer Measurement Start: 01/08/22 08:35 Freq: Status: Active Protocol: Activity Type Activity Date Activity User E-sign Co-sign Detail Recorded Client Recorded Date Recorded By Document 01/08/22 08:35 DL [id number] 01/08/22 08:55 DL Document 01/13/22 14:01 [facility] [id number] 01/13/22 14:02 BMF Document 01/15/22 11:22 BM [id number] 01/15/22 11:37 BMF 01/08/22 01/13/22 01/15/22 08:35 14:01 11:22 Wound Center Nurse 1 #7 right lateral inferior LE -Combined with other wound No -Current Size (cm) - Length 0.4 -Current Size (cm) - Width 0.5 -Current Size (cm) - Depth 0.1 -Total Square Cm 0.20 -Date of Last Picture (Recall this 01/15/22 field) -Photo Taken Yes -Epithelialization None Present -Tunneling No -Undermining/Tunneling No -Circular Undermining No -Exudate Amt Small -Exudate Type Serous -Wound Margin Flat & Intact -Granulation Amt Small (1-33%) -Granulation Quality Red -Slough/Fibrin Yes -Necrosis Amt Large (67-100%) -Necrotic Tissue Type Adherent Slough -Texture (Funmi-wound Skin Appearance) Assessed, Scarring -Moisture (Funmi-wound Skin Appearance) Assessed -Color (Funmi-wound Skin Appearance) Assessed -Temperature (Funmi-wound Skin No Abnormality Appearance) (Pt Warm) -Tenderness on Palpation (Funmi-wound No Skin Appearance) -Ulcer Cleansing Soap and Water -Foul Odor after Cleansing No -Anesthetic Used 5% Lidocaine Gel #6 R lat superior Choudhary -Combined with other wound No -Current Size (cm) - Length 1.5 0.1 -Current Size (cm) - Width 2.2 0.1 -Current Size (cm) - Depth 0.1 0.1 -Total Square Cm 3.30 0.01 -Date of Last Picture (Recall this 01/15/22 field) -Photo Taken Yes Yes -Epithelialization Small 1-33% -Tunneling No -Undermining/Tunneling No -Circular Undermining No -Classification - Thickness Full Thickness without Exposed Support Structure -Exudate Amt Small Small -Exudate Type Serosanguineous Sanguineous -Wound Margin Distinct, Flat & Intact Outline Attached -Granulation Amt Medium (34-66%) Large (67-100%) -Granulation Quality [place] Red -Slough/Fibrin No -Necrosis Amt Medium (34-66%) None Present (0 %) -Necrotic Tissue Type Adherent Slough -Structure Exposed N/A -Texture (Funmi-wound Skin Appearance) Scarring,Rash Assessed, Scarring -Moisture (Funmi-wound Skin Appearance) No Abnormality Assessed -Color (Funmi-wound Skin Appearance) No Abnormality Assessed -Temperature (Funmi-wound Skin No Abnormality Appearance) (Pt Warm) -Tenderness on Palpation (Funmi-wound No Skin Appearance) -Ulcer Cleansing Soap and Water Soap and Water -Foul Odor after Cleansing No No -Anesthetic Used 5% Lidocaine 5% Lidocaine Gel Gel Lower Limb Edema Present Yes Yes Right Calf (cm) 35.3 35.4 Right Ankle (cm) 22 23.7 Left Calf (cm) 36.6 33.2 33.6 Left Ankle (cm) 28 26.0 26 WC - Nurse 2 - General Ulcer CM Notes Start: 01/08/22 08:35 Freq: Status: Active Protocol: Activity Type Activity Date Activity User E-sign Co-sign Detail Recorded Client Recorded Date Recorded By Document 01/08/22 09:18 MW [id number] 01/08/22 09:25 MW Document 01/15/22 12:10 MW [id number] 01/15/22 12:16 MW 01/08/22 01/15/22 09:18 12:10 Wound Center Nurse 2 #7 right lateral inferior LE -Time 09:24 12:11 -Correct Patient Yes Yes -Correct Side, Site, Position Yes Yes -Correct Procedure Yes Yes -Procedure Performed Yes No -Type of Procedure Debridement -Clinical Debridement Subcutaneous -Tissue Removed Subcutaneous -Post Debridement (cm) - Length 0.7 0 -Post Debridement (cm) - Width 0.3 0 -Post Debridement (cm) - Depth 0.1 0 -Total Square (Post) (cm) 0.21 0 -Area of Debridement (cm) - Length 0.7 -Area of Debridement (cm) - Width 0.3 -Total Square (Area) (cm) 0.21 -Tunneling No -Undermining/Tunneling No No -Circular Undermining No No -Wound/Ulcer Outcome Not Healed Healed- Epithelialized -Ulcer Cleansing Rinsed/ Irrigated with Saline -Foul Odor after Cleansing No -Bioengineered Tissue No No -Bleeding Controlled with Pressure -Treatment Response Procedure Tolerated Well -Offloading No -Debridement - Subq, 1st 20sq cm No No #6 R lat superior Choudhary -Time 09:18 12:12 -Correct Patient Yes Yes -Correct Side, Site, Position Yes Yes -Correct Procedure Yes Yes -Procedure Performed Yes Yes -Type of Procedure Debridement Debridement -Clinical Debridement Subcutaneous Subcutaneous -Tissue Removed Subcutaneous Subcutaneous -Post Debridement (cm) - Length 1.6 0.5 -Post Debridement (cm) - Width 2.2 0.7 -Post Debridement (cm) - Depth 0.1 0.1 -Total Square (Post) (cm) 3.52 0.35 -Area of Debridement (cm) - Length 1.6 0.5 -Area of Debridement (cm) - Width 2.2 0.7 -Total Square (Area) (cm) 3.52 0.35 -Tunneling No No -Undermining/Tunneling No No -Circular Undermining No -Wound/Ulcer Outcome Not Healed -Ulcer Cleansing Rinsed/ Rinsed/ Irrigated with Irrigated with Saline Saline -Foul Odor after Cleansing No No -Bioengineered Tissue No No -Bleeding Controlled with Pressure Pressure -Treatment Response Procedure Procedure Tolerated Well Tolerated Well -Offloading No No -Debridement - Subq, 1st 20sq cm No Yes Pain Scale: 0-10 Numeric Is Patient Pain Free? Yes Yes - Nurse 3 - General Ulcer D/C NN Start: 01/08/22 08:35 Freq: Status: Active Protocol: Activity Type Activity Date Activity User E-sign Co-sign Detail Recorded Client Recorded Date Recorded By Document 01/08/22 09:48 DL [id number] 01/08/22 09:50 DL Document 01/13/22 14:01 [facility] [id number] 01/13/22 14:02 BM Document 01/13/22 14:04 BMF [id number] 01/13/22 14:05 BM Document 01/15/22 12:21 [facility] [id number] 01/15/22 12:22 BMF 01/08/22 01/13/22 01/13/22 09:48 14:01 14:04 Wound Care Nurse 3 #7 right lateral inferior LE -Ulcer Cleansing Rinsed/ Irrigated with Saline -Foul Odor after Cleansing No -Primary Dressing Applied NonAdherent Promogran Contact Layer, Promogran -Other Dressing PER CM, SENT HOME W/ PT D/T RUNNING LOW. IN FOR [place] TODAY -Primary Dressing Covered/Secured with Dry Gauze & Roll Gauze, Secured with Tape -Other Covering Stocking -Promogran 1 1 #6 R lat superior Choudhary -Ulcer Cleansing Rinsed/ Irrigated with Saline -Foul Odor after Cleansing No -Primary Dressing Applied NonAdherent Contact Layer -Other Dressing promogran -Primary Dressing Covered/Secured with Dry Gauze & Roll Gauze, Secured with Tape -Other Covering -Promogran Left -Lotion applied to leg before compression wrap -Multi-Layered Wrap Application Multi-Layer Multi-Layer Comp - Left ($) Comp - Left ($) -Other PER MW RN Treatment Response Procedure Procedure Tolerated Well Tolerated Well Vital Signs Temperature (97.8 F-99.1 F) 97.2 F L Temperature Source Temporal Respiratory Rate (12-18) 16 Respiratory rate source Observation Oxygen Delivery Method Room Air Blood Pressure (90/60-120/80) 178/87 H Blood Pressure Mean (mm Hg) 117 Source Monitor Position Sitting Pain Scale: 0-10 Numeric Is Patient Pain Free? Yes Yes Yes WC - Visit Discharge Discharge Condition Stable Stable Ambulatory Status Ambulatory Ambulatory Transportation Private Auto Private Auto Accompanied by 01/15/22 12:21 Wound Care Nurse 3 #7 right lateral inferior LE -Ulcer Cleansing -Foul Odor after Cleansing -Primary Dressing Applied -Other Dressing -Primary Dressing Covered/Secured with -Other Covering -Promogran #6 R lat superior Choudhary -Ulcer Cleansing Rinsed/ Irrigated with Saline -Foul Odor after Cleansing No -Primary Dressing Applied NonAdherent Contact Layer, Promogran -Other Dressing -Primary Dressing Covered/Secured with Dry Gauze & Roll Gauze, Secured with Tape -Other Covering drsg per mt rn -Promogran 1 Left -Lotion applied to leg before Yes compression wrap -Multi-Layered Wrap Application Multi-Layer Comp - Left ($) -Other Treatment Response Procedure Tolerated Well Vital Signs Temperature (97.8 F-99.1 F) Temperature Source Respiratory Rate (12-18) Respiratory rate source Oxygen Delivery Method Blood Pressure (90/60-120/80) Blood Pressure Mean (mm Hg) Source Position Pain Scale: 0-10 Numeric Is Patient Pain Free? Yes WC - Visit Discharge Discharge Condition Stable Ambulatory Status Ambulatory Transportation Private Auto Accompanied by Assessment/Plan Assessment/Plan (1) Ulcer of right lower extremity with fat layer exposed: CODE(S): L97.912 - Non-pressure chronic ulcer of unspecified part of right lower leg with fat layer exposed (2) Swelling of left lower extremity: CODE(S): M79.89 - Other specified soft tissue disorders (3) Bilateral lower extremity edema: CODE(S): R60.0 - Localized edema PLAN: Plan Debridement done as documented above, procedure was well tolerated. Continue Promogran daily, Adaptic over top. Surrounding dermatitis improved significantly on Triamcinolone. CT abdomen and pelvic ordered at his last visit. Due to his kidney function, CT abdomen pelvis without contrast was ordered, still pending approval. 3M wrap to left lower extremity. Continue compression to right lower extremity. Follow up in 1 week. His questions were answered and he was advised to call with any further questions or concerns. He voiced understanding. This note was generated with [employer] dictation software. It may contain incorrect words, spelling, and punctuation that were not noted in checking the note before signing.
== END 2022-01-16 23:59 | disposition home or self-care (01) ==
LOC: WC 11:30
PROVIDERS: PCP Internal Medicine; Visit Provider Internal Medicine
DX: L97.812 Non-pressure chronic ulcer of other part of right lower leg with fat layer exposed (principal); R60.0 Localized edema; M79.89 Other specified soft tissue disorders; I10 Essential (primary) hypertension; E78.00 Pure hypercholesterolemia, unspecified; K21.9 Gastro-esophageal reflux disease without esophagitis; F32.A Depression, unspecified; Z79.52 Long term (current) use of systemic steroids; Z79.899 Other long term (current) drug therapy
CPT/HCPCS: 11042; 29581; 99213; G0463

== ENCOUNTER 2022-01-29 11:15 | Outpatient (RCR) | payer MEDICARE, OTHER, SELFPAY ==
[2022-01-17 01:48] VITALS: BP 159/54; PULSE 73; RESP 16; TEMP 36.1; BMI 28.8
--- NOTE | 2022-01-22 07:02 | CT_ITS ---
STUDY: CT ABDOMEN AND PELVIS WITHOUT CONTRAST REASON FOR EXAM: Male, 81 years old. Left lower extremity swelling. RADIATION DOSAGE (If Supplied By Facility): CTDIvol = ( 10.8 ) mGy, DLP = ( 466.54 ) mGycm TECHNIQUE: Transaxial images were obtained from the dome of the diaphragm to the symphysis pubis without oral contrast, and without intravenous contrast. Sagittal and coronal images were reconstructed. Individualized dose optimization techniques were used for this CT. COMPARISON: Comparison is made with prior examination dated 05/12/2013. 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 There is evidence of healed left lower rib fractures. Coronary artery calcification. Normal liver. Normal gallbladder and extrahepatic biliary system. Normal spleen. There are pancreatic calcifications in the distribution of the ducts consistent with chronic pancreatitis. Normal bilateral adrenal glands. Normal right kidney. Normal left kidney. Normal visualized stomach. Normal small intestine. There are multiple colonic diverticula consistent with diverticulosis. The appendix is visualized and appears normal. There is diffuse atherosclerotic calcification of the abdominal aorta and its major visceral branches, without a demonstrated aneurysm. Normal inferior vena cava. Normal retroperitoneum. Diffuse bladder wall thickening. There is enlargement of the prostate gland. It measures 4.8 cm x 5.9 cm. This causes indentation of the bladder base. There is a small umbilical hernia containing fat. There are diffuse degenerative changes of the visualized lumbar spine. 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 Approximately 50% loss of height of the superior endplate of the L1 vertebrae. A battery pack is seen overlying the right buttock. CT/Abdomen/Pelvis without Cont IMPRESSION: Prostatic enlargement with indentation at the bladder base. Diffuse bladder wall thickening. Pancreatic calcifications. Sigmoid diverticulosis. Electronically Signed: Demetri Green MD at 11:12 EDT ,
[2022-01-22 10:07] VITALS: BP 108/51; PULSE 59; RESP 16; TEMP 35.8; BMI 28.8
--- NOTE | 2022-01-22 12:58 | PN.PCM_ITS ---
History of Present Illness Date of Service: 01/22/22 Chief Complaint: nonhealing ulcer right choudhary s/p traumatic injury History of Wound: Mr. Steward is a 81 year old who was referred to the wound center by his PCP due to a nonhealing right lower extremity ulcer. Initial concern it also however has healed at this time but there is a new area of ulceration which has been present for about a week. Denies any known precipitating factor. History of bilateral lower extremity edema however left more significant than right. He has been applying different things at home including bacitracin without any significant improvement.. Denies significant drainage. No chills, fever or otherwise feeling of unwell. No documented history of diabetes mellitus. As above, he has significant left lower extremity edema, has been present for over a year. He has been utilizing compression without any significant improvement. Does not believe that he has had pelvic imaging done. Progress of Wound: Right lower extremity with some improvement noted. Left lower extremity edema also improving. No new concerns at this time. Objective Data Objective Data Vital Signs: Vital Signs Temp Pulse Resp BP O2 Del Method 96.5 F L 59 L 16 108/51 L Room Air 01/22/22 10:07 01/22/22 10:07 01/22/22 10:07 01/22/22 10:07 01/22/22 10:07 Oxygen Delivery Method Room Air Weight: 173 lb 6.395 oz Body Mass Index (BMI) 28.8 Radiography Diagnostic Testing: Radiology Impression Abdomen/Pelvis CT 01/22/22 07:02 IMPRESSION: Prostatic enlargement with indentation at the bladder base. Diffuse bladder wall thickening. Pancreatic calcifications. Sigmoid diverticulosis. Electronically Signed: Demetri Green MD at 11:12 EDT , Charges/Coding Procedures Integumentary [id number]: [id number] Margarita subq tissue 20 sq cm/< Physical Exam Const alert, oriented x3 and no apparent distress General Appearance: cooperative, comfortable and well kempt HEENT normocephalic and head/scalp atraumatic Eyes EOMs intact bilaterally Neck full ROM General: normal visual inspection Resp normal respiratory effort Effort and Inspection: able to speak in complete sentences GI soft to palpation and non-tender Extremity General Extremity: edema Neuro oriented x3, CN's II-XII intact bilaterally, moves all extremities and no focal motor deficits Psych mental status grossly normal, thought process normal, cooperative, affect normal and speech normal Debridement Note Debridement Note Wound debrided: Right Lower Extremity Type of Debridement: Excisional debridement Anesthesia Used: 4% Lidocaine Solution Depth: Down to and including healthy tissue and in the subcutaneous layer Percentage of wound debrided: 100 Instrument Used: 3mm curette Tissue Removed: Slough and devitalized tissue Severity: Fat Layer Exposed Amount of bleeding with debridement: Mild Bleeding Controlled with: Pressure Patient tolerated procedure: Patient tolerated procedure well Post-Debridement Measurements and Additional Note: Post-Debridement Measurements/Treatment - Nurse 1 - General Ulcer Assessment Start: 01/22/22 10:07 Freq: Status: Active Protocol: FRANCISCO Activity Type Activity Date Activity User E-sign Co-sign Detail Recorded Client Recorded Date Recorded By Document 01/22/22 10:07 [place] [id number] 01/22/22 10:17 [place] 01/22/22 10:07 - Today's Visit Information Type of service Follow-up Visit (Physician/SPOOL MAKER ) Arrival Mode Ambulatory Transfer Assistance None Accompanied by Patient Identification Verified (Name & Yes ) Patient Requires Transmission-Based No Precautions Height and Weight Weight Measurement Method Estimated by Patient Body Mass Index (BMI) 28.8 BMI Classification Overweight Vital Signs Temperature (97.8 F-99.1 F) 96.5 F L Temperature Source Temporal Pulse Rate (60-100) 59 L Pulse Location Monitor Respiratory Rate (12-18) 16 Respiratory rate source Observation Oxygen Delivery Method Room Air Blood Pressure (90/60-120/80) 108/51 L Blood Pressure Mean (mm Hg) 70 Source Monitor Position Sitting Blood Pressure Location Right Arm History Since Last Visit- (Skip if this is Patient's initial visit) Have you changed medications since your No last visit? Any new allergies or adverse reactions No Had a fall/change in ADL's that may No increase risk of falls Signs or symptoms of abuse and/or No neglect since last visit Have you been in the hospital since your No last visit? Has dressing in place as prescribed Yes Has compression in place as prescribed Yes Has offloadiing in place as prescribed N/A Experienced any changes in pain level or No management Left Footwear Regular Shoe Right Footwear Regular Shoe Pain Scale: 0-10 Numeric Is Patient Pain Free? Yes WC - Nurse 1 - General Ulcer Measurement Start: 01/22/22 10:07 Freq: Status: Active Protocol: Activity Type Activity Date Activity User E-sign Co-sign Detail Recorded Client Recorded Date Recorded By Document 01/22/22 10:07 [place] [id number] 01/22/22 10:17 MT 01/22/22 10:07 Wound Center Nurse 1 #6 R lat superior Choudhary -Combined with other wound No -Current Size (cm) - Length 0.1 -Current Size (cm) - Width 0.1 -Current Size (cm) - Depth 0.1 -Total Square Cm 0.01 -Date of Last Picture (Recall this 01/22/22 field) -Photo Taken Yes -Epithelialization Large 67-100% -Tunneling No -Undermining/Tunneling No -Circular Undermining No -Exudate Amt None Present -Texture (Funmi-wound Skin Appearance) Assessed, Scarring -Moisture (Funmi-wound Skin Appearance) Assessed -Color (Funmi-wound Skin Appearance) Assessed -Temperature (Funmi-wound Skin No Abnormality Appearance) (Pt Warm) -Tenderness on Palpation (Funmi-wound No Skin Appearance) -Ulcer Cleansing Soap and Water -Foul Odor after Cleansing No Lower Limb Edema Present Yes Right Calf (cm) 33.9 Right Ankle (cm) 23.4 Left Calf (cm) 33 Left Ankle (cm) 26.1 WC - Nurse 2 - General Ulcer CM Notes Start: 01/22/22 10:07 Freq: Status: Active Protocol: Activity Type Activity Date Activity User E-sign Co-sign Detail Recorded Client Recorded Date Recorded By Document 01/22/22 10:25 MW [id number] 01/22/22 10:33 MW 01/22/22 10:25 Wound Center Nurse 2 #6 R lat superior Choudhary -Time 10:28 -Correct Patient Yes -Correct Side, Site, Position Yes -Correct Procedure Yes -Procedure Performed Yes -Type of Procedure Debridement -Clinical Debridement Subcutaneous -Tissue Removed Subcutaneous -Post Debridement (cm) - Length 0.3 -Post Debridement (cm) - Width 0.3 -Post Debridement (cm) - Depth 0.1 -Total Square (Post) (cm) 0.09 -Area of Debridement (cm) - Length 0.3 -Area of Debridement (cm) - Width 0.3 -Total Square (Area) (cm) 0.09 -Tunneling No -Undermining/Tunneling No -Circular Undermining No -Wound/Ulcer Outcome Not Healed -Ulcer Cleansing Rinsed/ Irrigated with Saline -Foul Odor after Cleansing No -Bioengineered Tissue No -Bleeding Controlled with Pressure -Treatment Response Procedure Tolerated Well -Debridement - Subq, 1st 20sq cm Yes Pain Scale: 0-10 Numeric Is Patient Pain Free? Yes - Nurse 3 - General Ulcer D/C NN Start: 01/22/22 10:07 Freq: Status: Active Protocol: Activity Type Activity Date Activity User E-sign Co-sign Detail Recorded Client Recorded Date Recorded By Document 01/22/22 10:47 [facility] [id number] 01/22/22 10:54 [facility] 01/22/22 10:47 Wound Care Nurse 3 #6 R lat superior Choudhary -Ulcer Cleansing Rinsed/ Irrigated with Saline -Foul Odor after Cleansing No -Primary Dressing Applied NonAdherent Contact Layer, Promogran -Primary Dressing Covered/Secured with Dry Gauze & Roll Gauze, Secured with Tape -Other Covering RN STUDENT APPLIED -Promogran 1 Left -Multi-Layered Wrap Application Multi-Layer Comp - Left ($) -Other RN STUDENT APPLIED Treatment Response Procedure Tolerated Well Pain Scale: 0-10 Numeric Is Patient Pain Free? Yes - Visit Discharge Discharge Condition Stable Ambulatory Status Ambulatory Transportation Private Auto Accompanied by Assessment/Plan Assessment/Plan (1) Ulcer of right lower extremity with fat layer exposed: CODE(S): L97.912 - Non-pressure chronic ulcer of unspecified part of right lower leg with fat layer exposed (2) Swelling of left lower extremity: CODE(S): M79.89 - Other specified soft tissue disorders (3) Bilateral lower extremity edema: CODE(S): R60.0 - Localized edema PLAN: Plan Debridement done as documented above, procedure was well tolerated. Continue Promogran daily, Adaptic over top. Continue 3M wrap to left lower extremity. Continue compression to right lower extremity. Follow up in 1 week. His questions were answered and he was advised to call with any further questions or concerns. He voiced understanding. This note was generated with [employer] software. It may contain incorrect words, spelling, and punctuation that were not noted in checking the note before signing.
[2022-01-29 11:14] VITALS: BP 116/51; PULSE 60; RESP 16; TEMP 36.1; BMI 28.8
--- NOTE | 2022-01-29 13:53 | PCM.WC.PN ---
History of Present Illness Date of Service: 01/29/22 Chief Complaint: nonhealing ulcer right choudhary s/p traumatic injury History of Wound: Mr. Steward is a 81 year old who was referred to the wound center by his PCP due to a nonhealing right lower extremity ulcer. Initial concern it also however has healed at this time but there is a new area of ulceration which has been present for about a week. Denies any known precipitating factor. History of bilateral lower extremity edema however left more significant than right. He has been applying different things at home including bacitracin without any significant improvement.. Denies significant drainage. No chills, fever or otherwise feeling of unwell. No documented history of diabetes mellitus. As above, he has significant left lower extremity edema, has been present for over a year. He has been utilizing compression without any significant improvement. Does not believe that he has had pelvic imaging done. Progress of Wound: Right lower extremity essentially healed with only minimal area left. Left lower extremity edema also with significant improvement. Objective Data Objective Data Vital Signs: Vital Signs Temp Pulse Resp BP O2 Del Method 97 F L 60 16 116/51 L Room Air 01/29/22 11:14 01/29/22 11:14 01/29/22 11:14 01/29/22 11:14 01/29/22 11:14 Oxygen Delivery Method Room Air Weight: 173 lb 6.395 oz Body Mass Index (BMI) 28.8 Charges/Coding Visit Charges Office Visits / Consults: 60992 OV L3 Est Physical Exam Const alert, oriented x3 and no apparent distress General Appearance: cooperative, comfortable and well kempt HEENT normocephalic and head/scalp atraumatic Eyes EOMs intact bilaterally Neck full ROM General: normal visual inspection Resp normal respiratory effort Effort and Inspection: able to speak in complete sentences GI soft to palpation and non-tender Extremity General Extremity: edema Neuro oriented x3, CN's II-XII intact bilaterally, moves all extremities and no focal motor deficits Psych mental status grossly normal, thought process normal, cooperative, affect normal and speech normal Debridement Note Debridement Note Post-Debridement Measurements and Additional Note: Post-Debridement Measurements/Treatment KEATON - Nurse 1 - General Ulcer Assessment Start: 01/22/22 10:07 Freq: Status: Active Protocol: FRANCISCO Activity Type Activity Date Activity User E-sign Co-sign Detail Recorded Client Recorded Date Recorded By Document 10/06/22 10:07 [place] [id number] 01/22/22 10:17 [place] Document 01/29/22 11:14 [facility] [id number] 01/29/22 11:26 [facility] 01/22/22 01/29/22 10:07 11:14 - Today's Visit Information Type of service Follow-up Visit Follow-up Visit (Physician/NON DESTRUCTIVE TESTER (Physician/NON DESTRUCTIVE TESTER ) ) Arrival Mode Ambulatory Ambulatory Transfer Assistance None None Accompanied by Patient Identification Verified (Name & Yes Yes ) Patient Requires Transmission-Based No No Precautions Height and Weight Weight Measurement Method Estimated by Patient Body Mass Index (BMI) 28.8 28.8 BMI Classification Overweight Overweight Vital Signs Temperature (97.8 F-99.1 F) 96.5 F L 97 F L Temperature Source Temporal Temporal Pulse Rate (60-100) 59 L 60 Pulse Location Monitor Monitor Respiratory Rate (12-18) 16 16 Respiratory rate source Observation Observation Oxygen Delivery Method Room Air Room Air Blood Pressure (90/60-120/80) 108/51 L 116/51 L Blood Pressure Mean (mm Hg) 70 72 Source Monitor Monitor Position Sitting Sitting Blood Pressure Location Right Arm Left Arm History Since Last Visit- (Skip if this is Patient's initial visit) Have you changed medications since your No No last visit? Any new allergies or adverse reactions No No Had a fall/change in ADL's that may No No increase risk of falls Signs or symptoms of abuse and/or No No neglect since last visit Have you been in the hospital since your No No last visit? Has dressing in place as prescribed Yes Yes Has compression in place as prescribed Yes Yes Has offloadiing in place as prescribed N/A N/A Experienced any changes in pain level or No No management Left Footwear Regular Shoe Regular Shoe Right Footwear Regular Shoe Regular Shoe Pain Scale: 0-10 Numeric Is Patient Pain Free? Yes Yes - Nurse 1 - General Ulcer Measurement Start: 01/22/22 10:07 Freq: Status: Active Protocol: Activity Type Activity Date Activity User E-sign Co-sign Detail Recorded Client Recorded Date Recorded By Document 01/22/22 10:07 [place] [id number] 01/22/22 10:17 [place] Document 01/29/22 11:14 [facility] [id number] 01/29/22 11:26 BM 01/22/22 01/29/22 10:07 11:14 Wound Center Nurse 1 #6 R lat superior Choudhary -Combined with other wound No No -Current Size (cm) - Length 0.1 0.1 -Current Size (cm) - Width 0.1 0.1 -Current Size (cm) - Depth 0.1 0.1 -Total Square Cm 0.01 0.01 -Date of Last Picture (Recall this 01/22/22 01/29/22 field) -Photo Taken Yes Yes -Epithelialization Large 67-100% Large 67-100% -Tunneling No No -Undermining/Tunneling No No -Circular Undermining No No -Exudate Amt None Present Small -Exudate Type Serosanguineous -Wound Margin Flat & Intact -Granulation Amt Large (67-100%) -Granulation Quality Red -Slough/Fibrin No -Necrosis Amt None Present (0 %) -Texture (Funmi-wound Skin Appearance) Assessed, Assessed, Scarring Scarring -Moisture (Funmi-wound Skin Appearance) Assessed Assessed,Dry/ Scaly -Color (Funmi-wound Skin Appearance) Assessed Assessed, Erythema -Temperature (Funmi-wound Skin No Abnormality No Abnormality Appearance) (Pt Warm) (Pt Warm) -Tenderness on Palpation (Funmi-wound No No Skin Appearance) -Ulcer Cleansing Soap and Water Soap and Water -Foul Odor after Cleansing No No -Anesthetic Used 5% Lidocaine Gel Lower Limb Edema Present Yes Yes Right Calf (cm) 33.9 35.5 Right Ankle (cm) 23.4 22.7 Left Calf (cm) 33 32.3 Left Ankle (cm) 26.1 23 WC - Nurse 2 - General Ulcer CM Notes Start: 01/22/22 10:07 Freq: Status: Active Protocol: Activity Type Activity Date Activity User E-sign Co-sign Detail Recorded Client Recorded Date Recorded By Document 01/22/22 10:25 MW [id number] 01/22/22 10:33 MW Document 01/29/22 11:54 MW [id number] 01/29/22 11:56 MW 01/22/22 01/29/22 10:25 11:54 Wound Center Nurse 2 #6 R lat superior Choudhary -Time 10:28 11:54 -Correct Patient Yes Yes -Correct Side, Site, Position Yes Yes -Correct Procedure Yes Yes -Procedure Performed Yes No -Type of Procedure Debridement -Clinical Debridement Subcutaneous -Tissue Removed Subcutaneous -Post Debridement (cm) - Length 0.3 0 -Post Debridement (cm) - Width 0.3 0 -Post Debridement (cm) - Depth 0.1 0 -Total Square (Post) (cm) 0.09 0 -Area of Debridement (cm) - Length 0.3 -Area of Debridement (cm) - Width 0.3 -Total Square (Area) (cm) 0.09 -Tunneling No -Undermining/Tunneling No -Circular Undermining No -Wound/Ulcer Outcome Not Healed Healed- Epithelialized -Ulcer Cleansing Rinsed/ Irrigated with Saline -Foul Odor after Cleansing No -Bioengineered Tissue No -Bleeding Controlled with Pressure -Treatment Response Procedure Tolerated Well -Debridement - Subq, 1st 20sq cm Yes Pain Scale: 0-10 Numeric Is Patient Pain Free? Yes Yes - Nurse 3 - General Ulcer D/C NN Start: 01/22/22 10:07 Freq: Status: Active Protocol: Activity Type Activity Date Activity User E-sign Co-sign Detail Recorded Client Recorded Date Recorded By Document 01/22/22 10:47 [facility] [id number] 01/22/22 10:54 [facility] Document 01/29/22 12:07 [facility] [id number] 01/29/22 12:09 [facility] 01/22/22 01/29/22 10:47 12:07 Wound Care Nurse 3 #6 R lat superior Choudhary -Ulcer Cleansing Rinsed/ Rinsed/ Irrigated with Irrigated with Saline Saline -Foul Odor after Cleansing No No -Primary Dressing Applied NonAdherent NonAdherent Contact Layer, Contact Layer, Promogran Promogran -Primary Dressing Covered/Secured with Dry Gauze & Dry Gauze & Roll Gauze, Roll Gauze, Secured with Secured with Tape Tape -Other Covering RN STUDENT drsg per dl tutoring clinician APPLIED -Promogran 1 1 ble -Other pt will apply own compression stockings at home Left -Multi-Layered Wrap Application Multi-Layer Comp - Left ($) -Other RN STUDENT APPLIED Treatment Response Procedure Procedure Tolerated Well Tolerated Well Pain Scale: 0-10 Numeric Is Patient Pain Free? Yes Yes WC - Visit Discharge Discharge Condition Stable Stable Ambulatory Status Ambulatory Ambulatory Transportation Private Auto Private Auto Accompanied by Assessment/Plan Assessment/Plan (1) Ulcer of right lower extremity with fat layer exposed: CODE(S): L97.912 - Non-pressure chronic ulcer of unspecified part of right lower leg with fat layer exposed (2) Swelling of left lower extremity: CODE(S): M79.89 - Other specified soft tissue disorders (3) Bilateral lower extremity edema: CODE(S): R60.0 - Localized edema PLAN: Plan No debridement completed today. Essentially healed. Continue Promogran daily, Adaptic over top x 2 weeks and stop. Moisturize adequately. Triamcinolone only as needed for rash. They were educated on the risk of prolonged topical steroids. Compression for edema management. They plan on getting the Juxtalite. CT findings discussed. Non acute findings also discussed and they were advised to discuss further with his PCP Dr. Dunn. His questions were answered and he was advised to call with any further questions or concerns. He voiced understanding. Discharge from the wound center. This note was generated with [employer] dictation software. It may contain incorrect words, spelling, and punctuation that were not noted in checking the note before signing.
== END 2022-01-29 15:44 | disposition home or self-care (01) ==
LOC: WC 11:15
PROVIDERS: PCP Internal Medicine; Referring Provider Internal Medicine; Visit Provider Internal Medicine
DX: L97.812 Non-pressure chronic ulcer of other part of right lower leg with fat layer exposed (principal); R60.0 Localized edema; Z79.899 Other long term (current) drug therapy; M79.89 Other specified soft tissue disorders
CPT/HCPCS: 11042; 29581; 74176; 99213; G0463

== ENCOUNTER 2022-03-19 12:34 | Outpatient (CLI) | payer MEDICARE, OTHER, SELFPAY ==
[2022-03-19 13:06] LABS: Protein, Urine (Random) 15.2 mg/dL (<11.9); Protein:Creat Ratio 691 mg/g CRE (0-200)
[2022-03-19 13:18] LABS: Anion Gap 6 (5-15); BUN 31 mg/dL (7-18); BUN/Creat Ratio 20.7 RATIO (10-20); Chloride 107 mmol/L (98-107); EST Glomerular Filtration Rate 48 mL/min (>60); Est Glom Filt Rate - Afr Amer 58 mL/min (>60); Glucose 117 mg/dL (74-106); Potassium 4.1 mmol/L (3.5-5.1); Sodium Level 140 mmol/L (136-145)
== END 2022-03-19 23:59 | disposition home or self-care (01) ==
LOC: LAB 12:35
PROVIDERS: PCP Internal Medicine; Visit Provider Internal Medicine Nephrology
DX: N18.31 Chronic kidney disease, stage 3a (principal)
CPT/HCPCS: 36415; 80048; 82570; 84156

== ENCOUNTER 2022-05-02 16:02 | Emergency (ER) | payer MEDICARE, OTHER, SELFPAY ==
[2022-05-02 16:03] VITALS: PULSE 129
[2022-05-02 16:06] VITALS: BP 137/78; PULSE 78; RESP 16; TEMP 36.6; O2SAT 99; BMI 30.2
--- NOTE | 2022-05-02 16:50 | EDS_ITS ---
HPI History of Present Illness Chief Complaint: Chest Other Informant: patient Onset/Context/Timing Onset: Today and Hours (1.5) Activity at onset: sudden Timing: Continuous and Waxes and wanes Worsened By: Nothing Relieved By: Nothing Associated Symptoms: Positive for Palpitations; Negative for Nausea, Vomiting, Diaphoresis, Dyspnea, Cough, Fever, Lightheadedness or Acid Reflux Narrative Narrative: Patient presents with tachycardia that began today. Patient states that he felt his heart racing. Patient states it seemed to be beating erratic as well. Patient denies any pain in his chest. Patient denies any nausea or vomiting. Patient denies any shortness of breath. Patient denies any cough or fever. Patient denies any lightheadedness or dizziness. Patient states nothing makes his symptoms better nothing makes them worse. Patient states his heart rate was up into the 140s but now is down into the 120s. CVD Risk Factors: Positive for Hypertension; Negative for Diabetes, Hypercholesterolemia, Family History 1' </=55 or Smoking PE Risk Factors: Negative for Recent Travel/Surgery, Recent Immobilization, Prior DVT or PE, Cancer or OCP + Smoking + >/=35 PFSH PFSH Medical History Abnormal glucose Alcohol abuse, in remission Alcohol use Allergic rhinitis Anemia Anxiety Arthritis Back pain Bilateral lower extremity edema Bladder disease BPH with urinary obstruction Carotid stenosis Colitis Coronary artery disease (CAD) excluded Degenerative disc disease Dehydration Depression Dysthymia Essential hypertension Fatigue Fracture of cervical vertebra, C7 Gastric reflux Gout, arthritis Guaiac positive stools Hearing loss Hearing loss of right ear due to cerumen impaction Heartburn High cholesterol History of edema History of pain when walking History of renal disease History of steroid therapy History of stress test History of trigger finger Hx of pleural effusion Hypersomnia Hypertension Hypomagnesemia Hypopotassemia IBS (irritable bowel syndrome) Impaired fasting glucose 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 Injury of head and neck Leg edema Lentigo Lung nodule Malnutrition Migraine headache Monoallelic mutation of CHEK2 gene Myalgia Neuropathy Non-healing wound of lower extremity Non-smoker KJ (obstructive sleep apnea) Osteoporosis Pain Pancreatic calcification Primary osteoarthritis of shoulder PVC (premature ventricular contraction) Rash Restless legs Rosacea Sciatica of left side Sexual disorder Stasis dermatitis Stress reaction Swelling of left lower extremity Syncope Testosterone deficiency Tinnitus Ulcer of right lower extremity with fat layer exposed Upper respiratory infection Wears contact lenses Wears hearing aid Witnessed apneic spells Home Medications atorvastatin 10 mg tablet 20 mg PO QHS 11/10/19 [History Last Taken Unknown] tramadol 100 mg tablet 50 mg PO PRN PRN Pain 10/15/20 [History Last Taken Unknown] acetaminophen 325 mg tablet (Tylenol) 650 mg PO Q6H PRN Pain 11/10/21 [History Last Taken Unknown] budesonide 3 mg capsule,delayed,extended release 9 mg PO DAILY 11/10/21 [History Last Taken 11/17/21] cholecalciferol (vitamin D3) 25 mcg (1,000 unit) tablet (Vitamin D3) 25 mcg PO DAILY 11/10/21 [History Last Taken Unknown] clonidine HCl 0.2 mg tablet 0.2 mg PO PRN PRN Blood Pressure 11/10/21 [History Last Taken Unknown] coenzyme Q10 100 mg capsule (CoQ-10) 100 mg PO DAILY 11/10/21 [History Last Taken Unknown] famotidine 20 mg tablet (Pepcid) 20 mg PO PRN PRN GERD 11/10/21 [History Last Taken 11/17/21] fluticasone propionate 50 mcg/actuation nasal spray,suspension (Flonase Allergy Relief) 1 spray intranasal DAILY 11/10/21 [History Last Taken Unknown] labetalol 200 mg tablet 200 mg PO TID 11/10/21 [History Last Taken 11/17/21] lactobacillus combination no.4 3 billion cell capsule (Probiotic) 3,000 mmu cells PO DAILY 11/10/21 [History Last Taken Unknown] losartan 100 mg tablet 100 mg PO QHS 11/10/21 [History Last Taken Unknown] omega-3 fatty acids 1,000 mg PO DAILY 11/10/21 [History Last Taken Unknown] ropinirole 0.25 mg tablet 0.25 mg PO QHS 11/10/21 [History Last Taken Unknown] saw palmetto 160 mg capsule 320 mg PO DAILY 11/10/21 [History Last Taken Unknown] tamsulosin 0.4 mg capsule 0.4 mg PO QHS 11/10/21 [History Last Taken Unknown] vitamin B complex 1 cap PO DAILY 11/10/21 [History Last Taken Unknown] zinc 50 mg capsule 50 mg PO DAILY 11/10/21 [History Last Taken Unknown] allopurinol 100 mg tablet 100 mg PO DAILY 02/27/22 [History Last Taken Unknown] amlodipine 10 mg tablet 10 mg PO DAILY 02/27/22 [History Last Taken Unknown] hydrochlorothiazide 12.5 mg capsule 12.5 mg PO DAILY 02/27/22 [History Last Taken Unknown] prednisone 2.5 mg tablet 2.5 mg PO Q OTHER DAY 02/27/22 [History Last Taken Unknown] triamcinolone acetonide 0.5 % topical cream 1 applic topical DAILY 02/27/22 [History Last Taken Unknown] ascorbic acid (vitamin C) 250 mg tablet 250 mg PO DAILY 03/10/22 [History Last Taken Unknown] ferrous sulfate 325 mg (65 mg iron) tablet 325 mg PO DAILY 03/10/22 [History Last Taken Unknown] Allergy/AdvReac Type Severity Reaction Status Date / Time azithromycin Allergy Other Verified 05/02/22 16:03 Latex, Natural Rubber Allergy Itching Verified 05/02/22 16:03 shellfish derived AdvReac Unknown Verified 05/02/22 16:03 mushrooms Allergy Unknown Other Uncoded 05/02/22 16:03 MYCINS AdvReac AFFECTS Uncoded 05/02/22 16:03 HEARING Family History (Updated 03/03/22 @ 09:25 by Katiuska Lu) Aunt Breast cancer Mother Breast cancer Surgical History History of release of tendon Hx of colonoscopy with polypectomy Hx of left knee surgery Social History household members: spouse Smoking Status: Never smoker ROS ROS ED Constitutional Constitutional ED: Denies chills or fever(s) Eyes Eyes: Denies blurry vision or change in vision ENT ENT ED: Denies rhinorrhea or sore throat Cardiovascular Cardiovascular: Reports palpitations; Denies chest pain Respiratory/Chest Respiratory/Chest: Denies cough or dyspnea Gastrointestinal Gastrointestinal: Denies nausea or vomiting Genitourinary Genitourinary ED: Reports urinary frequency; Denies dysuria or hematuria Musculoskeletal Musculoskeletal: Denies back pain or neck pain Integumentary Denies abscess or rash Neurologic Neurologic: Denies headache(s) or weakness Allergic/Immunologic Allergic/Immunologic ED: Denies mouth swelling or urticaria EXAM Physical Exam Const Vital Signs: 05/02/22 16:06 05/02/22 16:03 05/02/22 16:30 Temperature 97.8 F Temperature Source Temporal Pulse Rate 78 129 H Respiratory Rate 16 Respiratory Effort Normal Non-Labored Blood Pressure 137/78 H Blood Pressure Mean 97 Pulse Ox 99 Oxygen Delivery Method Room Air 05/02/22 16:58 05/02/22 18:03 Temperature Temperature Source Pulse Rate 85 Respiratory Rate 16 Respiratory Effort Blood Pressure 157/82 H Blood Pressure Mean 107 Pulse Ox 99 100 Oxygen Delivery Method Room Air Room Air Positive well nourished and well developed General Appearance ED: well developed HEENT Reports moist mucous membranes Neck supple and no JVD Resp normal respiratory effort and clear to auscultation bilaterally Cardio regular rate and regular rhythm Rate: tachycardic GI normal to inspection, nondistended, normoactive bowel sounds and non-tender Palpation: soft Extremity normal to inspection General Extremety ED: Negative for edema or tenderness General Extremity: Negative for edema Neuro oriented x3, CN's II-XII intact bilaterally and no sensory deficits noted Sensorium / Orientation: alert Motor Exam: strength 5/5 throughout Psych mental status grossly normal Skin no rashes or lesions noted MDM MDM MDM Narrative Medical decision making narrative: Patient was given aspirin. EKG was obtained initially. On my interpretation, it showed a wide-complex tachycardia with a rate of 127. QRS interval was 124 ms. QTc interval was 4 9 9 ms. There is left axis deviation at -62. There is a left anterior fascicular block pattern noted. There is left ventricular hypertrophy noted. There are no acute ST or T wave changes noted. Portable 1 view chest x-ray was obtained. On my interpretation, lung paul are clear. There is normal cardiac silhouette. Bony thorax is normal. There is no acute process noted. Radiologist also interpreted the x-ray and agrees. CBC was obtained and was reviewed. There is a mild anemia with a hemoglobin of 11.8 and hematocrit 36.7. Basic metabolic profile was also obtained and was reviewed. BUN was slightly elevated at 32. Creatinine was normal at 1.27. Electrolytes were within normal limits. Glucose was slightly elevated at 178. High- sensitivity troponin was obtained and was reviewed and was normal at 17. D- dimer was obtained and was 0.68. This is normal when adjusted for age. Patient was ordered Cardizem bolus because while he was on the monitor he had an episode where his heart rate slowed and it appeared to be atrial fibrillation. However prior to administering the Cardizem, the patient converted to a normal sinus rhythm. Repeat EKG was obtained. On my interpretation, it shows a sinus rhythm with a first-degree AV block with a rate of 70. RI interval was approximately 220 ms. QRS interval was 126 ms. QTc interval was normal at 434 ms. There is still left axis deviation at -52. There are no acute ST or T wave changes. There is persistent LVH noted. Patient is feeling better on reevaluation. Patient wants to go home. Since he has been in a normal sinus rhythm at this time, I feel he can be safely discharged home. Patient was instructed to continue to monitor his heart rate. Patient was instructed return if worse in any way. Patient understood and was agreeable with the plan. All questions were answered. Lab Data Attestation: I reviewed the patient's lab results. Labs: Laboratory Results - last 24 hr 05/02/22 05/02/22 05/02/22 16:27 16:27 16:27 WBC 9.3 RBC 3.77 L Hgb 11.8 L Hct 36.7 L MCV 97.3 H MCH 31.3 MCHC 32.2 RDW Std Deviation 50.2 H RDW Coeff of Dennis 14.1 Plt Count 183 MPV 11.4 Immature Gran % (Auto) 0.400 Neut % (Auto) 75.3 H Lymph % (Auto) 12.6 L Taylor % (Auto) 10.5 H Eos % (Auto) 0.9 Baso % (Auto) 0.3 Absolute Neuts (auto) 7.0 Absolute Lymphs (auto) 1.18 Nucleated RBC % 0 D-Dimer Quant (PE/DVT) 0.68 H* Sodium 141 Potassium 3.9 Chloride 109 H Carbon Dioxide 26.0 Anion Gap 6 BUN 32 H Creatinine 1.27 Estim Creat Clear Calc 41.03 Est GFR (MDRD) Af Amer 70 Est GFR (MDRD) Non-Af 58 L BUN/Creatinine Ratio 25.2 H Glucose 178 H Calcium 8.9 Troponin I High Sens 17 Radiography Chest X-Ray - ED: 1 View, Read by ED Physician, Read by Radiologist and No Acute Disease Diagnostic Testing: Clinical Impression(s) from Imaging Studies Chest X-Ray 05/02/22 17:05 IMPRESSION: No acute cardiopulmonary disease. Electronically Signed: Yaya Su DO at 17:30 EST Reading Location ID and State: [facility] / [place] Tel [phone], Service support , EKG Initial EKG: Attestation: I personally reviewed and interpreted this EKG as follows: Interpretation: LAFB Comments: Wide-complex tachycardia with a rate of 127. QRS interval was slightly prolonged at 124 ms. There is left ventricular hypertrophy noted. There are no acute ST or T wave changes. Prior EKG tracings: available for review Prior: Unchanged (08/26/2018) Follow-up EKG: Attestation: I personally reviewed and interpreted this EKG as follows: Interpretation: Sinus Rhythm (70) and No Acute Injury Pattern Prior EKG tracings: available for review Prior: Unchanged Discharge Plan Triage Chief Complaint: Chest Other ED Provider: Krish Starks Dx/Rx/DC Orders Clinical Impression: Paroxysmal atrial fibrillation, Hypertension Instructions: ED AFIB, ED About Arrhythmias Prescriptions: No Action hydrochlorothiazide 12.5 mg capsule 12.5 mg PO DAILY amlodipine 10 mg tablet 10 mg PO DAILY prednisone 2.5 mg tablet 2.5 mg PO Q OTHER DAY allopurinol 100 mg tablet 100 mg PO DAILY triamcinolone acetonide 0.5 % cream 1 applic topical DAILY ferrous sulfate 325 mg (65 mg iron) tablet 325 mg PO DAILY ascorbic acid (vitamin C) 250 mg tablet 250 mg PO DAILY atorvastatin 10 MG tablet 20 mg PO QHS tramadol 100 mg Tablet 50 mg PO PRN PRN (Reason: Pain) acetaminophen [Tylenol] 325 mg Tablet 650 mg PO Q6H PRN (Reason: Pain) labetalol 200 mg Tablet 200 mg PO TID clonidine HCl 0.2 mg Tablet 0.2 mg PO PRN PRN (Reason: Blood Pressure) tamsulosin 0.4 mg Capsule 0.4 mg PO QHS ropinirole 0.25 mg Tablet 0.25 mg PO QHS Rx Instructions: administer 1-3 hours before bedtime saw palmetto 160 mg Capsule 320 mg PO DAILY Rx Instructions: give with food (meal/snack) budesonide 3 mg Capsule,Delayed,Extend.Release 9 mg PO DAILY fluticasone propionate [Flonase Allergy Relief] 50 mcg/actuation [place],Suspension 1 spray INTRANASAL DAILY Rx Instructions: administer into each nostril vitamin B complex Capsule 1 cap PO DAILY coenzyme Q10 [CoQ-10] 100 mg Capsule 100 mg PO DAILY Trade Oil Capsule 1,000 mg PO DAILY zinc 50 mg Capsule 50 mg PO DAILY cholecalciferol (vitamin D3) [Vitamin D3] 25 mcg (1,000 unit) Tablet 25 mcg PO DAILY Probiotic 3 billion cell Capsule 3,000 mmu cells PO DAILY Rx Instructions: administer with a meal losartan 100 MG tablet 100 mg PO QHS Label Comments: blood pressure famotidine [Pepcid] 20 mg Tablet 20 mg PO PRN PRN (Reason: GERD) Primary Care Provider: Daphney Dunn Referrals: Daphney Dunn MD [Primary Care Provider] - 3-5 Days Disposition Disposition: Home, Self Care
--- NOTE | 2022-05-02 16:55 | EKG12_ITS ---
Test Reason : CHANGE IN RYTH Blood Pressure : / mmHG Vent. Rate : 070 BPM Atrial Rate : 070 BPM P-R Int : 144 ms QRS Dur : 126 ms QT Int : 402 ms P-R-T Axes : 075 -52 008 degrees QTc Int : 434 ms Suspect unspecified pacemaker failure Sinus rhythm Abnormal ECG Confirmed by BLAINE GONGORA, ROHIT ([id number]), videotape editor JUAN MILLER ([id number]) on 05/04/2022 11:36:01 AM Referred By: PIERRE CHILEL Confirmed By:ROHIT VALLADARES MD
[2022-05-02 16:58] VITALS: O2SAT 99
--- NOTE | 2022-05-02 17:00 | EKG12_ITS ---
Test Reason : Blood Pressure : / mmHG Vent. Rate : 127 BPM Atrial Rate : 000 BPM P-R Int : 000 ms QRS Dur : 124 ms QT Int : 344 ms P-R-T Axes : 000 -62 096 degrees QTc Int : 499 ms Atrial tachycardia Left anterior fascicular block Left ventricular hypertrophy with QRS widening and repolarization abnormality ( R in aVL , Wilmer pr oduct , Romhilt-Disla ) Cannot rule out Septal infarct , age undetermined Abnormal ECG Confirmed by BLAINE GONGORA, ROHIT ([id number]), department editor JUAN MILLER ([id number]) on 05/04/2022 11:36:20 AM Referred By: Confirmed By:ROHIT VALLADARES MD
--- NOTE | 2022-05-02 17:05 | RAD_ITS ---
STUDY: X-RAY CHEST REASON FOR EXAM: Male, 81 years old. Chest pain. Pulse rate in 140s approximately 1 hour ago remaining rapid for 10 minutes and returned to normal range. Denies chest pain or history of atrial fibrillation. TECHNIQUE: Single AP portable view of the chest. COMPARISON: CT of the chest, December 11, 2020. FINDINGS: The lungs are clear and expanded. There is no demonstrated pleural abnormality. Normal size heart. Normal mediastinum and vamsi. Normal visualized pulmonary arteries. There is atherosclerotic calcification of the aortic arch with tortuosity. Normal visualized thoracic spine. A dorsal column stimulator seen over the lower thoracic spine. There is degenerative osteoarthritis of the bilateral shoulders. There is no demonstrated abnormality of the visualized soft tissue structures of the upper abdomen. RAD/Chest 1 View (Portable) IMPRESSION: No acute cardiopulmonary disease. Electronically Signed: Yaya Su DO at 17:30 EST ,
[2022-05-02 17:08] LABS: Absolute Lymphocyte Count 1.18 X10^3/uL (0.83-4.51); Basophil# 0.03 X10^3/uL; Basophil% 0.3 % (0-1); Eosinophil# 0.08 X10^3/uL; Eosinophils% 0.9 % (0-5); Hematocrit 36.7 % (40-54); Hemoglobin 11.8 g/dL (13.0-16.5); Lymphocyte # 1.18 X10^3/ul (0.83-4.51); Lymphocyte % 12.6 % (19-41); Mean Corp Hgb Conc 32.2 g/dL (32-36); Mean Corpuscular Hgb 31.3 pg (27.0-32.0); Mean Corpuscular Volume 97.3 fL (80-94); Mean Platelet Vol. 11.4 fl (6.2-12.0); Monocyte# 0.98 X10^3/uL; Monocyte% 10.5 % (0-10); NRBC Flagged by Analyzer 0 % (0-5); Neutrophil # 7.02 X10^3/uL (2.7-7.7); Neutrophil % 75.3 % (47-70); Platelet Count 183 K/mm3 (150-450); RBC Distribution Width CV 14.1 % (11.6-14.6); RBC Distribution Width SD 50.2 fl (35.1-43.9); Red Blood Count 3.77 M/mm3 (4.6-6.2); White Blood Count 9.3 K/mm3 (4.4-11.0)
[2022-05-02] MEDS: Aspirin 81 MG TAB.CHEW 324 MG PO (17:14)
[2022-05-02 17:26] LABS: Anion Gap 6 (5-15); BUN 32 mg/dL (7-18); BUN/Creat Ratio 25.2 RATIO (10-20); Calcium,Total 8.9 mg/dL (8.5-10.1); Chloride 109 mmol/L (98-107); Creatinine, Serum 1.27 mg/dL (0.70-1.30); EST Glomerular Filtration Rate 58 mL/min (>60); Est Glom Filt Rate - Afr Amer 70 mL/min (>60); Estimated Creatinine Clearance 41.03 ml/min; Glucose 178 mg/dL (74-106); Potassium 3.9 mmol/L (3.5-5.1); Sodium Level 141 mmol/L (136-145); Troponin-I HS (w/2H Reflex) 17 pg/mL (3.0-78.0)
[2022-05-02 18:03] VITALS: BP 157/82; PULSE 85; RESP 16; O2SAT 100
--- NOTE | 2022-05-02 18:16 | ED.RN ---
Pt noted to be in a regular rhythm on the monitor and HR 69. Dr. Bishop updated. New order to hold Cardizem.
[2022-05-02 18:42] LABS: D-Dimer Quantitative (DVT/PE) 0.68 FEU/ug/m (0.27-0.49)
[2022-05-02 19:00] VITALS: PULSE 69; RESP 15; O2SAT 98
[2022-05-02 19:02] LABS: Reflex Troponin-HS? (from REC) Y
== END 2022-05-02 19:12 | disposition home or self-care (01) ==
PROVIDERS: Emergency Provider Emergency Medicine; PCP Internal Medicine; Visit Provider Emergency Medicine
DX: I48.0 Paroxysmal atrial fibrillation (principal); I47.29 Other ventricular tachycardia; I10 Essential (primary) hypertension; R73.9 Hyperglycemia, unspecified; D64.9 Anemia, unspecified; E78.00 Pure hypercholesterolemia, unspecified; I44.4 Left anterior fascicular block; I44.0 Atrioventricular block, first degree; Z79.899 Other long term (current) drug therapy; Z79.52 Long term (current) use of systemic steroids
CPT/HCPCS: 71045; 80048; 84484; 85025; 85379; 93005; 96360; 99285; J7030; A4216

== ENCOUNTER → 2022-05-25 | Outpatient (CLI) | payer MEDICARE, OTHER, SELFPAY ==
--- NOTE | 2022-05-25 13:05 | ECHOD_ITS ---
Reason For Study: A. fib Procedure This was a 2D Doppler, Color Flow transthoracic echocardiogram. Exam performed in department. Left Ventricle Normal LV size. Mid cavitary false tendon noted. Mild concentric left ventricular hypertrophy. Left ventricular systolic function is normal. The estimated ejection fraction is 60 %. No regional wall motion abnormalities noted. Right Ventricle Normal RV size. Normal systolic function. Atria The left atrium is moderately enlarged. Normal right atrium. Mitral Valve Normal mitral valve. Mild (1+) eccentric mitral valve insufficiency. Tricuspid Valve Normal tricuspid valve. Mild to moderate (1-2+) tricuspid valve insufficiency. Pulmonary artery systolic pressure is 38 mmHg. Aortic Valve Trisinus/trileaflet aortic valve. Mild focal aortic valve calcification. Pulmonic Valve Normal pulmonic valve. Great Vessels Normal aortic root. The pulmonary artery is normal size. Normal inferior vena cava. Pericardium/Pleural No pericardial effusion. MMode/2D Measurements & Calculations LVIDd: 4.7 cm IVSd: 1.4 cm LVOT diam: 2.5 cm LVIDs: 2.8 cm LVPWd: 1.2 cm LVOT area: 4.8 cm2 RVDd: 3.7 cm FS: 40.1 % Ao root diam: 3.4 cm LAV(MOD-bp): 106.7 ml LVAd ap4: 34.5 cm2 LAV(MOD-bp) Indexed: 56.4 ml/m2 LVLd ap4: 8.5 cm LAV(MOD-sp2): 106.5 ml EDV(MOD-sp4): 116.0 ml LAV(MOD-sp4): 105.8 ml EDV(sp4-el): 118.6 ml LVAs ap4: 17.8 cm2 LVLs ap4: 7.2 cm ESV(MOD-sp4): 38.9 ml ESV(sp4-el): 37.2 ml EF(MOD-sp4): 66.5 % EF(sp4-el): 68.6 % LVAd ap2: 32.4 cm2 SV(MOD-sp4): 77.1 ml SV(MOD-sp2): 65.2 ml LVLd ap2: 8.1 cm EDV(MOD-sp2): 110.9 ml EDV(sp2-el): 110.4 ml LVAs ap2: 19.9 cm2 LVLs ap2: 7.6 cm ESV(MOD-sp2): 45.7 ml ESV(sp2-el): 44.4 ml EF(MOD-sp2): 58.8 % SV(sp4-el): 81.4 ml LA dimension(2D): 5.1 cm LA A4 area: 29.0 cm2 RA A4 area: 19.0 cm2 Time Measurements MV dec time: 0.19 sec Doppler Measurements & Calculations MV E max ben: 97.4 cm/sec Lat Peak E' Ben: 9.3 cm/sec Med Peak E' Ben: 5.2 cm/sec MV A max ben: 78.1 cm/sec E/E' lat: 10.4 E/E' med: 18.9 MV E/A: 1.2 Ao V2 max: 168.7 cm/sec LV V1 max: 120.5 cm/sec MV dec slope: 520.1 cm/sec2 Ao max P.4 mmHg LV V1 max P.8 mmHg Ao V2 mean: 118.5 cm/sec LV V1 mean P.1 mmHg Ao mean P.3 mmHg LV V1 mean: 81.0 cm/sec Ao V2 VTI: 32.9 cm LV V1 VTI: 25.6 cm AV (velocity ratio): 0.78 JADIEL(I,D): 3.8 cm2 JADIEL(V,D): 3.5 cm2 SV(LVOT): 123.8 ml PA V2 max: 119.7 cm/sec TR max ben: 290.9 cm/sec TR max P.9 mmHg ECHO/Echo Complete Interpretation Summary Normal LV size. Left ventricular systolic function is normal. The estimated ejection fraction is 60 %. The left atrium is moderately enlarged. Mild (1+) eccentric mitral valve insufficiency. Mild concentric left ventricular hypertrophy. Ordering Physician: Daphney Dunn Referring Physician: Daphney Dunn M.D. Performed By: Kalani Nunn RDCS
== END | disposition home or self-care (01) ==
LOC: CVS 13:04
PROVIDERS: PCP Internal Medicine; Visit Provider Internal Medicine
DX: I48.91 Unspecified atrial fibrillation (principal); R00.2 Palpitations
CPT/HCPCS: 93225; 93226; 93306

== ENCOUNTER → 2022-07-09 | Outpatient (CLI) | payer MEDICARE, OTHER, SELFPAY ==
--- NOTE | 2022-07-09 15:26 | STRESSREP ---
Stress Test Report Pharmacologic myocardial perfusion stress test. 82-year-old man with a history of atrial fibrillation Resting EKG demonstrates sinus bradycardia with a rate of 53 bpm. Resting blood pressure is 170/84 mmHg. 0.4 mg of regadenoson was infused per usual protocol followed by rapid intravenous saline flush injection. Continuous EKG monitoring was performed. The maximum heart rate was 62 bpm which was 44% of max impacted heart rate the maximum workload was 1 metabolic equivalent. At rest there were no ST or T wave changes noted to suggest ischemia and at peak infusion nonspecific ST changes were noted which did not meet the criteria for ischemia. No clinical angina is noted. The final blood pressure was 146/82 mmHg. Myocardial perfusion protocol. 14.1 mCi of technetium 99m sestamibi was injected at rest. 0.4 mg of regadenoson was infused per usual protocol. At peak infusion 43.8 mCi of technetium 99m sestamibi was injected stress images were obtained stress and rest images were reconstructed and compared in the short axis vertical long and horizontal long axis. Gated images were also obtained. Perfusion SPECT analysis: Review of the stress images demonstrate normal uptake of tracer noted in all areas of the myocardium. The resting images similar demonstrated normal uptake of tracer noted in all areas of the myocardium. No areas of reversibility are noted to suggest ischemia and no previous infarct is noted. Gated SPECT analysis: The gated ejection fraction is 61%. Conclusion: Normal pharmacologic myocardial perfusion stress test. Preserved ejection fraction.
== END | disposition home or self-care (01) ==
PROVIDERS: PCP Internal Medicine; Referring Provider Internal Medicine Cardiovascular Disease; Visit Provider Internal Medicine Cardiovascular Disease
DX: I48.91 Unspecified atrial fibrillation (principal); R94.31 Abnormal electrocardiogram [ECG] [EKG]
CPT/HCPCS: 78452; 93017; A9500; A4216; J2785

== ENCOUNTER → 2022-09-10 | Outpatient (CLI) | payer MEDICARE, OTHER, SELFPAY ==
--- NOTE | 2022-09-10 11:00 | BD_ITS ---
STUDY: DUAL ENERGY X-RAY ABSORPTIOMETRY / DXA REASON FOR EXAM: Male, 82 years old. [id number] TECHNIQUE: Bone Mineral Density (BMD) measurements of lumbar spine and left hip were obtained. COMPARISON: Comparison is made with prior study dated August 08, 2020. FINDINGS: Lumbar Spine (L1-L4): g/cm2 (1.188) / T-score (0.9) / Z-score (2.1) Findings are suggestive of normal bone density with a low fracture risk. Left Femur Total: g/cm2 (0.746) / T-score (-1.9) / Z-score (-0.9) Left Femoral Neck: g/cm2 (0.603) / T-score (-2.4) / Z-score (-0.9) The T-Scores on the most recent prior examination were: Lumbar Spine (L1-L4): There has been worsening of bone density since the previous examination. Left Femur Total: which represents an improvement of 3%. Right Femur Total: which represents an improvement of 3%. BD/Dexa Bone Density Study IMPRESSION: The patient is considered osteopenic as outlined below according to World Moise Organization (WHO) criteria with a high fracture risk. There has been improvement of bone density since the previous examination. Reference Information: The T-score is the number of standard deviations above or below the standard which is normal for young adults at their peak bone mineral density. The World Health Organization (WHO) interprets the T-scores as follows: Above -1 Normal bone density Between -1 and -2.5 Osteopenia Equal to / or below -2.5 Osteoporosis As a practical clinical guideline, osteopenia may be graded as follows: Mild -1 through -1.5 Moderate -1.6 through -2.0 Severe -2.1 through -2.4 The Z-score is the number of standard deviations above or below age-matched controls. A Z-score of less than -1.5 would be considered abnormal. References: 1. NIH Osteoporosis and Related Bone Diseases www osteo.org 2. International Society for Clinical Densitometry www iscd.org 3. National Osteoporosis Foundation www nof.org Electronically Signed: Demetri Green MD at 10:53 EDT ,
== END | disposition home or self-care (01) ==
LOC: OPBD 10:08
PROVIDERS: PCP Internal Medicine; Referring Provider Internal Medicine; Visit Provider Internal Medicine
DX: M81.0 Age-related osteoporosis without current pathological fracture (principal)
CPT/HCPCS: 77080

== ENCOUNTER → 2022-09-16 | Outpatient (CLI) | payer MEDICARE, OTHER, SELFPAY ==
[2022-09-16 13:41] LABS: Protein, Urine (Random) 23.4 mg/dL (<11.9); Protein:Creat Ratio 442 mg/g CRE (0-200)
[2022-09-16 13:53] LABS: Anion Gap 7 (5-15); BUN 34 mg/dL (7-18); BUN/Creat Ratio 24.6 RATIO (10-20); Calcium,Total 9.2 mg/dL (8.5-10.1); Chloride 106 mmol/L (98-107); Creatinine, Serum 1.38 mg/dL (0.70-1.30); EST Glomerular Filtration Rate 53 mL/min (>60); Est Glom Filt Rate - Afr Amer 64 mL/min (>60); Glucose 82 mg/dL (74-106); Potassium 3.7 mmol/L (3.5-5.1); Sodium Level 141 mmol/L (136-145)
== END | disposition home or self-care (01) ==
LOC: LAB 12:58
PROVIDERS: PCP Internal Medicine; Visit Provider Internal Medicine Nephrology
DX: N18.31 Chronic kidney disease, stage 3a (principal); R80.9 Proteinuria, unspecified
CPT/HCPCS: 36415; 80048; 82570; 84156

== ENCOUNTER → 2022-12-28 | Outpatient (CLI) | payer MEDICARE, OTHER, SELFPAY ==
[2022-12-28 15:18] LABS: ALB/GLOB Ratio 1.1 RATIO (0.9-2.4); AST(SGOT) 24 U/L (15-37); Alanine Aminotransfer ALT/SGPT 29 U/L (16-61); Albumin, Serum 3.2 g/dL (3.2-5.0); Alkaline Phosphatase 89 U/L (45-117); Anion Gap 8 (5-15); BUN 33 mg/dL (7-18); BUN/Creat Ratio 23.2 RATIO (10-20); Calcium,Total 11.3 mg/dL (8.5-10.1); Chloride 107 mmol/L (98-107); Cholesterol 122 mg/dL (200); Creatinine, Serum 1.42 mg/dL (0.70-1.30); EST Glomerular Filtration Rate 51 mL/min (>60); Est Glom Filt Rate - Afr Amer 62 mL/min (>60); Glucose 89 mg/dL (74-106); High Density Lipoprotein 45 mg/dL; Potassium 3.6 mmol/L (3.5-5.1); Protein, Total 6.2 g/dL (6.4-8.2); Sodium Level 143 mmol/L (136-145); Triglycerides 184 mg/dL; Very Low Density Lipoprotein 37 mg/dL (5-40)
== END | disposition home or self-care (01) ==
LOC: PAVLAB 14:40
PROVIDERS: Physician Assistant Medical; PCP Internal Medicine; Referring Provider Internal Medicine Cardiovascular Disease; Visit Provider Internal Medicine Cardiovascular Disease
DX: E78.5 Hyperlipidemia, unspecified (principal); I48.0 Paroxysmal atrial fibrillation
CPT/HCPCS: 36415; 80053; 80061

== ENCOUNTER 2023-12-16 10:00 | Emergency (ER) | payer MEDICARE, OTHER, SELFPAY ==
[2023-12-16 10:02] VITALS: BP 118/65; PULSE 56; RESP 17; TEMP 36.6; O2SAT 96; BMI 32.1
--- NOTE | 2023-12-16 10:10 | EKG12_ITS ---
Test Reason : DIZZINESS Blood Pressure : / mmHG Vent. Rate : 056 BPM Atrial Rate : 056 BPM P-R Int : 256 ms QRS Dur : 126 ms QT Int : 452 ms P-R-T Axes : 090 -51 003 degrees QTc Int : 436 ms Sinus bradycardia with 1st degree A-V block Left axis deviation Left ventricular hypertrophy with QRS widening ( R in aVL , Wilmer product ) Abnormal ECG Confirmed by Celestine Mustafa ([id number]), copy editor PAIGE YANEZ ([id number]) on 12/17/2023 8:17:31 AM Referred By: SINDHU/ANDI Confirmed By:Celestine Mustafa
[2023-12-16 11:01] VITALS: BP 134/66; PULSE 66; RESP 18; O2SAT 99
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
[2023-12-16 11:32] LABS: Absolute Lymphocyte Count 0.81 X10^3/uL (0.83-4.51); Absolute Neutrophil Count 6.5 X10^3/uL (2.0-7.7); Basophil# 0.03 X10^3/uL; Basophil% 0.4 % (0-1); Eosinophil# 0.17 X10^3/uL; Eosinophils% 2.1 % (0-5); Hematocrit 30.5 % (40-54); Hemoglobin 9.8 g/dL (13.0-16.5); Lymphocyte # 0.81 X10^3/ul (0.83-4.51); Lymphocyte % 9.9 % (19-41); Mean Corp Hgb Conc 32.1 g/dL (32-36); Mean Corpuscular Hgb 32.7 pg (27.0-32.0); Mean Corpuscular Volume 101.7 fL (80-94); Mean Platelet Vol. 11.5 fl (6.2-12.0); Monocyte# 0.65 X10^3/uL; Monocyte% 7.9 % (0-10); NRBC Flagged by Analyzer 0 % (0-5); Neutrophil % 79.2 % (47-70); Platelet Count 187 K/mm3 (150-450); RBC Distribution Width CV 13.9 % (11.6-14.6); RBC Distribution Width SD 51.8 fl (35.1-43.9); White Blood Count 8.2 K/mm3 (4.4-11.0)
[2023-12-16 11:46] LABS: ALB/GLOB Ratio 1.1 RATIO (0.9-2.4); AST(SGOT) 22 U/L (15-37); Alanine Aminotransfer ALT/SGPT 30 U/L (16-61); Albumin, Serum 3.2 g/dL (3.2-5.0); Alkaline Phosphatase 78 U/L (45-117); Anion Gap 10 (5-15); BUN 30 mg/dL (7-18); BUN/Creat Ratio 16.2 RATIO (10-20); Calcium,Total 9.4 mg/dL (8.5-10.1); Chloride 107 mmol/L (98-107); Creatinine, Serum 1.85 mg/dL (0.70-1.30); EST Glomerular Filtration Rate 37 mL/min (>60); Est Glom Filt Rate - Afr Amer 45 mL/min (>60); Estimated Creatinine Clearance 31.22 ml/min; Globulin 2.9 g/dL (2.2-4.2); Glucose 142 mg/dL (74-106); Potassium 3.7 mmol/L (3.5-5.1); Protein, Total 6.1 g/dL (6.4-8.2); Sodium Level 141 mmol/L (136-145); Troponin-I HS 18 pg/mL (3.0-78.0)
[2023-12-16 12:01] VITALS: BP 132/77; PULSE 63; RESP 18; O2SAT 99
[2023-12-16 12:14] VITALS: BP 140/60; BP 147/72; BP 153/73; PULSE 64; PULSE 68; PULSE 69
[2023-12-16] MEDS: 0.9% Normal Saline (1000mL) 1,000 ML 1000 ML IV (12:20)
[2023-12-16 12:42] LABS: Bacteria 0 SEEN /hpf (None Seen); Mucous, Urine 0 SEEN /hpf (<or=2+); Red Blood Cells-Urine 0 SEEN /hpf (0-5); Squamous Epithelial Cells - UA 0 SEEN /hpf (0-5); White Blood Cells 0 SEEN /hpf (0-5)
[2023-12-16 12:45] LABS: Color, Urine Yellow (Yellow); Glucose, Dipstick Normal (Normal); Ketone-Dipstick Negative (Negative); Leukocyte Esterase-Dipstick Negative /ul (Negative); Nitrite-Dipstick Negative (Negative); Occult Blood-Urine Negative /ul (Negative); Protein-Dipstick 100 mg/dl (Negative); Urine Bilirubin Dipstick Negative (Negative); Urine Clarity Clear (Clear); Urine Urobilinogen Normal (Normal); Urine pH 6.5 (5.0 - 8.0)
[2023-12-16 12:59] LABS: Hyaline Cast 0-5 SEEN /lpf (0-5)
[2023-12-16 13:00] VITALS: BP 129/82; PULSE 64; RESP 18; O2SAT 96
[2023-12-16 13:26] VITALS: BP 129/82; PULSE 64; RESP 18; TEMP 36.8; O2SAT 96
== END 2023-12-16 13:26 | disposition home or self-care (01) ==
PROVIDERS: Emergency Provider Emergency Medicine; PCP Internal Medicine; Visit Provider Emergency Medicine
DX: R55 Syncope and collapse (principal); I48.91 Unspecified atrial fibrillation; R42 Dizziness and giddiness; I10 Essential (primary) hypertension; I25.10 Atherosclerotic heart disease of native coronary artery without angina pectoris; Z79.01 Long term (current) use of anticoagulants; M10.9 Gout, unspecified; G25.81 Restless legs syndrome; Z79.899 Other long term (current) drug therapy
CPT/HCPCS: 80053; 81001; 84484; 85025; 93005; 96360; 99284; J7030; A4216

== ENCOUNTER → 2023-12-21 | Outpatient (CLI) | payer MEDICARE, OTHER, SELFPAY ==
[2023-12-21 12:28] LABS: Hematocrit 31.3 % (40-54); Hemoglobin 10.2 g/dL (13.0-16.5); Mean Corp Hgb Conc 32.6 g/dL (32-36); Mean Corpuscular Hgb 32.7 pg (27.0-32.0); Mean Corpuscular Volume 100.3 fL (80-94); Mean Platelet Vol. 11.4 fl (6.2-12.0); Platelet Count 181 K/mm3 (150-450); RBC Distribution Width CV 13.5 % (11.6-14.6); RBC Distribution Width SD 49.6 fl (35.1-43.9); Red Blood Count 3.12 M/mm3 (4.6-6.2); White Blood Count 8.3 K/mm3 (4.4-11.0)
[2023-12-21 12:43] LABS: Anion Gap 6 (5-15); BUN 33 mg/dL (7-18); BUN/Creat Ratio 20.5 RATIO (10-20); Calcium,Total 9.8 mg/dL (8.5-10.1); Chloride 106 mmol/L (98-107); Creatinine, Serum 1.61 mg/dL (0.70-1.30); EST Glomerular Filtration Rate 44 mL/min (>60); Est Glom Filt Rate - Afr Amer 53 mL/min (>60); Glucose 152 mg/dL (74-106); Sodium Level 139 mmol/L (136-145)
== END | disposition home or self-care (01) ==
LOC: LABSPEC 12:14
PROVIDERS: PCP Internal Medicine; Referring Provider Internal Medicine; Visit Provider Internal Medicine
DX: D64.9 Anemia, unspecified (principal); N28.9 Disorder of kidney and ureter, unspecified
CPT/HCPCS: 80048; 85027

== ENCOUNTER → 2024-01-05 | Outpatient (CLI) | payer MEDICARE, OTHER, SELFPAY ==
--- NOTE | 2024-01-05 12:50 | CDU_ITS ---
Reason For Study: Bilateral Carotid Stenosis Rt. Velocities/BP Lt. Velocities/BP Prox CCA 79.8/14.9 cm/sec. Prox CCA 108.9/14.5 cm/sec. Mid CCA 74.3/12.7 cm/sec. Mid CCA 70.7/14.2 cm/sec. Dist CCA 76.0/10.2 cm/sec. Dist CCA 75.6/14.2 cm/sec. Prox ICA 77.8/19.4 cm/sec. Prox ICA 61.7/16.7 cm/sec. Mid ICA 83.3/19.0 cm/sec. Mid ICA 88.5/28.0 cm/sec. Dist ICA 80.4/20.7 cm/sec. Dist ICA 80.4/20.7 cm/sec. Prox ECA 96.1/8.4 cm/sec. Prox ECA 119.8/10.2 cm/sec. Rt. Vert. 71.0/19.3 cm/sec. Lt. Vert. 58.4/14.2 cm/sec. Right Extracranial There is heterogeneous, irregular atherosclerotic plaque noted in the right common carotid artery. There is heterogeneous, irregular atherosclerotic plaque noted in the right internal carotid artery. There is intimal thickening but no significant atherosclerotic plaque noted in the right external carotid artery. Antegrade flow is noted in the right vertebral artery. Left Extracranial There is intimal thickening but no significant atherosclerotic plaque noted in the left common carotid artery. There is heterogeneous, irregular atherosclerotic plaque noted in the left internal carotid artery. There is intimal thickening but no significant atherosclerotic plaque noted in the left external carotid artery. Antegrade flow is noted in the left vertebral artery. Procedure Carotid Duplex 29128. This is a Carotid Duplex examination using B-mode, color flow and specral Doppler. The exam was diagnostic. Exam performed in department. VL/Carotid Duplex Ultrasound Interpretation Summary Mild (<50%) stenosis right extracranial internal carotid. Mild (<50%) stenosis left extracranial internal carotid. Patent and antegrade vertebrals bilaterally. Ordering Physician: Daphney Dunn Referring Physician: Daphney Dunn Performed By: Micha Gamez RVT
== END | disposition home or self-care (01) ==
LOC: PSN 08:51
PROVIDERS: PCP Internal Medicine; Referring Provider Internal Medicine; Visit Provider Internal Medicine
DX: R00.1 Bradycardia, unspecified (principal); I65.23 Occlusion and stenosis of bilateral carotid arteries
CPT/HCPCS: 93225; 93226; 93880

== ENCOUNTER 2024-01-19 11:31 | Emergency (ER) | payer MEDICARE, OTHER, SELFPAY ==
[2024-01-19 11:33] VITALS: BP 109/58; PULSE 58; RESP 16; TEMP 35.7; O2SAT 98; BMI 31.7
--- NOTE | 2024-01-19 11:45 | ED.RN ---
PT HAD EPISODE OF LIGHTHEADEDNESS AND SEEING SPOTS SHORTLY AFTER A WORK OUT WHILE DRINKING COFFEE. STATES SYMPTOMS HAVE NOW RESOLVED. STATES HIS COLOR LOOKS BETTER THAN IT DID
--- NOTE | 2024-01-19 11:53 | EKG12_ITS ---
Test Reason : Blood Pressure : / mmHG Vent. Rate : 059 BPM Atrial Rate : 059 BPM P-R Int : 228 ms QRS Dur : 120 ms QT Int : 430 ms P-R-T Axes : 145 -31 -25 degrees QTc Int : 425 ms Unusual P axis, possible ectopic atrial bradycardia Left axis deviation Pulmonary disease pattern Left ventricular hypertrophy with QRS widening ( R in aVL , [place] product ) Abnormal ECG Confirmed by BLAINE GONGORA, ROHIT ([id number]), loan expeditor JUAN MILLER ([id number]) on 01/21/2024 11:48:07 AM Referred By: Kyree Bowden Confirmed By:ROHIT VALLADARES MD
--- NOTE | 2024-01-19 12:04 | EX.ED.DYSGE1 ---
HPI History of Present Illness Chief Complaint: Hypotension Informant: patient and spouse/S.O. Narrative Narrative: Recommended to come for evaluation while he was at [facility]. He was doing his 40-minute exercise. He sat down 15 minutes afterwards he felt lightheaded symptoms. No prodrome chest pains or shortness of breath. Blood pressure in the 100s. He denies recent cough or recent vomiting or diarrhea. Did not drink much water during his exercise. History of paroxysmal A-fib on Eliquis. 2 weeks ago similar presentation where he passed out. He was worked up in the ED stable discharge. He follow-up with his PCP outpatient Holter monitor along with carotid ultrasounds was performed. He denies any urinary symptoms. 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 Testosterone deficiency Malnutrition Hypomagnesemia Dehydration Alcohol abuse, in remission Dysthymia Stress reaction Sexual disorder Hypersomnia KJ (obstructive sleep apnea) Hearing loss of right ear due to cerumen impaction Hearing loss Tinnitus Essential hypertension Coronary artery disease (CAD) excluded PVC (premature ventricular contraction) Carotid stenosis Stasis dermatitis Allergic rhinitis IBS (irritable bowel syndrome) Pancreatic calcification Rosacea Lentigo Gout, arthritis Primary osteoarthritis of shoulder Degenerative disc disease Sciatica of left side Myalgia Osteoporosis Neuropathy Witnessed apneic spells Guaiac positive stools Leg edema Impaired fasting glucose Non-healing wound of lower extremity Abnormal glucose Fatigue BPH with urinary obstruction Lung nodule Fracture of cervical vertebra, C7 Bilateral lower extremity edema Swelling of left lower extremity Ulcer of right lower extremity with fat layer exposed Wears hearing aid Wears contact lenses Depression Anxiety Alcohol use Rash History of steroid therapy Arthritis Bladder disease History of renal disease Anemia Back pain Injury of head and neck Syncope Restless legs Migraine headache Colitis Heartburn Non-smoker History of pain when walking History of edema History of stress test Pain History of trigger finger Hx of pleural effusion Venous ulcer with fat layer exposed Venous ulcer of right lower extremity with varicose veins Pyoderma gangrenosum Wound of lower extremity Ulcer of right choudhary with fat layer exposed Nonhealing nonsurgical wound with fat layer exposed Hemothorax, left Acute respiratory insufficiency Alcohol intoxication Fracture of rib with flail chest Multiple injuries due to trauma Home Medications ?Medication ?Instructions ?Recorded ?Last Taken ?Type lactobacillus combination no.4 3 3,000 mmu cells PO DAILY 11/10/21 Unknown History billion cell capsule (Probiotic) ropinirole 0.25 mg tablet 0.25 mg PO QHS 11/10/21 Unknown History vitamin B complex 1 cap PO DAILY 11/10/21 Unknown History triamcinolone acetonide 0.5 % 1 applic topical DAILY 02/27/22 Unknown History topical cream allopurinol 100 mg tablet 100 mg PO BID 06/16/22 Unknown History amlodipine 10 mg tablet 5 mg PO DAILY 06/16/22 Unknown History cholecalciferol (vitamin D3) 125 125 mcg PO DAILY 06/16/22 Unknown History mcg (5,000 unit) capsule clonidine HCl 0.2 mg tablet 0.2 mg PO BID PRN Blood Pressure 06/16/22 Unknown History coenzyme Q10 200 mg capsule 200 mg PO DAILY 06/16/22 Unknown History folic acid 1 mg tablet 1 mg PO DAILY 06/16/22 Unknown History magnesium oxide 400 mg PO DAILY 06/16/22 Unknown History melatonin 10 mg tablet 10 mg PO HS 06/16/22 Unknown History methylsulfonylmethane 1,000 mg 1,000 mg PO DAILY 06/16/22 Unknown History capsule (MSM) multivitamin 1 tab PO DAILY 06/16/22 Unknown History potassium and sodium monobasic 1 tab PO DAILY 06/16/22 Unknown History phosphate 305 mg-700 mg tablet (K-Phos No 2) saw palmetto 160 mg capsule 160 mg PO DAILY 06/16/22 Unknown History tamsulosin 0.4 mg capsule 0.8 mg PO QHS 06/16/22 Unknown History tramadol 100 mg tablet 50 mg PO TID PRN Pain 06/16/22 Unknown History fluticasone propionate 50 2 spray intranasal DAILY 06/25/22 Unknown History mcg/actuation nasal spray,suspension (Flonase Allergy Relief) hydrochlorothiazide 12.5 mg tablet 12.5 mg PO DAILY PRN fluid 06/25/22 Unknown History retention losartan 100 mg tablet 100 mg PO QPM 06/25/22 Unknown History turmeric root extract 500 mg See Rx Instructions PO DAILY 06/25/22 Unknown History capsule omeprazole 20 mg tablet,delayed 20 mg PO BID 05/11/23 Unknown History release apixaban 5 mg tablet (Eliquis) 5 mg PO BID #1 TAB 06/01/23 Unknown Rx sildenafil 50 mg tablet 50 mg PO DAILY 07/06/23 Unknown History labetalol 200 mg tablet 100 mg PO TID 12/22/23 Unknown History prednisone 5 mg tablet 5 mg PO QDAY 01/04/24 Unknown History Allergy/AdvReac Type Severity Reaction Status Date / Time azithromycin Allergy Other Verified 01/19/24 11:32 edwards Allergy NEEDS Verified 01/19/24 11:32 FOLLOW-UP Food Allergies: Uncoded Allergy NEEDS Verified 01/19/24 11:32 FOLLOW-UP Latex, Natural Rubber Allergy Itching Verified 01/19/24 11:32 erythromycin base (From AdvReac effects Verified 01/19/24 11:32 E-Mycin) hearing shellfish derived AdvReac Unknown Verified 01/19/24 11:32 Family History Aunt Breast cancer Mother Breast cancer Brother Lung cancer Alzheimer disease Aunt Breast cancer Father Lung cancer Son Celiac disease Surgical History H/O cataract removal with insertion of prosthetic lens History of radiofrequency ablation (RFA) of nerve of lumbar spine History of colonoscopy S/P placement of nerve stimulator (11/17/21) Hx of colonoscopy with polypectomy History of release of tendon Hx of left knee surgery Social History household members: spouse Smoking Status: Never smoker alcohol intake: current alcohol intake frequency: a few times a week substance use type: does not use caffeine: Yes what type of physical activity do you participate in: none florencia/anabaptism: Non-Moravian/Independent additional social history: Not kosher but no pork d/t judal law. ROS ROS ED Constitutional Constitutional ED: Denies chills, fever(s) or sweats Eyes Eyes: Denies change in vision ENT ENT ED: Denies dysphagia or sore throat Cardiovascular Cardiovascular: Reports other Details: Near syncope ; Denies chest pain, leg edema, palpitations or racing heartbeat Respiratory/Chest Respiratory/Chest: Denies cough, dyspnea or dyspnea on exertion Gastrointestinal Gastrointestinal: Denies abdominal pain, diarrhea, nausea or vomiting Genitourinary Genitourinary ED: Denies dysuria, hematuria or urinary frequency Musculoskeletal Musculoskeletal: Denies back pain, extremity pain or neck pain Integumentary Denies rash or wounds Neurologic Neurologic: Denies headache(s), paresthesias or weakness EXAM Physical Exam Const Vital Signs: 01/19/24 11:33 01/19/24 11:44 01/19/24 13:32 Temperature 96.3 F L Temperature Source Temporal Pulse Rate 58 L 63 Respiratory Rate 16 18 Respiratory Effort Normal Respiratory Pattern Normal Blood Pressure 109/58 L 156/69 H Blood Pressure Mean 75 98 Pulse Ox 98 95 Oxygen Delivery Method Room Air Room Air 01/19/24 13:46 Temperature 98.2 F Temperature Source Pulse Rate 67 Respiratory Rate 18 Respiratory Effort Respiratory Pattern Blood Pressure 136/69 H Blood Pressure Mean 91 Pulse Ox 99 Oxygen Delivery Method Positive well nourished and well developed General Appearance ED: well developed and NAD HEENT Reports moist mucous membranes normocephalic and atraumatic Eyes EOMs intact bilaterally and conjunctivae normal General Eye ED: Yes normal appearance of both eyes Neck no lymphadenopathy and supple General: Negative for tenderness Chest Wall Chest: Negative for tenderness Resp normal respiratory effort and normal air movement Effort and Inspection: symmetric chest movement; Negative for respiratory distress Cardio regular rhythm and no murmurs Rate: bradycardia Peripheral Pulses: pulses 2+ throughout GI normal to inspection, nondistended, normoactive bowel sounds and non-tender Palpation: Negative for guarding or rebound tenderness present Back/Spine no CVA tenderness and no thoracic nor lumbar tenderness Extremity normal to inspection General Extremety ED: Negative for edema or tenderness General Extremity: Negative for edema Neuro oriented x3, CN's II-XII intact bilaterally and no sensory deficits noted Sensorium / Orientation: awake and alert Skin no rashes or lesions noted and no wounds MDM MDM MDM Narrative Medical decision making narrative: Interventions / MDM: Differential diagnosis: Near syncope Diagnosis considered but do not suspect: N/A My EKG interpretation: Sinus bradycardia rate of 59, no ST or T wave changes. QTc 425. Imaging independently reviewed and interpreted by myself: N/A External documents reviewed: 01/05/2024 Holter monitor 48 hours noted occasional PACs and PVCs maximal heart rate 117. There is no A-fib. Carotid ultrasounds minimal carotid disease bilaterally. Test considered but not ordered:N/A ED course: Patient currently asymptomatic vital signs stable slight bradycardia. He is on labetalol with his paroxysmal A-fib. EKG sinus rhythm. Will check basic labs, she fluids will be given. Will reevaluate. Labs stable anemia and stable chronic kidney disease. Reevaluated was stable. Ambulate with no difficulties. Discharged outpatient follow-up with return precautions. All questions answered. Re-evaluation: stable Disposition discussed with patient/family/significant other: Patient and significant other. Case discussed with consulting clinician: N/A This note was generated with [employer] dictation software. It may contain incorrect words, spelling, and punctuation that were not noted in checking the note before signing. Lab Data Attestation: I reviewed the patient's lab results. Labs: Laboratory Results - last 24 hr 01/19/24 11:59 WBC 8.8 RBC 2.70 L Hgb 8.9 L Hct 27.2 L MCV 100.7 H MCH 33.0 H MCHC 32.7 RDW Std Deviation 48.8 H RDW Coeff of Dennis 13.3 Plt Count 173 MPV 10.5 Immature Gran % (Auto) 0.800 Neut % (Auto) 80.8 H Lymph % (Auto) 9.0 L Mcminn % (Auto) 8.3 Eos % (Auto) 0.8 Baso % (Auto) 0.3 Absolute Neuts (auto) 7.1 Absolute Lymphs (auto) 0.79 L Nucleated RBC % 0 Sodium 140 Potassium 4.2 Chloride 110 H Carbon Dioxide 26.0 Anion Gap 5 BUN 54 H Creatinine 1.42 H Estim Creat Clear Calc 39.84 Est GFR (MDRD) Af Amer 61 Est GFR (MDRD) Non-Af 51 L BUN/Creatinine Ratio 38.0 H Glucose 149 H Calcium 8.9 Discharge Plan Triage Chief Complaint: Hypotension ED Provider: Kyree Bowden Dx/Rx/DC Orders Clinical Impression: Near syncope, Anemia, Chronic kidney disease Instructions: Anemia, ED Chronic Kidney Disease (CKD), ED Near-Fainting, Uncertain Cause Prescriptions: No Action triamcinolone acetonide 0.5 % cream 1 applic topical DAILY amlodipine 10 mg tablet 5 mg PO DAILY allopurinol 100 mg tablet 100 mg PO BID hydrochlorothiazide 12.5 mg tablet 12.5 mg PO DAILY PRN (Reason: fluid retention) Patient Comments: take 1 tablet by mouth once daily if needed for SWELLING turmeric root extract 500 mg capsule See Rx Instructions PO DAILY Rx Instructions: Take 2-3 capsules orally daily; folic acid 1 mg tablet 1 mg PO DAILY coenzyme Q10 200 mg capsule 200 mg PO DAILY cholecalciferol (vitamin D3) 125 mcg (5,000 unit) capsule 125 mcg PO DAILY magnesium oxide 400 mg magnesium tablet 400 mg PO DAILY K-Phos No 2 305-700 mg tablet 1 tab PO DAILY multivitamin Tablet 1 tab PO DAILY methylsulfonylmethane [MSM] 1,000 mg capsule 1,000 mg PO DAILY melatonin 10 mg tablet 10 mg PO HS omeprazole 20 mg tablet,delayed release (DR/EC) 20 mg PO BID sildenafil 50 mg tablet 50 mg PO DAILY Rx Instructions: administer 30 minutes to 4 hours before activity prednisone 5 mg tablet 5 mg PO QDAY tramadol 100 mg tablet 50 mg PO TID PRN (Reason: Pain) ropinirole 0.25 mg Tablet 0.25 mg PO QHS Rx Instructions: administer 1-3 hours before bedtime vitamin B complex Capsule 1 cap PO DAILY Probiotic 3 billion cell Capsule 3,000 mmu cells PO DAILY Rx Instructions: administer with a meal tamsulosin 0.4 mg capsule 0.8 mg PO QHS clonidine HCl 0.2 mg tablet 0.2 mg PO BID PRN (Reason: Blood Pressure) Rx Instructions: When BP greater than 140/90. saw palmetto 160 mg capsule 160 mg PO DAILY Rx Instructions: give with food (meal/snack) losartan 100 mg tablet 100 mg PO QPM Patient Comments: blood pressure fluticasone propionate [Flonase Allergy Relief] 50 mcg/actuation spray,suspension 2 spray INTRANASAL DAILY Rx Instructions: administer into each nostril Eliquis 5 mg tablet 5 mg PO BID Qty: 1 0RF labetalol 200 mg tablet 100 mg PO TID Primary Care Provider: Daphney Dunn Referrals: Daphney Dunn MD [Primary Care Provider] - Activity Restrictions/Additional Instructions: EKG sinus rhythm. Hemoglobin 8.9 today. Your creatinine 1.42. Review of your carotid ultrasound normal. Your Holter monitor was negative. Continue oral fluids for hydration. Follow-up your doctor. If you develop recurrent symptoms, return to the ED for reevaluation. Print Language: Upper Sorbian Disposition Disposition: Home, Self Care Discharge Date/Time: 01/19/24 13:53
[2024-01-19] MEDS: 0.9% Normal Saline (500mL Bag) 500 ML 1000 ML IV (12:11)
[2024-01-19 12:14] LABS: Absolute Lymphocyte Count 0.79 X10^3/uL (0.83-4.51); Absolute Neutrophil Count 7.1 X10^3/uL (2.0-7.7); Basophil# 0.03 X10^3/uL; Basophil% 0.3 % (0-1); Eosinophil# 0.07 X10^3/uL; Eosinophils% 0.8 % (0-5); Hematocrit 27.2 % (40-54); Hemoglobin 8.9 g/dL (13.0-16.5); Lymphocyte # 0.79 X10^3/ul (0.83-4.51); Mean Corp Hgb Conc 32.7 g/dL (32-36); Mean Corpuscular Volume 100.7 fL (80-94); Mean Platelet Vol. 10.5 fl (6.2-12.0); Monocyte# 0.73 X10^3/uL; Monocyte% 8.3 % (0-10); NRBC Flagged by Analyzer 0 % (0-5); Neutrophil # 7.06 X10^3/uL (2.7-7.7); Neutrophil % 80.8 % (47-70); Platelet Count 173 K/mm3 (150-450); RBC Distribution Width CV 13.3 % (11.6-14.6); RBC Distribution Width SD 48.8 fl (35.1-43.9); White Blood Count 8.8 K/mm3 (4.4-11.0)
[2024-01-19 12:21] LABS: Anion Gap 5 (5-15); BUN 54 mg/dL (7-18); Calcium,Total 8.9 mg/dL (8.5-10.1); Chloride 110 mmol/L (98-107); Creatinine, Serum 1.42 mg/dL (0.70-1.30); EST Glomerular Filtration Rate 51 mL/min (>60); Est Glom Filt Rate - Afr Amer 61 mL/min (>60); Estimated Creatinine Clearance 39.84 ml/min; Glucose 149 mg/dL (74-106); Potassium 4.2 mmol/L (3.5-5.1); Sodium Level 140 mmol/L (136-145)
[2024-01-19 13:32] VITALS: BP 156/69; PULSE 63; RESP 18; O2SAT 95
[2024-01-19 13:46] VITALS: BP 136/69; PULSE 67; RESP 18; TEMP 36.8; O2SAT 99
== END 2024-01-19 13:53 | disposition home or self-care (01) ==
PROVIDERS: Emergency Provider Emergency Medicine; PCP Internal Medicine; Referring Provider Emergency Medicine; Visit Provider Emergency Medicine
DX: I95.9 Hypotension, unspecified (principal); I48.0 Paroxysmal atrial fibrillation; R55 Syncope and collapse; I12.9 Hypertensive chronic kidney disease with stage 1 through stage 4 chronic kidney disease, or unspecified chronic kidney disease; I25.10 Atherosclerotic heart disease of native coronary artery without angina pectoris; D64.9 Anemia, unspecified; N18.9 Chronic kidney disease, unspecified; Z79.01 Long term (current) use of anticoagulants; G25.81 Restless legs syndrome; M10.9 Gout, unspecified; Z79.899 Other long term (current) drug therapy; N40.0 Benign prostatic hyperplasia without lower urinary tract symptoms
CPT/HCPCS: 80048; 85025; 93005; 96360; 99284; J7030; A4216

== ENCOUNTER → 2024-02-01 | Outpatient (CLI) | payer MEDICARE, OTHER, SELFPAY ==
[2024-02-01 12:50] LABS: Hemoglobin 8.8 g/dL (13.0-16.5); Mean Corp Hgb Conc 31.4 g/dL (32-36); Mean Corpuscular Hgb 32.5 pg (27.0-32.0); Mean Corpuscular Volume 103.3 fL (80-94); Mean Platelet Vol. 10.9 fl (6.2-12.0); Platelet Count 205 K/mm3 (150-450); RBC Distribution Width CV 14.6 % (11.6-14.6); RBC Distribution Width SD 55.2 fl (35.1-43.9); Red Blood Count 2.71 M/mm3 (4.6-6.2); White Blood Count 6.9 K/mm3 (4.4-11.0)
[2024-02-01 12:54] LABS: Ferritin 639 ng/mL (26-388); Iron 63 ug/dL (65-175)
== END | disposition home or self-care (01) ==
LOC: MTLAB 10:44
PROVIDERS: PCP Internal Medicine; Referring Provider Internal Medicine Gastroenterology; Visit Provider Internal Medicine Gastroenterology
DX: D50.9 Iron deficiency anemia, unspecified (principal)
CPT/HCPCS: 36415; 82728; 83540; 85027

== ENCOUNTER → 2025-02-28 | Outpatient (CLI) | payer MEDICARE, OTHER, SELFPAY ==
[2025-02-28 10:59] LABS: Hematocrit 34.0 % (40-54); Hemoglobin 11.3 g/dL (13.0-16.5); Immature Granulocytes Count 0.040 X10^3/uL (0.0-0.0); Mean Corp Hgb Conc 33.2 g/dL (32-36); Mean Corpuscular Volume 94.2 fL (80-94); Mean Platelet Vol. 9.8 fl (6.2-12.0); NRBC Flagged by Analyzer 0 % (0-5); Platelet Count 197 K/mm3 (150-450); RBC Distribution Width CV 13.5 % (11.6-14.6); RBC Distribution Width SD 46.6 fl (35.1-43.9); Red Blood Count 3.61 M/mm3 (4.6-6.2); White Blood Count 7.9 K/mm3 (4.4-11.0)
[2025-02-28 12:01] LABS: AST(SGOT) 37 U/L (<=37); Alanine Aminotransfer ALT/SGPT 28 U/L (<=46); Albumin, Serum 4.0 g/dL (3.4-4.8); Alkaline Phosphatase 89 U/L (40-129); Anion Gap 10 (5-15); BUN 27 mg/dL (4-19); BUN/Creat Ratio 17.7 RATIO (10-20); Calcium,Total 9.8 mg/dL (7.6-11.0); Carbon Dioxide 27.3 mmol/L (21.0-32.0); Chloride 102 mmol/L (98-108); Globulin 2.4 g/dL (2.2-4.2); Glucose 135 mg/dL (70-99); Potassium 4.2 mmol/L (3.3-5.1); Vitamin D,25 Hydroxy 71.1 ng/mL (30-100)
[2025-02-28 12:10] LABS: Creatinine, Urine (random) 37.20 mg/dL (39.00-259.00); Microalbumin,Random Urine 381.0 mg/L (<20 mg/L)
== END | disposition home or self-care (01) ==
PROVIDERS: PCP Internal Medicine; Referring Provider Internal Medicine; Visit Provider Internal Medicine
DX: I10 Essential (primary) hypertension (principal); E55.9 Vitamin D deficiency, unspecified
CPT/HCPCS: 36415; 80053; 82043; 82306; 82570; 85025

== ENCOUNTER → 2025-04-04 | Outpatient (CLI) | payer MEDICARE, OTHER, SELFPAY ==
[2025-04-04 13:19] LABS: Anion Gap 12 (5-15); BUN 31 mg/dL (4-19); BUN/Creat Ratio 20.6 RATIO (10-20); Calcium,Total 9.8 mg/dL (7.6-11.0); Carbon Dioxide 25.7 mmol/L (21.0-32.0); Chloride 104 mmol/L (98-108); Glucose 141 mg/dL (70-99); Potassium 4.3 mmol/L (3.3-5.1)
[2025-04-04 13:24] LABS: Creatinine, Urine (random) 91.30 mg/dL (39.00-259.00)
[2025-04-04 13:36] LABS: Microalbumin,Random Urine 641.0 mg/L (<20 mg/L)
== END | disposition home or self-care (01) ==
LOC: PAVLAB 12:39
PROVIDERS: PCP Internal Medicine; Referring Provider Internal Medicine; Visit Provider Internal Medicine
DX: I10 Essential (primary) hypertension (principal)
CPT/HCPCS: 36415; 80048; 82043; 82570